=== PATIENT | male | born 1965 | race American Indian/Alaskan Native ===

== ENCOUNTER 2020-05-13 16:09 | Inpatient (IN) | payer OTHER ==
--- NOTE | 2020-05-13 17:00 | Event Note ---
ED Screening Note Date of service: 05/13/20 Time: 16:58 ED Screening Note: C/o intermittent abdominal pain x 4 months and right 3rd toe pain x 2 weeks toe is discolored and black appearing diagnosed with colon cancer 1 week ago denies melena/hematochezia This initial assessment/diagnostic orders/clinical plan/treatment(s) is/are subject to change based on patients health status, clinical progression and re- assessment by fellow clinical providers in the ED. Further treatment and workup at subsequent clinical providers discretion. Patient/guardian urged not to elope from the ED as their condition may be serious if not clinically assessed and managed. Initial orders include: labs xr
[2020-05-13 17:12] LABS: Basophils # (Auto) 0.1 K/mm3 (0.0-0.1); Basophils % (Auto) 0.5 % (0.0-1.8); Eosinophils # (Auto) 0.1 K/mm3 (0.0-0.4); Eosinophils % (Auto) 0.3 % (0.0-4.3); Lymphocytes # (Auto) 1.9 K/mm3 (1.2-5.4); Lymphocytes % (Auto) 12.4 % (13.4-35.0); Mean Corpuscular HGB Conc 29 % (32-34); Mean Corpuscular Volume 75 fl (84-94); Monocytes # (Auto) 1.3 K/mm3 (0.0-0.8); Monocytes % (Auto) 8.4 % (0.0-7.3); Platelet Count 540 K/mm3 (140-440); Red Blood Count 3.99 M/mm3 (3.65-5.03)
[2020-05-13 17:13] LABS: Hemoglobin 8.8 gm/dl (11.8-15.2); Red Cell Distribution Width 20.2 % (13.2-15.2)
[2020-05-13 17:35] LABS: Alanine Aminotransferase 11 units/L (7-56); Albumin 2.5 g/dL (3.9-5); BUN/Creatinine Ratio 20; Blood Urea Nitrogen 16 mg/dL (9-20); Calcium 8.2 mg/dL (8.4-10.2); Hemolysis Index 1
--- NOTE | 2020-05-13 17:40 | XRay Report ---
RIGHT FOOT 3 VIEW(S) INDICATION / CLINICAL INFORMATION: pain, black 3rd digit COMPARISON: None available. FINDINGS: BONES / JOINT(S): No acute fracture or subluxation. Mild degenerative arthrosis first MTP joint. Mode rate degenerative arthrosis fourth and fifth DIP joints. SOFT TISSUES: No significant abnormality. ADDITIONAL FINDINGS: No soft tissue ulcer or radiographic evidence for osteomyelitis Signer Name: Hardeep Ozuna MD Signed: 05/13/2020 5:36 PM Workstation Name: [id number]
[2020-05-13 18:01] LABS: Bacteria,Urine 1+ /HPF (Negative); Bilirubin,Urine NEG (Negative); Blood,Urine NEG (Negative); Color,Urine Yellow (Yellow); Mucus,Urine FEW /HPF; Protein,Urine <15 mg/dL mg/dL (Negative)
[2020-05-13] MEDS ORDERED: PIPERACIL/TAZOBACTA 4.5/NS 100 4.5 GM/100 ML VIAL IV ONE (20:48)
[2020-05-13] MEDS ORDERED: VANCOMYCIN 1,750 MG in SODIUM CHLORIDE 0.9% 500 ML 500 ML IV ONE (20:48)
[2020-05-13] MEDS ORDERED: VANCOMYCIN PHARMACY TO DOSE IV SCH ×2 (21:00→23:45)
[2020-05-13] MEDS ORDERED: VANCOMYCIN 1,750 MG in SODIUM CHLORIDE 0.9% 500 ML 500 ML IV SCH (21:00)
--- NOTE | 2020-05-13 22:02 | Emergency Department Report ---
ED General Adult HPI - General Chief complaint: Abdominal Pain Stated complaint: ABD PAIN/RT FOOT PAIN/ CANCER PATIENT Time Seen by Provider: 05/13/20 16:57 Source: patient Mode of arrival: Ambulatory Limitations: No Limitations - History of Present Illness Initial comments: Patient is a 55-year-old F [place] male who was recently diagnosed with colon cancer approximately a week ago as a facility in [facility] who is complaining of some chronic abdominal pain as well as some pain to his right foot. Patient states his abdominal pain has been chronic over the last 3 to 4 months. This prompted the ER at [facility] that he was passing through to do a CT which showed that he does have lesions consistent with colon cancer. Patient also has metastasis to his lungs. Patient has not seen anyone for the colon cancer locally as of yet. He denies any hematuria hematochezia nausea vomiting or diarrhea. Patient also is complaining of pain to his right foot specifically the right middle toe. He has swelling his pain is there is been worsening over the last 3 to 4 weeks. Patient states he is not a diabetic. 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 - Related Data Allergies Allergy/AdvReac Type Severity Reaction Status Date / Time ibuprofen Allergy Hives Verified 05/13/20 16:53 ED Review of Systems ROS: Stated complaint: ABD PAIN/RT FOOT PAIN/ CANCER PATIENT Other details as noted in HPI Comment: All other systems reviewed and negative ED Past Medical Hx - Past Medical History Hx of Cancer: Yes (COLON) ED Physical Exam - General Limitations: No Limitations General appearance: alert, in no apparent distress - Head Head exam: Present: atraumatic, normocephalic - Eye Eye exam: Present: normal appearance - ENT ENT exam: Present: mucous membranes moist - Neck Neck exam: Present: normal inspection - Respiratory Respiratory exam: Present: normal lung sounds bilaterally. Absent: respiratory distress, wheezes, rales, rhonchi - Cardiovascular Cardiovascular Exam: Present: regular rate, normal rhythm, normal heart sounds. Absent: systolic murmur, diastolic murmur, rubs, gallop - GI/Abdominal GI/Abdominal exam: Present: soft, normal bowel sounds. Absent: distended, tenderness, guarding - Rectal Rectal exam: Present: deferred - Extremities Exam Extremities exam: Present: normal inspection, other (Patient with some hyperpigmentation and swelling to the right middle toe. The hyperpigmentation is consistent with dry gangrene.) - Back Exam Back exam: Present: normal inspection - Neurological Exam Neurological exam: Present: alert, oriented X3 - Psychiatric Psychiatric exam: Present: normal affect, normal mood - Skin Skin exam: Present: warm, dry, intact, normal color. Absent: rash ED Course Vital Signs 05/13/20 16:58 Temperature 98.9 F Pulse Rate 80 Respiratory 20 Rate Blood Pressure 126/79 O2 Sat by Pulse 100 Oximetry ED Medical Decision Making - Lab Data Result diagrams: 05/13/20 17:02 05/13/20 17:02 Lab Results 05/13/20 05/13/20 05/13/20 Range/Units 17:02 17:02 21:01 WBC 15.7 H (4.5-11.0) K/mm3 RBC 3.99 (3.65-5.03) M/mm3 Hgb 8.8 L (11.8-15.2) gm/dl Hct 30.0 L (35.5-45.6) % MCV 75 L (84-94) fl MCH 22 L (28-32) pg MCHC 29 L (32-34) % RDW 20.2 H (13.2-15.2) % Plt Count 540 H (140-440) K/mm3 Lymph % (Auto) 12.4 L (13.4-35.0) % Mobile % (Auto) 8.4 H (0.0-7.3) % Eos % (Auto) 0.3 (0.0-4.3) % Baso % (Auto) 0.5 (0.0-1.8) % Lymph # (Auto) 1.9 (1.2-5.4) K/mm3 Mobile # (Auto) 1.3 H (0.0-0.8) K/mm3 Eos # (Auto) 0.1 (0.0-0.4) K/mm3 Baso # (Auto) 0.1 (0.0-0.1) K/mm3 Seg Neutrophils % 78.4 H (40.0-70.0) % Seg Neutrophils # 12.3 H (1.8-7.7) K/mm3 Sodium 135 L (137-145) mmol/L Potassium 3.7 (3.6-5.0) mmol/L Chloride 101.8 (98-107) mmol/L Carbon Dioxide 23 (22-30) mmol/L Anion Gap 14 mmol/L BUN 16 (9-20) mg/dL Creatinine 0.8 (0.8-1.3) mg/dL Estimated GFR > 60 ml/min BUN/Creatinine Ratio 20 % Glucose 90 (75-100) mg/dL Lactic Acid 1.30 (0.7-2.0) mmol/L Calcium 8.2 L (8.4-10.2) mg/dL Total Bilirubin 0.30 (0.1-1.2) mg/dL AST 15 (5-40) units/L ALT 11 (7-56) units/L Alkaline Phosphatase 247 H (35-129) units/L Total Protein 7.0 (6.3-8.2) g/dL Albumin 2.5 L (3.9-5) g/dL Albumin/Globulin Ratio 0.6 % Lipase 33 (13-60) units/L Urine Color (Yellow) Urine Turbidity (Clear) Urine pH (5.0-7.0) Ur Specific [place] (1.003-1.030) Urine Protein (Negative) mg/dL Urine Glucose (UA) (Negative) mg/dL Urine Ketones (Negative) mg/dL Urine Blood (Negative) Urine Nitrite (Negative) Urine Bilirubin (Negative) Urine Urobilinogen (<2.0) mg/dL Ur Leukocyte Esterase (Negative) Urine WBC (Auto) (0.0-6.0) /HPF Urine RBC (Auto) (0.0-6.0) /HPF U Epithel Cells (Auto) (0-13.0) /HPF Urine Bacteria (Auto) (Negative) /HPF Urine Mucus /HPF 05/13/20 Range/Units Unknown WBC (4.5-11.0) K/mm3 RBC (3.65-5.03) M/mm3 Hgb (11.8-15.2) gm/dl Hct (35.5-45.6) % MCV (84-94) fl MCH (28-32) pg MCHC (32-34) % RDW (13.2-15.2) % Plt Count (140-440) K/mm3 Lymph % (Auto) (13.4-35.0) % Mobile % (Auto) (0.0-7.3) % Eos % (Auto) (0.0-4.3) % Baso % (Auto) (0.0-1.8) % Lymph # (Auto) (1.2-5.4) K/mm3 Mobile # (Auto) (0.0-0.8) K/mm3 Eos # (Auto) (0.0-0.4) K/mm3 Baso # (Auto) (0.0-0.1) K/mm3 Seg Neutrophils % (40.0-70.0) % Seg Neutrophils # (1.8-7.7) K/mm3 Sodium (137-145) mmol/L Potassium (3.6-5.0) mmol/L Chloride (98-107) mmol/L Carbon Dioxide (22-30) mmol/L Anion Gap mmol/L BUN (9-20) mg/dL Creatinine (0.8-1.3) mg/dL Estimated GFR ml/min BUN/Creatinine Ratio % Glucose (75-100) mg/dL Lactic Acid (0.7-2.0) mmol/L Calcium (8.4-10.2) mg/dL Total Bilirubin (0.1-1.2) mg/dL AST (5-40) units/L ALT (7-56) units/L Alkaline Phosphatase (35-129) units/L Total Protein (6.3-8.2) g/dL Albumin (3.9-5) g/dL Albumin/Globulin Ratio % Lipase (13-60) units/L Urine Color Yellow (Yellow) Urine Turbidity Slightly-cloudy (Clear) Urine pH 5.0 (5.0-7.0) Ur Specific [place] 1.021 (1.003-1.030) Urine Protein <15 mg/dl (Negative) mg/dL Urine Glucose (UA) Neg (Negative) mg/dL Urine Ketones Neg (Negative) mg/dL Urine Blood Neg (Negative) Urine Nitrite Neg (Negative) Urine Bilirubin Neg (Negative) Urine Urobilinogen 2.0 (<2.0) mg/dL Ur Leukocyte Esterase Tr (Negative) Urine WBC (Auto) 5.0 (0.0-6.0) /HPF Urine RBC (Auto) 5.0 (0.0-6.0) /HPF U Epithel Cells (Auto) 3.0 (0-13.0) /HPF Urine Bacteria (Auto) 1+ (Negative) /HPF Urine Mucus Few /HPF - Radiology Data Right foot x-ray shows no soft tissue swelling or evidence of osteomyelitis - Medical Decision Making Patient is a 55-year-old gentleman who is presenting with swelling pain in his right middle toe consistent with a tracking gangrene. Patient will be started on IV antibiotics and be admitted to the hospitalist service for further management. Patient may need amputation of this toe in order to save his foot. Regard to patient's abdominal pain he does have a CT report from his previous visits at outside hospital. Pain is consistent with pain he has had chronically over the last several months and no additional advanced imaging is necessary at this time. Critical care attestation.: If time is entered above; I have spent that time in minutes in the direct care of this critically ill patient, excluding procedure time. ED Disposition Clinical Impression: Gangrene of toe of right foot, Colon cancer metastasized to lung Disposition: [id number] OP ADMIT IP TO THIS HOSP Is pt being admited?: Yes Does the pt Need Aspirin: No Condition: Stable
[2020-05-13] MEDS ORDERED: MORPHINE 2 MG/1 ML INJ IV ONE (22:55)
[2020-05-13] MEDS ORDERED: MAGNESIUM HYDROXIDE (MOM) ORAL LIQD UDC PO PRN (23:06)
--- NOTE | 2020-05-13 23:22 | History and Physical Report ---
History of Present Illness Date of examination: 05/13/20 Date of admission: 05/13/20 22:02 Chief complaint: Abdominal pain Right middle toe pain/wound History of present illness: 85-year-old -[place] male who was recently diagnosed with colon cancer in [facility] about a week ago presenting to the emergency room today complaining of chronic abdominal pain and right foot pain. Abdominal pain has been ongoing for the past 3 to 4 months. He was recently in [facility] where he was evaluated in the hospital and diagnosed with lesions consistent with colon cancer on a CT scan. Was also said to have had metastases to his lungs. He has not had any follow-up with any oncologist or multi media specialist because of insurance issues. Patient also indicates that his older brother of colon cancer few years ago. He has not had any colonoscopy in the past. 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 Patient has been having pain in his right foot over the past few weeks. He denies any trauma to the foot and no recent fall. He denies any numbness. Patient denies any fever or chills, no chest pain or shortness of breath, no nausea vomiting, no headache or dizziness. Work-up in the emergency room today reveals a leukocytosis of 15.7. X-ray of the right foot did not reveal any osteomyelitis. Patient is being admitted with gangrene of the right middle toe in addition to his recently diagnosed colon cancer. Past History Past Medical History: other (Colon Ca.- recently diagnosed.) Past Surgical History: No surgical history Social history: no significant social history Family history: cancer (Older brother of colon ca.) Medications and Allergies Allergies Allergy/AdvReac Type Severity Reaction Status Date / Time ibuprofen Allergy Hives Verified 05/13/20 16:53 Home Medications Medication Instructions Recorded Confirmed Last Taken Type No Known Home Medications [No 05/14/20 05/14/20 Unknown History Reported Home Medications] Active Meds: Active Medications Acetaminophen (Acetaminophen 325 Mg Tab) 650 mg PO Q4H PRN PRN Reason: Pain MILD(1-3)/Fever >100.5/DOMINIQUE Vancomycin HCl 1,750 mg/ (Sodium Chloride) 535 mls @ 267.5 mls/hr IV Q12H [facility]; Protocol Last Admin: 05/13/20 23:15 Dose: 267.5 mls/hr Documented by: Sodium Chloride (Nacl 0.9% 1000 Ml) 1,000 mls @ 125 mls/hr IV DIRECT ALISTAIR Piperacillin Sod/Tazobactam Sod (Zosyn/Ns 4.5gm/100ml) 4.5 gm in 100 mls @ 200 mls/hr IV Q8HR ALISTAIR; Protocol Magnesium Hydroxide (Magnesium Hydroxide (Mom) Oral Liqd Udc) 30 ml PO Q4H PRN PRN Reason: Constipation Morphine Sulfate (Morphine 2 Mg/1 Ml Inj) 2 mg IV Q4H PRN PRN Reason: Pain, Moderate (4-6) Ondansetron HCl (Ondansetron 4 Mg/2 Ml Inj) 4 mg IV Q8H PRN PRN Reason: Nausea And Vomiting Sodium Chloride (Sodium Chloride 0.9% 10 Ml Flush Syringe) 10 ml IV BID ALISTAIR Sodium Chloride (Sodium Chloride 0.9% 10 Ml Flush Syringe) 10 ml IV PRN PRN PRN Reason: LINE FLUSH Review of Systems Constitutional: no fever, no chills Ears, nose, mouth and throat: no nasal congestion, no sore throat Cardiovascular: no chest pain, no palpitations Respiratory: no cough, no shortness of breath Gastrointestinal: abdominal pain, no nausea, no vomiting, no diarrhea Genitourinary Male: no dysuria, no hematuria, no flank pain, no nocturia Musculoskeletal: no neck pain, no low back pain Integumentary: no rash, no pruritis Neurological: no headaches, no confusion Psychiatric: no anxiety, no depression Exam - Constitutional Vitals: Temp Pulse Resp BP Pulse Ox 98.9 F 80 20 126/79 100 05/13/20 16:58 05/13/20 16:58 05/13/20 16:58 05/13/20 16:58 05/13/20 16:58 General appearance: Present: no acute distress, well-nourished - EENT Eyes: Present: PERRL, EOM intact. Absent: scleral icterus ENT: hearing intact, clear oral mucosa, dentition normal - Neck Neck: Present: supple, normal ROM - Respiratory Respiratory effort: normal Respiratory: bilateral: CTA - Cardiovascular Rhythm: regular Heart Sounds: Present: S1 & S2. Absent: gallop, systolic murmur, diastolic murmur, rub, click - Extremities Extremities: pulses intact, pulses symmetrical, No edema, normal temperature, Full ROM Extremity abnormal: black (Right middle toe wound,gangrenous ,tender), tenderness (Right middle toe.) Peripheral Pulses: within normal limits - Abdominal General gastrointestinal: Present: soft, tender, non-distended, normal bowel sounds, hernia (Mildly tender ventral hernia.) - Integumentary Integumentary: Present: clear, warm, dry. Absent: rash - Musculoskeletal Musculoskeletal: strength equal bilaterally - Psychiatric Psychiatric: appropriate mood/affect, intact judgment & insight, memory intact, cooperative - Neurologic Neurologic: CNII-XII intact, no focal deficits, moves all extremities Results - Labs CBC & Chem 7: 05/13/20 17:02 05/13/20 17:02 Labs: Abnormal lab results 05/13/20 05/13/20 Range/Units 17:02 17:02 WBC 15.7 H (4.5-11.0) K/mm3 Hgb 8.8 L (11.8-15.2) gm/dl Hct 30.0 L (35.5-45.6) % MCV 75 L (84-94) fl MCH 22 L (28-32) pg MCHC 29 L (32-34) % RDW 20.2 H (13.2-15.2) % Plt Count 540 H (140-440) K/mm3 Lymph % (Auto) 12.4 L (13.4-35.0) % [place] % (Auto) 8.4 H (0.0-7.3) % [place] # (Auto) 1.3 H (0.0-0.8) K/mm3 Seg Neutrophils % 78.4 H (40.0-70.0) % Seg Neutrophils # 12.3 H (1.8-7.7) K/mm3 Sodium 135 L (137-145) mmol/L Calcium 8.2 L (8.4-10.2) mg/dL Alkaline Phosphatase 247 H (35-129) units/L Albumin 2.5 L (3.9-5) g/dL Assessment and Plan - Patient Problems (1) Gangrene of toe of right foot Current Visit: Yes Status: Acute Plan to address problem: Patient placed on empiric IV antibiotics. Consult placed to infectious disease and vascular surgery for evaluation. (2) Colon cancer metastasized to lung Current Visit: Yes Status: Acute Plan to address problem: Patient was just recently diagnosed with colon cancer in [facility]. He has not had any follow-up with any physician. We will place consult to gastroenterology for evaluation. (3) DVT prophylaxis Current Visit: Yes Status: Acute Plan to address problem: Patient placed on sequential compression device. (4) Full code status Current Visit: Yes Status: Acute Plan to address problem: Patient is full code.
[2020-05-14] MEDS: SODIUM CHLORIDE 0.9% 1000 ML 1,000 ML IV SCH ×2 (02:04→10:40)
[2020-05-14] MEDS: PIPERACIL/TAZOBACTA 4.5/NS 100 4.5 GM/100 ML VIAL IV SCH ×2 (05:23→13:01)
[2020-05-14 08:28] LABS: Basophils # (Auto) 0.1 K/mm3 (0.0-0.1); Basophils % (Auto) 0.6 % (0.0-1.8); Eosinophils # (Auto) 0.1 K/mm3 (0.0-0.4); Eosinophils % (Auto) 0.5 % (0.0-4.3); Hematocrit 27.1 % (35.5-45.6); Hemoglobin 8.1 gm/dl (11.8-15.2); Lymphocytes # (Auto) 1.8 K/mm3 (1.2-5.4); Lymphocytes % (Auto) 12.8 % (13.4-35.0); Mean Corpuscular HGB Conc 30 % (32-34); Mean Corpuscular Volume 74 fl (84-94); Monocytes # (Auto) 1.5 K/mm3 (0.0-0.8); Monocytes % (Auto) 10.9 % (0.0-7.3); Platelet Count 469 K/mm3 (140-440); Red Blood Count 3.69 M/mm3 (3.65-5.03); Red Cell Distribution Width 19.9 % (13.2-15.2)
[2020-05-14 08:37] LABS: INR 1.09 (0.87-1.13)
[2020-05-14 08:48] LABS: BUN/Creatinine Ratio 13; Blood Urea Nitrogen 10 mg/dL (9-20); Calcium 7.9 mg/dL (8.4-10.2); Hemolysis Index 14
--- NOTE | 2020-05-14 08:57 | Progress Note ---
Assessment and Plan Assessment and plan: (1) Gangrene of toe of right foot Current Visit: Yes Status: Acute Plan to address problem: Patient placed on empiric IV antibiotics. Consult placed to infectious disease and vascular surgery for evaluation. (2) Colon cancer metastasized to lung Current Visit: Yes Status: Acute Plan to address problem: Patient was just recently diagnosed with colon cancer in [facility]. He has not had any follow-up with any physician. We will place consult to gastroenterology for evaluation. (3) DVT prophylaxis Current Visit: Yes Status: Acute Plan to address problem: Patient placed on sequential compression device. (4) Full code status Current Visit: Yes Status: Acute Plan to address problem: Patient is full code. 05/14/2020 -Patient is diagnosed with stage IV colon cancer metastasized to the lung recently. Patient went to [place] and discharged him to have follow-up at [facility] and patient presented here. Patient has colon mass and was able to do advance to colonoscopy at [facility] (per GI), patient may need surgical intervention and I put a consult for general surgery. I have discussed with GI and GI said nothing to add on his current management. Patient need to have follow-up with oncologist as an outpatient. Patient has gangrene of the right third toes and I ordered arterial Doppler, vascular surgery consulted. She has also leukocytosis and is on IV Vanco and Zosyn. History Interval history: Patient was seen and evaluated this morning Patient is complaining severe pain in the right third toes Hospitalist Physical - Physical exam Narrative exam: Not in cardiopulmonary distress. The patient appeared well nourished and normally developed. Vital signs as documented. Head exam is unremarkable. No scleral icterus . Neck is without jugular venous distension, thyromegaly, or carotid bruits. Lungs are clear to auscultation. Cardiac exam reveals regular rate and Rhythm. Abdominal exam reveals normal bowel sounds, nontender, no organomegaly. Extremities dark discoloration of the right third toes. BIOPHARMACEUTICAL REP: Alert and oriented 3. No focal weakness. - Constitutional Vitals: Temp Pulse Resp BP Pulse Ox 98.2 F 58 L 20 133/80 100 05/14/20 04:26 05/14/20 04:26 05/14/20 04:26 05/14/20 04:26 05/14/20 04:26 General appearance: Present: no acute distress, well-nourished Results - Labs CBC & Chem 7: 05/14/20 08:02 05/14/20 08:02 Labs: Laboratory Last Values WBC 14.0 K/mm3 (4.5-11.0) H 05/14/20 08:02 RBC 3.69 M/mm3 (3.65-5.03) 05/14/20 08:02 Hgb 8.1 gm/dl (11.8-15.2) L 05/14/20 08:02 Hct 27.1 % (35.5-45.6) L 05/14/20 08:02 MCV 74 fl (84-94) L 05/14/20 08:02 MCH 22 pg (28-32) L 05/14/20 08:02 MCHC 30 % (32-34) L 05/14/20 08:02 RDW 19.9 % (13.2-15.2) H 05/14/20 08:02 Plt Count 469 K/mm3 (140-440) H 05/14/20 08:02 Lymph % (Auto) 12.8 % (13.4-35.0) L 05/14/20 08:02 [place] % (Auto) 10.9 % (0.0-7.3) H 05/14/20 08:02 Eos % (Auto) 0.5 % (0.0-4.3) 05/14/20 08:02 Baso % (Auto) 0.6 % (0.0-1.8) 05/14/20 08:02 Lymph # (Auto) 1.8 K/mm3 (1.2-5.4) 05/14/20 08:02 [place] # (Auto) 1.5 K/mm3 (0.0-0.8) H 05/14/20 08:02 Eos # (Auto) 0.1 K/mm3 (0.0-0.4) 05/14/20 08:02 Baso # (Auto) 0.1 K/mm3 (0.0-0.1) 05/14/20 08:02 Seg Neutrophils % 75.2 % (40.0-70.0) H 05/14/20 08:02 Seg Neutrophils # 10.5 K/mm3 (1.8-7.7) H 05/14/20 08:02 PT 13.9 Sec. (12.2-14.9) 05/14/20 08:02 INR 1.09 (0.87-1.13) 05/14/20 08:02 Sodium 135 mmol/L (137-145) L 05/14/20 08:02 Potassium 3.8 mmol/L (3.6-5.0) 05/14/20 08:02 Chloride 103.6 mmol/L (98-107) 05/14/20 08:02 Carbon Dioxide 23 mmol/L (22-30) 05/14/20 08:02 Anion Gap 12 mmol/L 05/14/20 08:02 BUN 10 mg/dL (9-20) 05/14/20 08:02 Creatinine 0.8 mg/dL (0.8-1.3) 05/14/20 08:02 Estimated GFR > 60 ml/min 05/14/20 08:02 BUN/Creatinine Ratio 13 % 05/14/20 08:02 Glucose 83 mg/dL (75-100) 05/14/20 08:02 Lactic Acid 0.90 mmol/L (0.7-2.0) 05/14/20 08:02 Calcium 7.9 mg/dL (8.4-10.2) L 05/14/20 08:02 Total Bilirubin 0.30 mg/dL (0.1-1.2) 05/13/20 17:02 AST 15 units/L (5-40) 05/13/20 17:02 ALT 11 units/L (7-56) 05/13/20 17:02 Alkaline Phosphatase 247 units/L (35-129) H 05/13/20 17:02 Total Protein 7.0 g/dL (6.3-8.2) 05/13/20 17:02 Albumin 2.5 g/dL (3.9-5) L 05/13/20 17:02 Albumin/Globulin Ratio 0.6 % 05/13/20 17:02 Lipase 33 units/L (13-60) 05/13/20 17:02 Urine Color Yellow (Yellow) 05/13/20 Unknown Urine Turbidity Slightly-cloudy (Clear) 05/13/20 Unknown Urine pH 5.0 (5.0-7.0) 05/13/20 Unknown Ur Specific [place] 1.021 (1.003-1.030) 05/13/20 Unknown Urine Protein <15 mg/dl mg/dL (Negative) 05/13/20 Unknown Urine Glucose (UA) Neg mg/dL (Negative) 05/13/20 Unknown Urine Ketones Neg mg/dL (Negative) 05/13/20 Unknown Urine Blood Neg (Negative) 05/13/20 Unknown Urine Nitrite Neg (Negative) 05/13/20 Unknown Urine Bilirubin Neg (Negative) 05/13/20 Unknown Urine Urobilinogen 2.0 mg/dL (<2.0) 05/13/20 Unknown Ur Leukocyte Esterase Tr (Negative) 05/13/20 Unknown Urine WBC (Auto) 5.0 /HPF (0.0-6.0) 05/13/20 Unknown Urine RBC (Auto) 5.0 /HPF (0.0-6.0) 05/13/20 Unknown U Epithel Cells (Auto) 3.0 /HPF (0-13.0) 05/13/20 Unknown Urine Bacteria (Auto) 1+ /HPF (Negative) 05/13/20 Unknown Urine Mucus Few /HPF 05/13/20 Unknown Microbiology: Microbiology 05/13/20 21:08 Peripheral/Venous Blood Culture - Preliminary Culture in Progress 05/13/20 21:01 Peripheral/Venous Blood Culture - Preliminary Culture in Progress Mcrae/IV: Voiding Method Urinal Active Medications - Current Medications Current Medications: Generic Name Dose Route Start Last Admin Trade Name Freq PRN Reason Stop Dose Admin Acetaminophen 650 mg 05/13/20 23:06 Acetaminophen 325 Mg Tab PO Q4H PRN Pain MILD(1-3)/Fever >100.5/DOMINIQUE Sodium Chloride 1,000 mls @ 125 mls/hr 05/13/20 23:15 05/14/20 02:04 Nacl 0.9% 1000 Ml IV 125 mls/hr DIRECT ALISTAIR Administration Piperacillin Sod/Tazobactam Sod 4.5 gm in 100 mls @ 200 mls/hr 05/14/20 06:00 05/14/20 05:23 Zosyn/Ns 4.5gm/100ml IV 200 mls/hr Q8HR ALISTAIR Administration Protocol Vancomycin HCl 1,500 mg/ 530 mls @ 333.333 mls/hr 05/14/20 10:00 Sodium Chloride IV Q12H ALISTAIR Magnesium Hydroxide 30 ml 05/13/20 23:06 Magnesium Hydroxide (Mom) Oral Liqd Udc PO Q4H PRN Constipation Morphine Sulfate 2 mg 05/13/20 23:06 Morphine 2 Mg/1 Ml Inj IV Q4H PRN Pain, Moderate (4-6) Ondansetron HCl 4 mg 05/13/20 23:06 Ondansetron 4 Mg/2 Ml Inj IV Q8H PRN Nausea And Vomiting Sodium Chloride 10 ml 05/14/20 10:00 Sodium Chloride 0.9% 10 Ml Flush Syringe IV BID ALISTAIR Sodium Chloride 10 ml 05/13/20 23:06 Sodium Chloride 0.9% 10 Ml Flush Syringe IV PRN PRN LINE FLUSH
[2020-05-14] MEDS ORDERED: VANCOMYCIN 1,500 MG in SODIUM CHLORIDE 0.9% 500 ML 500 ML IV SCH (10:00)
--- NOTE | 2020-05-14 10:06 | Consultation ---
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 Colonoscopy showed fungating circumferential mass in mid transverse colon, near obstructing, and precluding scope passage. Pt has several month hx of intermittent abd pain and progressive easy fatigability, and the pain became severe while he was driving, leading him to go to hospital via EMS. BMs used to be qd, but over last few months have occurred 2x/d, loose. He has been losing weight. No lindsay GI bleed. Pt went to [facility] on 05/10/20, but states that he was advised to seek care here as he is a [facility] resident. Meds reviewed. Past History Past Medical History: No medical history, other Past Surgical History: No surgical history Social history: no significant social history, smoking. denies: alcohol abuse Family history: cancer (Older brother of colon ca.) Medications and Allergies Allergies Allergy/AdvReac Type Severity Reaction Status Date / Time ibuprofen Allergy Hives Verified 05/13/20 16:53 Home Medications Medication Instructions Recorded Confirmed Last Taken Type No Known Home Medications [No 05/14/20 05/14/20 Unknown History Reported Home Medications] Active Meds: Active Medications Acetaminophen (Acetaminophen 325 Mg Tab) 650 mg PO Q4H PRN PRN Reason: Pain MILD(1-3)/Fever >100.5/DOMINIQUE Sodium Chloride (Nacl 0.9% 1000 Ml) 1,000 mls @ 125 mls/hr IV DIRECT ALISTAIR Last Admin: 05/14/20 02:04 Dose: 125 mls/hr Documented by: Piperacillin Sod/Tazobactam Sod (Zosyn/Ns 4.5gm/100ml) 4.5 gm in 100 mls @ 200 mls/hr IV Q8HR ALISTAIR; Protocol Last Admin: 05/14/20 05:23 Dose: 200 mls/hr Documented by: Vancomycin HCl 1,500 mg/ (Sodium Chloride) 530 mls @ 333.333 mls/hr IV Q12H ALISTAIR Magnesium Hydroxide (Magnesium Hydroxide (Mom) Oral Liqd Udc) 30 ml PO Q4H PRN PRN Reason: Constipation Morphine Sulfate (Morphine 2 Mg/1 Ml Inj) 2 mg IV Q4H PRN PRN Reason: Pain, Moderate (4-6) Ondansetron HCl (Ondansetron 4 Mg/2 Ml Inj) 4 mg IV Q8H PRN PRN Reason: Nausea And Vomiting Sodium Chloride (Sodium Chloride 0.9% 10 Ml Flush Syringe) 10 ml IV BID ALISTAIR Sodium Chloride (Sodium Chloride 0.9% 10 Ml Flush Syringe) 10 ml IV PRN PRN PRN Reason: LINE FLUSH Review of Systems All systems: negative (as noted in HPI) Exam - Constitutional Vitals: Temp Pulse Resp BP Pulse Ox 98.2 F 58 L 20 133/80 100 05/14/20 04:26 05/14/20 04:26 05/14/20 04:26 05/14/20 04:26 05/14/20 04:26 General appearance: Present: no acute distress - EENT Eyes: Present: PERRL, EOM intact ENT: hearing intact - Neck Neck: Present: supple - Respiratory Respiratory effort: normal Respiratory: bilateral: CTA - Cardiovascular Rhythm: regular Heart Sounds: Present: S1 & S2 - Extremities Extremities: No edema - Abdominal General gastrointestinal: Present: soft, non-tender, mass (Palpable in mid epigastrium, ~ 5 cm in size, mobile) Results - Labs CBC & Chem 7: 05/14/20 08:02 05/14/20 08:02 Labs: Abnormal lab results 05/13/20 05/13/20 05/14/20 Range/Units 17:02 17:02 08:02 WBC 15.7 H 14.0 H (4.5-11.0) K/mm3 Hgb 8.8 L 8.1 L (11.8-15.2) gm/dl Hct 30.0 L 27.1 L (35.5-45.6) % MCV 75 L 74 L (84-94) fl MCH 22 L 22 L (28-32) pg MCHC 29 L 30 L (32-34) % RDW 20.2 H 19.9 H (13.2-15.2) % Plt Count 540 H 469 H (140-440) K/mm3 Lymph % (Auto) 12.4 L 12.8 L (13.4-35.0) % [place] % (Auto) 8.4 H 10.9 H (0.0-7.3) % [place] # (Auto) 1.3 H 1.5 H (0.0-0.8) K/mm3 Seg Neutrophils % 78.4 H 75.2 H (40.0-70.0) % Seg Neutrophils # 12.3 H 10.5 H (1.8-7.7) K/mm3 Sodium 135 L (137-145) mmol/L Calcium 8.2 L (8.4-10.2) mg/dL Alkaline Phosphatase 247 H (35-129) units/L Albumin 2.5 L (3.9-5) g/dL 05/14/20 Range/Units 08:02 WBC (4.5-11.0) K/mm3 Hgb (11.8-15.2) gm/dl Hct (35.5-45.6) % MCV (84-94) fl MCH (28-32) pg MCHC (32-34) % RDW (13.2-15.2) % Plt Count (140-440) K/mm3 Lymph % (Auto) (13.4-35.0) % [place] % (Auto) (0.0-7.3) % [place] # (Auto) (0.0-0.8) K/mm3 Seg Neutrophils % (40.0-70.0) % Seg Neutrophils # (1.8-7.7) K/mm3 Sodium 135 L (137-145) mmol/L Calcium 7.9 L (8.4-10.2) mg/dL Alkaline Phosphatase (35-129) units/L Albumin (3.9-5) g/dL Assessment and Plan 1. Near obstructing colon cancer with likely lung metastases - completely evaluated from GI perspective with EGD/Colon, CT, and even lung biopsy. - would get final pathology from [place] - recommend Surgical and Oncology evaluation No role for further GI evaluation. Will sign off. Thanks.
[2020-05-14] MEDS: MORPHINE 2 MG/1 ML INJ IV PRN ×2 (10:34→22:50)
--- NOTE | 2020-05-14 13:26 | Consultation ---
History of Present Illness - Reason for Consult Consult date: 05/14/20 Right foot gangrene - History of Present Illness Patient with a history of colon cancer and a 2-month history of worsening discoloration to the toes on his right foot. Today, the patient has dusky discoloration to his entire right third toe and partially involving his fourth and fifth toes. Patient has nonpalpable pedal pulses on the right. Palpable pedal pulses on the left. Patient has never been evaluated by vascular before. Past History Past Medical History: No medical history, other Past Surgical History: No surgical history Social history: no significant social history, smoking. denies: alcohol abuse Family history: cancer (Older brother of colon ca.) Medications and Allergies Allergies Allergy/AdvReac Type Severity Reaction Status Date / Time ibuprofen Allergy Hives Verified 05/13/20 16:53 Home Medications Medication Instructions Recorded Confirmed Last Taken Type No Known Home Medications [No 05/14/20 05/14/20 Unknown History Reported Home Medications] Active Meds: Active Medications Acetaminophen (Acetaminophen 325 Mg Tab) 650 mg PO Q4H PRN PRN Reason: Pain MILD(1-3)/Fever >100.5/DOMINIQUE Sodium Chloride (Nacl 0.9% 1000 Ml) 1,000 mls @ 125 mls/hr IV DIRECT ALISTAIR Last Admin: 05/14/20 10:40 Dose: 125 mls/hr Documented by: Piperacillin Sod/Tazobactam Sod (Zosyn/Ns 4.5gm/100ml) 4.5 gm in 100 mls @ 200 mls/hr IV Q8HR ALISTAIR; Protocol Last Admin: 05/14/20 13:01 Dose: 200 mls/hr Documented by: Vancomycin HCl 1,500 mg/ (Sodium Chloride) 530 mls @ 333.333 mls/hr IV Q12H ALISTAIR Last Admin: 05/14/20 10:43 Dose: 333.333 mls/hr Documented by: Magnesium Hydroxide (Magnesium Hydroxide (Mom) Oral Liqd Udc) 30 ml PO Q4H PRN PRN Reason: Constipation Morphine Sulfate (Morphine 2 Mg/1 Ml Inj) 2 mg IV Q4H PRN PRN Reason: Pain, Moderate (4-6) Last Admin: 05/14/20 10:34 Dose: 2 mg Documented by: Ondansetron HCl (Ondansetron 4 Mg/2 Ml Inj) 4 mg IV Q8H PRN PRN Reason: Nausea And Vomiting Sodium Chloride (Sodium Chloride 0.9% 10 Ml Flush Syringe) 10 ml IV BID ALISTAIR Last Admin: 05/14/20 10:43 Dose: 10 ml Documented by: Sodium Chloride (Sodium Chloride 0.9% 10 Ml Flush Syringe) 10 ml IV PRN PRN PRN Reason: LINE FLUSH Review of Systems All systems: negative Exam - Constitutional Vitals: Temp Pulse Resp BP Pulse Ox 98.2 F 58 L 20 133/80 100 05/14/20 04:26 05/14/20 04:26 05/14/20 04:26 05/14/20 04:26 05/14/20 04:26 General appearance: Present: no acute distress - EENT Eyes: Present: PERRL ENT: hearing intact - Neck Neck: Present: supple, normal ROM - Respiratory Respiratory effort: normal - Extremities Extremities: abnormal - Abdominal General gastrointestinal: Present: deferred Male genitourinary: Present: deferred - Rectal Rectal Exam: deferred - Psychiatric Psychiatric: appropriate mood/affect, cooperative - Neurologic Neurologic: no focal deficits Results - Labs CBC & Chem 7: 05/14/20 08:02 05/14/20 08:02 Labs: Abnormal lab results 05/13/20 05/13/20 05/14/20 Range/Units 17:02 17:02 08:02 WBC 15.7 H 14.0 H (4.5-11.0) K/mm3 Hgb 8.8 L 8.1 L (11.8-15.2) gm/dl Hct 30.0 L 27.1 L (35.5-45.6) % MCV 75 L 74 L (84-94) fl MCH 22 L 22 L (28-32) pg MCHC 29 L 30 L (32-34) % RDW 20.2 H 19.9 H (13.2-15.2) % Plt Count 540 H 469 H (140-440) K/mm3 Lymph % (Auto) 12.4 L 12.8 L (13.4-35.0) % [place] % (Auto) 8.4 H 10.9 H (0.0-7.3) % [place] # (Auto) 1.3 H 1.5 H (0.0-0.8) K/mm3 Seg Neutrophils % 78.4 H 75.2 H (40.0-70.0) % Seg Neutrophils # 12.3 H 10.5 H (1.8-7.7) K/mm3 Sodium 135 L (137-145) mmol/L Calcium 8.2 L (8.4-10.2) mg/dL Alkaline Phosphatase 247 H (35-129) units/L Albumin 2.5 L (3.9-5) g/dL 05/14/20 Range/Units 08:02 WBC (4.5-11.0) K/mm3 Hgb (11.8-15.2) gm/dl Hct (35.5-45.6) % MCV (84-94) fl MCH (28-32) pg MCHC (32-34) % RDW (13.2-15.2) % Plt Count (140-440) K/mm3 Lymph % (Auto) (13.4-35.0) % [place] % (Auto) (0.0-7.3) % [place] # (Auto) (0.0-0.8) K/mm3 Seg Neutrophils % (40.0-70.0) % Seg Neutrophils # (1.8-7.7) K/mm3 Sodium 135 L (137-145) mmol/L Calcium 7.9 L (8.4-10.2) mg/dL Alkaline Phosphatase (35-129) units/L Albumin (3.9-5) g/dL Assessment and Plan Patient patient with a history of peripheral vascular disease with early gangrenous changes to the third fourth and fifth digits on his right foot. The patient will need to be evaluated with arterial duplex with ABIs and ultimately undergo revascularization of his right leg.
--- NOTE | 2020-05-14 14:51 | Consultation ---
History of Present Illness - Reason for Consult Consult date: 05/14/20 R foot gangrene Requesting physician: SAQIB SANCHEZ - History of Present Illness The patient is a 55-year-old male who was recently diagnosed with metastatic colon cancer came to the emergency room yesterday with complaints of abdominal pain and right foot pain with discoloration of his toes. He has otherwise been afebrile, evaluation so far included an x-ray of the foot which did not reveal any osseous abnormalities. He is an active smoker. ID was consulted due to gangrene of right foot. Review of Systems: General: no fevers,chills or rigors HEENT: no new visual disturbance Respiratory: No cough, sputum, hemoptysis or shortness of breath Cardiovascular: No chest pain, syncope Gastrointestinal: No nausea, vomiting or diarrhea Genitourinary: No dysuria or hematuria Musculoskeletal: No new or worsening neck pain or back pain Neurologic: No headaches, seizures Hematologic: No easy bruising or bleeding Endocrine: No night sweats or acute weight loss Skin: negative for rash, jaundice Psychiatric: No suicidal or homicidal ideation Past History Past Medical History: No medical history, other Past Surgical History: No surgical history Social history: no significant social history, smoking. denies: alcohol abuse Family history: cancer (Older brother of colon ca.) Medications and Allergies Allergies Allergy/AdvReac Type Severity Reaction Status Date / Time ibuprofen Allergy Hives Verified 05/13/20 16:53 Home Medications Medication Instructions Recorded Confirmed Last Taken Type No Known Home Medications [No 05/14/20 05/14/20 Unknown History Reported Home Medications] Active Meds: Active Medications Acetaminophen (Acetaminophen 325 Mg Tab) 650 mg PO Q4H PRN PRN Reason: Pain MILD(1-3)/Fever >100.5/DOMINIQUE Sodium Chloride (Nacl 0.9% 1000 Ml) 1,000 mls @ 125 mls/hr IV DIRECT ALISTAIR Last Admin: 05/14/20 10:40 Dose: 125 mls/hr Documented by: Piperacillin Sod/Tazobactam Sod (Zosyn/Ns 4.5gm/100ml) 4.5 gm in 100 mls @ 200 mls/hr IV Q8HR ALISTAIR; Protocol Last Admin: 05/14/20 13:01 Dose: 200 mls/hr Documented by: Vancomycin HCl 1,500 mg/ (Sodium Chloride) 530 mls @ 333.333 mls/hr IV Q12H [facility] Last Admin: 05/14/20 10:43 Dose: 333.333 mls/hr Documented by: Magnesium Hydroxide (Magnesium Hydroxide (Mom) Oral Liqd Udc) 30 ml PO Q4H PRN PRN Reason: Constipation Morphine Sulfate (Morphine 2 Mg/1 Ml Inj) 2 mg IV Q4H PRN PRN Reason: Pain, Moderate (4-6) Last Admin: 05/14/20 10:34 Dose: 2 mg Documented by: Ondansetron HCl (Ondansetron 4 Mg/2 Ml Inj) 4 mg IV Q8H PRN PRN Reason: Nausea And Vomiting Sodium Chloride (Sodium Chloride 0.9% 10 Ml Flush Syringe) 10 ml IV BID [facility] Last Admin: 05/14/20 10:43 Dose: 10 ml Documented by: Sodium Chloride (Sodium Chloride 0.9% 10 Ml Flush Syringe) 10 ml IV PRN PRN PRN Reason: LINE FLUSH Physical Examination - Physical Exam Narrative exam: Physical Exam: Constitutional: Alert, cooperative. No acute distress Head, Ears, Nose: Normocephalic, atraumatic. External ears, nose normal Eyes: Conjunctivae/corneas clear. No icterus. No ptosis. Neck: Supple, no meningeal signs Cardiovascular: S1, S2 normal. Respiratory: Good air entry, clear to auscultation bilaterally GI: Soft, non-tender; bowel sounds normal. No peritoneal signs Musculoskeletal: Right foot toes with slight darkening, no open wound, no areas of cellulitis or drainage Skin: No rash or abscess Hem/Lymphatic: No palpable cervical or supraclavicular nodes. No lymphangitis Psych: Mood ok. Affect normal Neurological: Awake, alert, oriented. No gross abnormality - Constitutional Vitals: Vital Signs Temp Pulse Resp BP Pulse Ox 99.0 F 56 L 20 120/70 100 05/14/20 12:54 05/14/20 12:54 05/14/20 12:54 05/14/20 12:54 05/14/20 12:54 Temperature -Last 24 Hours Temperature 99.0 F Temperature 98.2 F Temperature 98.7 F Temperature 98.9 F Results - Labs CBC & Chem 7: 05/14/20 08:02 05/14/20 08:02 Labs: Abnormal lab results 05/13/20 05/13/20 05/14/20 Range/Units 17:02 17:02 08:02 WBC 15.7 H 14.0 H (4.5-11.0) K/mm3 Hgb 8.8 L 8.1 L (11.8-15.2) gm/dl Hct 30.0 L 27.1 L (35.5-45.6) % MCV 75 L 74 L (84-94) fl MCH 22 L 22 L (28-32) pg MCHC 29 L 30 L (32-34) % RDW 20.2 H 19.9 H (13.2-15.2) % Plt Count 540 H 469 H (140-440) K/mm3 Lymph % (Auto) 12.4 L 12.8 L (13.4-35.0) % [place] % (Auto) 8.4 H 10.9 H (0.0-7.3) % [place] # (Auto) 1.3 H 1.5 H (0.0-0.8) K/mm3 Seg Neutrophils % 78.4 H 75.2 H (40.0-70.0) % Seg Neutrophils # 12.3 H 10.5 H (1.8-7.7) K/mm3 Sodium 135 L (137-145) mmol/L Calcium 8.2 L (8.4-10.2) mg/dL Alkaline Phosphatase 247 H (35-129) units/L Albumin 2.5 L (3.9-5) g/dL 05/14/20 Range/Units 08:02 WBC (4.5-11.0) K/mm3 Hgb (11.8-15.2) gm/dl Hct (35.5-45.6) % MCV (84-94) fl MCH (28-32) pg MCHC (32-34) % RDW (13.2-15.2) % Plt Count (140-440) K/mm3 Lymph % (Auto) (13.4-35.0) % [place] % (Auto) (0.0-7.3) % [place] # (Auto) (0.0-0.8) K/mm3 Seg Neutrophils % (40.0-70.0) % Seg Neutrophils # (1.8-7.7) K/mm3 Sodium 135 L (137-145) mmol/L Calcium 7.9 L (8.4-10.2) mg/dL Alkaline Phosphatase (35-129) units/L Albumin (3.9-5) g/dL Assessment and Plan Cultures: 05/13/2020 blood culture: In process A/P: 55-year-old male who was recently diagnosed with metastatic colon cancer came to the emergency room yesterday with complaints of abdominal pain and right foot pain: #Right foot gangrene: Due to vascular insufficiency. No evidence of cellulitis, no ulceration or drainage. X-ray without underlying osseous abnormalities. No role for antibiotics at this time. #Metastatic colon cancer #Leucocytosis and thrombocytosis: could be from tissue ischemia due to gangrene or metastatic colon cancer Recs: -Antibiotics discontinued -Leukocytosis could be from tissue ischemia due to gangrene or metastatic colon cancer -Re-vascularization per vascular team ID will sign off. Please call with questions. Raquel Jesus MD, FACP [facility] ([facility] O: [phone] F: [phone]
--- NOTE | 2020-05-14 16:20 | Consultation ---
History of Present Illness Consult date: 05/14/20 Reason for consult: abdominal pain - History of present illness History of present illness: 55 yo male with episodic abdominal pain and near obstructing adenoca of the mid- transverse colon. See Dr. Shetty's note for detail of eval thus far. Past History Past Medical History: No medical history Past Surgical History: No surgical history Social history: no significant social history, smoking. denies: alcohol abuse Family history: cancer (Older brother of colon ca.) Medications and Allergies Allergies Allergy/AdvReac Type Severity Reaction Status Date / Time ibuprofen Allergy Hives Verified 05/13/20 16:53 Home Medications Medication Instructions Recorded Confirmed Last Taken Type No Known Home Medications [No 05/14/20 05/14/20 Unknown History Reported Home Medications] Active Meds: Active Medications Acetaminophen (Acetaminophen 325 Mg Tab) 650 mg PO Q4H PRN PRN Reason: Pain MILD(1-3)/Fever >100.5/DOMINIQUE Sodium Chloride (Nacl 0.9% 1000 Ml) 1,000 mls @ 125 mls/hr IV DIRECT ALISTAIR Last Admin: 05/14/20 10:40 Dose: 125 mls/hr Documented by: Magnesium Hydroxide (Magnesium Hydroxide (Mom) Oral Liqd Udc) 30 ml PO Q4H PRN PRN Reason: Constipation Morphine Sulfate (Morphine 2 Mg/1 Ml Inj) 2 mg IV Q4H PRN PRN Reason: Pain, Moderate (4-6) Last Admin: 05/14/20 10:34 Dose: 2 mg Documented by: Ondansetron HCl (Ondansetron 4 Mg/2 Ml Inj) 4 mg IV Q8H PRN PRN Reason: Nausea And Vomiting Sodium Chloride (Sodium Chloride 0.9% 10 Ml Flush Syringe) 10 ml IV BID ALISTAIR Last Admin: 05/14/20 10:43 Dose: 10 ml Documented by: Sodium Chloride (Sodium Chloride 0.9% 10 Ml Flush Syringe) 10 ml IV PRN PRN PRN Reason: LINE FLUSH Review of Systems All systems: negative (none) Exam Vital Signs Temp Pulse Resp BP Pulse Ox 98.9 F 80 20 126/79 100 05/13/20 16:58 05/13/20 16:58 05/13/20 16:58 05/13/20 16:58 05/13/20 16:58 - General physical appearance Positive: well developed, well nourished, no distress - Eyes Positive: PERRL, normal occular movement - ENT Positive: normal pinna, normal nares, normal mucosa, no hearing loss, no congestion - Neck Positive: no masses, no bruits, trachea midline, no venous distension - Respiratory Positive: normal expansion, normal respiratory effort, clear to auscultation - Cardiovascular Rhythm: regular Heart Sounds: Present: S1 & S2. Absent: rub, click - Extremities Extremities: no ischemia, pulses symmetrical, No edema - Breasts Breasts: normal, no mass, no skin changes - Abdomen Abdomen: Present: soft, bowel sounds normal, other (3 cm incarcerated umbilical hernia). Absent: tender, distended Hernia: none - Genitourinary Male Genitourinary: normal Female Genitourinary: normal - Integumentary no rash, no growths, no abnormal pigmentation - Neurologic Neurologic: alert and oriented to time, place and person, motor strength and sensation are grossly intact - Musculoskeletal normal gait, normal posture - Psychiatric Psychiatric: appropriate mood/affect, intact judgment & insight Results - Labs 05/14/20 08:02 05/14/20 08:02 Abnormal lab results 05/13/20 05/13/20 05/14/20 Range/Units 17:02 17:02 08:02 WBC 15.7 H 14.0 H (4.5-11.0) K/mm3 Hgb 8.8 L 8.1 L (11.8-15.2) gm/dl Hct 30.0 L 27.1 L (35.5-45.6) % MCV 75 L 74 L (84-94) fl MCH 22 L 22 L (28-32) pg MCHC 29 L 30 L (32-34) % RDW 20.2 H 19.9 H (13.2-15.2) % Plt Count 540 H 469 H (140-440) K/mm3 Lymph % (Auto) 12.4 L 12.8 L (13.4-35.0) % [place] % (Auto) 8.4 H 10.9 H (0.0-7.3) % [place] # (Auto) 1.3 H 1.5 H (0.0-0.8) K/mm3 Seg Neutrophils % 78.4 H 75.2 H (40.0-70.0) % Seg Neutrophils # 12.3 H 10.5 H (1.8-7.7) K/mm3 Sodium 135 L (137-145) mmol/L Calcium 8.2 L (8.4-10.2) mg/dL Alkaline Phosphatase 247 H (35-129) units/L Albumin 2.5 L (3.9-5) g/dL 05/14/20 Range/Units 08:02 WBC (4.5-11.0) K/mm3 Hgb (11.8-15.2) gm/dl Hct (35.5-45.6) % MCV (84-94) fl MCH (28-32) pg MCHC (32-34) % RDW (13.2-15.2) % Plt Count (140-440) K/mm3 Lymph % (Auto) (13.4-35.0) % [place] % (Auto) (0.0-7.3) % [place] # (Auto) (0.0-0.8) K/mm3 Seg Neutrophils % (40.0-70.0) % Seg Neutrophils # (1.8-7.7) K/mm3 Sodium 135 L (137-145) mmol/L Calcium 7.9 L (8.4-10.2) mg/dL Alkaline Phosphatase (35-129) units/L Albumin (3.9-5) g/dL Diabetes panel 05/13/20 05/14/20 Range/Units 17:02 08:02 Sodium 135 L 135 L (137-145) mmol/L Potassium 3.7 3.8 (3.6-5.0) mmol/L Chloride 101.8 103.6 (98-107) mmol/L Carbon Dioxide 23 23 (22-30) mmol/L BUN 16 10 (9-20) mg/dL Creatinine 0.8 0.8 (0.8-1.3) mg/dL Glucose 90 83 (75-100) mg/dL Calcium 8.2 L 7.9 L (8.4-10.2) mg/dL AST 15 (5-40) units/L ALT 11 (7-56) units/L Alkaline Phosphatase 247 H (35-129) units/L Total Protein 7.0 (6.3-8.2) g/dL Albumin 2.5 L (3.9-5) g/dL Calcium panel 05/13/20 05/14/20 Range/Units 17:02 08:02 Calcium 8.2 L 7.9 L (8.4-10.2) mg/dL Albumin 2.5 L (3.9-5) g/dL Pituitary panel 05/13/20 05/14/20 Range/Units 17:02 08:02 Sodium 135 L 135 L (137-145) mmol/L Potassium 3.7 3.8 (3.6-5.0) mmol/L Chloride 101.8 103.6 (98-107) mmol/L Carbon Dioxide 23 23 (22-30) mmol/L BUN 16 10 (9-20) mg/dL Creatinine 0.8 0.8 (0.8-1.3) mg/dL Glucose 90 83 (75-100) mg/dL Calcium 8.2 L 7.9 L (8.4-10.2) mg/dL Adrenal panel 05/13/20 05/14/20 Range/Units 17:02 08:02 Sodium 135 L 135 L (137-145) mmol/L Potassium 3.7 3.8 (3.6-5.0) mmol/L Chloride 101.8 103.6 (98-107) mmol/L Carbon Dioxide 23 23 (22-30) mmol/L BUN 16 10 (9-20) mg/dL Creatinine 0.8 0.8 (0.8-1.3) mg/dL Glucose 90 83 (75-100) mg/dL Calcium 8.2 L 7.9 L (8.4-10.2) mg/dL Total Bilirubin 0.30 (0.1-1.2) mg/dL AST 15 (5-40) units/L ALT 11 (7-56) units/L Alkaline Phosphatase 247 H (35-129) units/L Total Protein 7.0 (6.3-8.2) g/dL Albumin 2.5 L (3.9-5) g/dL Assessment and Plan - Patient Problems (1) Colon cancer metastasized to lung Current Visit: Yes Status: Acute Plan to address problem: 1) CT of abdomen and pelvis with contrast 2) CEA 3) Clear liquid diet 4) Evaluation of RLE ischemia per vascular 5) Please obtain colonoscopy report and pathology reports (colon and lung) from [facility].
--- NOTE | 2020-05-14 16:26 | Vascular Lab Report ---
DUPLEX DOPPLER LOWER EXTREMITY ARTERIAL, BILATERAL INDICATION: Right lower extremity gangrene. TECHNIQUE: Arterial duplex examination of both lower extremities performed using B-mode, color flow and spectral Doppler assessment. FINDINGS: RIGHT: Common Femoral Artery: PSV 75 cm/sec. Biphasic waveform. Proximal SFA: PSV 78 cm/sec. Biphasic waveform. Mid SFA: PSV 53 cm/sec. Biphasic waveform. Distal SFA: PSV 28 cm/sec. Biphasic waveform. Popliteal artery: PSV 57 cm/sec. Biphasic waveform. Posterior tibial artery: PSV 23 cm/sec. Biphasic waveform. Dorsalis Pedis Artery: PSV 39 cm/sec. Biphasic waveform. LEFT: Common Femoral Artery: PSV 87 cm/sec. Biphasic waveform. Proximal SFA: PSV 99 cm/sec. Biphasic waveform. Mid SFA: PSV 140 cm/sec. Biphasic waveform. Distal SFA: PSV 128 cm/sec. Biphasic waveform. Popliteal artery: PSV 89 cm/sec. Biphasic waveform. Posterior tibial artery: PSV 34 cm/sec. Biphasic waveform. Dorsalis Pedis Artery: PSV 50 cm/sec. Biphasic waveform. Right DORA: 0.63. Left DORA: 1.22. IMPRESSION: 1. Decreased peak systolic velocity along the distal right SFA, concerning for a stenosis located ups tream along the SFA. 2. Right DORA of 0.63, indicating moderate PAD. 3. No sonographic evidence of hemodynamically significant peripheral artery disease along the left lo wer extremity. Ankle-Brachial Index (DORA): * Calcified arteries > 1.4 * Normal = 0.9-1.4 * Mild PAD = 0.7-0.89 * Moderate PAD = 0.51-0.69 * Severe PAD < 0.5 Doppler Waveform: * Triphasic is normal. * Biphasic is abnormal if clear transition from triphasic signal along vascular tree. * Monophasic is abnormal. Signer Name: Rigo Kumar MD Signed: 05/14/2020 4:22 PM Workstation Name: [employer]
[2020-05-15] MEDS: SODIUM CHLORIDE 0.9% 1000 ML 1,000 ML IV SCH (00:59)
[2020-05-15 06:08] LABS: Basophils # (Auto) 0.2 K/mm3 (0.0-0.1); Basophils % (Auto) 1.1 % (0.0-1.8); Eosinophils # (Auto) 0.1 K/mm3 (0.0-0.4); Eosinophils % (Auto) 0.6 % (0.0-4.3); Hematocrit 26.2 % (35.5-45.6); Hemoglobin 7.7 gm/dl (11.8-15.2); Lymphocytes # (Auto) 1.8 K/mm3 (1.2-5.4); Lymphocytes % (Auto) 12.4 % (13.4-35.0); Mean Corpuscular HGB Conc 29 % (32-34); Mean Corpuscular Volume 75 fl (84-94); Monocytes # (Auto) 1.5 K/mm3 (0.0-0.8); Platelet Count 466 K/mm3 (140-440); Red Blood Count 3.52 M/mm3 (3.65-5.03); Red Cell Distribution Width 19.9 % (13.2-15.2)
[2020-05-15 06:10] LABS: BUN/Creatinine Ratio 11; Blood Urea Nitrogen 9 mg/dL (9-20); Calcium 7.7 mg/dL (8.4-10.2); Hemolysis Index 1
--- NOTE | 2020-05-15 08:51 | Progress Note ---
Assessment and Plan Assessment and plan: (1) Gangrene of toe of right foot Current Visit: Yes Status: Acute Plan to address problem: Patient placed on empiric IV antibiotics. Consult placed to infectious disease and vascular surgery for evaluation. (2) Colon cancer metastasized to lung Current Visit: Yes Status: Acute Plan to address problem: Patient was just recently diagnosed with colon cancer in [facility]. He has not had any follow-up with any physician. We will place consult to gastroenterology for evaluation. (3) DVT prophylaxis Current Visit: Yes Status: Acute Plan to address problem: Patient placed on sequential compression device. (4) Full code status Current Visit: Yes Status: Acute Plan to address problem: Patient is full code. 05/14/2020 -Patient is diagnosed with stage IV colon cancer metastasized to the lung recently. Patient went to [facility] and discharged him to have follow-up at [facility] and patient presented here. Patient has colon mass and was able to do advance to colonoscopy at [facility] (per GI), patient may need surgical intervention and I put a consult for general surgery. I have discussed with GI and GI said nothing to add on his current management. Patient need to have follow-up with oncologist as an outpatient. Patient has gangrene of the right third toes and I ordered arterial Doppler, vascular surgery consulted. She has also leukocytosis and is on IV Vanco and Zosyn. 05/15/2020 -Patient was seen by general surgery and recommend CT abdomen and pelvis, will get records from [facility] colonoscopy and pathology reports. Discussed with the nurse to get records. Evaluated by ID and recommend no antibiotics at this time. Evaluated by GI and no further work-up needed from GI point of view. Patient was evaluated by scleral surgery and arterial Doppler was done and significant for moderate peripheral arterial disease in the right lower extremity and will do revascularization. History Interval history: Patient was seen and evaluated this morning Patient is complaining severe pain in the right third toes Hospitalist Physical - Physical exam Narrative exam: Not in cardiopulmonary distress. The patient appeared well nourished and normally developed. Vital signs as documented. Head exam is unremarkable. No scleral icterus . Neck is without jugular venous distension, thyromegaly, or carotid bruits. Lungs are clear to auscultation. Cardiac exam reveals regular rate and Rhythm. Abdominal exam reveals normal bowel sounds, nontender, no organomegaly. Extremities dark discoloration of the right third toes. 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 No focal weakness. - Constitutional Vitals: Temp Pulse Resp BP Pulse Ox 98.3 F 49 L 20 134/61 100 05/15/20 05:07 05/15/20 05:07 05/15/20 05:07 05/15/20 05:07 05/15/20 05:07 General appearance: Present: no acute distress Results - Labs CBC & Chem 7: 05/15/20 05:02 05/15/20 05:02 Labs: Laboratory Last Values WBC 14.7 K/mm3 (4.5-11.0) H 05/15/20 05:02 RBC 3.52 M/mm3 (3.65-5.03) L 05/15/20 05:02 Hgb 7.7 gm/dl (11.8-15.2) L 05/15/20 05:02 Hct 26.2 % (35.5-45.6) L 05/15/20 05:02 MCV 75 fl (84-94) L 05/15/20 05:02 MCH 22 pg (28-32) L 05/15/20 05:02 MCHC 29 % (32-34) L 05/15/20 05:02 RDW 19.9 % (13.2-15.2) H 05/15/20 05:02 Plt Count 466 K/mm3 (140-440) H 05/15/20 05:02 Lymph % (Auto) 12.4 % (13.4-35.0) L 05/15/20 05:02 [place] % (Auto) 10.0 % (0.0-7.3) H 05/15/20 05:02 Eos % (Auto) 0.6 % (0.0-4.3) 05/15/20 05:02 Baso % (Auto) 1.1 % (0.0-1.8) 05/15/20 05:02 Lymph # (Auto) 1.8 K/mm3 (1.2-5.4) 05/15/20 05:02 [place] # (Auto) 1.5 K/mm3 (0.0-0.8) H 05/15/20 05:02 Eos # (Auto) 0.1 K/mm3 (0.0-0.4) 05/15/20 05:02 Baso # (Auto) 0.2 K/mm3 (0.0-0.1) H 05/15/20 05:02 Seg Neutrophils % 75.9 % (40.0-70.0) H 05/15/20 05:02 Seg Neutrophils # 11.2 K/mm3 (1.8-7.7) H 05/15/20 05:02 PT 13.9 Sec. (12.2-14.9) 05/14/20 08:02 INR 1.09 (0.87-1.13) 05/14/20 08:02 Sodium 138 mmol/L (137-145) 05/15/20 05:02 Potassium 4.0 mmol/L (3.6-5.0) 05/15/20 05:02 Chloride 109.4 mmol/L (98-107) H 05/15/20 05:02 Carbon Dioxide 22 mmol/L (22-30) 05/15/20 05:02 Anion Gap 11 mmol/L 05/15/20 05:02 BUN 9 mg/dL (9-20) 05/15/20 05:02 Creatinine 0.8 mg/dL (0.8-1.3) 05/15/20 05:02 Estimated GFR > 60 ml/min 05/15/20 05:02 BUN/Creatinine Ratio 11 % 05/15/20 05:02 Glucose 77 mg/dL (75-100) 05/15/20 05:02 Lactic Acid 0.90 mmol/L (0.7-2.0) 05/14/20 08:02 Calcium 7.7 mg/dL (8.4-10.2) L 05/15/20 05:02 Total Bilirubin 0.30 mg/dL (0.1-1.2) 05/13/20 17:02 AST 15 units/L (5-40) 05/13/20 17:02 ALT 11 units/L (7-56) 05/13/20 17:02 Alkaline Phosphatase 247 units/L (35-129) H 05/13/20 17:02 Total Protein 7.0 g/dL (6.3-8.2) 05/13/20 17:02 Albumin 2.5 g/dL (3.9-5) L 05/13/20 17:02 Albumin/Globulin Ratio 0.6 % 05/13/20 17:02 Lipase 33 units/L (13-60) 05/13/20 17:02 Urine Color Yellow (Yellow) 05/13/20 Unknown Urine Turbidity Slightly-cloudy (Clear) 05/13/20 Unknown Urine pH 5.0 (5.0-7.0) 05/13/20 Unknown Ur Specific Max 1.021 (1.003-1.030) 05/13/20 Unknown Urine Protein <15 mg/dl mg/dL (Negative) 05/13/20 Unknown Urine Glucose (UA) Neg mg/dL (Negative) 05/13/20 Unknown Urine Ketones Neg mg/dL (Negative) 05/13/20 Unknown Urine Blood Neg (Negative) 05/13/20 Unknown Urine Nitrite Neg (Negative) 05/13/20 Unknown Urine Bilirubin Neg (Negative) 05/13/20 Unknown Urine Urobilinogen 2.0 mg/dL (<2.0) 05/13/20 Unknown Ur Leukocyte Esterase Tr (Negative) 05/13/20 Unknown Urine WBC (Auto) 5.0 /HPF (0.0-6.0) 05/13/20 Unknown Urine RBC (Auto) 5.0 /HPF (0.0-6.0) 05/13/20 Unknown U Epithel Cells (Auto) 3.0 /HPF (0-13.0) 05/13/20 Unknown Urine Bacteria (Auto) 1+ /HPF (Negative) 05/13/20 Unknown Urine Mucus Few /HPF 05/13/20 Unknown Microbiology: Microbiology 05/13/20 21:08 Peripheral/Venous Blood Culture - Preliminary NO GROWTH AFTER 24 HOURS 05/13/20 21:01 Peripheral/Venous Blood Culture - Preliminary NO GROWTH AFTER 24 HOURS Mcrae/IV: Voiding Method Toilet Active Medications - Current Medications Current Medications: Generic Name Dose Route Start Last Admin Trade Name Freq PRN Reason Stop Dose Admin Acetaminophen 650 mg 05/13/20 23:06 Acetaminophen 325 Mg Tab PO Q4H PRN Pain MILD(1-3)/Fever >100.5/DOMINIQUE Sodium Chloride 1,000 mls @ 125 mls/hr 05/13/20 23:15 05/15/20 00:59 Nacl 0.9% 1000 Ml IV 125 mls/hr DIRECT ALISTAIR Administration Magnesium Hydroxide 30 ml 05/13/20 23:06 Magnesium Hydroxide (Mom) Oral Liqd Udc PO Q4H PRN Constipation Morphine Sulfate 2 mg 05/13/20 23:06 05/14/20 22:50 Morphine 2 Mg/1 Ml Inj IV 2 mg Q4H PRN Administration Pain, Moderate (4-6) Ondansetron HCl 4 mg 05/13/20 23:06 Ondansetron 4 Mg/2 Ml Inj IV Q8H PRN Nausea And Vomiting Sodium Chloride 10 ml 05/14/20 10:00 05/14/20 22:46 Sodium Chloride 0.9% 10 Ml Flush Syringe IV 10 ml BID ALISTAIR Administration Sodium Chloride 10 ml 05/13/20 23:06 Sodium Chloride 0.9% 10 Ml Flush Syringe IV PRN PRN LINE FLUSH
[2020-05-15] MEDS ORDERED: HEPARIN/NS 5000 UNIT/500ML 1,000 ML IR ONE (13:33)
[2020-05-15] MEDS ORDERED: SODIUM CHLORIDE 0.9% 500 ML 500 ML IV SCH (14:00)
[2020-05-15] MEDS: fentaNYL 100 MCG/2 ML INJ ONE ×5 (14:02→15:36)
[2020-05-15] MEDS: MIDAZOLAM 2 MG/2 ML INJ ONE ×5 (14:03→15:36)
[2020-05-15] MEDS: LIDOCAINE (2%) 20 MG/1 ML VIAL 20 ML MDV INFILTRATI ONE ×2 (14:03→14:12)
[2020-05-15] MEDS: HEPARIN 10,000 UNITS/10 ML VIAL ONE ×3 (14:32→15:22)
--- NOTE | 2020-05-15 14:37 | Cat Scan Report ---
CT chest, abdomen, and pelvis with/without contrast INDICATION : MAIN. Colon cancer patient here for staging exam TECHNIQUE: 100 mL of intravenous contrast administered.. All CT scans at this location are performe d using CT dose reduction for ALARA by means of automated exposure control. COMPARISON: None FINDINGS: Chest: There are innumerable metastatic pulmonary nodules throughout the lungs, the largest of which measures 2.9 cm on image #46 of series #2 in the right lower lobe centrally in the region of the sup erior segment. No pleural effusion. There are shotty mediastinal lymph nodes but no pathologic adenop athy. Heart size is normal. There is a destructive rib lesion involving the left seventh rib anterior ly with soft tissue component measuring approximately 3.4 cm in thickness and roughly 8 cm in length as seen on image 85 of series 2. Abdomen/pelvis: There is metastatic disease in the liver with large confluent mass in the left lobe in total measuring at least 16 cm in size. The gallbladder, spleen, pancreas, pelvic kidneys, and proximal GI tract show no acute abnormality. M idline ventral hernia noted containing fat. Urinary bladder and prostate are normal. No pelvic free fluid. There is an irregular mass involving the ascending colon which is most likely the primary site. Regio nal adenopathy is worrisome for metastatic disease. No bowel obstruction identified although the upst ream small bowel is slightly distended. There is a small fat-containing left inguinal hernia. IMPRESSION: Metastatic colorectal carcinoma as outlined above with likely primary lung the ascending colon. Signer Name: Declan Stanton MD Signed: 05/15/2020 2:33 PM Workstation Name: [id number]
[2020-05-15] MEDS ORDERED: SODIUM CHLORIDE 0.9% 1000 ML 1,000 ML ONE (14:58)
[2020-05-15] MEDS ORDERED: NITROGLYCERIN DRIP 0 MG/0 ML BOTTLE ONE (15:00)
[2020-05-15] MEDS ORDERED: VERAPAMIL 5 MG/2 ML INJ ONE (15:00)
[2020-05-15] MEDS ORDERED: HEPARIN/NS 5000 UNIT/500ML 500 ML IR ONE (15:40)
[2020-05-15] MEDS ORDERED: NITROGLYCERIN SYRINGE 3 ML ONE (15:47)
[2020-05-15] MEDS ORDERED: MIDAZOLAM 2 MG/2 ML INJ ONE (16:13)
[2020-05-15] MEDS ORDERED: fentaNYL 100 MCG/2 ML INJ ONE (16:14)
[2020-05-15] MEDS ORDERED: CLOPIDOGREL 300 MG TAB ONE (16:34)
--- NOTE | 2020-05-15 16:57 | Operative Report ---
Operative Report Operative Report: Date of Procedure: 05/15/2020 Pre-operative Diagnosis: Peripheral Vascular Disease with Right Third Toe Ulcera tion Post-operative Diagnosis: Same Procedure(s): 1. Ultrasound-Guided Access Left Common Femoral Artery 2. Diagnostic Aortogram (No Previous Films for Comparison) 3. Diagnostic Right Lower Extremity Angiogram (No Previous Films for Comparison) 4. Percutaneous Mechanical Thrombectomy of Right SFA with Indigo Penumbra CAT 6 Aspiration Catheter 5. Percutaneous Mechanical Thrombectomy of Right Peroneal Artery Indigo Penumbra CAT 6 Aspiration Catheter 6. Atherectomy with Angioplasty of Right SFA and Popliteal Artery with a 2.4/3.4 Jetstream Atherectomy Catheter and 5.0 x 150 IN.PACT Drug-Coated Balloon in the Popliteal Artery and 6.0 x 150 IN.PACT Drug-Coated Balloons (x2) in the SFA 7. Atherectomy with Angioplasty of the Tibioperoneal Trunk and Peroneal Artery with a 2.4/3.4 Jetstream Atherectomy Catheter and a 4.0 x 150 IN.PACT Drug- Coated Balloon 8. Closure of Left Femoral Arteriotomy with Pro-[place] Closure Device 9. Radiologic Supervision with Interpretation 10. Monitored Moderate Sedation (Total Anesthesia Time: 144 Minutes) Surgeon: Gonsalo Manning M.D. Unit Trust Manager: Veronica Anesthesia: Local/Monitored Moderate Sedation Total Anesthesia Time: 144 Minutes EBL: Minimal Counts: Correct Complications: None Condition: Stable Specimen: None Indication: The patient is a 55-year-old male with a history of stage IV colon cancer who presented to the hospital with complaints of right leg pain and ulceration of his right third toe. The pain began approximately 4 to 6 weeks ago and progressively worsened. He then began noticing discoloration of his right third toe approximately 3 weeks ago. An arterial duplex of the right lower extremity revealed SFA and popliteal disease as well as likely tibial disease. He is in need of a diagnostic angiogram with possible intervention. He was given the risk, benefits, and alternative procedures and consented to the procedure. Angiographic Findings: The diagnostic aortogram revealed the aorta was patent without aneurysmal dilatation, thrombus formation, or flow-limiting stenosis. Bilateral common iliac arteries were patent without evidence of flow-limiting stenosis however the right common iliac artery appeared ectatic. The right lower extremity angiogram revealed the hypogastric artery and external iliac artery were patent without evidence of flow-limiting stenosis. The common femoral artery and profunda were patent without evidence of flow-limiting stenosis. The proximal SFA was patent without evidence of flow-limiting stenosis. There was what appeared to be thrombus in the mid SFA with near total occlusion of the artery. The distal SFA and popliteal artery has stenosis ranging from 30 to 50%. The anterior tibial artery was atretic at its origin and occluded throughout the remainder of the artery. The dorsalis pedis artery reconstituted through collaterals from the peroneal artery. The tibioperoneal trunk was patent with 30 to 40% stenosis. The peroneal artery was patent with 40 to 50% stenosis at its origin however the remainder of the artery was patent without significant stenosis and reconstituted the dorsalis pedis artery and medial plantar artery in the foot. The posterior tibial artery was atretic at its origin and occluded in the upper third of the artery without evidence of reconstitution. After intervention the SFA and popliteal artery were patent with less than 15% residual stenosis. There was no significant thrombus remaining. The tibioperoneal trunk and peroneal artery were patent with less than 10% residual stenosis and a small nonflow limiting dissection in the tibioperoneal trunk. Description of Procedure: The patient was brought to the Ethanol Operations Manager and laid in supine position. After timeout was performed his left groin was prepped and draped in normal sterile fashion. Ultrasound was used to identify the left common femoral artery and confirm patency. Once patency was confirmed the overlying skin and soft tissue was anesthetized with lidocaine. An 11 blade was used to make a small stab incision and then a curved hemostat was used with ultrasound guidance to bluntly dissect down to the anterior surface of the left common femoral artery. A 21- gauge micropuncture needle was used with ultrasound guidance to enter the left common femoral artery and a 0.018 micropuncture wire was advanced into the artery. The needle was removed and a micropuncture sheath was placed by Seldinger technique. The inner cannula and wire were removed and a 0.035 Bentson wire was advanced into the aorta. The micropuncture sheath was removed and a 5 [place] sheath was placed by Seldinger technique. An Omni Flush catheter was then advanced into the aorta and a diagnostic aortogram was performed with the previously described findings. The Bentson wire and Omni Flush catheter were then advanced up and over the bifurcation and a right lower extremity angiogram was performed the previously described findings. I advanced the Bentson wire through the area of thrombus and into the below-knee popliteal artery and then exchanged the 5 Emir[place] sheath for a 7 Emir[place] 65 cm destination sheath. At this point I systemically heparinized the patient with 5000 units of heparin IV and this was rebolused every 45 minutes with 1000 units of heparin until the completion of the case. I then used a Navicross catheter with a 0.018 V18 wire and was able to cannulate the anterior tibial artery. I advanced the catheter and wire into the distal anterior tibial artery however I was then noted to reenter into the dorsalis pedis artery. It became evident that the a rtery was occluded from chronic thrombus. The wire continue to into the peroneal artery so I made no attempts at recannulate in the artery. I then entered the posterior tibial artery and was not able to reenter in the medial plantar artery so I pulled the catheter back into the below-knee popliteal artery and placed a 6 mm spider wire in the artery to prevent distal emboli into the peroneal artery. I then used the gamigo CAT 6 Aspiration Catheter to perform percutaneous mechanical thrombectomy of the thrombus within the SFA. I performed an angiogram after performing a thrombectomy that demonstrated there was minimal residual thrombus within the SFA and a plaque in the SFA with approximately 60% stenosis. This also demonstrated that despite having the filter wire in place thrombus was in the below-knee popliteal artery as well as the peroneal artery. There was also likely some movement of the filter wire during the thrombectomy that may have caused the short dissection in the tibioperoneal trunk. I used a 6 [place] multipurpose catheter to recapture the filter and then advanced the V 18 wire with the Navicross catheter and was able to cannulate the peroneal artery. I then used the CAT 6 to perform percutaneous mechanical thrombectomy of the below-knee popliteal artery as well as the peroneal artery. After had aspirated the thrombus I injected nitroglycerin into the peroneal artery to break spasm. The result was minimal residual thrombus remaining. I readvanced the Navicross catheter into the peroneal artery and advanced a 0.014 Thruway Wire into the peroneal artery. I then performed atherectomy of the SFA and popliteal artery using a 2.4/3.4 Jetstream Atherectomy Catheter with both blades down and blades up followed by atherectomy of the tibioperoneal trunk and proximal third of the peroneal artery with blades down only. After performing the atherectomy I reinserted a 6 mm spider wire into the tibioperoneal trunk and performed angioplasty of the popliteal artery using a 5.0 x 150 IN.PACT Drug-Coated Balloon followed by angioplasty of the SFA with 6.0 x 150 IN.PACT Drug-Coated Balloons (x2). This resulted in less than 15% residual stenosis however there was a small amount of thrombus within the mid SFA. I used the multipurpose catheter to retrieve the filter wire and then reinserted the multipurpose catheter and was able to aspirate the thrombus from the mid SFA. I then advanced a iRatesson wire into the peroneal artery and performed angioplasty of the proximal peroneal artery as well as the tibial peroneal trunk using a 4.0 x 150 IN.PACT Drug-Coated Balloon with a result of less than 10% residual stenosis and a small nonflow limiting dissection in the tibioperoneal trunk. At this point I pulled the sheath back into the left exte rnal iliac artery and advanced the wire into the aorta. I then used a Pro-glide closure device to close the left femoral arteriotomy. A sterile dressing was then applied to the left groin and the patient was transported to his room in stable condition.
--- NOTE | 2020-05-15 18:56 | Progress Note ---
Assessment and Plan - Patient Problems (1) Colon cancer metastasized to lung Current Visit: Yes Status: Acute Plan to address problem: 1) Oncology consult. 2) Continue CLD 3) Get path reports from [facility]. Subjective Date of service: 05/15/20 Patient Reports: Positive: no new complaints, flatus, bowel movement Objective Vital Signs - 12hr 05/15/20 11:47 Temperature 99.0 F Pulse Rate 58 L Respiratory 22 Rate Blood Pressure 138/82 O2 Sat by Pulse 100 Oximetry - Abdomen PM_46_EXABD1 4, PM_46_EXABD1 6, PM_46_EXABD1 8 Hernia: none - Labs 05/15/20 05:02 05/15/20 05:02 Diabetes panel 05/15/20 Range/Units 05:02 Sodium 138 (137-145) mmol/L Potassium 4.0 (3.6-5.0) mmol/L Chloride 109.4 H (98-107) mmol/L Carbon Dioxide 22 (22-30) mmol/L BUN 9 (9-20) mg/dL Creatinine 0.8 (0.8-1.3) mg/dL Glucose 77 (75-100) mg/dL Calcium 7.7 L (8.4-10.2) mg/dL Calcium panel 05/15/20 Range/Units 05:02 Calcium 7.7 L (8.4-10.2) mg/dL Pituitary panel 05/15/20 Range/Units 05:02 Sodium 138 (137-145) mmol/L Potassium 4.0 (3.6-5.0) mmol/L Chloride 109.4 H (98-107) mmol/L Carbon Dioxide 22 (22-30) mmol/L BUN 9 (9-20) mg/dL Creatinine 0.8 (0.8-1.3) mg/dL Glucose 77 (75-100) mg/dL Calcium 7.7 L (8.4-10.2) mg/dL Adrenal panel 05/15/20 Range/Units 05:02 Sodium 138 (137-145) mmol/L Potassium 4.0 (3.6-5.0) mmol/L Chloride 109.4 H (98-107) mmol/L Carbon Dioxide 22 (22-30) mmol/L BUN 9 (9-20) mg/dL Creatinine 0.8 (0.8-1.3) mg/dL Glucose 77 (75-100) mg/dL Calcium 7.7 L (8.4-10.2) mg/dL - Imaging CT scan - abdomen: report reviewed CT scan - chest: report reviewed CT scan - pelvis: report reviewed (Pt's records from [facility] also reviewed. CEA was 50. Colonoscopy and lung bx reports read.)
[2020-05-15] MEDS: ACETAMINOPHEN 325 MG TAB PO PRN (19:53)
[2020-05-15] MEDS ORDERED: HEPARIN 10,000 UNITS/10 ML VIAL IV PRN (20:56)
[2020-05-15] MEDS ORDERED: HEPARIN 10,000 UNITS/10 ML VIAL IV ONE (20:56)
[2020-05-15 21:15] LABS: Hematocrit 22.4 % (35.5-45.6); Hemoglobin 6.8 gm/dl (11.8-15.2)
[2020-05-15 21:26] LABS: INR 1.17 (0.87-1.13)
[2020-05-15] MEDS: MORPHINE 2 MG/1 ML INJ IV PRN (22:26)
[2020-05-16] MEDS: HEPARIN/ 0.45% NACL DRIP 25,000 UNIT/500 ML BAG IV SCH ×2 (00:04→16:39)
[2020-05-16] MEDS: MORPHINE 2 MG/1 ML INJ IV PRN ×2 (02:43→12:31)
[2020-05-16] MEDS: SODIUM CHLORIDE 0.9% 1000 ML 1,000 ML IV SCH (02:43)
[2020-05-16 06:23] LABS: Blood Urea Nitrogen 7 mg/dL (9-20); Calcium 7.6 mg/dL (8.4-10.2); Hemolysis Index 1
[2020-05-16 06:27] LABS: BUN/Creatinine Ratio 10
[2020-05-16] MEDS ORDERED: SODIUM CHLORIDE 0.9% 500 ML 500 ML IV ONE (08:06)
--- NOTE | 2020-05-16 08:11 | Progress Note ---
Assessment and Plan Assessment and plan: (1) Gangrene of toe of right foot Current Visit: Yes Status: Acute Plan to address problem: Patient placed on empiric IV antibiotics. Consult placed to infectious disease and vascular surgery for evaluation. (2) Colon cancer metastasized to lung Current Visit: Yes Status: Acute Plan to address problem: Patient was just recently diagnosed with colon cancer in [facility]. He has not had any follow-up with any physician. We will place consult to gastroenterology for evaluation. (3) DVT prophylaxis Current Visit: Yes Status: Acute Plan to address problem: Patient placed on sequential compression device. (4) Full code status Current Visit: Yes Status: Acute Plan to address problem: Patient is full code. 05/14/2020 -Patient is diagnosed with stage IV colon cancer metastasized to the lung recently. Patient went to [place] and discharged him to have follow-up at [facility] and patient presented here. Patient has colon mass and was able to do advance to colonoscopy at [place] (per GI), patient may need surgical intervention and I put a consult for general surgery. I have discussed with GI and GI said nothing to add on his current management. Patient need to have follow-up with oncologist as an outpatient. Patient has gangrene of the right third toes and I ordered arterial Doppler, vascular surgery consulted. She has also leukocytosis and is on IV Vanco and Zosyn. 05/15/2020 -Patient was seen by general surgery and recommend CT abdomen and pelvis, will get records from [facility] colonoscopy and pathology reports. Discussed with the nurse to get records. Evaluated by ID and recommend no antibiotics at this time. Evaluated by GI and no further work-up needed from GI point of view. Patient was evaluated by scleral surgery and arterial Doppler was done and significant for moderate peripheral arterial disease in the right lower extremity and will do revascularization. 05/16/2020 -CT chest abdomen and pelvis was done and significant for colorectal cancer, and lung cancer. We will get records from [facility]. Was evaluated by vascular and did a revascularization yesterday. Was evaluated by general surgery. Hemoglobin yesterday was 6.8. We will transfuse him a unit of blood and monitor posttransfusion hemoglobin/hematocrit. Will monitor and transfuse as needed. Will do anemia work-up. I put a consult per oncology recommendations. History Interval history: Patient was seen and evaluated this morning Chest pain is getting better Hospitalist Physical - Physical exam Narrative exam: Not in cardiopulmonary distress. The patient appeared well nourished and normally developed. Vital signs as documented. Head exam is unremarkable. No scleral icterus . Neck is without jugular venous distension, thyromegaly, or carotid bruits. Lungs are clear to auscultation. Cardiac exam reveals regular rate and Rhythm. Abdominal exam reveals normal bowel sounds, nontender, no organomegaly. Extremities dark discoloration of the right third toes. [place]: Alert and oriented 3. No focal weakness. - Constitutional Vitals: Temp Pulse Resp BP Pulse Ox 98.8 F 56 L 18 135/70 100 05/16/20 04:41 05/16/20 04:41 05/16/20 04:41 05/16/20 04:41 05/16/20 04:41 General appearance: Present: no acute distress Results - Labs CBC & Chem 7: 05/16/20 08:23 05/16/20 05:46 Labs: Laboratory Last Values WBC 14.7 K/mm3 (4.5-11.0) H 05/15/20 05:02 RBC 3.52 M/mm3 (3.65-5.03) L 05/15/20 05:02 Hgb 6.8 gm/dl (11.8-15.2) L 05/15/20 21:05 Hct 22.4 % (35.5-45.6) L 05/15/20 21:05 MCV 75 fl (84-94) L 05/15/20 05:02 MCH 22 pg (28-32) L 05/15/20 05:02 MCHC 29 % (32-34) L 05/15/20 05:02 RDW 19.9 % (13.2-15.2) H 05/15/20 05:02 Plt Count 387 K/mm3 (140-440) 05/15/20 21:05 Lymph % (Auto) 12.4 % (13.4-35.0) L 05/15/20 05:02 [place] % (Auto) 10.0 % (0.0-7.3) H 05/15/20 05:02 Eos % (Auto) 0.6 % (0.0-4.3) 05/15/20 05:02 Baso % (Auto) 1.1 % (0.0-1.8) 05/15/20 05:02 Lymph # (Auto) 1.8 K/mm3 (1.2-5.4) 05/15/20 05:02 [place] # (Auto) 1.5 K/mm3 (0.0-0.8) H 05/15/20 05:02 Eos # (Auto) 0.1 K/mm3 (0.0-0.4) 05/15/20 05:02 Baso # (Auto) 0.2 K/mm3 (0.0-0.1) H 05/15/20 05:02 Seg Neutrophils % 75.9 % (40.0-70.0) H 05/15/20 05:02 Seg Neutrophils # 11.2 K/mm3 (1.8-7.7) H 05/15/20 05:02 PT 14.9 Sec. (12.2-14.9) 05/15/20 21:05 INR 1.17 (0.87-1.13) H 05/15/20 21:05 APTT 37.0 Sec. (24.2-36.6) H 05/15/20 21:05 Heparin Anti-Xa Level 0.18 U.I./ml (0.3-0.7) L 05/16/20 05:46 Sodium 135 mmol/L (137-145) L 05/16/20 05:46 Potassium 3.7 mmol/L (3.6-5.0) 05/16/20 05:46 Chloride 106.8 mmol/L (98-107) 05/16/20 05:46 Carbon Dioxide 21 mmol/L (22-30) L 05/16/20 05:46 Anion Gap 11 mmol/L 05/16/20 05:46 BUN 7 mg/dL (9-20) L 05/16/20 05:46 Creatinine 0.7 mg/dL (0.8-1.3) L 05/16/20 05:46 Estimated GFR > 60 ml/min 05/16/20 05:46 BUN/Creatinine Ratio 10 % 05/16/20 05:46 Glucose 82 mg/dL (75-100) 05/16/20 05:46 Lactic Acid 0.90 mmol/L (0.7-2.0) 05/14/20 08:02 Calcium 7.6 mg/dL (8.4-10.2) L 05/16/20 05:46 Total Bilirubin 0.30 mg/dL (0.1-1.2) 05/13/20 17:02 AST 15 units/L (5-40) 05/13/20 17:02 ALT 11 units/L (7-56) 05/13/20 17:02 Alkaline Phosphatase 247 units/L (35-129) H 05/13/20 17:02 Total Protein 7.0 g/dL (6.3-8.2) 05/13/20 17:02 Albumin 2.5 g/dL (3.9-5) L 05/13/20 17:02 Albumin/Globulin Ratio 0.6 % 05/13/20 17:02 Lipase 33 units/L (13-60) 05/13/20 17:02 Urine Color Yellow (Yellow) 05/13/20 Unknown Urine Turbidity Slightly-cloudy (Clear) 05/13/20 Unknown Urine pH 5.0 (5.0-7.0) 05/13/20 Unknown Ur Specific [place] 1.021 (1.003-1.030) 05/13/20 Unknown Urine Protein <15 mg/dl mg/dL (Negative) 05/13/20 Unknown Urine Glucose (UA) Neg mg/dL (Negative) 05/13/20 Unknown Urine Ketones Neg mg/dL (Negative) 05/13/20 Unknown Urine Blood Neg (Negative) 05/13/20 Unknown Urine Nitrite Neg (Negative) 05/13/20 Unknown Urine Bilirubin Neg (Negative) 05/13/20 Unknown Urine Urobilinogen 2.0 mg/dL (<2.0) 05/13/20 Unknown Ur Leukocyte Esterase Tr (Negative) 05/13/20 Unknown Urine WBC (Auto) 5.0 /HPF (0.0-6.0) 05/13/20 Unknown Urine RBC (Auto) 5.0 /HPF (0.0-6.0) 05/13/20 Unknown U Epithel Cells (Auto) 3.0 /HPF (0-13.0) 05/13/20 Unknown Urine Bacteria (Auto) 1+ /HPF (Negative) 05/13/20 Unknown Urine Mucus Few /HPF 05/13/20 Unknown Microbiology: Microbiology 05/13/20 21:08 Peripheral/Venous Blood Culture - Preliminary NO GROWTH AFTER 48 HOURS 05/13/20 21:01 Peripheral/Venous Blood Culture - Preliminary NO GROWTH AFTER 48 HOURS 05/14/20 05:22 Nares - Left MRSA Culture - Preliminary Mcrae/IV: Voiding Method Urinal Active Medications - Current Medications Current Medications: Generic Name Dose Route Start Last Admin Trade Name Freq PRN Reason Stop Dose Admin Acetaminophen 650 mg 05/13/20 23:06 05/15/20 19:53 Acetaminophen 325 Mg Tab PO 650 mg Q4H PRN Administration Pain MILD(1-3)/Fever >100.5/DOMINIQUE Heparin Sodium (Porcine) 3,700 unit 05/15/20 20:56 Heparin 10,000 Units/10 Ml Vial 40 unit/kg (3700 unit) IV Q6H PRN Anti-Xa Assay < 0.1 units/ml Sodium Chloride 1,000 mls @ 125 mls/hr 05/13/20 23:15 05/16/20 02:43 Nacl 0.9% 1000 Ml IV 125 mls/hr DIRECT ALISTAIR Administration Sodium Chloride 500 mls @ 50 mls/hr 05/15/20 14:00 Nacl 0.9% 500 Ml IV DIRECT ALISTAIR Heparin Sodium/Sodium Chloride 25,000 unit in 500 mls @ 27 mls/hr 05/15/20 21:00 05/16/20 06:44 Heparin/ 0.45% Nacl-25,000 Unit/500 Ml IV 1,450 units/hr TITR ALISTAIR 29 mls/hr Titration Protocol 1,350 UNITS/HR Sodium Chloride 500 mls @ 0 mls/hr 05/16/20 08:06 Nacl 0.9% 500 Ml IV 05/16/20 08:07 ONCE ONE As Directed Magnesium Hydroxide 30 ml 05/13/20 23:06 Magnesium Hydroxide (Mom) Oral Liqd Udc PO Q4H PRN Constipation Morphine Sulfate 2 mg 05/13/20 23:06 05/16/20 02:43 Morphine 2 Mg/1 Ml Inj IV 2 mg Q4H PRN Administration Pain, Moderate (4-6) Ondansetron HCl 4 mg 05/13/20 23:06 Ondansetron 4 Mg/2 Ml Inj IV Q8H PRN Nausea And Vomiting Sodium Chloride 10 ml 05/14/20 10:00 05/15/20 22:27 Sodium Chloride 0.9% 10 Ml Flush Syringe IV 10 ml BID ALISTAIR Administration Sodium Chloride 10 ml 05/13/20 23:06 Sodium Chloride 0.9% 10 Ml Flush Syringe IV PRN PRN LINE FLUSH
[2020-05-16 09:09] LABS: Hemoglobin 7.8 gm/dl (11.8-15.2)
[2020-05-16 09:12] LABS: Iron 15 ug/dL (49-181); Total Iron Binding Capacity 177 mcg/dL (250-450)
[2020-05-16 09:53] LABS: Hematocrit 26.4 % (35.5-45.6)
--- NOTE | 2020-05-16 11:36 | Progress Note ---
Assessment and Plan - Patient Problems (1) Colon cancer metastasized to lung Current Visit: Yes Status: Acute Plan to address problem: 1) I discussed with the pt his poor prognosis and probable need for a palliative colonic resection to prevent obstruction. He will consider this. 2) Pt needs an oncology consultation. 3) Clear liquids only in preparation for possible colectomy. 4) Will need pre-op transfusion of PRBC. 5) I still need pt's colon and lung bx pathology reports. I related this to Dr. Novoa. Subjective Date of service: 05/16/20 Patient Reports: Positive: no new complaints Objective Vital Signs - 12hr 05/16/20 05/16/20 04:41 10:41 Temperature 98.8 F 99.0 F Pulse Rate 56 L 75 Respiratory 18 20 Rate Blood Pressure 135/70 157/94 O2 Sat by Pulse 100 100 Oximetry - Abdomen PM_46_[id number] 4, PM_46_EXABD1 6, PM_46_EXABD1 8 Hernia: none - Labs 05/16/20 08:23 05/16/20 05:46 Diabetes panel 05/16/20 Range/Units 05:46 Sodium 135 L (137-145) mmol/L Potassium 3.7 (3.6-5.0) mmol/L Chloride 106.8 (98-107) mmol/L Carbon Dioxide 21 L (22-30) mmol/L BUN 7 L (9-20) mg/dL Creatinine 0.7 L (0.8-1.3) mg/dL Glucose 82 (75-100) mg/dL Calcium 7.6 L (8.4-10.2) mg/dL Calcium panel 05/16/20 Range/Units 05:46 Calcium 7.6 L (8.4-10.2) mg/dL Pituitary panel 05/16/20 Range/Units 05:46 Sodium 135 L (137-145) mmol/L Potassium 3.7 (3.6-5.0) mmol/L Chloride 106.8 (98-107) mmol/L Carbon Dioxide 21 L (22-30) mmol/L BUN 7 L (9-20) mg/dL Creatinine 0.7 L (0.8-1.3) mg/dL Glucose 82 (75-100) mg/dL Calcium 7.6 L (8.4-10.2) mg/dL Adrenal panel 05/16/20 Range/Units 05:46 Sodium 135 L (137-145) mmol/L Potassium 3.7 (3.6-5.0) mmol/L Chloride 106.8 (98-107) mmol/L Carbon Dioxide 21 L (22-30) mmol/L BUN 7 L (9-20) mg/dL Creatinine 0.7 L (0.8-1.3) mg/dL Glucose 82 (75-100) mg/dL Calcium 7.6 L (8.4-10.2) mg/dL
[2020-05-16] MEDS: ASPIRIN EC 81 MG TAB PO SCH (12:31)
--- NOTE | 2020-05-16 14:14 | Progress Note ---
Assessment and Plan 55-year-old male with advanced stage IV colorectal cancer and right lower extremity acute limb ischemia due to thrombotic right SFA occlusion. Status post thrombectomy, angioplasty, and revascularization of the right lower extremity, postop day 1. Patient doing well with palpable pulse. Foot is well- perfused. Start on aspirin daily (81 mg). On heparin drip due to hypercoagulable state from advanced adenocarcinoma. Will need to be on anticoagulation for life. Recommend heparin drip until surgery. Can be held for surgery. aft Once surgery complete, can resume heparin drip afterwards, and when the risk of bleeding has decreased, can then transition to Eliquis. Subjective Date of service: 05/16/20 Principal diagnosis: Right foot ischemia Interval history: Palpable right dorsalis pedis pulse through collaterals. Right third digit has small plantar ulceration which appears to be now well perfused. Has some pain at the area of ulceration. Rest of the foot feels better. Left groin site clean, dry, and intact. Weakly palpable left dorsalis pedis pulse. Objective - Constitutional Vitals: Vital Signs - 12hr 05/16/20 05/16/20 04:41 10:41 Temperature 98.8 F 99.0 F Pulse Rate 56 L 75 Respiratory 18 20 Rate Blood Pressure 135/70 157/94 O2 Sat by Pulse 100 100 Oximetry General appearance: Present: no acute distress - EENT Eyes: EOM intact ENT: hearing intact - Respiratory Respiratory effort: normal Extremities: abnormal (see S) - Psychiatric Psychiatric: appropriate mood/affect, cooperative - Labs CBC & Chem 7: 05/16/20 08:23 05/16/20 05:46 Labs: Abnormal lab results 05/15/20 05/15/20 05/15/20 Range/Units 21:05 21:05 23:26 Hgb 6.8 L (11.8-15.2) gm/dl Hct 22.4 L (35.5-45.6) % INR 1.17 H (0.87-1.13) APTT 37.0 H (24.2-36.6) Sec. Heparin Anti-Xa Level < 0.10 L (0.3-0.7) U.I./ml Sodium (137-145) mmol/L Carbon Dioxide (22-30) mmol/L BUN (9-20) mg/dL Creatinine (0.8-1.3) mg/dL Calcium (8.4-10.2) mg/dL Iron (49-181) ug/dL TIBC (250-450) mcg/dL Vitamin B12 (211-911) pg/mL Folate (7.3-26.0) ng/mL Crossmatch 05/16/20 05/16/20 05/16/20 Range/Units 05:46 05:46 08:23 Hgb 7.8 L (11.8-15.2) gm/dl Hct 26.4 L (35.5-45.6) % INR (0.87-1.13) APTT (24.2-36.6) Sec. Heparin Anti-Xa Level 0.18 L (0.3-0.7) U.I./ml Sodium 135 L (137-145) mmol/L Carbon Dioxide 21 L (22-30) mmol/L BUN 7 L (9-20) mg/dL Creatinine 0.7 L (0.8-1.3) mg/dL Calcium 7.6 L (8.4-10.2) mg/dL Iron (49-181) ug/dL TIBC (250-450) mcg/dL Vitamin B12 (211-911) pg/mL Folate (7.3-26.0) ng/mL Crossmatch 05/16/20 05/16/20 05/16/20 Range/Units 08:23 08:23 08:23 Hgb (11.8-15.2) gm/dl Hct (35.5-45.6) % INR (0.87-1.13) APTT (24.2-36.6) Sec. Heparin Anti-Xa Level (0.3-0.7) U.I./ml Sodium (137-145) mmol/L Carbon Dioxide (22-30) mmol/L BUN (9-20) mg/dL Creatinine (0.8-1.3) mg/dL Calcium (8.4-10.2) mg/dL Iron 15 L (49-181) ug/dL TIBC 177 L (250-450) mcg/dL Vitamin B12 1476 H (211-911) pg/mL Folate 5.13 L (7.3-26.0) ng/mL Crossmatch 05/16/20 05/16/20 Range/Units 08:25 12:17 Hgb (11.8-15.2) gm/dl Hct (35.5-45.6) % INR (0.87-1.13) APTT (24.2-36.6) Sec. Heparin Anti-Xa Level < 0.10 L (0.3-0.7) U.I./ml Sodium (137-145) mmol/L Carbon Dioxide (22-30) mmol/L BUN (9-20) mg/dL Creatinine (0.8-1.3) mg/dL Calcium (8.4-10.2) mg/dL Iron (49-181) ug/dL TIBC (250-450) mcg/dL Vitamin B12 (211-911) pg/mL Folate (7.3-26.0) ng/mL Crossmatch See Detail Medications & Allergies - Medications Allergies/Adverse Reactions: Allergies ibuprofen Allergy (Verified 05/13/20 16:53) Hives Home Medications: Home Medications Medication Instructions Recorded Confirmed Last Taken Type No Known Home Medications [No 05/14/20 05/14/20 Unknown History Reported Home Medications] Active Medications: Generic Name Dose Route Start Last Admin Trade Name Freq PRN Reason Stop Dose Admin Acetaminophen 650 mg 05/13/20 23:06 05/15/20 19:53 Acetaminophen 325 Mg Tab PO 650 mg Q4H PRN Administration Pain MILD(1-3)/Fever >100.5/DOMINIQUE Aspirin 81 mg 05/16/20 12:00 05/16/20 12:31 Aspirin Ec 81 Mg Tab PO 81 mg QDAY ALITSAIR Administration Heparin Sodium (Porcine) 3,700 unit 05/15/20 20:56 Heparin 10,000 Units/10 Ml Vial 40 unit/kg (3700 unit) IV Q6H PRN Anti-Xa Assay < 0.1 units/ml Sodium Chloride 1,000 mls @ 125 mls/hr 05/13/20 23:15 05/16/20 02:43 Nacl 0.9% 1000 Ml IV 125 mls/hr DIRECT ALISTAIR Administration Sodium Chloride 500 mls @ 50 mls/hr 05/15/20 14:00 Nacl 0.9% 500 Ml IV DIRECT ALISTAIR Heparin Sodium/Sodium Chloride 25,000 unit in 500 mls @ 27 mls/hr 05/15/20 21:00 05/16/20 06:44 Heparin/ 0.45% Nacl-25,000 Unit/500 Ml IV 1,450 units/hr TITR ALISTAIR 29 mls/hr Titration Protocol 1,350 UNITS/HR Magnesium Hydroxide 30 ml 05/13/20 23:06 Magnesium Hydroxide (Mom) Oral Liqd Udc PO Q4H PRN Constipation Morphine Sulfate 2 mg 05/13/20 23:06 05/16/20 12:31 Morphine 2 Mg/1 Ml Inj IV 2 mg Q4H PRN Administration Pain, Moderate (4-6) Ondansetron HCl 4 mg 05/13/20 23:06 Ondansetron 4 Mg/2 Ml Inj IV Q8H PRN Nausea And Vomiting Sodium Chloride 10 ml 05/14/20 10:00 05/16/20 13:01 Sodium Chloride 0.9% 10 Ml Flush Syringe IV 10 ml BID ALISTAIR Administration Sodium Chloride 10 ml 05/13/20 23:06 Sodium Chloride 0.9% 10 Ml Flush Syringe IV PRN PRN LINE FLUSH
[2020-05-16] MEDS: ACETAMINOPHEN 325 MG TAB PO PRN (17:18)
--- NOTE | 2020-05-16 19:00 | Hem/Onc Consultation ---
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 [facility] with this diagnosis per notes he has had abd pain for several months receiving IV heparin and aspirin 81 FHx: per notes brother colon ca data reviewed below scan interpretations and images reviewed IMP: metastatic colon cancer affecting lung and liver (large tumor) good functional status, good candidate for antitumor therapy per surgeon, colon tumor resection may be urgent (is he impending obstruction?) recent arterial thrombosis- clotting tendency partly due to cancer severe iron deficiency likely due to chronic bleeding REC: if possible, consider letting him cool off from foot ischemia before doing urgent colectomy if not possible to wait, then OK for surgery-->hold IV heparin and resume after surgery brain CT stagfing labs to include repeat CEA, Hgb electrophoresis IV iron infusions anticipate leaving with eliquis 5mg po bid "long-term" and aspirin 81mg daily will need to figure out where he will receive chemotherapy after discharge Active Medications Acetaminophen (Acetaminophen 325 Mg Tab) 650 mg PO Q4H PRN PRN Reason: Pain MILD(1-3)/Fever >100.5/DOMINIQUE Last Admin: 05/16/20 17:18 Dose: 650 mg Documented by: Aspirin (Aspirin Ec 81 Mg Tab) 81 mg PO QDAY ALISTAIR Last Admin: 05/16/20 12:31 Dose: 81 mg Documented by: Heparin Sodium (Porcine) (Heparin 10,000 Units/10 Ml Vial) 3,700 unit 40 unit/kg (3700 unit) IV Q6H PRN PRN Reason: Anti-Xa Assay < 0.1 units/ml Magnesium Hydroxide (Magnesium Hydroxide (Mom) Oral Liqd Udc) 30 ml PO Q4H PRN PRN Reason: Constipation Last Admin: 05/16/20 17:53 Dose: 30 ml Documented by: Morphine Sulfate (Morphine 2 Mg/1 Ml Inj) 2 mg IV Q4H PRN PRN Reason: Pain, Moderate (4-6) Last Admin: 05/16/20 12:31 Dose: 2 mg Documented by: Ondansetron HCl (Ondansetron 4 Mg/2 Ml Inj) 4 mg IV Q8H PRN PRN Reason: Nausea And Vomiting Laboratory Last Values WBC 14.7 K/mm3 (4.5-11.0) H 05/15/20 05:02 Hgb 7.8 gm/dl (11.8-15.2) L 05/16/20 08:23 Hct 26.4 % (35.5-45.6) L 05/16/20 08:23 MCV 75 fl (84-94) L 05/15/20 05:02 Plt Count 387 K/mm3 (140-440) 05/15/20 21:05 PT 14.9 Sec. (12.2-14.9) 05/15/20 21:05 INR 1.17 (0.87-1.13) H 05/15/20 21:05 APTT 37.0 Sec. (24.2-36.6) H 05/15/20 21:05 Creatinine 0.7 mg/dL (0.8-1.3) L 05/16/20 05:46 Iron 15 ug/dL (49-181) L 05/16/20 08:23 TIBC 177 mcg/dL (250-450) L 05/16/20 08:23 Ferritin 148.4 ng/mL (30.0-300.0) 05/16/20 08:23 Total Bilirubin 0.30 mg/dL (0.1-1.2) 05/13/20 17:02 AST 15 units/L (5-40) 05/13/20 17:02 ALT 11 units/L (7-56) 05/13/20 17:02 Alkaline Phosphatase 247 units/L (35-129) H 05/13/20 17:02 Crossmatch See Detail 05/16/20 08:25 Vital Signs Temp Pulse Resp BP Pulse Ox 99.9 F H 74 18 133/57 100 05/16/20 17:04 05/16/20 17:04 05/16/20 17:04 05/16/20 17:04 05/16/20 17:04 Temperature -Last 24 Hours Temperature 99.9 F Temperature 99.7 F Temperature 99.7 F Temperature 99.0 F Temperature 98.8 F Temperature 99.0 F Past History Past Medical History: No medical history Past Surgical History: No surgical history Social history: no significant social history, smoking. denies: alcohol abuse Family history: cancer (Older brother of colon ca.) Medications and Allergies Allergies Allergy/AdvReac Type Severity Reaction Status Date / Time ibuprofen Allergy Hives Verified 05/13/20 16:53 Home Medications Medication Instructions Recorded Confirmed Last Taken Type No Known Home Medications [No 05/14/20 05/14/20 Unknown History Reported Home Medications] Active Meds: Active Medications Acetaminophen (Acetaminophen 325 Mg Tab) 650 mg PO Q4H PRN PRN Reason: Pain MILD(1-3)/Fever >100.5/DOMINIQUE Last Admin: 05/16/20 17:18 Dose: 650 mg Documented by: Aspirin (Aspirin Ec 81 Mg Tab) 81 mg PO QDAY ALISTAIR Last Admin: 05/16/20 12:31 Dose: 81 mg Documented by: Heparin Sodium (Porcine) (Heparin 10,000 Units/10 Ml Vial) 3,700 unit 40 unit/kg (3700 unit) IV Q6H PRN PRN Reason: Anti-Xa Assay < 0.1 units/ml Sodium Chloride (Nacl 0.9% 1000 Ml) 1,000 mls @ 125 mls/hr IV DIRECT ALISTAIR Last Admin: 05/16/20 02:43 Dose: 125 mls/hr Documented by: Sodium Chloride (Nacl 0.9% 500 Ml) 500 mls @ 50 mls/hr IV DIRECT ALISTAIR Heparin Sodium/Sodium Chloride (Heparin/ 0.45% Nacl-25,000 Unit/500 Ml) 25,000 unit in 500 mls @ 27 mls/hr IV TITR ALISTAIR; Protocol Last Admin: 05/16/20 16:39 Dose: 1,650 units/hr, 33 mls/hr Documented by: Magnesium Hydroxide (Magnesium Hydroxide (Mom) Oral Liqd Udc) 30 ml PO Q4H PRN PRN Reason: Constipation Last Admin: 05/16/20 17:53 Dose: 30 ml Documented by: Morphine Sulfate (Morphine 2 Mg/1 Ml Inj) 2 mg IV Q4H PRN PRN Reason: Pain, Moderate (4-6) Last Admin: 05/16/20 12:31 Dose: 2 mg Documented by: Ondansetron HCl (Ondansetron 4 Mg/2 Ml Inj) 4 mg IV Q8H PRN PRN Reason: Nausea And Vomiting Sodium Chloride (Sodium Chloride 0.9% 10 Ml Flush Syringe) 10 ml IV BID ALISTAIR Last Admin: 05/16/20 13:01 Dose: 10 ml Documented by: Sodium Chloride (Sodium Chloride 0.9% 10 Ml Flush Syringe) 10 ml IV PRN PRN PRN Reason: LINE FLUSH Exam - Constitutional Vitals: Last Vital Signs Temp 99.9 F H 05/16/20 17:04 Pulse 74 05/16/20 17:04 Resp 18 05/16/20 17:04 BP 133/57 05/16/20 17:04 Pulse Ox 100 05/16/20 17:04 Results - Labs lab Results: Laboratory Results - last 24 hr 05/15/20 05/15/20 05/15/20 21:05 21:05 23:26 Hgb 6.8 L Hct 22.4 L Plt Count 387 PT 14.9 INR 1.17 H APTT 37.0 H Heparin Anti-Xa Level < 0.10 L Sodium Potassium Chloride Carbon Dioxide Anion Gap BUN Creatinine Estimated GFR BUN/Creatinine Ratio Glucose Calcium Iron TIBC Ferritin Vitamin B12 Folate Blood Type Antibody Screen Crossmatch 05/16/20 05/16/20 05/16/20 05:46 05:46 08:23 Hgb 7.8 L Hct 26.4 L Plt Count PT INR APTT Heparin Anti-Xa Level 0.18 L Sodium 135 L Potassium 3.7 Chloride 106.8 Carbon Dioxide 21 L Anion Gap 11 BUN 7 L Creatinine 0.7 L Estimated GFR > 60 BUN/Creatinine Ratio 10 Glucose 82 Calcium 7.6 L Iron TIBC Ferritin Vitamin B12 Folate Blood Type Antibody Screen Crossmatch 05/16/20 05/16/20 05/16/20 08:23 08:23 08:23 Hgb Hct Plt Count PT INR APTT Heparin Anti-Xa Level Sodium Potassium Chloride Carbon Dioxide Anion Gap BUN Creatinine Estimated GFR BUN/Creatinine Ratio Glucose Calcium Iron TIBC Ferritin 148.4 Vitamin B12 1476 H Folate 5.13 L Blood Type Antibody Screen Crossmatch 05/16/20 05/16/20 05/16/20 08:23 08:25 12:17 Hgb Hct Plt Count PT INR APTT Heparin Anti-Xa Level < 0.10 L Sodium Potassium Chloride Carbon Dioxide Anion Gap BUN Creatinine Estimated GFR BUN/Creatinine Ratio Glucose Calcium Iron 15 L TIBC 177 L Ferritin Vitamin B12 Folate Blood Type O POSITIVE Antibody Screen Negative Crossmatch See Detail
[2020-05-16 19:27] LABS: Hematocrit 23.2 % (35.5-45.6); Hemoglobin 7.2 gm/dl (11.8-15.2)
[2020-05-16] MEDS ORDERED: SODIUM FERRIC GLUCON/SUCRO 125 MG in SODIUM CHLORIDE 0.9% 100 ML IV SCH (20:00)
[2020-05-17] MEDS: HEPARIN/ 0.45% NACL DRIP 25,000 UNIT/500 ML BAG IV SCH (00:08)
[2020-05-17 05:54] LABS: Basophils # (Auto) 0.1 K/mm3 (0.0-0.1); Basophils % (Auto) 0.4 % (0.0-1.8); Eosinophils % (Auto) 0.2 % (0.0-4.3); Hematocrit 22.9 % (35.5-45.6); Lymphocytes # (Auto) 1.9 K/mm3 (1.2-5.4); Lymphocytes % (Auto) 11.6 % (13.4-35.0); Mean Corpuscular HGB Conc 31 % (32-34); Mean Corpuscular Volume 74 fl (84-94); Monocytes # (Auto) 1.5 K/mm3 (0.0-0.8); Monocytes % (Auto) 9.5 % (0.0-7.3); Platelet Count 341 K/mm3 (140-440); Red Blood Count 3.09 M/mm3 (3.65-5.03); Red Cell Distribution Width 19.8 % (13.2-15.2)
[2020-05-17 06:11] LABS: Blood Urea Nitrogen 6 mg/dL (9-20); Calcium 7.8 mg/dL (8.4-10.2); Hemolysis Index 1
[2020-05-17 06:14] LABS: BUN/Creatinine Ratio 9
--- NOTE | 2020-05-17 08:43 | Progress Note ---
Assessment and Plan Assessment and plan: (1) Gangrene of toe of right foot Current Visit: Yes Status: Acute Plan to address problem: Patient placed on empiric IV antibiotics. Consult placed to infectious disease and vascular surgery for evaluation. (2) Colon cancer metastasized to lung Current Visit: Yes Status: Acute Plan to address problem: Patient was just recently diagnosed with colon cancer in [facility]. He has not had any follow-up with any physician. We will place consult to gastroenterology for evaluation. (3) DVT prophylaxis Current Visit: Yes Status: Acute Plan to address problem: Patient placed on sequential compression device. (4) Full code status Current Visit: Yes Status: Acute Plan to address problem: Patient is full code. 05/14/2020 -Patient is diagnosed with stage IV colon cancer metastasized to the lung recently. Patient went to [place] and discharged him to have follow-up at [facility] and patient presented here. Patient has colon mass and was able to do advance to colonoscopy at [place] (per GI), patient may need surgical intervention and I put a consult for general surgery. I have discussed with GI and GI said nothing to add on his current management. Patient need to have follow-up with oncologist as an outpatient. Patient has gangrene of the right third toes and I ordered arterial Doppler, vascular surgery consulted. She has also leukocytosis and is on IV Vanco and Zosyn. 05/15/2020 -Patient was seen by general surgery and recommend CT abdomen and pelvis, will get records from [facility] colonoscopy and pathology reports. Discussed with the nurse to get records. Evaluated by ID and recommend no antibiotics at this time. Evaluated by GI and no further work-up needed from GI point of view. Patient was evaluated by scleral surgery and arterial Doppler was done and significant for moderate peripheral arterial disease in the right lower extremity and will do revascularization. 05/16/2020 -CT chest abdomen and pelvis was done and significant for colorectal cancer, and lung cancer. We will get records from [facility]. Was evaluated by vascular and did a revascularization yesterday. Was evaluated by general surgery. Hemoglobin yesterday was 6.8. We will transfuse him a unit of blood and monitor posttransfusion hemoglobin/hematocrit. Will monitor and transfuse as needed. Will do anemia work-up. I put a consult per oncology recommendations. 05/17/2020 -CT chest abdomen and pelvis was done and significant for colorectal cancer, and lung cancer. We will get records from original hospital discussed with patient's nurse. Was evaluated by vascular and did a revascularization was done and now the discoloration is resolving, patient has palpable pulse, no pain. Patient is currently on heparin drip and can be continued until surgery and will be transitioned to Eliquis after that. Was evaluated by general surgery and is considering to do palliative colectomy. Hemoglobin yesterday was 6.8 and transfused a unit of blood and posttransfusion hemoglobin this morning was 7, patient is currently on iron infusion, will monitor H&H and transfuse as needed. Leukocytosis could be due to the cancer, no fever or other signs of infection. Path result was obtained from [facility] in [place] and showed adenocarcinoma, primary is from the colorectal carcinoma. History Interval history: Patient was seen and evaluated this morning Right foot pain is getting better Hospitalist Physical - Physical exam Narrative exam: Not in cardiopulmonary distress. The patient appeared well nourished and normally developed. Vital signs as documented. Head exam is unremarkable. No scleral icterus . Neck is without jugular venous distension, thyromegaly, or carotid bruits. Lungs are clear to auscultation. Cardiac exam reveals regular rate and Rhythm. Abdominal exam reveals normal bowel sounds, nontender, no organomegaly. Extremities dark discoloration of the right third toes, improving LEVELMAN: Alert and oriented 3. No focal weakness. - Constitutional Vitals: Temp Pulse Resp BP Pulse Ox 99.2 F 50 L 20 135/63 99 05/17/20 06:03 05/17/20 06:03 05/17/20 06:03 05/17/20 06:03 05/17/20 06:03 General appearance: Present: no acute distress Results - Labs CBC & Chem 7: 05/17/20 05:02 05/17/20 05:02 Labs: Laboratory Last Values WBC 16.1 K/mm3 (4.5-11.0) H 05/17/20 05:02 RBC 3.09 M/mm3 (3.65-5.03) L 05/17/20 05:02 Hgb 7.0 gm/dl (11.8-15.2) L 05/17/20 05:02 Hct 22.9 % (35.5-45.6) L 05/17/20 05:02 MCV 74 fl (84-94) L 05/17/20 05:02 MCH 23 pg (28-32) L 05/17/20 05:02 MCHC 31 % (32-34) L 05/17/20 05:02 RDW 19.8 % (13.2-15.2) H 05/17/20 05:02 Plt Count 341 K/mm3 (140-440) 05/17/20 05:02 Lymph % (Auto) 11.6 % (13.4-35.0) L 05/17/20 05:02 [place] % (Auto) 9.5 % (0.0-7.3) H 05/17/20 05:02 Eos % (Auto) 0.2 % (0.0-4.3) 05/17/20 05:02 Baso % (Auto) 0.4 % (0.0-1.8) 05/17/20 05:02 Lymph # (Auto) 1.9 K/mm3 (1.2-5.4) 05/17/20 05:02 [place] # (Auto) 1.5 K/mm3 (0.0-0.8) H 05/17/20 05:02 Eos # (Auto) 0.0 K/mm3 (0.0-0.4) 05/17/20 05:02 Baso # (Auto) 0.1 K/mm3 (0.0-0.1) 05/17/20 05:02 Seg Neutrophils % 78.3 % (40.0-70.0) H 05/17/20 05:02 Seg Neutrophils # 12.6 K/mm3 (1.8-7.7) H 05/17/20 05:02 PT 14.9 Sec. (12.2-14.9) 05/15/20 21:05 INR 1.17 (0.87-1.13) H 05/15/20 21:05 APTT 37.0 Sec. (24.2-36.6) H 05/15/20 21:05 Heparin Anti-Xa Level 0.67 U.I./ml (0.3-0.7) 05/17/20 07:34 Sodium 138 mmol/L (137-145) 05/17/20 05:02 Potassium 3.5 mmol/L (3.6-5.0) L 05/17/20 05:02 Chloride 106.7 mmol/L (98-107) 05/17/20 05:02 Carbon Dioxide 25 mmol/L (22-30) 05/17/20 05:02 Anion Gap 10 mmol/L 05/17/20 05:02 BUN 6 mg/dL (9-20) L 05/17/20 05:02 Creatinine 0.7 mg/dL (0.8-1.3) L 05/17/20 05:02 Estimated GFR > 60 ml/min 05/17/20 05:02 BUN/Creatinine Ratio 9 % 05/17/20 05:02 Glucose 85 mg/dL (75-100) 05/17/20 05:02 Lactic Acid 0.90 mmol/L (0.7-2.0) 05/14/20 08:02 Calcium 7.8 mg/dL (8.4-10.2) L 05/17/20 05:02 Iron 15 ug/dL (49-181) L 05/16/20 08:23 TIBC 177 mcg/dL (250-450) L 05/16/20 08:23 Ferritin 148.4 ng/mL (30.0-300.0) 05/16/20 08:23 Total Bilirubin 0.30 mg/dL (0.1-1.2) 05/13/20 17:02 AST 15 units/L (5-40) 05/13/20 17:02 ALT 11 units/L (7-56) 05/13/20 17:02 Alkaline Phosphatase 247 units/L (35-129) H 05/13/20 17:02 Total Protein 7.0 g/dL (6.3-8.2) 05/13/20 17:02 Albumin 2.5 g/dL (3.9-5) L 05/13/20 17:02 Albumin/Globulin Ratio 0.6 % 05/13/20 17:02 Lipase 33 units/L (13-60) 05/13/20 17:02 Vitamin B12 1476 pg/mL (211-911) H 05/16/20 08:23 Folate 5.13 ng/mL (7.3-26.0) L 05/16/20 08:23 Urine Color Yellow (Yellow) 05/13/20 Unknown Urine Turbidity Slightly-cloudy (Clear) 05/13/20 Unknown Urine pH 5.0 (5.0-7.0) 05/13/20 Unknown Ur Specific [place] 1.021 (1.003-1.030) 05/13/20 Unknown Urine Protein <15 mg/dl mg/dL (Negative) 05/13/20 Unknown Urine Glucose (UA) Neg mg/dL (Negative) 05/13/20 Unknown Urine Ketones Neg mg/dL (Negative) 05/13/20 Unknown Urine Blood Neg (Negative) 05/13/20 Unknown Urine Nitrite Neg (Negative) 05/13/20 Unknown Urine Bilirubin Neg (Negative) 05/13/20 Unknown Urine Urobilinogen 2.0 mg/dL (<2.0) 05/13/20 Unknown Ur Leukocyte Esterase Tr (Negative) 05/13/20 Unknown Urine WBC (Auto) 5.0 /HPF (0.0-6.0) 05/13/20 Unknown Urine RBC (Auto) 5.0 /HPF (0.0-6.0) 05/13/20 Unknown U Epithel Cells (Auto) 3.0 /HPF (0-13.0) 05/13/20 Unknown Urine Bacteria (Auto) 1+ /HPF (Negative) 05/13/20 Unknown Urine Mucus Few /HPF 05/13/20 Unknown Blood Type O POSITIVE 05/16/20 08:25 Antibody Screen Negative 05/16/20 08:25 Crossmatch See Detail 05/16/20 08:25 Microbiology: Microbiology 05/13/20 21:08 Peripheral/Venous Blood Culture - Preliminary NO GROWTH AFTER 72 HOURS 05/13/20 21:01 Peripheral/Venous Blood Culture - Preliminary NO GROWTH AFTER 72 HOURS 05/14/20 05:22 Nares - Left MRSA Culture - Final Mcrae/IV: Voiding Method Toilet Active Medications - Current Medications Current Medications: Generic Name Dose Route Start Last Admin Trade Name Freq PRN Reason Stop Dose Admin Acetaminophen 650 mg 05/13/20 23:06 05/16/20 17:18 Acetaminophen 325 Mg Tab PO 650 mg Q4H PRN Administration Pain MILD(1-3)/Fever >100.5/DOMINIQUE Aspirin 81 mg 05/16/20 12:00 05/16/20 12:31 Aspirin Ec 81 Mg Tab PO 81 mg QDAY ALISTAIR Administration Folic Acid 1 mg 05/17/20 10:00 Folic Acid 1 Mg Tab PO QDAY ALISTAIR Heparin Sodium (Porcine) 3,700 unit 05/15/20 20:56 Heparin 10,000 Units/10 Ml Vial 40 unit/kg (3700 unit) IV Q6H PRN Anti-Xa Assay < 0.1 units/ml Sodium Chloride 1,000 mls @ 125 mls/hr 05/13/20 23:15 05/16/20 02:43 Nacl 0.9% 1000 Ml IV 125 mls/hr DIRECT ALISTAIR Administration Sodium Chloride 500 mls @ 50 mls/hr 05/15/20 14:00 Nacl 0.9% 500 Ml IV DIRECT ALISTAIR Heparin Sodium/Sodium Chloride 25,000 unit in 500 mls @ 27 mls/hr 05/15/20 21:00 05/17/20 00:08 Heparin/ 0.45% Nacl-25,000 Unit/500 Ml IV 1,750 units/hr TITR ALISTAIR 35 mls/hr Administration Protocol 1,350 UNITS/HR Ferric Sodium Gluconate 110 mls @ 100 mls/hr 05/16/20 20:00 05/16/20 22:43 Complex 125 mg/ Sodium IV 05/19/20 19:59 100 mls/hr Chloride ONCE ALISTAIR Administration Magnesium Hydroxide 30 ml 05/13/20 23:06 05/16/20 17:53 Magnesium Hydroxide (Mom) Oral Liqd Udc PO 30 ml Q4H PRN Administration Constipation Morphine Sulfate 2 mg 05/13/20 23:06 05/16/20 12:31 Morphine 2 Mg/1 Ml Inj IV 2 mg Q4H PRN Administration Pain, Moderate (4-6) Ondansetron HCl 4 mg 05/13/20 23:06 Ondansetron 4 Mg/2 Ml Inj IV Q8H PRN Nausea And Vomiting Sodium Chloride 10 ml 05/14/20 10:00 05/16/20 22:43 Sodium Chloride 0.9% 10 Ml Flush Syringe IV 10 ml BID ALISTAIR Administration Sodium Chloride 10 ml 05/13/20 23:06 Sodium Chloride 0.9% 10 Ml Flush Syringe IV PRN PRN LINE FLUSH
[2020-05-17] MEDS: ASPIRIN EC 81 MG TAB PO SCH (09:40)
[2020-05-17] MEDS: FOLIC ACID 1 MG TAB PO SCH (09:40)
[2020-05-17] MEDS: MORPHINE 2 MG/1 ML INJ IV PRN (13:09)
[2020-05-17] MEDS ORDERED: SODIUM CHLORIDE 0.9% 500 ML 500 ML IV NR (13:53)
[2020-05-17] MEDS ORDERED: POLYETHYLENE GLYCOL/ELECT SOLN 4000 ML PO ONE ×2 (17:00→18:00)
--- NOTE | 2020-05-17 17:53 | Progress Note ---
Assessment and Plan - Patient Problems (1) Colon cancer metastasized to lung Current Visit: Yes Status: Acute Plan to address problem: 1) Open right/transverse colectomy tomorrow. 2) Hold Heparin 4 hrs pre-op 3) Levaquin/Flagyl pre-op 4) Pt is aware that this is a palliative procedure. 5) Awaiting Oncology consultation. Subjective Date of service: 05/17/20 Patient Reports: Positive: no new complaints Objective Vital Signs - 12hr 05/17/20 05/17/20 05/17/20 06:03 11:23 16:25 Temperature 99.2 F 99.0 F Pulse Rate 50 L 60 56 L Respiratory 20 20 20 Rate Blood Pressure 135/63 137/56 140/77 O2 Sat by Pulse 99 100 100 Oximetry - Abdomen PM_46_EXABD1 4, PM_46_EXABD1 6, PM_46_EXABD1 8 Hernia: none - Labs 05/17/20 05:02 05/17/20 05:02 Diabetes panel 05/17/20 Range/Units 05:02 Sodium 138 (137-145) mmol/L Potassium 3.5 L (3.6-5.0) mmol/L Chloride 106.7 (98-107) mmol/L Carbon Dioxide 25 (22-30) mmol/L BUN 6 L (9-20) mg/dL Creatinine 0.7 L (0.8-1.3) mg/dL Glucose 85 (75-100) mg/dL Calcium 7.8 L (8.4-10.2) mg/dL Calcium panel 05/17/20 Range/Units 05:02 Calcium 7.8 L (8.4-10.2) mg/dL Pituitary panel 05/17/20 Range/Units 05:02 Sodium 138 (137-145) mmol/L Potassium 3.5 L (3.6-5.0) mmol/L Chloride 106.7 (98-107) mmol/L Carbon Dioxide 25 (22-30) mmol/L BUN 6 L (9-20) mg/dL Creatinine 0.7 L (0.8-1.3) mg/dL Glucose 85 (75-100) mg/dL Calcium 7.8 L (8.4-10.2) mg/dL Adrenal panel 05/17/20 Range/Units 05:02 Sodium 138 (137-145) mmol/L Potassium 3.5 L (3.6-5.0) mmol/L Chloride 106.7 (98-107) mmol/L Carbon Dioxide 25 (22-30) mmol/L BUN 6 L (9-20) mg/dL Creatinine 0.7 L (0.8-1.3) mg/dL Glucose 85 (75-100) mg/dL Calcium 7.8 L (8.4-10.2) mg/dL - Imaging Additional Studies: Path reports from [place], [place] reviewed.
[2020-05-18] MEDS: ACETAMINOPHEN 325 MG TAB PO PRN (01:06)
[2020-05-18] MEDS: HEPARIN/ 0.45% NACL DRIP 25,000 UNIT/500 ML BAG IV SCH (06:29)
[2020-05-18 07:32] LABS: Basophils # (Auto) 0.1 K/mm3 (0.0-0.1); Basophils % (Auto) 0.4 % (0.0-1.8); Eosinophils % (Auto) 0.2 % (0.0-4.3); Hemoglobin 8.3 gm/dl (11.8-15.2); Lymphocytes # (Auto) 2.5 K/mm3 (1.2-5.4); Lymphocytes % (Auto) 12.4 % (13.4-35.0); Mean Corpuscular HGB Conc 31 % (32-34); Mean Corpuscular Volume 75 fl (84-94); Monocytes # (Auto) 1.9 K/mm3 (0.0-0.8); Monocytes % (Auto) 9.5 % (0.0-7.3); Platelet Count 357 K/mm3 (140-440); Red Blood Count 3.59 M/mm3 (3.65-5.03)
[2020-05-18 07:33] LABS: Red Cell Distribution Width 20.1 % (13.2-15.2)
[2020-05-18 07:50] LABS: Blood Urea Nitrogen 5 mg/dL (9-20); Calcium 8.1 mg/dL (8.4-10.2); Hemolysis Index 14
[2020-05-18 08:17] LABS: BUN/Creatinine Ratio 7
[2020-05-18] MEDS: ASPIRIN EC 81 MG TAB PO SCH (09:10)
[2020-05-18] MEDS: FOLIC ACID 1 MG TAB PO SCH (09:10)
--- NOTE | 2020-05-18 14:12 | Progress Note ---
Assessment and Plan Assessment and plan: 55-year-old -[place] male who was recently diagnosed with colon cancer in [facility] about a week ago presenting to the emergency room today complaining of chronic abdominal pain and right foot pain. Abdominal pain has been ongoing for the past 3 to 4 months. He was recently in [facility] where he was evaluated in the hospital and diagnosed with lesions consistent with colon cancer on a CT scan. Was also said to have had metastases to his lungs. He has not had any follow-up with any oncologist or freight agent because of insurance issues. Patient also indicates that his older brother of colon cancer few years ago. He has not had any colonoscopy in the past. 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 Patient has been having pain in his right foot over the past few weeks. He denies any trauma to the foot and no recent fall. He denies any numbness. Patient denies any fever or chills, no chest pain or shortness of breath, no nausea vomiting, no headache or dizziness. Work-up in the emergency room today reveals a leukocytosis of 15.7. X-ray of the right foot did not reveal any osteomyelitis. Patient is being admitted with gangrene of the right middle toe in addition to his recently diagnosed colon cancer. 05/14/2020 -Patient is diagnosed with stage IV colon cancer metastasized to the lung recently. Patient went to [place] and discharged him to have follow-up at [facility] and patient presented here. Patient has colon mass and was able to do advance to colonoscopy at [place] (per GI), patient may need surgical intervention and I put a consult for general surgery. I have discussed with GI and GI said nothing to add on his current management. Patient need to have follow-up with oncologist as an outpatient. Patient has gangrene of the right third toes and I ordered arterial Doppler, vascular surgery consulted. She has also leukocytosis and is on IV Vanco and Zosyn. 05/15/2020 -Patient was seen by general surgery and recommend CT abdomen and pelvis, will get records from [facility] colonoscopy and pathology reports. Discussed with the nurse to get records. Evaluated by ID and recommend no antibiotics at this time. Evaluated by GI and no further work-up needed from GI point of view. Patient was evaluated by scleral surgery and arterial Doppler was done and significant for moderate peripheral arterial disease in the right lower extremity and will do revascularization. 05/16/2020 -CT chest abdomen and pelvis was done and significant for colorectal cancer, and lung cancer. We will get records from original hospital. Was evaluated by makayla bynum and did a revascularization yesterday. Was evaluated by general surgery. Hemoglobin yesterday was 6.8. We will transfuse him a unit of blood and monitor posttransfusion hemoglobin/hematocrit. Will monitor and transfuse as needed. Will do anemia work-up. I put a consult per oncology recommendations. 05/17/2020 -CT chest abdomen and pelvis was done and significant for colorectal cancer, and lung cancer. We will get records from original hospital discussed with patient's nurse. Was evaluated by vascular and did a revascularization was done and now the discoloration is resolving, patient has palpable pulse, no pain. Patient is currently on heparin drip and can be continued until surgery and will be transitioned to Eliquis after that. Was evaluated by general surgery and is considering to do palliative colectomy. Hemoglobin yesterday was 6.8 and transfused a unit of blood and posttransfusion hemoglobin this morning was 7, patient is currently on iron infusion, will monitor H&H and transfuse as needed. Leukocytosis could be due to the cancer, no fever or other signs of infection. Path result was obtained from [facility] in [place] and showed adenocarcinoma, primary is from the colorectal carcinoma. 05/18: Patient clinically stable, awaiting surgical input or the planned Open right/transverse colectomy,, Hematology is stating to await for a cool off time before resection but if cannot wait then proceed with the surgery, Patient will need elquis 5mg PO BID skilled nursing and aspirin 81 mg daily. (1) Gangrene of toe of right foot Current Visit: Yes Status: Acute Plan to address problem: Patient placed on empiric IV antibiotics. Consult placed to infectious disease and vascular surgery for evaluation. (2) Colon cancer metastasized to lung Current Visit: Yes Status: Acute Plan to address problem: Patient was just recently diagnosed with colon cancer in [facility]. He has not had any follow-up with any physician. We will place consult to gastroenterology for evaluation. 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 (6) Full code status Current Visit: Yes Status: Acute Plan to address problem: Patient is full code. History Interval history: Patient seen and examined, no new complaints. Hospitalist Physical - Physical exam Narrative exam: VITAL SIGNS: Reviewed. GENERAL: The patient appears normally developed, Vital signs as documented. HEAD: No signs of head trauma. EYES: Pupils are equal. Extraocular motions intact. EARS: Hearing grossly intact. MOUTH: Oropharynx is normal. NECK: No adenopathy, no JVD. CHEST: Chest with clear breath sounds bilaterally. No wheezes, rales, or rhonchi. CARDIAC: Regular rate and rhythm. S1 and S2, without murmurs, gallops, or rubs. VASCULAR: No Edema. Peripheral pulses normal and equal in all extremities. ABDOMEN: Soft, non tender and non distended. No rebound or guarding, and no masses palpated. Bowel Sounds normal. MUSCULOSKELETAL: Good range of motion of all major joints. Extremities without clubbing, cyanosis or edema. NEUROLOGIC EXAM: Alert and oriented x 3 No focal sensory or strength deficits. Speech normal. Follows commands. PSYCHIATRIC: Mood normal. SKIN: detail exam as documented in skin assessment - Constitutional Vitals: Temp Pulse Resp BP Pulse Ox 98.3 F 43 L 18 141/64 99 05/18/20 10:58 05/18/20 10:58 05/18/20 10:58 05/18/20 10:58 05/18/20 10:58 General appearance: Present: no acute distress Results - Labs CBC & Chem 7: 05/18/20 07:19 05/18/20 07:19 Labs: Laboratory Last Values WBC 19.7 K/mm3 (4.5-11.0) H 05/18/20 07:19 RBC 3.59 M/mm3 (3.65-5.03) L 05/18/20 07:19 Hgb 8.3 gm/dl (11.8-15.2) L 05/18/20 07:19 Hct 27.0 % (35.5-45.6) L 05/18/20 07:19 MCV 75 fl (84-94) L 05/18/20 07:19 MCH 23 pg (28-32) L 05/18/20 07:19 MCHC 31 % (32-34) L 05/18/20 07:19 RDW 20.1 % (13.2-15.2) H 05/18/20 07:19 Plt Count 357 K/mm3 (140-440) 05/18/20 07:19 Lymph % (Auto) 12.4 % (13.4-35.0) L 05/18/20 07:19 [place] % (Auto) 9.5 % (0.0-7.3) H 05/18/20 07:19 Eos % (Auto) 0.2 % (0.0-4.3) 05/18/20 07:19 Baso % (Auto) 0.4 % (0.0-1.8) 05/18/20 07:19 Lymph # (Auto) 2.5 K/mm3 (1.2-5.4) 05/18/20 07:19 [place] # (Auto) 1.9 K/mm3 (0.0-0.8) H 05/18/20 07:19 Eos # (Auto) 0.0 K/mm3 (0.0-0.4) 05/18/20 07:19 Baso # (Auto) 0.1 K/mm3 (0.0-0.1) 05/18/20 07:19 Seg Neutrophils % 77.5 % (40.0-70.0) H 05/18/20 07:19 Seg Neutrophils # 15.3 K/mm3 (1.8-7.7) H 05/18/20 07:19 PT 14.9 Sec. (12.2-14.9) 05/15/20 21:05 INR 1.17 (0.87-1.13) H 05/15/20 21:05 APTT 37.0 Sec. (24.2-36.6) H 05/15/20 21:05 Heparin Anti-Xa Level 0.68 U.I./ml (0.3-0.7) 05/18/20 07:19 Sodium 138 mmol/L (137-145) 05/18/20 07:19 Potassium 4.2 mmol/L (3.6-5.0) 05/18/20 07:19 Chloride 106.0 mmol/L (98-107) 05/18/20 07:19 Carbon Dioxide 28 mmol/L (22-30) 05/18/20 07:19 Anion Gap 8 mmol/L 05/18/20 07:19 BUN 5 mg/dL (9-20) L 05/18/20 07:19 Creatinine 0.7 mg/dL (0.8-1.3) L 05/18/20 07:19 Estimated GFR > 60 ml/min 05/18/20 07:19 BUN/Creatinine Ratio 7 % 05/18/20 07:19 Glucose 93 mg/dL (75-100) 05/18/20 07:19 Lactic Acid 0.90 mmol/L (0.7-2.0) 05/14/20 08:02 Calcium 8.1 mg/dL (8.4-10.2) L 05/18/20 07:19 Iron 15 ug/dL (49-181) L 05/16/20 08:23 TIBC 177 mcg/dL (250-450) L 05/16/20 08:23 Ferritin 148.4 ng/mL (30.0-300.0) 05/16/20 08:23 Total Bilirubin 0.30 mg/dL (0.1-1.2) 05/13/20 17:02 AST 15 units/L (5-40) 05/13/20 17:02 ALT 11 units/L (7-56) 05/13/20 17:02 Alkaline Phosphatase 247 units/L (35-129) H 05/13/20 17:02 Total Protein 7.0 g/dL (6.3-8.2) 05/13/20 17:02 Albumin 2.5 g/dL (3.9-5) L 05/13/20 17:02 Albumin/Globulin Ratio 0.6 % 05/13/20 17:02 Lipase 33 units/L (13-60) 05/13/20 17:02 Carcinoembryonic Ag 47.8 ng/mL (0.0-2.4) H 05/14/20 19:22 Vitamin B12 1476 pg/mL (211-911) H 05/16/20 08:23 Folate 5.13 ng/mL (7.3-26.0) L 05/16/20 08:23 Urine Color Yellow (Yellow) 05/13/20 Unknown Urine Turbidity Slightly-cloudy (Clear) 05/13/20 Unknown Urine pH 5.0 (5.0-7.0) 05/13/20 Unknown Ur Specific [place] 1.021 (1.003-1.030) 05/13/20 Unknown Urine Protein <15 mg/dl mg/dL (Negative) 05/13/20 Unknown Urine Glucose (UA) Neg mg/dL (Negative) 05/13/20 Unknown Urine Ketones Neg mg/dL (Negative) 05/13/20 Unknown Urine Blood Neg (Negative) 05/13/20 Unknown Urine Nitrite Neg (Negative) 05/13/20 Unknown Urine Bilirubin Neg (Negative) 05/13/20 Unknown Urine Urobilinogen 2.0 mg/dL (<2.0) 05/13/20 Unknown Ur Leukocyte Esterase Tr (Negative) 05/13/20 Unknown Urine WBC (Auto) 5.0 /HPF (0.0-6.0) 05/13/20 Unknown Urine RBC (Auto) 5.0 /HPF (0.0-6.0) 05/13/20 Unknown U Epithel Cells (Auto) 3.0 /HPF (0-13.0) 05/13/20 Unknown Urine Bacteria (Auto) 1+ /HPF (Negative) 05/13/20 Unknown Urine Mucus Few /HPF 05/13/20 Unknown Blood Type O POSITIVE 05/16/20 08:25 Antibody Screen Negative 05/16/20 08:25 Crossmatch See Detail 05/16/20 08:25 Microbiology: Microbiology 05/13/20 21:08 Peripheral/Venous Blood Culture - Preliminary NO GROWTH AFTER 4 DAYS 05/13/20 21:01 Peripheral/Venous Blood Culture - Preliminary NO GROWTH AFTER 4 DAYS Mcrae/IV: Voiding Method Toilet Active Medications - Current Medications Current Medications: Generic Name Dose Route Start Last Admin Trade Name Freq PRN Reason Stop Dose Admin Acetaminophen 650 mg 05/13/20 23:06 05/18/20 01:06 Acetaminophen 325 Mg Tab PO 650 mg Q4H PRN Administration Pain MILD(1-3)/Fever >100.5/DOMINIQUE Aspirin 81 mg 05/16/20 12:00 05/18/20 09:10 Aspirin Ec 81 Mg Tab PO Not Given QDAY [facility] Folic Acid 1 mg 05/17/20 10:00 05/18/20 09:10 Folic Acid 1 Mg Tab PO Not Given QDAY [facility] Heparin Sodium (Porcine) 3,700 unit 05/15/20 20:56 Heparin 10,000 Units/10 Ml Vial 40 unit/kg (3700 unit) IV Q6H PRN Anti-Xa Assay < 0.1 units/ml Sodium Chloride 1,000 mls @ 125 mls/hr 05/13/20 23:15 05/16/20 02:43 Nacl 0.9% 1000 Ml IV 125 mls/hr DIRECT ALISTAIR Administration Sodium Chloride 500 mls @ 50 mls/hr 05/15/20 14:00 Nacl 0.9% 500 Ml IV DIRECT ALISTAIR Heparin Sodium/Sodium Chloride 25,000 unit in 500 mls @ 27 mls/hr 05/15/20 21:00 05/18/20 07:51 Heparin/ 0.45% Nacl-25,000 Unit/500 Ml IV 1,750 units/hr TITR ALISTAIR 35 mls/hr Titration Protocol 1,350 UNITS/HR Ferric Sodium Gluconate 110 mls @ 100 mls/hr 05/16/20 20:00 05/16/20 22:43 Complex 125 mg/ Sodium IV 05/19/20 19:59 100 mls/hr Chloride ONCE ALISTAIR Administration Magnesium Hydroxide 30 ml 05/13/20 23:06 05/16/20 17:53 Magnesium Hydroxide (Mom) Oral Liqd Udc PO 30 ml Q4H PRN Administration Constipation Morphine Sulfate 2 mg 05/13/20 23:06 05/17/20 13:09 Morphine 2 Mg/1 Ml Inj IV 2 mg Q4H PRN Administration Pain, Moderate (4-6) Ondansetron HCl 4 mg 05/13/20 23:06 Ondansetron 4 Mg/2 Ml Inj IV Q8H PRN Nausea And Vomiting Sodium Chloride 10 ml 05/14/20 10:00 05/18/20 09:10 Sodium Chloride 0.9% 10 Ml Flush Syringe IV Not Given BID ALISTAIR Sodium Chloride 10 ml 05/13/20 23:06 Sodium Chloride 0.9% 10 Ml Flush Syringe IV PRN PRN LINE FLUSH
[2020-05-18] MEDS ORDERED: metroNIDAZOLE/NS 1000 MG-200ML 1,000 MG in EMPTY BAG 0 ML IV SCH (16:54)
[2020-05-18] MEDS ORDERED: SODIUM CHLORIDE 0.9% 500 ML 500 ML IV NR (17:02)
[2020-05-18] MEDS ORDERED: ROCURONIUM 50 MG/5 ML INJ IV ONE ×2 (17:24→19:52)
[2020-05-18] MEDS ORDERED: MIDAZOLAM 2 MG/2 ML INJ ONE (17:24)
[2020-05-18] MEDS ORDERED: LIDOCAINE MPF (2%) 20 MG/1 ML VIAL 5 ML ONE (17:24)
[2020-05-18] MEDS ORDERED: fentaNYL 100 MCG/2 ML INJ ONE ×2 (17:24→18:44)
[2020-05-18] MEDS ORDERED: propofoL 200 MG/20 ML VIAL IV ONE (17:25)
--- NOTE | 2020-05-18 17:32 | Anesthesia Consultation ---
<BASIL POWER - Last Filed: 05/18/20 17:32> Anesthesia Consult and Med Hx - Airway Anesthetic Teeth Evaluation: Good ROM Head & Neck: Adequate Mental/Hyoid Distance: Adequate Mallampati Class: Class II Intubation Access Assessment: Good - Pulmonary Exam CTA: Yes - Cardiac Exam Cardiac Exam: RRR - Pre-Operative Health Status ASA Pre-Surgery Classification: ASA3 Proposed Anesthetic Plan: General - Other Systems Hx Cancer: Yes (colon cancer) <MAYRA DELGADO - Last Filed: 05/18/20 17:37> Anesthesia Consult and Med Hx - Pre-Operative Health Status ASA Pre-Surgery Classification: ASA3 Proposed Anesthetic Plan: General - Pulmonary Hx Respiratory Symptoms: No - Cardiovascular System Hx Hypertension: No Hx Peripheral Vascular Disease: Yes - Central Nervous System CVA: No - Endocrine Hx Renal Disease: No Hx Liver Disease: No (metastatic disease, normal function) Hx Insulin Dependent Diabetes: No Hx Non-Insulin Dependent Diabetes: No - Hematic Hx Anemia: Yes - Other Systems Hx Cancer: Yes - Additional Comments Anesthesia Medical History Comments: pRBCs ordered on standby
--- NOTE | 2020-05-18 17:33 | Anesthesia Day of Surgery ---
Anesthesia Day of Surgery - Day of Surgery Patient Examined: Yes Patient H&P Reviewed: Yes Patient is NPO: Yes
[2020-05-18] MEDS ORDERED: ONDANSETRON 4 MG/2 ML INJ IV PRN (17:37)
[2020-05-18] MEDS ORDERED: HYDROmorphone 1 MG/1 ML INJ IV PRN (17:37)
[2020-05-18] MEDS ORDERED: LACTATED RINGERS 1,000 ML ONE ×3 (17:59→21:48)
[2020-05-18] MEDS ORDERED: ONDANSETRON 4 MG/2 ML INJ ONE (18:10)
[2020-05-18] MEDS ORDERED: KETOROLAC 30 MG/1 ML INJ ONE (18:10)
[2020-05-18] MEDS ORDERED: SODIUM CHLORIDE 0.9% IRR 1,500 ML BOTTLE IR ONE ×2 (18:32)
[2020-05-18] MEDS ORDERED: WATER FOR IRRIG STERILE 1,500 ML BOTTLE IR ONE (20:40)
[2020-05-18] MEDS ORDERED: NEOSTIGMINE 10MG/10 ML INJ MDV ONE (21:17)
[2020-05-18] MEDS ORDERED: GLYCOPYRROLATE 0.4 MG/2 ML INJ ONE (21:17)
--- NOTE | 2020-05-18 21:32 | Procedure Note ---
Date of procedure: 05/18/20 Pre-op diagnosis: 1)Stage 4 adenoca, right hepatic flexure 2)Incarc ventral & Umbil hernias Post-op diagnosis: same Procedure: 1) Right colectomy 2) Open repair of incarcerated ventral hernia 3) Open repair of incarcerated umbilical hernia Description of procedure: Pt was placed supine on the OR table. General anesthesia was administered. The OR nurse attempted to put in an indwelling lopez catheter but this was aborted secondary to the catheter not advancing easily. Abdomen was prepped and draped. Peritoneal cavity was entered via a long, midline incision from the mid-hypogastrium to the upper epigastrium. The omentum incarcerated within the umbilical and epigastric hernias was reduced back into the peritoneal cavity. Jamel retractor was inserted. The huge liver metastasis was obvious. The colon tumor was located at the hepatic flex ure and was densely adherent to the overlying liver. Distal ileum was transected with a KIMBERLY stapler and the mid-transverse colon transected with a 2nd KIMBERLY stapler. The lateral attachments of the right colon were incised and the right colon reflected medially. Omentum was dissected off of the proximal transverse colon. As I approached the hepatic flexure and attempted to reflect the flexure medially, it became apparent that there was normal dissection planes in this area as the tumor was invading the liver superiorly and was very close to being attached to the gallbladder as well. With careful blunt dissection, I was able to free the hepatic flexure from the gallbladder. I then took down the right colonic and proximal transverse vasculature with a Ligasure instrument. This was performed very close to the colon since the operation was for palliative measures only. As I was trying to further free up the hepatic flexure from the liver, the colon tore with spillage of a moderate amount of liquid fecal contents. I then decided to open the lumen of the colon and leave the colonic wall growing into the liver in situ. No intact, circumferential colon was left in situ so as not to leave a closed loop. The area of Camargo's pouch and the subhepatic area were irrigated with warm sterile water. The areas of dissection were then packed with dry laps to assist with hemostasis. A side to side ileo-transverse colon anastomosis was then created with a KIMBERLY stapler. The residual enterotomy was closed with a TA stapler. The colon distal to the anastomosis was pinched digitally and ileal contents forced through the anastomosis to make sure there were no anastomotic leaks. No anastomotic leaks were present. The adjacent mesocolic defect was closed with a running suture of 3-0 silk. The umbilical and epigastric fascial defects and hernia sacs were excised with the Bovie and the midline fascia carefully identified in preparation for wound closure. The RUQ packings were removed and hemostasis was found to be adequate. Sponge and instrument counts were performed and were correct. Midline fascia was approximated with a running, looped 0-PDS. The two midline hernias were repaired during this closure. Subcutaneous tissue was irrigated with warm sterile water. The SQ wound was packed open with a dilute Betadine moistened Kerlix roll followed by dry 4 X 4's, ABD's and Medipore tape. Pt tolerated the procedure well. Pt was extubated in the OR and was taken to PACU in stable condition. Anesthesia: GETA Surgeon: YESICA ADEN Estimated blood loss: other (400 ml) Pathology: list (1) Right colon 2) proximal transverse colon) Specimen disposition: to lab Condition: stable Disposition: PACU
--- NOTE | 2020-05-18 21:54 | Post Anesthesia Evaluation ---
- Post Anesthesia Evaluation Patient Participated: Yes Airway Patent: Yes Stable Respiratory Function: Yes Nausea/Vomiting: No Temp > 96.8F: Yes Pain Manageable: Yes Adequeate Hydration: Yes Anesthesia Complications: No Block Receding Appropriately: Not Applicable Patient on Ventilator: No
[2020-05-19] MEDS ORDERED: diphenhydrAMINE 50 MG/ML VIAL IV ONE (00:37)
[2020-05-19] MEDS: metroNIDAZOLE/NS 500 MG/100 ML 500 MG/100 ML BAG IV SCH ×3 (00:58→20:15)
[2020-05-19 01:05] LABS: Hematocrit 30.6 % (35.5-45.6); Hemoglobin 9.5 gm/dl (11.8-15.2)
[2020-05-19] MEDS: MORPHINE 4 MG/1 ML INJ IV PRN ×2 (04:45→21:19)
[2020-05-19 07:48] LABS: Hematocrit 29.7 % (35.5-45.6); Hemoglobin 9.3 gm/dl (11.8-15.2); Mean Corpuscular HGB Conc 31 % (32-34); Mean Corpuscular Volume 78 fl (84-94); Platelet Count 340 K/mm3 (140-440); Red Blood Count 3.82 M/mm3 (3.65-5.03); Red Cell Distribution Width 19.2 % (13.2-15.2)
[2020-05-19 08:33] LABS: BUN/Creatinine Ratio 9; Blood Urea Nitrogen 8 mg/dL (9-20); Calcium 8.1 mg/dL (8.4-10.2); Hemolysis Index 7
--- NOTE | 2020-05-19 09:48 | Hem/Onc Progress Note ---
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 (big liver tumor), CEA 48 s/p eval for R foot digital ischemia,toe infarct--> s/p thrombectomy 05/15/20 now eval for tumor resection fro ascending colon per notes he has had abd pain for several months has been receiving IV heparin and aspirin 81 s/p RBC transfusion yesterday planning bowel resection today 05/18/20 c/o mild R foot pain, better than last few days DATA REVIEWED BELOW IMP: metastatic colon cancer affecting lung and liver (large tumor) good functional status, good candidate for antitumor therapy recent arterial thrombosis- clotting tendency partly due to cancer recent severe iron deficiency likely due to chronic bleeding REC: brain CT staging when possible await Hgb electrophoresis IV iron infusions anticipate leaving with eliquis 5mg po bid "long-term" and aspirin 81mg daily will need to figure out where he will receive chemotherapy after discharge Active Medications Heparin Sodium (Porcine) (Heparin 10,000 Units/10 Ml Vial) 3,700 unit 40 unit/kg (3700 unit) IV Q6H PRN PRN Reason: Anti-Xa Assay < 0.1 units/ml Sodium Chloride (Nacl 0.9% 1000 Ml) 1,000 mls @ 125 mls/hr IV DIRECT ALISTAIR Last Admin: 05/16/20 02:43 Dose: 125 mls/hr Documented by: Sodium Chloride (Nacl 0.9% 500 Ml) 500 mls @ 50 mls/hr IV DIRECT ALISTAIR Stop: 05/19/20 13:59 Heparin Sodium/Sodium Chloride (Heparin/ 0.45% Nacl-25,000 Unit/500 Ml) 25,000 unit in 500 mls @ 27 mls/hr IV TITR ALISTAIR; Protocol Last Titration: 05/18/20 07:51 Dose: 1,750 units/hr, 35 mls/hr Documented by: Ferric Sodium Gluconate Complex 125 mg/ Sodium Chloride 110 mls @ 100 mls/hr IV ONCE ALISTAIR Stop: 05/19/20 19:59 Last Admin: 05/16/20 22:43 Dose: 100 mls/hr Documented by: Levofloxacin/Dextrose (Levaquin 750mg/150ml) 750 mg in 150 mls @ 100 mls/hr IV Q24HR ALISTAIR; Protocol Last Admin: 05/19/20 09:20 Dose: 100 mls/hr Documented by: Metronidazole (Flagyl 500 Mg/100 Ml) 500 mg in 100 mls @ 100 mls/hr IV Q8H ALISTAIR; Protocol Last Admin: 05/19/20 09:18 Dose: 100 mls/hr Documented by: Laboratory Last Values WBC 29.0 K/mm3 (4.5-11.0) H 05/19/20 07:06 Hgb 9.3 gm/dl (11.8-15.2) L 05/19/20 07:06 Hct 29.7 % (35.5-45.6) L 05/19/20 07:06 MCV 78 fl (84-94) L 05/19/20 07:06 Plt Count 340 K/mm3 (140-440) 05/19/20 07:06 PT 14.9 Sec. (12.2-14.9) 05/15/20 21:05 INR 1.17 (0.87-1.13) H 05/15/20 21:05 APTT 37.0 Sec. (24.2-36.6) H 05/15/20 21:05 Iron 15 ug/dL (49-181) L 05/16/20 08:23 TIBC 177 mcg/dL (250-450) L 05/16/20 08:23 Ferritin 148.4 ng/mL (30.0-300.0) 05/16/20 08:23 Alkaline Phosphatase 247 units/L (35-129) H 05/13/20 17:02 Carcinoembryonic Ag 47.8 ng/mL (0.0-2.4) H 05/14/20 19:22 Antibody Screen Negative 05/16/20 08:25 Crossmatch See Detail 05/16/20 08:25 Objective - Constitutional Vitals: Last Vital Signs Temp 98.3 F 05/19/20 05:53 Pulse 90 05/19/20 05:53 Resp 20 05/19/20 05:53 BP 96/41 05/19/20 05:53 Pulse Ox 98 05/19/20 05:53 - Labs Lab Results: Laboratory Results - last 24 hr 05/16/20 05/19/20 05/19/20 08:25 00:29 07:06 WBC 29.0 H RBC 3.82 Hgb 9.5 L 9.3 L Hct 30.6 L 29.7 L MCV 78 L MCH 24 L MCHC 31 L RDW 19.2 H Plt Count 340 Seg Neutrophils % 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 [employer] Heparin Anti-Xa Level Sodium Potassium Chloride Carbon Dioxide Anion Gap BUN Creatinine Estimated GFR BUN/Creatinine Ratio Glucose Calcium Blood Type O POSITIVE Antibody Screen Negative Crossmatch See Detail 05/19/20 05/19/20 07:06 08:06 WBC RBC Hgb Hct MCV MCH MCHC RDW Plt Count Seg Neutrophils % Heparin Anti-Xa Level < 0.10 L Sodium 136 L Potassium 4.4 Chloride 102.3 Carbon Dioxide 22 Anion Gap 16 BUN 8 L Creatinine 0.9 Estimated GFR > 60 BUN/Creatinine Ratio 9 Glucose 123 H Calcium 8.1 L Blood Type Antibody Screen Crossmatch Medications & Allergies - Medications Allergies/Adverse Reactions: Allergies ibuprofen Allergy (Verified 05/13/20 16:53) Hives Home Medications: Home Medications Medication Instructions Recorded Confirmed Last Taken Type No Known Home Medications [No 05/14/20 05/14/20 Unknown History Reported Home Medications] Active Medications: Generic Name Dose Route Start Last Admin Trade Name Freq PRN Reason Stop Dose Admin Acetaminophen 650 mg 05/13/20 23:06 05/18/20 01:06 Acetaminophen 325 Mg Tab PO 650 mg Q4H PRN Administration Pain MILD(1-3)/Fever >100.5/DOMINIQUE Aspirin 81 mg 05/16/20 12:00 05/18/20 09:10 Aspirin Ec 81 Mg Tab [facility] Folic Acid 1 mg 05/17/20 10:00 05/18/20 09:10 Folic Acid 1 Mg Tab PO Not [facility] Heparin Sodium (Porcine) 3,700 unit 05/15/20 20:56 Heparin 10,000 Units/10 Ml Vial 40 unit/kg (3700 unit) IV Q6H PRN Anti-Xa Assay < 0.1 units/ml Sodium Chloride 1,000 mls @ 125 mls/hr 05/13/20 23:15 05/16/20 02:43 Nacl 0.9% 1000 Ml IV 125 mls/hr DIRECT ALISTAIR Administration Sodium Chloride 500 mls @ 50 mls/hr 05/15/20 14:00 Nacl 0.9% 500 Ml IV 05/19/20 13:59 DIRECT ALISTAIR Heparin Sodium/Sodium Chloride 25,000 unit in 500 mls @ 27 mls/hr 05/15/20 21:00 05/18/20 07:51 Heparin/ 0.45% Nacl-25,000 Unit/500 Ml IV 1,750 units/hr TITR ALISTAIR 35 mls/hr Titration Protocol 1,350 UNITS/HR Ferric Sodium Gluconate 110 mls @ 100 mls/hr 05/16/20 20:00 05/16/20 22:43 Complex 125 mg/ Sodium IV 05/19/20 19:59 100 mls/hr Chloride ONCE ALISTAIR Administration Levofloxacin/Dextrose 750 mg in 150 mls @ 100 mls/hr 05/19/20 10:00 05/19/20 09:20 Levaquin 750mg/150ml IV 100 mls/hr Q24HR ALISTAIR Administration Protocol Metronidazole 500 mg in 100 mls @ 100 mls/hr 05/19/20 01:00 05/19/20 09:18 Flagyl 500 Mg/100 Ml IV 100 mls/hr Q8H ALISTAIR Administration Protocol Magnesium Hydroxide 30 ml 05/13/20 23:06 05/16/20 17:53 Magnesium Hydroxide (Mom) Oral Liqd Udc PO 30 ml Q4H PRN Administration Constipation Morphine Sulfate 4 mg 05/18/20 21:36 05/19/20 04:45 Morphine 4 Mg/1 Ml Inj IV 4 mg Q3H PRN Administration Pain , Severe (7-10) Ondansetron HCl 4 mg 05/13/20 23:06 Ondansetron 4 Mg/2 Ml Inj IV Q8H PRN Nausea And Vomiting Sodium Chloride 10 ml 05/14/20 10:00 05/18/20 23:06 Sodium Chloride 0.9% 10 Ml Flush Syringe IV 10 ml BID ALISTAIR Administration Sodium Chloride 10 ml 05/13/20 23:06 Sodium Chloride 0.9% 10 Ml Flush Syringe IV PRN PRN LINE FLUSH
[2020-05-19 10:03] LABS: Total Cells Counted 100
[2020-05-19 10:04] LABS: Anisocytosis 1+; Giant Platelets Rare; Hypochromasia 1+; Large Platelets Rare; Platelet Estimate Consistent w Auto
--- NOTE | 2020-05-19 11:22 | Progress Note ---
Assessment and Plan - Patient Problems (1) Colon cancer metastasized to lung Current Visit: Yes Status: Acute Plan to address problem: 1) Ambulate in halls qid 2) CBC and BMP in the am Subjective Date of service: 05/19/20 Patient Reports: Positive: no new complaints, no flatus, no bowel movement Objective Vital Signs - 12hr 05/19/20 05:53 Temperature 98.3 F Pulse Rate 90 Respiratory 20 Rate Blood Pressure 96/41 O2 Sat by Pulse 98 Oximetry - Abdomen soft, bowel sounds hypoactive - Labs 05/19/20 07:06 05/19/20 07:06 Diabetes panel 05/19/20 Range/Units 07:06 Sodium 136 L (137-145) mmol/L Potassium 4.4 (3.6-5.0) mmol/L Chloride 102.3 (98-107) mmol/L Carbon Dioxide 22 (22-30) mmol/L BUN 8 L (9-20) mg/dL Creatinine 0.9 (0.8-1.3) mg/dL Glucose 123 H (75-100) mg/dL Calcium 8.1 L (8.4-10.2) mg/dL Calcium panel 05/19/20 Range/Units 07:06 Calcium 8.1 L (8.4-10.2) mg/dL Pituitary panel 05/19/20 Range/Units 07:06 Sodium 136 L (137-145) mmol/L Potassium 4.4 (3.6-5.0) mmol/L Chloride 102.3 (98-107) mmol/L Carbon Dioxide 22 (22-30) mmol/L BUN 8 L (9-20) mg/dL Creatinine 0.9 (0.8-1.3) mg/dL Glucose 123 H (75-100) mg/dL Calcium 8.1 L (8.4-10.2) mg/dL Adrenal panel 05/19/20 Range/Units 07:06 Sodium 136 L (137-145) mmol/L Potassium 4.4 (3.6-5.0) mmol/L Chloride 102.3 (98-107) mmol/L Carbon Dioxide 22 (22-30) mmol/L BUN 8 L (9-20) mg/dL Creatinine 0.9 (0.8-1.3) mg/dL Glucose 123 H (75-100) mg/dL Calcium 8.1 L (8.4-10.2) mg/dL
--- NOTE | 2020-05-19 12:32 | Progress Note ---
Assessment and Plan Assessment and plan: 55-year-old -[place] male who was recently diagnosed with colon cancer in [facility] about a week ago presenting to the emergency room today complaining of chronic abdominal pain and right foot pain. Abdominal pain has been ongoing for the past 3 to 4 months. He was recently in [facility] where he was evaluated in the hospital and diagnosed with lesions consistent with colon cancer on a CT scan. Was also said to have had metastases to his lungs. He has not had any follow-up with any oncologist or skate maker because of insurance issues. Patient also indicates that his older brother of colon cancer few years ago. He has not had any colonoscopy in the past. 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 Patient has been having pain in his right foot over the past few weeks. He denies any trauma to the foot and no recent fall. He denies any numbness. Patient denies any fever or chills, no chest pain or shortness of breath, no nausea vomiting, no headache or dizziness. Work-up in the emergency room today reveals a leukocytosis of 15.7. X-ray of the right foot did not reveal any osteomyelitis. Patient is being admitted with gangrene of the right middle toe in addition to his recently diagnosed colon cancer. 05/14/2020 -Patient is diagnosed with stage IV colon cancer metastasized to the lung recently. Patient went to [place] and discharged him to have follow-up at [facility] and patient presented here. Patient has colon mass and was able to do advance to colonoscopy at [place] (per GI), patient may need surgical intervention and I put a consult for general surgery. I have discussed with GI and GI said nothing to add on his current management. Patient need to have follow-up with oncologist as an outpatient. Patient has gangrene of the right third toes and I ordered arterial Doppler, vascular surgery consulted. She has also leukocytosis and is on IV Vanco and Zosyn. 05/15/2020 -Patient was seen by general surgery and recommend CT abdomen and pelvis, will get records from [facility] colonoscopy and pathology reports. Discussed with the nurse to get records. Evaluated by ID and recommend no antibiotics at this time. Evaluated by GI and no further work-up needed from GI point of view. Patient was evaluated by scleral surgery and arterial Doppler was done and significant for moderate peripheral arterial disease in the right lower extremity and will do revascularization. 05/16/2020 -CT chest abdomen and pelvis was done and significant for colorectal cancer, and lung cancer. We will get records from original hospital. Was evaluated by makayla bynum and did a revascularization yesterday. Was evaluated by general surgery. Hemoglobin yesterday was 6.8. We will transfuse him a unit of blood and monitor posttransfusion hemoglobin/hematocrit. Will monitor and transfuse as needed. Will do anemia work-up. I put a consult per oncology recommendations. 05/17/2020 -CT chest abdomen and pelvis was done and significant for colorectal cancer, and lung cancer. We will get records from original hospital discussed with patient's nurse. Was evaluated by vascular and did a revascularization was done and now the discoloration is resolving, patient has palpable pulse, no pain. Patient is currently on heparin drip and can be continued until surgery and will be transitioned to Eliquis after that. Was evaluated by general surgery and is considering to do palliative colectomy. Hemoglobin yesterday was 6.8 and transfused a unit of blood and posttransfusion hemoglobin this morning was 7, patient is currently on iron infusion, will monitor H&H and transfuse as needed. Leukocytosis could be due to the cancer, no fever or other signs of infection. Path result was obtained from [facility] in [place] and showed adenocarcinoma, primary is from the colorectal carcinoma. 05/18: Patient clinically stable, awaiting surgical input or the planned Open right/transverse colectomy,, Hematology is stating to await for a cool off time before resection but if cannot wait then proceed with the surgery, Patient will need elquis 5mg PO BID longterm and aspirin 81 mg daily. 05/19: Patient is status post 1) Right colectomy 2) Open repair of incarcerated ventral hernia 3) Open repair of incarcerated umbilical hernia postop day 1 for 1)Stage 4 adenoca, right hepatic flexure 2)Incarc ventral & Umbil hernias Continues to do well. Continues to require NG to intermittent suction. We will continue to follow. Of discussed with case management as patient will likely need palliative care on discharge, monitor leukocytosis, mild elevated noted (1) Gangrene of toe of right foot Current Visit: Yes Status: Acute Plan to address problem: Patient placed on empiric IV antibiotics. Consult placed to infectious disease and vascular surgery for evaluation. (2) Colon cancer metastasized to lung Current Visit: Yes Status: Acute Plan to address problem: Patient was just recently diagnosed with colon cancer in [facility]. He has not had any follow-up with any physician. We will place consult to gastroenterology for evaluation. (3) Leukocytosis/SIRS without organ dysfunction. 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 (6) Full code status Current Visit: Yes Status: Acute Plan to address problem: Patient is full code. History Interval history: Patient seen and examined, no new complaints. States that he feels thirsty otherwise. Hospitalist Physical - Physical exam Narrative exam: VITAL SIGNS: Reviewed. GENERAL: The patient appears normally developed, NG tube to suction vital signs as documented. HEAD: No signs of head trauma. EYES: Pupils are equal. Extraocular motions intact. EARS: Hearing grossly intact. MOUTH: Oropharynx is normal. NECK: No adenopathy, no JVD. CHEST: Chest with clear breath sounds bilaterally. No wheezes, rales, or rhonchi. CARDIAC: Regular rate and rhythm. S1 and S2, without murmurs, gallops, or rubs. VASCULAR: No Edema. Peripheral pulses normal and equal in all extremities. ABDOMEN: Soft, tender at site of surgery. DRESSING IN PLACE. MUSCULOSKELETAL: Good range of motion of all major joints. Extremities without clubbing, cyanosis or edema. NEUROLOGIC EXAM: Alert and oriented x 3 No focal sensory or strength deficits. Speech normal. Follows commands. PSYCHIATRIC: Mood normal. SKIN: detail exam as documented in skin assessment - Constitutional Vitals: Temp Pulse Resp BP Pulse Ox 98.3 F 90 20 96/41 98 05/19/20 05:53 05/19/20 05:53 05/19/20 05:53 05/19/20 05:53 05/19/20 05:53 General appearance: Present: no acute distress Results - Labs CBC & Chem 7: 05/19/20 07:06 05/19/20 07:06 Labs: Laboratory Last Values WBC 29.0 K/mm3 (4.5-11.0) H 05/19/20 07:06 RBC 3.82 M/mm3 (3.65-5.03) 05/19/20 07:06 Hgb 9.3 gm/dl (11.8-15.2) L 05/19/20 07:06 Hct 29.7 % (35.5-45.6) L 05/19/20 07:06 MCV 78 fl (84-94) L 05/19/20 07:06 MCH 24 pg (28-32) L 05/19/20 07:06 MCHC 31 % (32-34) L 05/19/20 07:06 RDW 19.2 % (13.2-15.2) H 05/19/20 07:06 Plt Count 340 K/mm3 (140-440) 05/19/20 07:06 Lymph % (Auto) 12.4 % (13.4-35.0) L 05/18/20 07:19 [place] % (Auto) 9.5 % (0.0-7.3) H 05/18/20 07:19 Eos % (Auto) 0.2 % (0.0-4.3) 05/18/20 07:19 Baso % (Auto) 0.4 % (0.0-1.8) 05/18/20 07:19 Lymph # (Auto) 2.5 K/mm3 (1.2-5.4) 05/18/20 07:19 [place] # (Auto) 1.9 K/mm3 (0.0-0.8) H 05/18/20 07:19 Eos # (Auto) 0.0 K/mm3 (0.0-0.4) 05/18/20 07:19 Baso # (Auto) 0.1 K/mm3 (0.0-0.1) 05/18/20 07:19 Add Manual Diff Complete 05/19/20 07:06 Total Counted 100 05/19/20 07:06 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[employer] 05/19/20 07:06 Seg Neuts % (Manual) 94.0 % (40.0-70.0) H 05/19/20 07:06 Lymphocytes % (Manual) 2.0 % (13.4-35.0) L 05/19/20 07:06 Monocytes % (Manual) 4.0 % (0.0-7.3) 05/19/20 07:06 Nucleated RBC % Not Reportable 05/19/20 07:06 Seg Neutrophils # 15.3 K/mm3 (1.8-7.7) H 05/18/20 07:19 Seg Neutrophils # Man 27.3 K/mm3 (1.8-7.7) H 05/19/20 07:06 Band Neutrophils # 0.0 K/mm3 05/19/20 07:06 Lymphocytes # (Manual) 0.6 K/mm3 (1.2-5.4) L 05/19/20 07:06 Abs React Lymphs (Man) 0.0 K/mm3 05/19/20 07:06 Monocytes # (Manual) 1.2 K/mm3 (0.0-0.8) H 05/19/20 07:06 Eosinophils # (Manual) 0.0 K/mm3 (0.0-0.4) 05/19/20 07:06 Basophils # (Manual) 0.0 K/mm3 (0.0-0.1) 05/19/20 07:06 Metamyelocytes # 0.0 K/mm3 05/19/20 07:06 Myelocytes # 0.0 K/mm3 05/19/20 07:06 Promyelocytes # 0.0 K/mm3 05/19/20 07:06 Blast Cells # 0.0 K/mm3 05/19/20 07:06 WBC Morphology Not Reportable 05/19/20 07:06 Hypersegmented Neuts Not Reportable 05/19/20 07:06 Hyposegmented Neuts Not Reportable 05/19/20 07:06 Hypogranular Neuts Not Reportable 05/19/20 07:06 Smudge Cells Not Reportable 05/19/20 07:06 Toxic Granulation Not Reportable 05/19/20 07:06 Toxic Vacuolation Not Reportable 05/19/20 07:06 Dohle Bodies Not Reportable 05/19/20 07:06 Pelger-Huet Anomaly Not Reportable 05/19/20 07:06 Rosaline Rods Not Reportable 05/19/20 07:06 Platelet Estimate Consistent w auto 05/19/20 07:06 Clumped Platelets Not Reportable 05/19/20 07:06 Plt Clumps, EDTA Not Reportable 05/19/20 07:06 Large Platelets Rare 05/19/20 07:06 Giant Platelets Rare 05/19/20 07:06 Platelet Satelliting Not Reportable 05/19/20 07:06 Plt Morphology Comment Not Reportable 05/19/20 07:06 RBC Morphology Not Reportable 05/19/20 07:06 Dimorphic RBCs Not Reportable 05/19/20 07:06 Polychromasia Not Reportable 05/19/20 07:06 Hypochromasia 1+ 05/19/20 07:06 Poikilocytosis Not Reportable 05/19/20 07:06 Anisocytosis 1+ 05/19/20 07:06 Microcytosis Not Reportable 05/19/20 07:06 Macrocytosis Not Reportable 05/19/20 07:06 Spherocytes Not Reportable 05/19/20 07:06 Pappenheimer Bodies Not Reportable 05/19/20 07:06 Sickle Cells Not Reportable 05/19/20 07:06 Target Cells Not Reportable 05/19/20 07:06 Tear Drop Cells Not Reportable 05/19/20 07:06 Ovalocytes Not Reportable 05/19/20 07:06 Helmet Cells Not Reportable 05/19/20 07:06 Gonsales-Beardsley Bodies Not Reportable 05/19/20 07:06 Maria Stein Rings Not Reportable 05/19/20 07:06 Velia Cells Not Reportable 05/19/20 07:06 Bite Cells Not Reportable 05/19/20 07:06 Crenated Cell Not Reportable 05/19/20 07:06 Elliptocytes Not Reportable 05/19/20 07:06 Acanthocytes (Spur) Not Reportable 05/19/20 07:06 Rouleaux Not Reportable 05/19/20 07:06 Hemoglobin C Crystals Not Reportable 05/19/20 07:06 Schistocytes Not Reportable 05/19/20 07:06 Malaria parasites Not Reportable 05/19/20 07:06 Jerod Bodies Not Reportable 05/19/20 07:06 Hem Pathologist Commnt No 05/19/20 07:06 PT 14.9 Sec. (12.2-14.9) 05/15/20 21:05 INR 1.17 (0.87-1.13) H 05/15/20 21:05 APTT 37.0 Sec. (24.2-36.6) H 05/15/20 21:05 Heparin Anti-Xa Level < 0.10 U.I./ml (0.3-0.7) L 05/19/20 08:06 Sodium 136 mmol/L (137-145) L 05/19/20 07:06 Potassium 4.4 mmol/L (3.6-5.0) 05/19/20 07:06 Chloride 102.3 mmol/L (98-107) 05/19/20 07:06 Carbon Dioxide 22 mmol/L (22-30) 05/19/20 07:06 Anion Gap 16 mmol/L 05/19/20 07:06 BUN 8 mg/dL (9-20) L 05/19/20 07:06 Creatinine 0.9 mg/dL (0.8-1.3) 05/19/20 07:06 Estimated GFR > 60 ml/min 05/19/20 07:06 BUN/Creatinine Ratio 9 % 05/19/20 07:06 Glucose 123 mg/dL (75-100) H 05/19/20 07:06 Lactic Acid 0.90 mmol/L (0.7-2.0) 05/14/20 08:02 Calcium 8.1 mg/dL (8.4-10.2) L 05/19/20 07:06 Iron 15 ug/dL (49-181) L 05/16/20 08:23 TIBC 177 mcg/dL (250-450) L 05/16/20 08:23 Ferritin 148.4 ng/mL (30.0-300.0) 05/16/20 08:23 Total Bilirubin 0.30 mg/dL (0.1-1.2) 05/13/20 17:02 AST 15 units/L (5-40) 05/13/20 17:02 ALT 11 units/L (7-56) 05/13/20 17:02 Alkaline Phosphatase 247 units/L (35-129) H 05/13/20 17:02 Total Protein 7.0 g/dL (6.3-8.2) 05/13/20 17:02 Albumin 2.5 g/dL (3.9-5) L 05/13/20 17:02 Albumin/Globulin Ratio 0.6 % 05/13/20 17:02 Lipase 33 units/L (13-60) 05/13/20 17:02 Carcinoembryonic Ag 47.8 ng/mL (0.0-2.4) H 05/14/20 19:22 Vitamin B12 1476 pg/mL (211-911) H 05/16/20 08:23 Folate 5.13 ng/mL (7.3-26.0) L 05/16/20 08:23 Urine Color Yellow (Yellow) 05/13/20 Unknown Urine Turbidity Slightly-cloudy (Clear) 05/13/20 Unknown Urine pH 5.0 (5.0-7.0) 05/13/20 Unknown Ur Specific [place] 1.021 (1.003-1.030) 05/13/20 Unknown Urine Protein <15 mg/dl mg/dL (Negative) 05/13/20 Unknown Urine Glucose (UA) Neg mg/dL (Negative) 05/13/20 Unknown Urine Ketones Neg mg/dL (Negative) 05/13/20 Unknown Urine Blood Neg (Negative) 05/13/20 Unknown Urine Nitrite Neg (Negative) 05/13/20 Unknown Urine Bilirubin Neg (Negative) 05/13/20 Unknown Urine Urobilinogen 2.0 mg/dL (<2.0) 05/13/20 Unknown Ur Leukocyte Esterase Tr (Negative) 05/13/20 Unknown Urine WBC (Auto) 5.0 /HPF (0.0-6.0) 05/13/20 Unknown Urine RBC (Auto) 5.0 /HPF (0.0-6.0) 05/13/20 Unknown U Epithel Cells (Auto) 3.0 /HPF (0-13.0) 05/13/20 Unknown Urine Bacteria (Auto) 1+ /HPF (Negative) 05/13/20 Unknown Urine Mucus Few /HPF 05/13/20 Unknown Blood Type O POSITIVE 05/16/20 08:25 Antibody Screen Negative 05/16/20 08:25 Crossmatch See Detail 05/16/20 08:25 Microbiology: Microbiology 05/13/20 21:08 Peripheral/Venous Blood Culture - Final NO GROWTH AFTER 5 DAYS 05/13/20 21:01 Peripheral/Venous Blood Culture - Final NO GROWTH AFTER 5 DAYS Mcrae/IV: Voiding Method Urinal Active Medications - Current Medications Current Medications: Generic Name Dose Route Start Last Admin Trade Name Freq PRN Reason Stop Dose Admin Acetaminophen 650 mg 05/13/20 23:06 05/18/20 01:06 Acetaminophen 325 Mg Tab PO 650 mg Q4H PRN Administration Pain MILD(1-3)/Fever >100.5/DOMINIQUE Aspirin 81 mg 05/16/20 12:00 05/18/20 09:10 Aspirin Ec 81 Mg Tab PO Not Given QDAY ALISTAIR Folic Acid 1 mg 05/17/20 10:00 05/18/20 09:10 Folic Acid 1 Mg Tab PO Not Given QDAY ALISTAIR Heparin Sodium (Porcine) 3,700 unit 05/15/20 20:56 Heparin 10,000 Units/10 Ml Vial 40 unit/kg (3700 unit) IV Q6H PRN Anti-Xa Assay < 0.1 units/ml Sodium Chloride 1,000 mls @ 125 mls/hr 05/13/20 23:15 05/16/20 02:43 Nacl 0.9% 1000 Ml IV 125 mls/hr DIRECT ALISTAIR Administration Sodium Chloride 500 mls @ 50 mls/hr 05/15/20 14:00 Nacl 0.9% 500 Ml IV 05/19/20 13:59 DIRECT ALISTAIR Heparin Sodium/Sodium Chloride 25,000 unit in 500 mls @ 27 mls/hr 05/15/20 21:00 05/18/20 07:51 Heparin/ 0.45% Nacl-25,000 Unit/500 Ml IV 1,750 units/hr TITR ALISTAIR 35 mls/hr Titration Protocol 1,350 UNITS/HR Ferric Sodium Gluconate 110 mls @ 100 mls/hr 05/16/20 20:00 05/16/20 22:43 Complex 125 mg/ Sodium IV 05/19/20 19:59 100 mls/hr Chloride ONCE ALISTAIR Administration Levofloxacin/Dextrose 750 mg in 150 mls @ 100 mls/hr 05/19/20 10:00 05/19/20 09:20 Levaquin 750mg/150ml IV 100 mls/hr Q24HR ALISTAIR Administration Protocol Metronidazole 500 mg in 100 mls @ 100 mls/hr 05/19/20 01:00 05/19/20 09:18 Flagyl 500 Mg/100 Ml IV 100 mls/hr Q8H ALISTAIR Administration Protocol Magnesium Hydroxide 30 ml 05/13/20 23:06 05/16/20 17:53 Magnesium Hydroxide (Mom) Oral Liqd Udc PO 30 ml Q4H PRN Administration Constipation Morphine Sulfate 4 mg 05/18/20 21:36 05/19/20 04:45 Morphine 4 Mg/1 Ml Inj IV 4 mg Q3H PRN Administration Pain , Severe (7-10) Ondansetron HCl 4 mg 05/13/20 23:06 Ondansetron 4 Mg/2 Ml Inj IV Q8H PRN Nausea And Vomiting Sodium Chloride 10 ml 05/14/20 10:00 05/18/20 23:06 Sodium Chloride 0.9% 10 Ml Flush Syringe IV 10 ml BID ALISTAIR Administration Sodium Chloride 10 ml 05/13/20 23:06 Sodium Chloride 0.9% 10 Ml Flush Syringe IV PRN PRN LINE FLUSH
--- NOTE | 2020-05-19 15:11 | Post Anesthesia Evaluation ---
- Post Anesthesia Evaluation Patient Participated: Yes Airway Patent: Yes Stable Respiratory Function: Yes Nausea/Vomiting: No Pain Manageable: Yes Adequeate Hydration: Yes Anesthesia Complications: No Block Receding Appropriately: Not Applicable Patient on Ventilator: No Other Comments: pt a+o x3. Denies pain. resting comfortable in bed.
[2020-05-19] MEDS: FOLIC ACID 1 MG TAB PO SCH (20:13)
[2020-05-19] MEDS: ASPIRIN EC 81 MG TAB PO SCH (20:13)
[2020-05-20] MEDS: metroNIDAZOLE/NS 500 MG/100 ML 500 MG/100 ML BAG IV SCH ×3 (02:19→17:48)
[2020-05-20] MEDS: MORPHINE 4 MG/1 ML INJ IV PRN ×4 (02:28→23:52)
[2020-05-20] MEDS ORDERED: diphenhydrAMINE 50 MG/ML VIAL IV ONE (02:30)
[2020-05-20 04:16] LABS: Cardiolipin Ab IgA <11 APL (<=11); Cardiolipin Ab IgG <14 GPL (<=14); Cardiolipin Ab IgM <12 MPL (<=12)
[2020-05-20 08:05] LABS: Hematocrit 25.5 % (35.5-45.6); Hemoglobin 7.9 gm/dl (11.8-15.2); Mean Corpuscular HGB Conc 31 % (32-34); Mean Corpuscular Volume 78 fl (84-94); Platelet Count 360 K/mm3 (140-440); Red Blood Count 3.26 M/mm3 (3.65-5.03)
[2020-05-20 08:20] LABS: BUN/Creatinine Ratio 11; Blood Urea Nitrogen 11 mg/dL (9-20); Calcium 8.5 mg/dL (8.4-10.2); Hemolysis Index 0
--- NOTE | 2020-05-20 09:45 | Progress Note ---
Assessment and Plan - Patient Problems (1) Colon cancer metastasized to lung Current Visit: Yes Status: Acute Plan to address problem: 1) DC NG 2) Sips of clears 3) Ambulate 4) CBC and BMP in the am Subjective Date of service: 05/20/20 Patient Reports: Positive: no new complaints, feels better, pain is less, voiding w/o difficulty, no flatus, no bowel movement (Ambulating in the halls.) Objective Vital Signs - 12hr 05/20/20 05/20/20 00:17 05:16 Temperature 97.9 F 98.0 F Pulse Rate 84 81 Respiratory 16 18 Rate Blood Pressure 109/58 131/81 O2 Sat by Pulse 99 96 Oximetry - Abdomen PM_46_EXABD1 4, PM_46_EXABD1 6, PM_46_EXABD1 8 Hernia: none - Labs 05/20/20 07:20 05/20/20 07:20 Diabetes panel 05/20/20 Range/Units 07:20 Sodium 138 (137-145) mmol/L Potassium 3.9 (3.6-5.0) mmol/L Chloride 103.2 (98-107) mmol/L Carbon Dioxide 26 (22-30) mmol/L BUN 11 (9-20) mg/dL Creatinine 1.0 (0.8-1.3) mg/dL Glucose 93 (75-100) mg/dL Calcium 8.5 (8.4-10.2) mg/dL Calcium panel 05/20/20 Range/Units 07:20 Calcium 8.5 (8.4-10.2) mg/dL Pituitary panel 05/20/20 Range/Units 07:20 Sodium 138 (137-145) mmol/L Potassium 3.9 (3.6-5.0) mmol/L Chloride 103.2 (98-107) mmol/L Carbon Dioxide 26 (22-30) mmol/L BUN 11 (9-20) mg/dL Creatinine 1.0 (0.8-1.3) mg/dL Glucose 93 (75-100) mg/dL Calcium 8.5 (8.4-10.2) mg/dL Adrenal panel 05/20/20 Range/Units 07:20 Sodium 138 (137-145) mmol/L Potassium 3.9 (3.6-5.0) mmol/L Chloride 103.2 (98-107) mmol/L Carbon Dioxide 26 (22-30) mmol/L BUN 11 (9-20) mg/dL Creatinine 1.0 (0.8-1.3) mg/dL Glucose 93 (75-100) mg/dL Calcium 8.5 (8.4-10.2) mg/dL
[2020-05-20] MEDS: ASPIRIN EC 81 MG TAB PO SCH (09:54)
[2020-05-20] MEDS: FOLIC ACID 1 MG TAB PO SCH (09:54)
--- NOTE | 2020-05-20 10:07 | Progress Note ---
Assessment and Plan Assessment and plan: 55-year-old -Japanese male who was recently diagnosed with colon cancer in [facility] about a week ago presenting to the emergency room today complaining of chronic abdominal pain and right foot pain. Abdominal pain has been ongoing for the past 3 to 4 months. He was recently in [facility] where he was evaluated in the hospital and diagnosed with lesions consistent with colon cancer on a CT scan. Was also said to have had metastases to his lungs. He has not had any follow-up with any oncologist or non destructive testing inspector because of insurance issues. Patient also indicates that his older brother of colon cancer few years ago. He has not had any colonoscopy in the past. 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 Patient has been having pain in his right foot over the past few weeks. He denies any trauma to the foot and no recent fall. He denies any numbness. Patient denies any fever or chills, no chest pain or shortness of breath, no nausea vomiting, no headache or dizziness. Work-up in the emergency room today reveals a leukocytosis of 15.7. X-ray of the right foot did not reveal any osteomyelitis. Patient is being admitted with gangrene of the right middle toe in addition to his recently diagnosed colon cancer. 05/14/2020 -Patient is diagnosed with stage IV colon cancer metastasized to the lung recently. Patient went to [place] and discharged him to have follow-up at [facility] and patient presented here. Patient has colon mass and was able to do advance to colonoscopy at [facility] (per GI), patient may need surgical intervention and I put a consult for general surgery. I have discussed with GI and GI said nothing to add on his current management. Patient need to have follow-up with oncologist as an outpatient. Patient has gangrene of the right third toes and I ordered arterial Doppler, vascular surgery consulted. She has also leukocytosis and is on IV Vanco and Zosyn. 05/15/2020 -Patient was seen by general surgery and recommend CT abdomen and pelvis, will get records from [facility] colonoscopy and pathology reports. Discussed with the nurse to get records. Evaluated by ID and recommend no antibiotics at this time. Evaluated by GI and no further work-up needed from GI point of view. Patient was evaluated by scleral surgery and arterial Doppler was done and significant for moderate peripheral arterial disease in the right lower extremity and will do revascularization. 05/16/2020 -CT chest abdomen and pelvis was done and significant for colorectal cancer, and lung cancer. We will get records from original hospital. Was evaluated by makayla bynum and did a revascularization yesterday. Was evaluated by general surgery. Hemoglobin yesterday was 6.8. We will transfuse him a unit of blood and monitor posttransfusion hemoglobin/hematocrit. Will monitor and transfuse as needed. Will do anemia work-up. I put a consult per oncology recommendations. 05/17/2020 -CT chest abdomen and pelvis was done and significant for colorectal cancer, and lung cancer. We will get records from original hospital discussed with patient's nurse. Was evaluated by vascular and did a revascularization was done and now the discoloration is resolving, patient has palpable pulse, no pain. Patient is currently on heparin drip and can be continued until surgery and will be transitioned to Eliquis after that. Was evaluated by general surgery and is considering to do palliative colectomy. Hemoglobin yesterday was 6.8 and transfused a unit of blood and posttransfusion hemoglobin this morning was 7, patient is currently on iron infusion, will monitor H&H and transfuse as needed. Leukocytosis could be due to the cancer, no fever or other signs of infection. Path result was obtained from [facility] in [place] and showed adenocarcinoma, primary is from the colorectal carcinoma. 05/18: Patient clinically stable, awaiting surgical input or the planned Open right/transverse colectomy,, Hematology is stating to await for a cool off time before resection but if cannot wait then proceed with the surgery, Patient will need elquis 5mg PO BID group home and aspirin 81 mg daily. 05/19: Patient is status post 1) Right colectomy 2) Open repair of incarcerated ventral hernia 3) Open repair of incarcerated umbilical hernia postop day 1 for 1)Stage 4 adenoca, right hepatic flexure 2)Incarc ventral & Umbil hernias Continues to do well. Continues to require NG to intermittent suction. We will continue to follow. Of discussed with case management as patient will likely need palliative care on discharge, monitor leukocytosis, mild elevated noted 05/20: Extensive discussion with the patient about palliative care on discharge he verbalized understanding Case management to arrange. Surgical input noted NG tube has been discontinued patient be started on sips of clear fluids. Is voiding without difficulty and had one episode of flatus but no bowel movement yet. Bowel sounds are still very hypoactive. We will continue to monitor (1) Gangrene of toe of right foot Current Visit: Yes Status: Acute Plan to address problem: Patient placed on empiric IV antibiotics. Consult placed to infectious disease and vascular surgery for evaluation. (2) Colon cancer metastasized to lung Current Visit: Yes Status: Acute Plan to address problem: Patient was just recently diagnosed with colon cancer in [facility]. He has not had any follow-up with any physician. We will place consult to gastroenterology for evaluation. (3) Leukocytosis/SIRS without organ dysfunction. No sepsis (4) tower observer iron deficiency Anemia (5) Arterial Thrombosis (6) DVT prophylaxis Current Visit: Yes Status: Acute Plan to address problem: Patient placed on sequential compression device. (6) Full code status Current Visit: Yes Status: Acute Plan to address problem: Patient is full code. History Interval history: Patient seen and examined, no new complaints. Ambulating the hallway reports flatus Hospitalist Physical - Physical exam Narrative exam: VITAL SIGNS: Reviewed. GENERAL: The patient appears normally developed, vital signs as documented. HEAD: No signs of head trauma. EYES: Pupils are equal. Extraocular motions intact. EARS: Hearing grossly intact. MOUTH: Oropharynx is normal. NECK: No adenopathy, no JVD. CHEST: Chest with clear breath sounds bilaterally. No wheezes, rales, or rho nchi. CARDIAC: Regular rate and rhythm. S1 and S2, without murmurs, gallops, or rubs. VASCULAR: No Edema. Peripheral pulses normal and equal in all extremities. ABDOMEN: Soft, tender at site of surgery. DRESSING IN PLACE. Wound VAC in place. Hypoactive bowel sounds MUSCULOSKELETAL: Good range of motion of all major joints. Extremities without clubbing, cyanosis or edema. NEUROLOGIC EXAM: Alert and oriented x 3 No focal sensory or strength deficits. Speech normal. Follows commands. PSYCHIATRIC: Mood normal. SKIN: detail exam as documented in skin assessment - Constitutional Vitals: Temp Pulse Resp BP Pulse Ox 98.0 F 81 18 131/81 96 05/20/20 05:16 05/20/20 05:16 05/20/20 05:16 05/20/20 05:16 05/20/20 05:16 General appearance: Present: no acute distress Results - Labs CBC & Chem 7: 05/20/20 07:20 05/20/20 07:20 Labs: Laboratory Last Values WBC 23.0 K/mm3 (4.5-11.0) H 05/20/20 07:20 RBC 3.26 M/mm3 (3.65-5.03) L 05/20/20 07:20 Hgb 7.9 gm/dl (11.8-15.2) L 05/20/20 07:20 Hct 25.5 % (35.5-45.6) L 05/20/20 07:20 MCV 78 fl (84-94) L 05/20/20 07:20 MCH 24 pg (28-32) L 05/20/20 07:20 MCHC 31 % (32-34) L 05/20/20 07:20 RDW 20.0 % (13.2-15.2) H 05/20/20 07:20 Plt Count 360 K/mm3 (140-440) 05/20/20 07:20 Lymph % (Auto) 12.4 % (13.4-35.0) L 05/18/20 07:19 [place] % (Auto) 9.5 % (0.0-7.3) H 05/18/20 07:19 Eos % (Auto) 0.2 % (0.0-4.3) 05/18/20 07:19 Baso % (Auto) 0.4 % (0.0-1.8) 05/18/20 07:19 Lymph # (Auto) 2.5 K/mm3 (1.2-5.4) 05/18/20 07:19 [place] # (Auto) 1.9 K/mm3 (0.0-0.8) H 05/18/20 07:19 Eos # (Auto) 0.0 K/mm3 (0.0-0.4) 05/18/20 07:19 Baso # (Auto) 0.1 K/mm3 (0.0-0.1) 05/18/20 07:19 Add Manual Diff Complete 05/19/20 07:06 Total Counted 100 05/19/20 07:06 Seg Neutrophils % Content Development Specialist 05/19/20 07:06 Seg Neuts % (Manual) 94.0 % (40.0-70.0) H 05/19/20 07:06 Lymphocytes % (Manual) 2.0 % (13.4-35.0) L 05/19/20 07:06 Monocytes % (Manual) 4.0 % (0.0-7.3) 05/19/20 07:06 Nucleated RBC % Not Reportable 05/19/20 07:06 Seg Neutrophils # 15.3 K/mm3 (1.8-7.7) H 05/18/20 07:19 Seg Neutrophils # Man 27.3 K/mm3 (1.8-7.7) H 05/19/20 07:06 Band Neutrophils # 0.0 K/mm3 05/19/20 07:06 Lymphocytes # (Manual) 0.6 K/mm3 (1.2-5.4) L 05/19/20 07:06 Abs React Lymphs (Man) 0.0 K/mm3 05/19/20 07:06 Monocytes # (Manual) 1.2 K/mm3 (0.0-0.8) H 05/19/20 07:06 Eosinophils # (Manual) 0.0 K/mm3 (0.0-0.4) 05/19/20 07:06 Basophils # (Manual) 0.0 K/mm3 (0.0-0.1) 05/19/20 07:06 Metamyelocytes # 0.0 K/mm3 05/19/20 07:06 Myelocytes # 0.0 K/mm3 05/19/20 07:06 Promyelocytes # 0.0 K/mm3 05/19/20 07:06 Blast Cells # 0.0 K/mm3 05/19/20 07:06 WBC Morphology Not Reportable 05/19/20 07:06 Hypersegmented Neuts Not Reportable 05/19/20 07:06 Hyposegmented Neuts Not Reportable 05/19/20 07:06 Hypogranular Neuts Not Reportable 05/19/20 07:06 Smudge Cells Not Reportable 05/19/20 07:06 Toxic Granulation Not Reportable 05/19/20 07:06 Toxic Vacuolation Not Reportable 05/19/20 07:06 Dohle Bodies Not Reportable 05/19/20 07:06 Pelger-Huet Anomaly Not Reportable 05/19/20 07:06 Rosaline Rods Not Reportable 05/19/20 07:06 Platelet Estimate Consistent w auto 05/19/20 07:06 Clumped Platelets Not Reportable 05/19/20 07:06 Plt Clumps, EDTA Not Reportable 05/19/20 07:06 Large Platelets Rare 05/19/20 07:06 Giant Platelets Rare 05/19/20 07:06 Platelet Satelliting Not Reportable 05/19/20 07:06 Plt Morphology Comment Not Reportable 05/19/20 07:06 RBC Morphology Not Reportable 05/19/20 07:06 Dimorphic RBCs Not Reportable 05/19/20 07:06 Polychromasia Not Reportable 05/19/20 07:06 Hypochromasia 1+ 05/19/20 07:06 Poikilocytosis Not Reportable 05/19/20 07:06 Anisocytosis 1+ 05/19/20 07:06 Microcytosis Not Reportable 05/19/20 07:06 Macrocytosis Not Reportable 05/19/20 07:06 Spherocytes Not Reportable 05/19/20 07:06 Pappenheimer Bodies Not Reportable 05/19/20 07:06 Sickle Cells Not Reportable 05/19/20 07:06 Target Cells Not Reportable 05/19/20 07:06 Tear Drop Cells Not Reportable 05/19/20 07:06 Ovalocytes Not Reportable 05/19/20 07:06 Helmet Cells Not Reportable 05/19/20 07:06 [place] Bodies Not Reportable 05/19/20 07:06 [place] Rings Not Reportable 05/19/20 07:06 [place] Cells Not Reportable 05/19/20 07:06 Bite Cells Not Reportable 05/19/20 07:06 Crenated Cell Not Reportable 05/19/20 07:06 Elliptocytes Not Reportable 05/19/20 07:06 Acanthocytes (Spur) Not Reportable 05/19/20 07:06 Rouleaux Not Reportable 05/19/20 07:06 Hemoglobin C Crystals Not Reportable 05/19/20 07:06 Schistocytes Not Reportable 05/19/20 07:06 Malaria parasites Not Reportable 05/19/20 07:06 Jerod Bodies Not Reportable 05/19/20 07:06 Hem Pathologist Commnt No 05/19/20 07:06 PT 14.9 Sec. (12.2-14.9) 05/15/20 21:05 INR 1.17 (0.87-1.13) H 05/15/20 21:05 APTT 37.0 Sec. (24.2-36.6) H 05/15/20 21:05 Heparin Anti-Xa Level < 0.10 U.I./ml (0.3-0.7) L 05/19/20 08:06 Sodium 138 mmol/L (137-145) 05/20/20 07:20 Potassium 3.9 mmol/L (3.6-5.0) 05/20/20 07:20 Chloride 103.2 mmol/L (98-107) 05/20/20 07:20 Carbon Dioxide 26 mmol/L (22-30) 05/20/20 07:20 Anion Gap 13 mmol/L 05/20/20 07:20 BUN 11 mg/dL (9-20) 05/20/20 07:20 Creatinine 1.0 mg/dL (0.8-1.3) 05/20/20 07:20 Estimated GFR > 60 ml/min 05/20/20 07:20 BUN/Creatinine Ratio 11 % 05/20/20 07:20 Glucose 93 mg/dL (75-100) 05/20/20 07:20 Lactic Acid 0.90 mmol/L (0.7-2.0) 05/14/20 08:02 Calcium 8.5 mg/dL (8.4-10.2) 05/20/20 07:20 Iron 15 ug/dL (49-181) L 05/16/20 08:23 TIBC 177 mcg/dL (250-450) L 05/16/20 08:23 Ferritin 148.4 ng/mL (30.0-300.0) 05/16/20 08:23 Total Bilirubin 0.30 mg/dL (0.1-1.2) 05/13/20 17:02 AST 15 units/L (5-40) 05/13/20 17:02 ALT 11 units/L (7-56) 05/13/20 17:02 Alkaline Phosphatase 247 units/L (35-129) H 05/13/20 17:02 Total Protein 7.0 g/dL (6.3-8.2) 05/13/20 17:02 Albumin 2.5 g/dL (3.9-5) L 05/13/20 17:02 Albumin/Globulin Ratio 0.6 % 05/13/20 17:02 Lipase 33 units/L (13-60) 05/13/20 17:02 Carcinoembryonic Ag 47.8 ng/mL (0.0-2.4) H 05/14/20 19:22 Vitamin B12 1476 pg/mL (211-911) H 05/16/20 08:23 Folate 5.13 ng/mL (7.3-26.0) L 05/16/20 08:23 Urine Color Yellow (Yellow) 05/13/20 Unknown Urine Turbidity Slightly-cloudy (Clear) 05/13/20 Unknown Urine pH 5.0 (5.0-7.0) 05/13/20 Unknown Ur Specific [place] 1.021 (1.003-1.030) 05/13/20 Unknown Urine Protein <15 mg/dl mg/dL (Negative) 05/13/20 Unknown Urine Glucose (UA) Neg mg/dL (Negative) 05/13/20 Unknown Urine Ketones Neg mg/dL (Negative) 05/13/20 Unknown Urine Blood Neg (Negative) 05/13/20 Unknown Urine Nitrite Neg (Negative) 05/13/20 Unknown Urine Bilirubin Neg (Negative) 05/13/20 Unknown Urine Urobilinogen 2.0 mg/dL (<2.0) 05/13/20 Unknown Ur Leukocyte Esterase Tr (Negative) 05/13/20 Unknown Urine WBC (Auto) 5.0 /HPF (0.0-6.0) 05/13/20 Unknown Urine RBC (Auto) 5.0 /HPF (0.0-6.0) 05/13/20 Unknown U Epithel Cells (Auto) 3.0 /HPF (0-13.0) 05/13/20 Unknown Urine Bacteria (Auto) 1+ /HPF (Negative) 05/13/20 Unknown Urine Mucus Few /HPF 05/13/20 Unknown Cardiolipid IgG Ab <14 GPL (<=14) 05/17/20 05:02 Cardiolipid IgA Ab <11 APL (<=11) 05/17/20 05:02 Cardiolipid IgM Ab <12 MPL (<=12) 05/17/20 05:02 Blood Type O POSITIVE 05/16/20 08:25 Antibody Screen Negative 05/16/20 08:25 Crossmatch See Detail 05/16/20 08:25 Mcrae/IV: Voiding Method Urinal Active Medications - Current Medications Current Medications: Generic Name Dose Route Start Last Admin Trade Name Freq PRN Reason Stop Dose Admin Acetaminophen 650 mg 05/13/20 23:06 05/18/20 01:06 Acetaminophen 325 Mg Tab PO 650 mg Q4H PRN Administration Pain MILD(1-3)/Fever >100.5/DOMINIQUE Aspirin 81 mg 05/16/20 12:00 05/20/20 09:54 Aspirin Ec 81 Mg Tab PO 81 mg QDAY ALISTAIR Administration Folic Acid 1 mg 05/17/20 10:00 05/20/20 09:54 Folic Acid 1 Mg Tab PO 1 mg QDAY ALISTAIR Administration Heparin Sodium (Porcine) 3,700 unit 05/15/20 20:56 Heparin 10,000 Units/10 Ml Vial 40 unit/kg (3700 unit) IV Q6H PRN Anti-Xa Assay < 0.1 units/ml Sodium Chloride 1,000 mls @ 125 mls/hr 05/13/20 23:15 05/16/20 02:43 Nacl 0.9% 1000 Ml IV 125 mls/hr DIRECT ALISTAIR Administration Heparin Sodium/Sodium Chloride 25,000 unit in 500 mls @ 27 mls/hr 05/15/20 2 1:00 05/18/20 07:51 Heparin/ 0.45% Nacl-25,000 Unit/500 Ml IV 1,750 units/hr TITR ALISTAIR 35 mls/hr Titration Protocol 1,350 UNITS/HR Levofloxacin/Dextrose 750 mg in 150 mls @ 100 mls/hr 05/19/20 10:00 05/20/20 09:55 Levaquin 750mg/150ml IV 100 mls/hr Q24HR ALISTAIR Administration Protocol Metronidazole 500 mg in 100 mls @ 100 mls/hr 05/19/20 01:00 05/20/20 09:55 Flagyl 500 Mg/100 Ml IV 100 mls/hr Q8H ALISTAIR Administration Protocol Magnesium Hydroxide 30 ml 05/13/20 23:06 05/16/20 17:53 Magnesium Hydroxide (Mom) Oral Liqd Udc PO 30 ml Q4H PRN Administration Constipation Morphine Sulfate 4 mg 05/18/20 21:36 05/20/20 02:28 Morphine 4 Mg/1 Ml Inj IV 4 mg Q3H PRN Administration Pain , Severe (7-10) Ondansetron HCl 4 mg 05/13/20 23:06 Ondansetron 4 Mg/2 Ml Inj IV Q8H PRN Nausea And Vomiting Sodium Chloride 10 ml 05/14/20 10:00 05/20/20 09:55 Sodium Chloride 0.9% 10 Ml Flush Syringe IV 10 ml BID ALISTAIR Administration Sodium Chloride 10 ml 05/13/20 23:06 Sodium Chloride 0.9% 10 Ml Flush Syringe IV PRN PRN LINE FLUSH
[2020-05-20 12:28] LABS: Total Cells Counted 100
[2020-05-20 12:29] LABS: Hypochromasia 1+
[2020-05-20 12:32] LABS: Platelet Estimate Consistent w Auto; Schistocytes Rare
--- NOTE | 2020-05-20 14:47 | Progress Note ---
Assessment and Plan Patient is status post right hemicolectomy and repair of ventral hernia. He will need aspirin and anticoagulation for life. Should be restarted with aspirin and a heparin drip once it is okay from a general surgery standpoint. The heparin drip should be converted to Eliquis 5 mg p.o. twice daily once he is taking adequate oral intake. Subjective Date of service: 05/20/20 Principal diagnosis: Right foot ischemia Interval history: Patient denies any pain to right foot. States it feels much better than prior to having revascularization of his right lower extremity. Objective - Constitutional Vitals: Vital Signs - 12hr 05/20/20 05:16 Temperature 98.0 F Pulse Rate 81 Respiratory 18 Rate Blood Pressure 131/81 O2 Sat by Pulse 96 Oximetry General appearance: Present: no acute distress Extremities: normal temperature (Right foot is warm with less than 2 seconds of capillary refill) - Labs CBC & Chem 7: 05/20/20 07:20 05/20/20 07:20 Labs: Abnormal lab results 05/16/20 05/20/20 Range/Units 08:25 07:20 WBC 23.0 H (4.5-11.0) K/mm3 RBC 3.26 L (3.65-5.03) M/mm3 Hgb 7.9 L (11.8-15.2) gm/dl Hct 25.5 L (35.5-45.6) % MCV 78 L (84-94) fl MCH 24 L (28-32) pg MCHC 31 L (32-34) % RDW 20.0 H (13.2-15.2) % Lymphocytes % (Manual) 4.0 L (13.4-35.0) % Seg Neutrophils # Man 22.1 H (1.8-7.7) K/mm3 Lymphocytes # (Manual) 0.9 L (1.2-5.4) K/mm3 Crossmatch See Detail Medications & Allergies - Medications Allergies/Adverse Reactions: Allergies ibuprofen Allergy (Verified 05/13/20 16:53) Hives Home Medications: Home Medications Medication Instructions Recorded Confirmed Last Taken Type No Known Home Medications [No 05/14/20 05/14/20 Unknown History Reported Home Medications] Active Medications: Generic Name Dose Route Start Last Admin Trade Name Freq PRN Reason Stop Dose Admin Acetaminophen 650 mg 05/13/20 23:06 05/18/20 01:06 Acetaminophen 325 Mg Tab PO 650 mg Q4H PRN Administration Pain MILD(1-3)/Fever >100.5/DOMINIQUE Aspirin 81 mg 05/16/20 12:00 05/20/20 09:54 Aspirin Ec 81 Mg Tab PO 81 mg QDAY ALISTAIR Administration Folic Acid 1 mg 05/17/20 10:00 05/20/20 09:54 Folic Acid 1 Mg Tab PO 1 mg QDAY ALISTAIR Administration Heparin Sodium (Porcine) 3,700 unit 05/15/20 20:56 Heparin 10,000 Units/10 Ml Vial 40 unit/kg (3700 unit) IV Q6H PRN Anti-Xa Assay < 0.1 units/ml Sodium Chloride 1,000 mls @ 125 mls/hr 05/13/20 23:15 05/16/20 02:43 Nacl 0.9% 1000 Ml IV 125 mls/hr DIRECT ALISTAIR Administration Heparin Sodium/Sodium Chloride 25,000 unit in 500 mls @ 27 mls/hr 05/15/20 21:00 05/18/20 07:51 Heparin/ 0.45% Nacl-25,000 Unit/500 Ml IV 1,750 units/hr TITR ALISTAIR 35 mls/hr Titration Protocol 1,350 UNITS/HR Levofloxacin/Dextrose 750 mg in 150 mls @ 100 mls/hr 05/19/20 10:00 05/20/20 09:55 Levaquin 750mg/150ml IV 100 mls/hr Q24HR ALISTAIR Administration Protocol Metronidazole 500 mg in 100 mls @ 100 mls/hr 05/19/20 01:00 05/20/20 09:55 Flagyl 500 Mg/100 Ml IV 100 mls/hr Q8H ALISTAIR Administration Protocol Magnesium Hydroxide 30 ml 05/13/20 23:06 05/16/20 17:53 Magnesium Hydroxide (Mom) Oral Liqd Udc PO 30 ml Q4H PRN Administration Constipation Morphine Sulfate 4 mg 05/18/20 21:36 05/20/20 14:00 Morphine 4 Mg/1 Ml Inj IV 4 mg Q3H PRN Administration Pain , Severe (7-10) Ondansetron HCl 4 mg 05/13/20 23:06 Ondansetron 4 Mg/2 Ml Inj IV Q8H PRN Nausea And Vomiting Sodium Chloride 10 ml 05/14/20 10:00 05/20/20 09:55 Sodium Chloride 0.9% 10 Ml Flush Syringe IV 10 ml BID ALISTAIR Administration Sodium Chloride 10 ml 05/13/20 23:06 Sodium Chloride 0.9% 10 Ml Flush Syringe IV PRN PRN LINE FLUSH
[2020-05-21] MEDS: metroNIDAZOLE/NS 500 MG/100 ML 500 MG/100 ML BAG IV SCH ×3 (01:36→19:05)
[2020-05-21 06:15] LABS: Hematocrit 24.1 % (35.5-45.6); Hemoglobin 7.7 gm/dl (11.8-15.2); Mean Corpuscular HGB Conc 32 % (32-34); Mean Corpuscular Volume 79 fl (84-94); Platelet Count 358 K/mm3 (140-440); Red Blood Count 3.05 M/mm3 (3.65-5.03)
[2020-05-21 06:16] LABS: Red Cell Distribution Width 20.9 % (13.2-15.2)
[2020-05-21 06:28] LABS: BUN/Creatinine Ratio 11; Blood Urea Nitrogen 10 mg/dL (9-20); Hemolysis Index 2
[2020-05-21 07:55] LABS: Total Cells Counted 100
[2020-05-21 07:57] LABS: Anisocytosis 1+; Hypochromasia 1+
[2020-05-21 07:58] LABS: Schistocytes Rare
[2020-05-21 07:59] LABS: Platelet Estimate Consistent w Auto
[2020-05-21] MEDS: ASPIRIN EC 81 MG TAB PO SCH (09:36)
[2020-05-21] MEDS: FOLIC ACID 1 MG TAB PO SCH (09:37)
--- NOTE | 2020-05-21 11:44 | Progress Note ---
Assessment and Plan Assessment and plan: 55-year-old -[place] male who was recently diagnosed with colon cancer in [facility] about a week ago presenting to the emergency room today complaining of chronic abdominal pain and right foot pain. Abdominal pain has been ongoing for the past 3 to 4 months. He was recently in [facility] where he was evaluated in the hospital and diagnosed with lesions consistent with colon cancer on a CT scan. Was also said to have had metastases to his lungs. He has not had any follow-up with any oncologist or stogie packer because of insurance issues. Patient also indicates that his older brother of colon cancer few years ago. He has not had any colonoscopy in the past. 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 Patient has been having pain in his right foot over the past few weeks. He denies any trauma to the foot and no recent fall. He denies any numbness. Patient denies any fever or chills, no chest pain or shortness of breath, no nausea vomiting, no headache or dizziness. Work-up in the emergency room today reveals a leukocytosis of 15.7. X-ray of the right foot did not reveal any osteomyelitis. Patient is being admitted with gangrene of the right middle toe in addition to his recently diagnosed colon cancer. 05/14/2020 -Patient is diagnosed with stage IV colon cancer metastasized to the lung recently. Patient went to [place] and discharged him to have follow-up at [facility] and patient presented here. Patient has colon mass and was able to do advance to colonoscopy at [place] (per GI), patient may need surgical intervention and I put a consult for general surgery. I have discussed with GI and GI said nothing to add on his current management. Patient need to have follow-up with oncologist as an outpatient. Patient has gangrene of the right third toes and I ordered arterial Doppler, vascular surgery consulted. She has also leukocytosis and is on IV Vanco and Zosyn. 05/15/2020 -Patient was seen by general surgery and recommend CT abdomen and pelvis, will get records from [facility] colonoscopy and pathology reports. Discussed with the nurse to get records. Evaluated by ID and recommend no antibiotics at this time. Evaluated by GI and no further work-up needed from GI point of view. Patient was evaluated by scleral surgery and arterial Doppler was done and significant for moderate peripheral arterial disease in the right lower extremity and will do revascularization. 05/16/2020 -CT chest abdomen and pelvis was done and significant for colorectal cancer, and lung cancer. We will get records from original hospital. Was evaluated by makayla bynum and did a revascularization yesterday. Was evaluated by general surgery. Hemoglobin yesterday was 6.8. We will transfuse him a unit of blood and monitor posttransfusion hemoglobin/hematocrit. Will monitor and transfuse as needed. Will do anemia work-up. I put a consult per oncology recommendations. 05/17/2020 -CT chest abdomen and pelvis was done and significant for colorectal cancer, and lung cancer. We will get records from original hospital discussed with patient's nurse. Was evaluated by vascular and did a revascularization was done and now the discoloration is resolving, patient has palpable pulse, no pain. Patient is currently on heparin drip and can be continued until surgery and will be transitioned to Eliquis after that. Was evaluated by general surgery and is considering to do palliative colectomy. Hemoglobin yesterday was 6.8 and transfused a unit of blood and posttransfusion hemoglobin this morning was 7, patient is currently on iron infusion, will monitor H&H and transfuse as needed. Leukocytosis could be due to the cancer, no fever or other signs of infection. Path result was obtained from [facility] in [place] and showed adenocarcinoma, primary is from the colorectal carcinoma. 05/18: Patient clinically stable, awaiting surgical input or the planned Open right/transverse colectomy,, Hematology is stating to await for a cool off time before resection but if cannot wait then proceed with the surgery, Patient will need elquis 5mg PO BID custodial and aspirin 81 mg daily. 05/19: Patient is status post 1) Right colectomy 2) Open repair of incarcerated ventral hernia 3) Open repair of incarcerated umbilical hernia postop day 1 for 1)Stage 4 adenoca, right hepatic flexure 2)Incarc ventral & Umbil hernias Continues to do well. Continues to require NG to intermittent suction. We will continue to follow. Of discussed with case management as patient will likely need palliative care on discharge, monitor leukocytosis, mild elevated noted 05/20: Extensive discussion with the patient about palliative care on discharge he verbalized understanding Case management to arrange. Surgical input noted NG tube has been discontinued patient be started on sips of clear fluids. Is voiding without difficulty and had one episode of flatus but no bowel movement yet. Bowel sounds are still very hypoactive. We will continue to monitor 05/21: Tolerating sips of water still awaiting clearance from surgery to be able to eat. Still no flatus yet according to the patient. White count still fluctuating up to 26,000 today. No fever. Could be reactive. Vascular input is noted patient will need aspirin and anticoagulation Eliquis long-term. (1) Gangrene of toe of right foot Current Visit: Yes Status: Acute Plan to address problem: Patient placed on empiric IV antibiotics. Consult placed to infectious disease and vascular surgery for evaluation. (2) Colon cancer metastasized to lung Current Visit: Yes Status: Acute Plan to address problem: Patient was just recently diagnosed with colon cancer in [facility]. He has not had any follow-up with any physician. We will place consult to gastroenterology for evaluation. (3) Leukocytosis/SIRS without organ dysfunction. 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 (6) Full code status Current Visit: Yes Status: Acute Plan to address problem: Patient is full code. History Interval history: Patient seen and examined, no new complaints. Feels sensation that he may have flatus or bowel movement but not yet. Hospitalist Physical - Physical exam Narrative exam: VITAL SIGNS: Reviewed. GENERAL: The patient appears normally developed, vital signs as documented. HEAD: No signs of head trauma. EYES: Pupils are equal. Extraocular motions intact. EARS: Hearing grossly intact. MOUTH: Oropharynx is normal. NECK: No adenopathy, no JVD. CHEST: Chest with clear breath sounds bilaterally. No wheezes, rales, or rhonchi. CARDIAC: Regular rate and rhythm. S1 and S2, without murmurs, gallops, or rubs. VASCULAR: No Edema. Peripheral pulses normal and equal in all extremities. ABDOMEN: Soft, tender at site of surgery. DRESSING IN PLACE. Wound VAC in armando ce. Hypoactive bowel sounds MUSCULOSKELETAL: Good range of motion of all major joints. Extremities without clubbing, cyanosis or edema. NEUROLOGIC EXAM: Alert and oriented x 3 No focal sensory or strength deficits. Speech normal. Follows commands. PSYCHIATRIC: Mood normal. SKIN: detail exam as documented in skin assessment - Constitutional Vitals: Temp Pulse Resp BP Pulse Ox 98.4 F 80 20 127/78 94 05/21/20 06:03 05/21/20 06:01 05/21/20 06:03 05/21/20 06:03 05/21/20 06:03 General appearance: Present: no acute distress Results - Labs CBC & Chem 7: 05/21/20 05:12 05/21/20 05:12 Labs: Laboratory Last Values WBC 26.1 K/mm3 (4.5-11.0) H 05/21/20 05:12 RBC 3.05 M/mm3 (3.65-5.03) L 05/21/20 05:12 Hgb 7.7 gm/dl (11.8-15.2) L 05/21/20 05:12 Hct 24.1 % (35.5-45.6) L 05/21/20 05:12 MCV 79 fl (84-94) L 05/21/20 05:12 MCH 25 pg (28-32) L 05/21/20 05:12 MCHC 32 % (32-34) 05/21/20 05:12 RDW 20.9 % (13.2-15.2) H 05/21/20 05:12 Plt Count 358 K/mm3 (140-440) 05/21/20 05:12 Lymph % (Auto) 12.4 % (13.4-35.0) L 05/18/20 07:19 Spink % (Auto) 9.5 % (0.0-7.3) H 05/18/20 07:19 Eos % (Auto) 0.2 % (0.0-4.3) 05/18/20 07:19 Baso % (Auto) 0.4 % (0.0-1.8) 05/18/20 07:19 Lymph # (Auto) 2.5 K/mm3 (1.2-5.4) 05/18/20 07:19 Spink # (Auto) 1.9 K/mm3 (0.0-0.8) H 05/18/20 07:19 Eos # (Auto) 0.0 K/mm3 (0.0-0.4) 05/18/20 07:19 Baso # (Auto) 0.1 K/mm3 (0.0-0.1) 05/18/20 07:19 Add Manual Diff Complete 05/21/20 05:12 Total Counted 100 05/21/20 05:12 Seg Neutrophils % Hub Cutter Apprentice 05/19/20 07:06 Seg Neuts % (Manual) 93.0 % (40.0-70.0) H 05/21/20 05:12 Lymphocytes % (Manual) 4.0 % (13.4-35.0) L 05/21/20 05:12 Monocytes % (Manual) 3.0 % (0.0-7.3) 05/21/20 05:12 Nucleated RBC % Not Reportable 05/21/20 05:12 Seg Neutrophils # 15.3 K/mm3 (1.8-7.7) H 05/18/20 07:19 Seg Neutrophils # Man 24.3 K/mm3 (1.8-7.7) H 05/21/20 05:12 Band Neutrophils # 0.0 K/mm3 05/21/20 05:12 Lymphocytes # (Manual) 1.0 K/mm3 (1.2-5.4) L 05/21/20 05:12 Abs React Lymphs (Man) 0.0 K/mm3 05/21/20 05:12 Monocytes # (Manual) 0.8 K/mm3 (0.0-0.8) 05/21/20 05:12 Eosinophils # (Manual) 0.0 K/mm3 (0.0-0.4) 05/21/20 05:12 Basophils # (Manual) 0.0 K/mm3 (0.0-0.1) 05/21/20 05:12 Metamyelocytes # 0.0 K/mm3 05/21/20 05:12 Myelocytes # 0.0 K/mm3 05/21/20 05:12 Promyelocytes # 0.0 K/mm3 05/21/20 05:12 Blast Cells # 0.0 K/mm3 05/21/20 05:12 WBC Morphology Not Reportable 05/21/20 05:12 Hypersegmented Neuts Not Reportable 05/21/20 05:12 Hyposegmented Neuts Not Reportable 05/21/20 05:12 Hypogranular Neuts Not Reportable 05/21/20 05:12 Smudge Cells Not Reportable 05/21/20 05:12 Toxic Granulation Not Reportable 05/21/20 05:12 Toxic Vacuolation Not Reportable 05/21/20 05:12 Dohle Bodies Not Reportable 05/21/20 05:12 Pelger-Huet Anomaly Not Reportable 05/21/20 05:12 Rosaline Rods Not Reportable 05/21/20 05:12 Platelet Estimate Consistent w auto 05/21/20 05:12 Clumped Platelets Not Reportable 05/21/20 05:12 Plt Clumps, EDTA Not Reportable 05/21/20 05:12 Large Platelets Not Reportable 05/21/20 05:12 Giant Platelets Not Reportable 05/21/20 05:12 Platelet Satelliting Not Reportable 05/21/20 05:12 Plt Morphology Comment Not Reportable 05/21/20 05:12 RBC Morphology Not Reportable 05/21/20 05:12 Dimorphic RBCs Not Reportable 05/21/20 05:12 Polychromasia Not Reportable 05/21/20 05:12 Hypochromasia 1+ 05/21/20 05:12 Poikilocytosis Not Reportable 05/21/20 05:12 Anisocytosis 1+ 05/21/20 05:12 Microcytosis Not Reportable 05/21/20 05:12 Macrocytosis Not Reportable 05/21/20 05:12 Spherocytes Not Reportable 05/21/20 05:12 Pappenheimer Bodies Not Reportable 05/21/20 05:12 Sickle Cells Not Reportable 05/21/20 05:12 Target Cells Not Reportable 05/21/20 05:12 Tear Drop Cells Not Reportable 05/21/20 05:12 Ovalocytes Not Reportable 05/21/20 05:12 Helmet Cells Not Reportable 05/21/20 05:12 [place] Bodies Not Reportable 05/21/20 05:12 [place] Rings Not Reportable 05/21/20 05:12 Velia Cells Not Reportable 05/21/20 05:12 Bite Cells Not Reportable 05/21/20 05:12 Crenated Cell Not Reportable 05/21/20 05:12 Elliptocytes Rare 05/21/20 05:12 Acanthocytes (Spur) Not Reportable 05/21/20 05:12 Rouleaux Not Reportable 05/21/20 05:12 Hemoglobin C Crystals Not Reportable 05/21/20 05:12 Schistocytes Rare 05/21/20 05:12 Malaria parasites Not Reportable 05/21/20 05:12 Jerod Bodies Not Reportable 05/21/20 05:12 Hem Pathologist Commnt No 05/21/20 05:12 PT 14.9 Sec. (12.2-14.9) 05/15/20 21:05 INR 1.17 (0.87-1.13) H 05/15/20 21:05 APTT 37.0 Sec. (24.2-36.6) H 05/15/20 21:05 Heparin Anti-Xa Level < 0.10 U.I./ml (0.3-0.7) L 05/19/20 08:06 Sodium 137 mmol/L (137-145) 05/21/20 05:12 Potassium 3.6 mmol/L (3.6-5.0) 05/21/20 05:12 Chloride 102.3 mmol/L (98-107) 05/21/20 05:12 Carbon Dioxide 25 mmol/L (22-30) 05/21/20 05:12 Anion Gap 13 mmol/L 05/21/20 05:12 BUN 10 mg/dL (9-20) 05/21/20 05:12 Creatinine 0.9 mg/dL (0.8-1.3) 05/21/20 05:12 Estimated GFR > 60 ml/min 05/21/20 05:12 BUN/Creatinine Ratio 11 % 05/21/20 05:12 Glucose 84 mg/dL (75-100) 05/21/20 05:12 Lactic Acid 0.90 mmol/L (0.7-2.0) 05/14/20 08:02 Calcium 8.0 mg/dL (8.4-10.2) L 05/21/20 05:12 Iron 15 ug/dL (49-181) L 05/16/20 08:23 TIBC 177 mcg/dL (250-450) L 05/16/20 08:23 Ferritin 148.4 ng/mL (30.0-300.0) 05/16/20 08:23 Total Bilirubin 0.30 mg/dL (0.1-1.2) 05/13/20 17:02 AST 15 units/L (5-40) 05/13/20 17:02 ALT 11 units/L (7-56) 05/13/20 17:02 Alkaline Phosphatase 247 units/L (35-129) H 05/13/20 17:02 Total Protein 7.0 g/dL (6.3-8.2) 05/13/20 17:02 Albumin 2.5 g/dL (3.9-5) L 05/13/20 17:02 Albumin/Globulin Ratio 0.6 % 05/13/20 17:02 Lipase 33 units/L (13-60) 05/13/20 17:02 Carcinoembryonic Ag 47.8 ng/mL (0.0-2.4) H 05/14/20 19:22 Vitamin B12 1476 pg/mL (211-911) H 05/16/20 08:23 Folate 5.13 ng/mL (7.3-26.0) L 05/16/20 08:23 Urine Color Yellow (Yellow) 05/13/20 Unknown Urine Turbidity Slightly-cloudy (Clear) 05/13/20 Unknown Urine pH 5.0 (5.0-7.0) 05/13/20 Unknown Ur Specific [place] 1.021 (1.003-1.030) 05/13/20 Unknown Urine Protein <15 mg/dl mg/dL (Negative) 05/13/20 Unknown Urine Glucose (UA) Neg mg/dL (Negative) 05/13/20 Unknown Urine Ketones Neg mg/dL (Negative) 05/13/20 Unknown Urine Blood Neg (Negative) 05/13/20 Unknown Urine Nitrite Neg (Negative) 05/13/20 Unknown Urine Bilirubin Neg (Negative) 05/13/20 Unknown Urine Urobilinogen 2.0 mg/dL (<2.0) 05/13/20 Unknown Ur Leukocyte Esterase Tr (Negative) 05/13/20 Unknown Urine WBC (Auto) 5.0 /HPF (0.0-6.0) 05/13/20 Unknown Urine RBC (Auto) 5.0 /HPF (0.0-6.0) 05/13/20 Unknown U Epithel Cells (Auto) 3.0 /HPF (0-13.0) 05/13/20 Unknown Urine Bacteria (Auto) 1+ /HPF (Negative) 05/13/20 Unknown Urine Mucus Few /HPF 05/13/20 Unknown Cardiolipid IgG Ab <14 GPL (<=14) 05/17/20 05:02 Cardiolipid IgA Ab <11 APL (<=11) 05/17/20 05:02 Cardiolipid IgM Ab <12 MPL (<=12) 05/17/20 05:02 Blood Type O POSITIVE 05/16/20 08:25 Antibody Screen Negative 05/16/20 08:25 Crossmatch See Detail 05/16/20 08:25 Mcrae/IV: Voiding Method Urinal Active Medications - Current Medications Current Medications: Generic Name Dose Route Start Last Admin Trade Name Freq PRN Reason Stop Dose Admin Acetaminophen 650 mg 05/13/20 23:06 05/18/20 01:06 Acetaminophen 325 Mg Tab PO 650 mg Q4H PRN Administration Pain MILD(1-3)/Fever >100.5/DOMINIQUE Aspirin 81 mg 05/16/20 12:00 05/21/20 09:36 Aspirin Ec 81 Mg Tab PO 81 mg QDAY ALISTAIR Administration Folic Acid 1 mg 05/17/20 10:00 05/21/20 09:37 Folic Acid 1 Mg Tab PO 1 mg QDAY ALISTAIR Administration Heparin Sodium (Porcine) 3,700 unit 05/15/20 20:56 Heparin 10,000 Units/10 Ml Vial 40 unit/kg (3700 unit) IV Q6H PRN Anti-Xa Assay < 0.1 units/ml Sodium Chloride 1,000 mls @ 125 mls/hr 05/13/20 23:15 05/16/20 02:43 Nacl 0.9% 1000 Ml IV 125 mls/hr DIRECT ALISTAIR Administration Heparin Sodium/Sodium Chloride 25,000 unit in 500 mls @ 27 mls/hr 05/15/20 21:00 05/18/20 07:51 Heparin/ 0.45% Nacl-25,000 Unit/500 Ml IV 1,750 units/hr TITR ALISTAIR 35 mls/hr Titration Protocol 1,350 UNITS/HR Levofloxacin/Dextrose 750 mg in 150 mls @ 100 mls/hr 05/19/20 10:00 05/21/20 09:35 Levaquin 750mg/150ml IV 100 mls/hr Q24HR ALISTAIR Administration Protocol Metronidazole 500 mg in 100 mls @ 100 mls/hr 05/19/20 01:00 05/21/20 09:35 Flagyl 500 Mg/100 Ml IV 100 mls/hr Q8H ALISTAIR Administration Protocol Magnesium Hydroxide 30 ml 05/13/20 23:06 05/16/20 17:53 Magnesium Hydroxide (Mom) Oral Liqd Udc PO 30 ml Q4H PRN Administration Constipation Morphine Sulfate 4 mg 05/18/20 21:36 05/20/20 23:52 Morphine 4 Mg/1 Ml Inj IV 4 mg Q3H PRN Administration Pain , Severe (7-10) Ondansetron HCl 4 mg 05/13/20 23:06 Ondansetron 4 Mg/2 Ml Inj IV Q8H PRN Nausea And Vomiting Sodium Chloride 10 ml 05/14/20 10:00 05/21/20 09:37 Sodium Chloride 0.9% 10 Ml Flush Syringe IV 10 ml BID ALISTAIR Administration Sodium Chloride 10 ml 05/13/20 23:06 Sodium Chloride 0.9% 10 Ml Flush Syringe IV PRN PRN LINE FLUSH
[2020-05-21] MEDS: MORPHINE 4 MG/1 ML INJ IV PRN ×3 (12:58→21:58)
[2020-05-21] MEDS: ONDANSETRON 4 MG/2 ML INJ IV PRN (14:00)
--- NOTE | 2020-05-21 14:19 | Progress Note ---
Assessment and Plan - Patient Problems (1) Colon cancer metastasized to lung Current Visit: Yes Status: Acute Plan to address problem: 1) Clear liquid diet 2) Ambulate in halls 3) CBC and BMP in the am 4) Okay to begin anticoagulation from my perspective. Subjective Date of service: 05/21/20 Patient Reports: Positive: no new complaints, tolerating liquids well Objective Vital Signs - 12hr 05/21/20 05/21/20 05/21/20 06:01 06:02 06:03 Temperature 98.4 F Pulse Rate 80 77 Respiratory 20 Rate Blood Pressure Blood Pressure 127/78 [Left] O2 Sat by Pulse 94 95 94 Oximetry 05/21/20 11:21 Temperature 98.2 F Pulse Rate Respiratory 18 Rate Blood Pressure 165/86 Blood Pressure [Left] O2 Sat by Pulse Oximetry - Abdomen soft, bowel sounds hypoactive - Labs 05/21/20 05:12 05/21/20 05:12 Diabetes panel 05/21/20 Range/Units 05:12 Sodium 137 (137-145) mmol/L Potassium 3.6 (3.6-5.0) mmol/L Chloride 102.3 (98-107) mmol/L Carbon Dioxide 25 (22-30) mmol/L BUN 10 (9-20) mg/dL Creatinine 0.9 (0.8-1.3) mg/dL Glucose 84 (75-100) mg/dL Calcium 8.0 L (8.4-10.2) mg/dL Calcium panel 05/21/20 Range/Units 05:12 Calcium 8.0 L (8.4-10.2) mg/dL Pituitary panel 05/21/20 Range/Units 05:12 Sodium 137 (137-145) mmol/L Potassium 3.6 (3.6-5.0) mmol/L Chloride 102.3 (98-107) mmol/L Carbon Dioxide 25 (22-30) mmol/L BUN 10 (9-20) mg/dL Creatinine 0.9 (0.8-1.3) mg/dL Glucose 84 (75-100) mg/dL Calcium 8.0 L (8.4-10.2) mg/dL Adrenal panel 05/21/20 Range/Units 05:12 Sodium 137 (137-145) mmol/L Potassium 3.6 (3.6-5.0) mmol/L Chloride 102.3 (98-107) mmol/L Carbon Dioxide 25 (22-30) mmol/L BUN 10 (9-20) mg/dL Creatinine 0.9 (0.8-1.3) mg/dL Glucose 84 (75-100) mg/dL Calcium 8.0 L (8.4-10.2) mg/dL
[2020-05-21] MEDS: METOCLOPRAMIDE 10 MG/2 ML INJ IV PRN (14:55)
[2020-05-22] MEDS: metroNIDAZOLE/NS 500 MG/100 ML 500 MG/100 ML BAG IV SCH ×3 (00:49→18:03)
[2020-05-22] MEDS: MORPHINE 4 MG/1 ML INJ IV PRN ×3 (02:18→18:03)
[2020-05-22 05:57] LABS: Hemoglobin 7.5 gm/dl (11.8-15.2); Mean Corpuscular HGB Conc 33 % (32-34); Mean Corpuscular Volume 79 fl (84-94); Platelet Count 367 K/mm3 (140-440); Red Blood Count 2.92 M/mm3 (3.65-5.03)
[2020-05-22 06:02] LABS: Lymphocytes % (Auto) 7.7 % (13.4-35.0); Red Cell Distribution Width 20.8 % (13.2-15.2)
[2020-05-22 06:03] LABS: Basophils % (Auto) 0.1 % (0.0-1.8); Eosinophils # (Auto) 0.1 K/mm3 (0.0-0.4); Eosinophils % (Auto) 0.3 % (0.0-4.3); Lymphocytes # (Auto) 1.6 K/mm3 (1.2-5.4); Monocytes # (Auto) 2.1 K/mm3 (0.0-0.8); Monocytes % (Auto) 10.1 % (0.0-7.3)
[2020-05-22 06:16] LABS: BUN/Creatinine Ratio 13; Blood Urea Nitrogen 10 mg/dL (9-20); Calcium 7.8 mg/dL (8.4-10.2); Hemolysis Index 0
[2020-05-22] MEDS ORDERED: HEPARIN 10,000 UNITS/10 ML VIAL IV PRN (08:25)
[2020-05-22] MEDS ORDERED: HEPARIN 10,000 UNITS/10 ML VIAL IV NR (08:25)
[2020-05-22 09:33] LABS: Hematocrit 24.7 % (35.5-45.6); Hemoglobin 7.9 gm/dl (11.8-15.2)
[2020-05-22 09:59] LABS: INR 1.14 (0.87-1.13)
[2020-05-22 10:00] LABS: Partial Thromboplastin Time 37.6 Sec. (24.2-36.6)
[2020-05-22] MEDS: FOLIC ACID 1 MG TAB PO SCH (10:32)
[2020-05-22] MEDS: ASPIRIN EC 81 MG TAB PO SCH (10:32)
[2020-05-22] MEDS: HEPARIN/ 0.45% NACL DRIP 25,000 UNIT/500 ML BAG IV SCH (12:55)
--- NOTE | 2020-05-22 14:21 | Progress Note ---
Assessment and Plan Assessment and plan: 55-year-old -Greek male who was recently diagnosed with colon cancer in [facility] about a week ago presenting to the emergency room today complaining of chronic abdominal pain and right foot pain. Abdominal pain has been ongoing for the past 3 to 4 months. He was recently in [facility] where he was evaluated in the hospital and diagnosed with lesions consistent with colon cancer on a CT scan. Was also said to have had metastases to his lungs. He has not had any follow-up with any oncologist or hand hardener because of insurance issues. Patient also indicates that his older brother of colon cancer few years ago. He has not had any colonoscopy in the past. 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 Patient has been having pain in his right foot over the past few weeks. He denies any trauma to the foot and no recent fall. He denies any numbness. Patient denies any fever or chills, no chest pain or shortness of breath, no nausea vomiting, no headache or dizziness. Work-up in the emergency room today reveals a leukocytosis of 15.7. X-ray of the right foot did not reveal any osteomyelitis. Patient is being admitted with gangrene of the right middle toe in addition to his recently diagnosed colon cancer. 05/14/2020 -Patient is diagnosed with stage IV colon cancer metastasized to the lung recently. Patient went to [place] and discharged him to have follow-up at [facility] and patient presented here. Patient has colon mass and was able to do advance to colonoscopy at [place] (per GI), patient may need surgical intervention and I put a consult for general surgery. I have discussed with GI and GI said nothing to add on his current management. Patient need to have follow-up with oncologist as an outpatient. Patient has gangrene of the right third toes and I ordered arterial Doppler, vascular surgery consulted. She has also leukocytosis and is on IV Vanco and Zosyn. 05/15/2020 -Patient was seen by general surgery and recommend CT abdomen and pelvis, will get records from [facility] colonoscopy and pathology reports. Discussed with the nurse to get records. Evaluated by ID and recommend no antibiotics at this time. Evaluated by GI and no further work-up needed from GI point of view. Patient was evaluated by scleral surgery and arterial Doppler was done and significant for moderate peripheral arterial disease in the right lower extremity and will do revascularization. 05/16/2020 -CT chest abdomen and pelvis was done and significant for colorectal cancer, and lung cancer. We will get records from original hospital. Was evaluated by makayla bynum and did a revascularization yesterday. Was evaluated by general surgery. Hemoglobin yesterday was 6.8. We will transfuse him a unit of blood and monitor posttransfusion hemoglobin/hematocrit. Will monitor and transfuse as needed. Will do anemia work-up. I put a consult per oncology recommendations. 05/17/2020 -CT chest abdomen and pelvis was done and significant for colorectal cancer, and lung cancer. We will get records from original hospital discussed with patient's nurse. Was evaluated by vascular and did a revascularization was done and now the discoloration is resolving, patient has palpable pulse, no pain. Patient is currently on heparin drip and can be continued until surgery and will be transitioned to Eliquis after that. Was evaluated by general surgery and is considering to do palliative colectomy. Hemoglobin yesterday was 6.8 and transfused a unit of blood and posttransfusion hemoglobin this morning was 7, patient is currently on iron infusion, will monitor H&H and transfuse as needed. Leukocytosis could be due to the cancer, no fever or other signs of infection. Path result was obtained from [facility] in [place] and showed adenocarcinoma, primary is from the colorectal carcinoma. 05/18: Patient clinically stable, awaiting surgical input or the planned Open right/transverse colectomy,, Hematology is stating to await for a cool off time before resection but if cannot wait then proceed with the surgery, Patient will need elquis 5mg PO BID halfway and aspirin 81 mg daily. 05/19: Patient is status post 1) Right colectomy 2) Open repair of incarcerated ventral hernia 3) Open repair of incarcerated umbilical hernia postop day 1 for 1)Stage 4 adenoca, right hepatic flexure 2)Incarc ventral & Umbil hernias Continues to do well. Continues to require NG to intermittent suction. We will continue to follow. Of discussed with case management as patient will likely need palliative care on discharge, monitor leukocytosis, mild elevated noted 05/20: Extensive discussion with the patient about palliative care on discharge he verbalized understanding Case management to arrange. Surgical input noted NG tube has been discontinued patient be started on sips of clear fluids. Is voiding without difficulty and had one episode of flatus but no bowel movement yet. Bowel sounds are still very hypoactive. We will continue to monitor 05/21: Tolerating sips of water still awaiting clearance from surgery to be able to eat. Still no flatus yet according to the patient. White count still fluctuating up to 26,000 today. No fever. Could be reactive. Vascular input is noted patient will need aspirin and anticoagulation Eliquis long-term. 05/22: Patient reports bowel movement today. Reports ambulating in the hallway. Still on clear liquid diet started today. Await further surgical recommendation for discharge plan. CM working on Wound Vac, AND HOME HEALTH/Palliative care. (1) Gangrene of toe of right foot Current Visit: Yes Status: Acute Plan to address problem: Patient placed on empiric IV antibiotics. Consult placed to infectious disease and vascular surgery for evaluation. (2) Colon cancer metastasized to lung Current Visit: Yes Status: Acute Plan to address problem: Patient was just recently diagnosed with colon cancer in [facility]. He has not had any follow-up with any physician. We will place consult to gastroenterology for evaluation. (3) Leukocytosis/SIRS without organ dysfunction. 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 (8) Full code status Current Visit: Yes Status: Acute Plan to address problem: Patient is full code. History Interval history: Patient seen and examined, no new complaints. Reports bowel movement today. Hospitalist Physical - Physical exam Narrative exam: VITAL SIGNS: Reviewed. GENERAL: The patient appears normally developed, vital signs as documented. HEAD: No signs of head trauma. EYES: Pupils are equal. Extraocular motions intact. EARS: Hearing grossly intact. MOUTH: Oropharynx is normal. NECK: No adenopathy, no JVD. CHEST: Chest with clear breath sounds bilaterally. No wheezes, rales, or rhonchi. CARDIAC: Regular rate and rhythm. S1 and S2, without murmurs, gallops, or rubs. VASCULAR: No Edema. Peripheral pulses normal and equal in all extremities. ABDOMEN: Soft, tender at site of surgery. DRESSING IN PLACE. Wound VAC in place. Hypoactive bowel sounds MUSCULOSKELETAL: Good range of motion of all major joints. Extremities without clubbing, cyanosis or edema. NEUROLOGIC EXAM: Alert and oriented x 3 No focal sensory or strength deficits. Speech normal. Follows commands. PSYCHIATRIC: Mood normal. SKIN: detail exam as documented in skin assessment - Constitutional Vitals: Temp Pulse Resp BP Pulse Ox 98.0 F 71 16 121/71 94 05/22/20 04:28 05/22/20 04:28 05/22/20 04:28 05/22/20 04:28 05/22/20 04:28 General appearance: Present: no acute distress Results - Labs CBC & Chem 7: 05/22/20 08:40 05/22/20 05:38 Labs: Laboratory Last Values WBC 20.5 K/mm3 (4.5-11.0) H 05/22/20 05:38 RBC 2.92 M/mm3 (3.65-5.03) L 05/22/20 05:38 Hgb 7.9 gm/dl (11.8-15.2) L 05/22/20 08:40 Hct 24.7 % (35.5-45.6) L 05/22/20 08:40 MCV 79 fl (84-94) L 05/22/20 05:38 MCH 26 pg (28-32) L 05/22/20 05:38 MCHC 33 % (32-34) 05/22/20 05:38 RDW 20.8 % (13.2-15.2) H 05/22/20 05:38 Plt Count 411 K/mm3 (140-440) 05/22/20 08:40 Lymph % (Auto) 7.7 % (13.4-35.0) L 05/22/20 05:38 Amite % (Auto) 10.1 % (0.0-7.3) H 05/22/20 05:38 Eos % (Auto) 0.3 % (0.0-4.3) 05/22/20 05:38 Baso % (Auto) 0.1 % (0.0-1.8) 05/22/20 05:38 Lymph # (Auto) 1.6 K/mm3 (1.2-5.4) 05/22/20 05:38 [place] # (Auto) 2.1 K/mm3 (0.0-0.8) H 05/22/20 05:38 Eos # (Auto) 0.1 K/mm3 (0.0-0.4) 05/22/20 05:38 Baso # (Auto) 0.0 K/mm3 (0.0-0.1) 05/22/20 05:38 Add Manual Diff Complete 05/21/20 05:12 Total Counted 100 05/21/20 05:12 Seg Neutrophils % 81.8 % (40.0-70.0) H 05/22/20 05:38 Seg Neuts % (Manual) 93.0 % (40.0-70.0) H 05/21/20 05:12 Lymphocytes % (Manual) 4.0 % (13.4-35.0) L 05/21/20 05:12 Monocytes % (Manual) 3.0 % (0.0-7.3) 05/21/20 05:12 Nucleated RBC % Not Reportable 05/21/20 05:12 Seg Neutrophils # 16.8 K/mm3 (1.8-7.7) H 05/22/20 05:38 Seg Neutrophils # Man 24.3 K/mm3 (1.8-7.7) H 05/21/20 05:12 Band Neutrophils # 0.0 K/mm3 05/21/20 05:12 Lymphocytes # (Manual) 1.0 K/mm3 (1.2-5.4) L 05/21/20 05:12 Abs React Lymphs (Man) 0.0 K/mm3 05/21/20 05:12 Monocytes # (Manual) 0.8 K/mm3 (0.0-0.8) 05/21/20 05:12 Eosinophils # (Manual) 0.0 K/mm3 (0.0-0.4) 05/21/20 05:12 Basophils # (Manual) 0.0 K/mm3 (0.0-0.1) 05/21/20 05:12 Metamyelocytes # 0.0 K/mm3 05/21/20 05:12 Myelocytes # 0.0 K/mm3 05/21/20 05:12 Promyelocytes # 0.0 K/mm3 05/21/20 05:12 Blast Cells # 0.0 K/mm3 05/21/20 05:12 WBC Morphology Not Reportable 05/21/20 05:12 Hypersegmented Neuts Not Reportable 05/21/20 05:12 Hyposegmented Neuts Not Reportable 05/21/20 05:12 Hypogranular Neuts Not Reportable 05/21/20 05:12 Smudge Cells Not Reportable 05/21/20 05:12 Toxic Granulation Not Reportable 05/21/20 05:12 Toxic Vacuolation Not Reportable 05/21/20 05:12 Dohle Bodies Not Reportable 05/21/20 05:12 Pelger-Huet Anomaly Not Reportable 05/21/20 05:12 Rosaline Rods Not Reportable 05/21/20 05:12 Platelet Estimate Consistent w auto 05/21/20 05:12 Clumped Platelets Not Reportable 05/21/20 05:12 Plt Clumps, EDTA Not Reportable 05/21/20 05:12 Large Platelets Not Reportable 05/21/20 05:12 Giant Platelets Not Reportable 05/21/20 05:12 Platelet Satelliting Not Reportable 05/21/20 05:12 Plt Morphology Comment Not Reportable 05/21/20 05:12 RBC Morphology Not Reportable 05/21/20 05:12 Dimorphic RBCs Not Reportable 05/21/20 05:12 Polychromasia Not Reportable 05/21/20 05:12 Hypochromasia 1+ 05/21/20 05:12 Poikilocytosis Not Reportable 05/21/20 05:12 Anisocytosis 1+ 05/21/20 05:12 Microcytosis Not Reportable 05/21/20 05:12 Macrocytosis Not Reportable 05/21/20 05:12 Spherocytes Not Reportable 05/21/20 05:12 Pappenheimer Bodies Not Reportable 05/21/20 05:12 Sickle Cells Not Reportable 05/21/20 05:12 Target Cells Not Reportable 05/21/20 05:12 Tear Drop Cells Not Reportable 05/21/20 05:12 Ovalocytes Not Reportable 05/21/20 05:12 Helmet Cells Not Reportable 05/21/20 05:12 [place] Bodies Not Reportable 05/21/20 05:12 [place] Rings Not Reportable 05/21/20 05:12 Velia Cells Not Reportable 05/21/20 05:12 Bite Cells Not Reportable 05/21/20 05:12 Crenated Cell Not Reportable 05/21/20 05:12 Elliptocytes Rare 05/21/20 05:12 Acanthocytes (Spur) Not Reportable 05/21/20 05:12 Rouleaux Not Reportable 05/21/20 05:12 Hemoglobin C Crystals Not Reportable 05/21/20 05:12 Schistocytes Rare 05/21/20 05:12 Malaria parasites Not Reportable 05/21/20 05:12 Jerod Bodies Not Reportable 05/21/20 05:12 Hem Pathologist Commnt No 05/21/20 05:12 PT 14.4 Sec. (12.2-14.9) 05/22/20 08:40 INR 1.14 (0.87-1.13) H 05/22/20 08:40 APTT 37.6 Sec. (24.2-36.6) H 05/22/20 08:40 Heparin Anti-Xa Level < 0.10 U.I./ml (0.3-0.7) L 05/19/20 08:06 Sodium 132 mmol/L (137-145) L 05/22/20 05:38 Potassium 3.6 mmol/L (3.6-5.0) 05/22/20 05:38 Chloride 98.3 mmol/L (98-107) 05/22/20 05:38 Carbon Dioxide 27 mmol/L (22-30) 05/22/20 05:38 Anion Gap 10 mmol/L 05/22/20 05:38 BUN 10 mg/dL (9-20) 05/22/20 05:38 Creatinine 0.8 mg/dL (0.8-1.3) 05/22/20 05:38 Estimated GFR > 60 ml/min 05/22/20 05:38 BUN/Creatinine Ratio 13 % 05/22/20 05:38 Glucose 101 mg/dL (75-100) H 05/22/20 05:38 Lactic Acid 0.90 mmol/L (0.7-2.0) 05/14/20 08:02 Calcium 7.8 mg/dL (8.4-10.2) L 05/22/20 05:38 Iron 15 ug/dL (49-181) L 05/16/20 08:23 TIBC 177 mcg/dL (250-450) L 05/16/20 08:23 Ferritin 148.4 ng/mL (30.0-300.0) 05/16/20 08:23 Total Bilirubin 0.30 mg/dL (0.1-1.2) 05/13/20 17:02 AST 15 units/L (5-40) 05/13/20 17:02 ALT 11 units/L (7-56) 05/13/20 17:02 Alkaline Phosphatase 247 units/L (35-129) H 05/13/20 17:02 Total Protein 7.0 g/dL (6.3-8.2) 05/13/20 17:02 Albumin 2.5 g/dL (3.9-5) L 05/13/20 17:02 Albumin/Globulin Ratio 0.6 % 05/13/20 17:02 Lipase 33 units/L (13-60) 05/13/20 17:02 Carcinoembryonic Ag 47.8 ng/mL (0.0-2.4) H 05/14/20 19:22 Vitamin B12 1476 pg/mL (211-911) H 05/16/20 08:23 Folate 5.13 ng/mL (7.3-26.0) L 05/16/20 08:23 Urine Color Yellow (Yellow) 05/13/20 Unknown Urine Turbidity Slightly-cloudy (Clear) 05/13/20 Unknown Urine pH 5.0 (5.0-7.0) 05/13/20 Unknown Ur Specific [place] 1.021 (1.003-1.030) 05/13/20 Unknown Urine Protein <15 mg/dl mg/dL (Negative) 05/13/20 Unknown Urine Glucose (UA) Neg mg/dL (Negative) 05/13/20 Unknown Urine Ketones Neg mg/dL (Negative) 05/13/20 Unknown Urine Blood Neg (Negative) 05/13/20 Unknown Urine Nitrite Neg (Negative) 05/13/20 Unknown Urine Bilirubin Neg (Negative) 05/13/20 Unknown Urine Urobilinogen 2.0 mg/dL (<2.0) 05/13/20 Unknown Ur Leukocyte Esterase Tr (Negative) 05/13/20 Unknown Urine WBC (Auto) 5.0 /HPF (0.0-6.0) 05/13/20 Unknown Urine RBC (Auto) 5.0 /HPF (0.0-6.0) 05/13/20 Unknown U Epithel Cells (Auto) 3.0 /HPF (0-13.0) 05/13/20 Unknown Urine Bacteria (Auto) 1+ /HPF (Negative) 05/13/20 Unknown Urine Mucus Few /HPF 05/13/20 Unknown Cardiolipid IgG Ab <14 GPL (<=14) 05/17/20 05:02 Cardiolipid IgA Ab <11 APL (<=11) 05/17/20 05:02 Cardiolipid IgM Ab <12 MPL (<=12) 05/17/20 05:02 Blood Type O POSITIVE 05/16/20 08:25 Antibody Screen Negative 05/16/20 08:25 Crossmatch See Detail 05/16/20 08:25 Mcrae/IV: Voiding Method Urinal Active Medications - Current Medications Current Medications: Generic Name Dose Route Start Last Admin Trade Name Freq PRN Reason Stop Dose Admin Acetaminophen 650 mg 05/13/20 23:06 05/18/20 01:06 Acetaminophen 325 Mg Tab PO 650 mg Q4H PRN Administration Pain MILD(1-3)/Fever >100.5/DOMINIQUE Aspirin 81 mg 05/16/20 12:00 05/22/20 10:32 Aspirin Ec 81 Mg Tab PO 81 mg QDAY ALISTAIR Administration Folic Acid 1 mg 05/17/20 10:00 05/22/20 10:32 Folic Acid 1 Mg Tab PO 1 mg QDAY ALISTAIR Administration Heparin Sodium (Porcine) 4,100 unit 05/22/20 08:25 Heparin 10,000 Units/10 Ml Vial 40 unit/kg (4100 unit) IV Q6H PRN Anti-Xa Assay < 0.1 units/ml Sodium Chloride 1,000 mls @ 125 mls/hr 05/13/20 23:15 05/16/20 02:43 Nacl 0.9% 1000 Ml IV 125 mls/hr DIRECT ALISTAIR Administration Levofloxacin/Dextrose 750 mg in 150 mls @ 100 mls/hr 05/19/20 10:00 05/22/20 10:32 Levaquin 750mg/150ml IV 100 mls/hr Q24HR ALISTAIR Administration Protocol Metronidazole 500 mg in 100 mls @ 100 mls/hr 05/19/20 01:00 05/22/20 10:32 Flagyl 500 Mg/100 Ml IV 100 mls/hr Q8H ALISTAIR Administration Protocol Heparin Sodium/Sodium Chloride 25,000 unit in 500 mls @ 30 mls/hr 05/22/20 09:00 05/22/20 12:55 Heparin/ 0.45% Nacl-25,000 Unit/500 Ml IV 1,500 units/hr TITR ALISTAIR 30 mls/hr Administration Protocol 1,500 UNITS/HR Magnesium Hydroxide 30 ml 05/13/20 23:06 05/16/20 17:53 Magnesium Hydroxide (Mom) Oral Liqd Udc PO 30 ml Q4H PRN Administration Constipation Metoclopramide HCl 10 mg 05/21/20 14:23 05/21/20 14:55 Metoclopramide 10 Mg/2 Ml Inj IV 10 mg Q6H PRN Administration Nausea And Vomiting Morphine Sulfate 4 mg 05/18/20 21:36 05/22/20 10:47 Morphine 4 Mg/1 Ml Inj IV 4 mg Q3H PRN Administration Pain , Severe (7-10) Ondansetron HCl 4 mg 05/13/20 23:06 05/21/20 14:00 Ondansetron 4 Mg/2 Ml Inj IV 4 mg Q8H PRN Administration Nausea And Vomiting Sodium Chloride 10 ml 05/14/20 10:00 05/22/20 10:33 Sodium Chloride 0.9% 10 Ml Flush Syringe IV 10 ml BID ALISTAIR Administration Sodium Chloride 10 ml 05/13/20 23:06 Sodium Chloride 0.9% 10 Ml Flush Syringe IV PRN PRN LINE FLUSH Nutrition/Malnutrition Assess - Dietary Evaluation Nutrition/Malnutrition Findings: Nutrition Notes Start: 05/21/20 12:06 Freq: Status: Active Protocol: Document 05/21/20 12:06 AB (Rec: 05/21/20 12:17 AB [id number]) Co-Sign 05/21/20 12:06 MK Nutrition Notes Need for Assessment generated from: LOS Initial or Follow up Assessment Other Pertinent Diagnosis gangrene, colon cancer; metastasized to lung & liver Current Diet NPO Labs/Tests Ca 8.0 Pertinent Medications Folvite Levaquin at 100 ml/hr Eliquis Height 5 ft 11 in Weight 97.2 kg Usual Body Weight 113.6 kg [place] Body Weight (kg) 78.18 BMI 29.9 Intake Prior to Admission Fair Weight change and time frame 42 lb wt loss in 3 months (16% wt change) Weight Status Overweight Subjective/Other Information Screen for LOS. 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 Pt reports eating last on Monday evening (05/16) and would like to eat YISEL. Pt would like to try ONS when diet is advanced. 05/18 pt had colectomy, exploratory labroscopy, and repairs of ventral & umblicial hernias. MD was bedside and stated that he would call surgeon to advanced diet. Percent of energy/protein needs met: 0%/0% Burn Absent Trauma Absent GI Symptoms None Food Allergy No Skin Integrity/Comment surgical wound on midline Current % PO Negligible Minimum of two criteria Yes Energy Intake (severe) < or equal to 50% Estimated Energy Requirement > or equal to 5 days Interpretation of Weight Loss (severe) >7.5% in 3 months Body Fat Depletion Moderate depletion (severe) Muscle Mass Moderate Depletion (severe) #2 Nutrition Diagnosis Increased nutrient needs ( specify in comment below) Comments: protein Etiology wound healing As Evidenced by Signs and Symptoms surgical incision to midline #1 Nutrition Diagnosis Malnutrition Etiology colon cancer that metastasized to lung & liver; colectomy, exploratory lap, and hernia repairs As Evidenced by Signs and Symptoms <50% of EER in 5 days, >7.5% wt loss in 3 months, muscle depletion, and body fat depletion Is patient on ventilator? No Is Patient Ambulatory and/or Out of Bed No REE-([facility]-confined to bed) 8143.067 Calculation Used for Recommendations [facility] Additional Notes Protein needs: 132-176 g (1.5- 2 g/kg AdjBW: 88kg) Fluid needs: 1 ml/kcal or per MD Nutrition Intervention Change Diet Order: Diet advancement when medically feasible Add Supplement/Snack (indicate name/kcal when diet advanced: /protein ) Ensure Enlive TID Provides kCal: 1,050 Provides Protein (gm) 60 Goal #1 Diet advancement Anticipated Discharge Needs: Regular diet Follow-Up By: 05/25/20 Additional Comments F/U for intakes and ONS tolerance
--- NOTE | 2020-05-22 22:06 | Progress Note ---
Assessment and Plan - Patient Problems (1) Colon cancer metastasized to lung Current Visit: Yes Status: Acute Plan to address problem: 1) Full liquid diet 2) Percocet 10 3) CBC in the am 4) Possible discharge soon Subjective Date of service: 05/22/20 Patient Reports: Positive: no new complaints, feels better, tolerating liquids well, flatus, bowel movement, afebrile Objective Vital Signs - 12hr 05/22/20 12:56 Pulse Rate 60 Blood Pressure 113/69 O2 Sat by Pulse 97 Oximetry - Abdomen PM_[id number] 4, PM_46_EXABD1 6, PM_46_EXABD1 8 Hernia: none - Labs 05/22/20 08:40 05/22/20 05:38 Diabetes panel 05/22/20 Range/Units 05:38 Sodium 132 L (137-145) mmol/L Potassium 3.6 (3.6-5.0) mmol/L Chloride 98.3 (98-107) mmol/L Carbon Dioxide 27 (22-30) mmol/L BUN 10 (9-20) mg/dL Creatinine 0.8 (0.8-1.3) mg/dL Glucose 101 H (75-100) mg/dL Calcium 7.8 L (8.4-10.2) mg/dL Calcium panel 05/22/20 Range/Units 05:38 Calcium 7.8 L (8.4-10.2) mg/dL Pituitary panel 05/22/20 Range/Units 05:38 Sodium 132 L (137-145) mmol/L Potassium 3.6 (3.6-5.0) mmol/L Chloride 98.3 (98-107) mmol/L Carbon Dioxide 27 (22-30) mmol/L BUN 10 (9-20) mg/dL Creatinine 0.8 (0.8-1.3) mg/dL Glucose 101 H (75-100) mg/dL Calcium 7.8 L (8.4-10.2) mg/dL Adrenal panel 05/22/20 Range/Units 05:38 Sodium 132 L (137-145) mmol/L Potassium 3.6 (3.6-5.0) mmol/L Chloride 98.3 (98-107) mmol/L Carbon Dioxide 27 (22-30) mmol/L BUN 10 (9-20) mg/dL Creatinine 0.8 (0.8-1.3) mg/dL Glucose 101 H (75-100) mg/dL Calcium 7.8 L (8.4-10.2) mg/dL
[2020-05-22] MEDS: oxyCODONE 5 MG TAB PO PRN (22:55)
[2020-05-23] MEDS: metroNIDAZOLE/NS 500 MG/100 ML 500 MG/100 ML BAG IV SCH ×3 (01:40→18:00)
[2020-05-23 02:14] LABS: Hematocrit 23.7 % (35.5-45.6); Hemoglobin 7.5 gm/dl (11.8-15.2); Mean Corpuscular HGB Conc 32 % (32-34); Mean Corpuscular Volume 78 fl (84-94); Platelet Count 400 K/mm3 (140-440); Red Blood Count 3.02 M/mm3 (3.65-5.03)
[2020-05-23 02:18] LABS: Red Cell Distribution Width 20.1 % (13.2-15.2)
[2020-05-23 02:33] LABS: Blood Urea Nitrogen 6 mg/dL (9-20); Calcium 7.4 mg/dL (8.4-10.2); Hemolysis Index 0
[2020-05-23 02:34] LABS: BUN/Creatinine Ratio 10
[2020-05-23 05:50] LABS: Hematocrit 25.2 % (35.5-45.6); Mean Corpuscular HGB Conc 32 % (32-34); Mean Corpuscular Volume 77 fl (84-94); Platelet Count 437 K/mm3 (140-440); Red Blood Count 3.26 M/mm3 (3.65-5.03)
[2020-05-23 05:51] LABS: Red Cell Distribution Width 20.3 % (13.2-15.2)
[2020-05-23 06:48] LABS: Band Neutrophils # (Manual) 0.2 K/mm3; Total Cells Counted 100
[2020-05-23 06:49] LABS: Anisocytosis 1+; Giant Platelets Rare; Hypochromasia 1+; Platelet Estimate Consistent w Auto
[2020-05-23] MEDS: HEPARIN/ 0.45% NACL DRIP 25,000 UNIT/500 ML BAG IV SCH (06:56)
[2020-05-23] MEDS: oxyCODONE 5 MG TAB PO PRN ×2 (08:39→19:51)
[2020-05-23] MEDS: ASPIRIN EC 81 MG TAB PO SCH ×2 (08:40→12:18)
[2020-05-23] MEDS: FOLIC ACID 1 MG TAB PO SCH ×2 (08:40→12:18)
--- NOTE | 2020-05-23 09:10 | XRay Report ---
ABDOMEN 1 VIEW(S) INDICATION: nausea COMPARISON: None available. FINDINGS: Bowel gas pattern: Minimally dilated loops of small bowel present. Gastric distention is present Free air: None. Calcified gallstones: None seen. Calcified urinary tract calculi: None seen. Additional Findings: None. Skeletal structures: No acute abnormality. IMPRESSION: 1. Gastric distention Signer Name: Grayson Wade MD Signed: 05/23/2020 9:06 AM Workstation Name: [id number]
[2020-05-23] MEDS: SIMETHICONE 80 MG CHEW TAB PO PRN ×2 (09:41→18:23)
[2020-05-23] MEDS ORDERED: SODIUM CHLORIDE 0.9% IRR 500 ML BOTTLE IR PRN (11:53)
--- NOTE | 2020-05-23 14:28 | Progress Note ---
Assessment and Plan Assessment and plan: 55-year-old -Lao male who was recently diagnosed with colon cancer in [facility] about a week ago presenting to the emergency room today complaining of chronic abdominal pain and right foot pain. Abdominal pain has been ongoing for the past 3 to 4 months. He was recently in [facility] where he was evaluated in the hospital and diagnosed with lesions consistent with colon cancer on a CT scan. Was also said to have had metastases to his lungs. 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 Patient also indicates that his older brother of colon cancer few years ago. He has not had any colonoscopy in the past. 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 Patient has been having pain in his right foot over the past few weeks. He denies any trauma to the foot and no recent fall. He denies any numbness. Patient denies any fever or chills, no chest pain or shortness of breath, no nausea vomiting, no headache or dizziness. Work-up in the emergency room today reveals a leukocytosis of 15.7. X-ray of the right foot did not reveal any osteomyelitis. Patient is being admitted with gangrene of the right middle toe in addition to his recently diagnosed colon cancer. 05/14/2020 -Patient is diagnosed with stage IV colon cancer metastasized to the lung recently. Patient went to [facility] and discharged him to have follow-up at [facility] and patient presented here. Patient has colon mass and was able to do advance to colonoscopy at [facility] (per GI), patient may need surgical intervention and I put a consult for general surgery. I have discussed with GI and GI said nothing to add on his current management. Patient need to have follow-up with oncologist as an outpatient. Patient has gangrene of the right third toes and I ordered arterial Doppler, vascular surgery consulted. She has also leukocytosis and is on IV Vanco and Zosyn. 05/15/2020 -Patient was seen by general surgery and recommend CT abdomen and pelvis, will get records from [facility] colonoscopy and pathology reports. Discussed with the nurse to get records. Evaluated by ID and recommend no antibiotics at this time. Evaluated by GI and no further work-up needed from GI point of view. Patient was evaluated by scleral surgery and arterial Doppler was done and significant for moderate peripheral arterial disease in the right lower extremity and will do revascularization. 05/16/2020 -CT chest abdomen and pelvis was done and significant for colorectal cancer, and lung cancer. We will get records from original hospital. Was evaluated by makayla bynum and did a revascularization yesterday. Was evaluated by general surgery. Hemoglobin yesterday was 6.8. We will transfuse him a unit of blood and monitor posttransfusion hemoglobin/hematocrit. Will monitor and transfuse as needed. Will do anemia work-up. I put a consult per oncology recommendations. 05/17/2020 -CT chest abdomen and pelvis was done and significant for colorectal cancer, and lung cancer. We will get records from original hospital discussed with patient's nurse. Was evaluated by vascular and did a revascularization was done and now the discoloration is resolving, patient has palpable pulse, no pain. Patient is currently on heparin drip and can be continued until surgery and will be transitioned to Eliquis after that. Was evaluated by general surgery and is considering to do palliative colectomy. Hemoglobin yesterday was 6.8 and transfused a unit of blood and posttransfusion hemoglobin this morning was 7, patient is currently on iron infusion, will monitor H&H and transfuse as needed. Leukocytosis could be due to the cancer, no fever or other signs of infection. Path result was obtained from [facility] in [place] and showed adenocarcinoma, primary is from the colorectal carcinoma. 05/18: Patient clinically stable, awaiting surgical input or the planned Open right/transverse colectomy,, Hematology is stating to await for a cool off time before resection but if cannot wait then proceed with the surgery, Patient will need elquis 5mg PO BID [facility] and aspirin 81 mg daily. 05/19: Patient is status post 1) Right colectomy 2) Open repair of incarcerated ventral hernia 3) Open repair of incarcerated umbilical hernia postop day 1 for 1)Stage 4 adenoca, right hepatic flexure 2)Incarc ventral & Umbil hernias Continues to do well. Continues to require NG to intermittent suction. We will continue to follow. Of discussed with case management as patient will likely need palliative care on discharge, monitor leukocytosis, mild elevated noted 05/20: Extensive discussion with the patient about palliative care on discharge he verbalized understanding Case management to arrange. Surgical input noted NG tube has been discontinued patient be started on sips of clear fluids. Is voiding without difficulty and had one episode of flatus but no bowel movement yet. Bowel sounds are still very hypoactive. We will continue to monitor 05/21: Tolerating sips of water still awaiting clearance from surgery to be able to eat. Still no flatus yet according to the patient. White count still fluctuating up to 26,000 today. No fever. Could be reactive. Vascular input is noted patient will need aspirin and anticoagulation Eliquis long-term. 05/22: Patient reports bowel movement today. Reports ambulating in the hallway. Still on clear liquid diet started today. Await further surgical recommendation for discharge plan. CM working on Wound Vac, AND HOME HEALTH/Palliative care. 05/23: Patient seen and examined doing well no new complaints. Wound VAC to be removed today. Adjusting pain medication. Leukocytosis still elevated. Awaiting clearance for discharge from surgery. Will like to see WBC trending downwards. I discussed with the patient although palliative care is put in place for the patient follow-up with oncologist referral has also been placed. (1) Gangrene of toe of right foot Current Visit: Yes Status: Acute Plan to address problem: Patient placed on empiric IV antibiotics. Consult placed to infectious disease and vascular surgery for evaluation. (2) Colon cancer metastasized to lung Current Visit: Yes Status: Acute Plan to address problem: Patient was just recently diagnosed with colon cancer in [facility]. He has not had any follow-up with any physician. We will place consult to gastroenterology for evaluation. (3) Leukocytosis/SIRS without organ dysfunction. No sepsis (4) hot mill observer iron deficiency Anemia (5) Arterial Thrombosis (6) Hyponatremia (7) DVT prophylaxis Current Visit: Yes Status: Acute Plan to address problem: Patient placed on sequential compression device. (8) Full code status Current Visit: Yes Status: Acute Plan to address problem: Patient is full code. History Interval history: Patient seen and examined, no new complaints. Hospitalist Physical - Physical exam Narrative exam: VITAL SIGNS: Reviewed. GENERAL: The patient appears normally developed, vital signs as documented. HEAD: No signs of head trauma. EYES: Pupils are equal. Extraocular motions intact. EARS: Hearing grossly intact. MOUTH: Oropharynx is normal. NECK: No adenopathy, no JVD. CHEST: Chest with clear breath sounds bilaterally. No wheezes, rales, or rhonchi. CARDIAC: Regular rate and rhythm. S1 and S2, without murmurs, gallops, or rubs. VASCULAR: No Edema. Peripheral pulses normal and equal in all extremities. ABDOMEN: Soft, tender at site of surgery. DRESSING IN PLACE. Hypoactive bowel sounds MUSCULOSKELETAL: Good range of motion of all major joints. Extremities without clubbing, cyanosis or edema. NEUROLOGIC EXAM: Alert and oriented x 3 No focal sensory or strength deficits. Speech normal. Follows commands. PSYCHIATRIC: Mood normal. SKIN: detail exam as documented in skin assessment - Constitutional Vitals: Temp Pulse Resp BP Pulse Ox 98.6 F 78 19 119/63 96 05/23/20 12:32 05/23/20 12:32 05/23/20 12:32 05/23/20 12:32 05/23/20 12:32 General appearance: Present: no acute distress Results - Labs CBC & Chem 7: 05/23/20 05:26 05/23/20 02:03 Labs: Laboratory Last Values WBC 22.1 K/mm3 (4.5-11.0) H 05/23/20 05:26 RBC 3.26 M/mm3 (3.65-5.03) L 05/23/20 05:26 Hgb 8.0 gm/dl (11.8-15.2) L 05/23/20 05:26 Hct 25.2 % (35.5-45.6) L 05/23/20 05:26 MCV 77 fl (84-94) L 05/23/20 05:26 MCH 24 pg (28-32) L 05/23/20 05:26 MCHC 32 % (32-34) 05/23/20 05:26 RDW 20.3 % (13.2-15.2) H 05/23/20 05:26 Plt Count 437 K/mm3 (140-440) 05/23/20 05:26 Lymph % (Auto) 7.7 % (13.4-35.0) L 05/22/20 05:38 [place] % (Auto) 10.1 % (0.0-7.3) H 05/22/20 05:38 Eos % (Auto) 0.3 % (0.0-4.3) 05/22/20 05:38 Baso % (Auto) 0.1 % (0.0-1.8) 05/22/20 05:38 Lymph # (Auto) 1.6 K/mm3 (1.2-5.4) 05/22/20 05:38 [place] # (Auto) 2.1 K/mm3 (0.0-0.8) H 05/22/20 05:38 Eos # (Auto) 0.1 K/mm3 (0.0-0.4) 05/22/20 05:38 Baso # (Auto) 0.0 K/mm3 (0.0-0.1) 05/22/20 05:38 Add Manual Diff Complete 05/23/20 05:26 Total Counted 100 05/23/20 05:26 Seg Neutrophils % 81.8 % (40.0-70.0) H 05/22/20 05:38 Seg Neuts % (Manual) 91.0 % (40.0-70.0) H 05/23/20 05:26 Band Neutrophils % 1.0 % 05/23/20 05:26 Lymphocytes % (Manual) 2.0 % (13.4-35.0) L 05/23/20 05:26 Monocytes % (Manual) 5.0 % (0.0-7.3) 05/23/20 05:26 Metamyelocytes % 1.0 % 05/23/20 05:26 Nucleated RBC % Not Reportable 05/23/20 05:26 Seg Neutrophils # 16.8 K/mm3 (1.8-7.7) H 05/22/20 05:38 Seg Neutrophils # Man 20.1 K/mm3 (1.8-7.7) H 05/23/20 05:26 Band Neutrophils # 0.2 K/mm3 05/23/20 05:26 Lymphocytes # (Manual) 0.4 K/mm3 (1.2-5.4) L 05/23/20 05:26 Abs React Lymphs (Man) 0.0 K/mm3 05/23/20 05:26 Monocytes # (Manual) 1.1 K/mm3 (0.0-0.8) H 05/23/20 05:26 Eosinophils # (Manual) 0.0 K/mm3 (0.0-0.4) 05/23/20 05:26 Basophils # (Manual) 0.0 K/mm3 (0.0-0.1) 05/23/20 05:26 Metamyelocytes # 0.2 K/mm3 05/23/20 05:26 Myelocytes # 0.0 K/mm3 05/23/20 05:26 Promyelocytes # 0.0 K/mm3 05/23/20 05:26 Blast Cells # 0.0 K/mm3 05/23/20 05:26 WBC Morphology Not Reportable 05/23/20 05:26 Hypersegmented Neuts Not Reportable 05/23/20 05:26 Hyposegmented Neuts Not Reportable 05/23/20 05:26 Hypogranular Neuts Not Reportable 05/23/20 05:26 Smudge Cells Not Reportable 05/23/20 05:26 Toxic Granulation Not Reportable 05/23/20 05:26 Toxic Vacuolation Not Reportable 05/23/20 05:26 Dohle Bodies Not Reportable 05/23/20 05:26 Pelger-Huet Anomaly Not Reportable 05/23/20 05:26 Rosaline Rods Not Reportable 05/23/20 05:26 Platelet Estimate Consistent w auto 05/23/20 05:26 Clumped Platelets Not Reportable 05/23/20 05:26 Plt Clumps, EDTA Not Reportable 05/23/20 05:26 Large Platelets Not Reportable 05/23/20 05:26 Giant Platelets Rare 05/23/20 05:26 Platelet Satelliting Not Reportable 05/23/20 05:26 Plt Morphology Comment Not Reportable 05/23/20 05:26 RBC Morphology Not Reportable 05/23/20 05:26 Dimorphic RBCs Not Reportable 05/23/20 05:26 Polychromasia Rare 05/23/20 05:26 Hypochromasia 1+ 05/23/20 05:26 Poikilocytosis Not Reportable 05/23/20 05:26 Anisocytosis 1+ 05/23/20 05:26 Microcytosis Not Reportable 05/23/20 05:26 Macrocytosis Not Reportable 05/23/20 05:26 Spherocytes Not Reportable 05/23/20 05:26 Pappenheimer Bodies Not Reportable 05/23/20 05:26 Sickle Cells Not Reportable 05/23/20 05:26 Target Cells Not Reportable 05/23/20 05:26 Tear Drop Cells Not Reportable 05/23/20 05:26 Ovalocytes Not Reportable 05/23/20 05:26 Helmet Cells Not Reportable 05/23/20 05:26 Gonsales-Bucyrus Bodies Not Reportable 05/23/20 05:26 [place] Rings Not Reportable 05/23/20 05:26 Velia Cells Not Reportable 05/23/20 05:26 Bite Cells Not Reportable 05/23/20 05:26 Crenated Cell Not Reportable 05/23/20 05:26 Elliptocytes Not Reportable 05/23/20 05:26 Acanthocytes (Spur) Not Reportable 05/23/20 05:26 Rouleaux Not Reportable 05/23/20 05:26 Hemoglobin C Crystals Not Reportable 05/23/20 05:26 Schistocytes Not Reportable 05/23/20 05:26 Malaria parasites Not Reportable 05/23/20 05:26 Jerod Bodies Not Reportable 05/23/20 05:26 Hem Pathologist Commnt No 05/23/20 05:26 PT 14.4 Sec. (12.2-14.9) 05/22/20 08:40 INR 1.14 (0.87-1.13) H 05/22/20 08:40 APTT 37.6 Sec. (24.2-36.6) H 05/22/20 08:40 Heparin Anti-Xa Level 0.50 U.I./ml (0.3-0.7) 05/23/20 09:00 Sodium 131 mmol/L (137-145) L 05/23/20 02:03 Potassium 3.7 mmol/L (3.6-5.0) 05/23/20 02:03 Chloride 98.3 mmol/L (98-107) 05/23/20 02:03 Carbon Dioxide 25 mmol/L (22-30) 05/23/20 02:03 Anion Gap 11 mmol/L 05/23/20 02:03 BUN 6 mg/dL (9-20) L 05/23/20 02:03 Creatinine 0.6 mg/dL (0.8-1.3) L 05/23/20 02:03 Estimated GFR > 60 ml/min 05/23/20 02:03 BUN/Creatinine Ratio 10 % 05/23/20 02:03 Glucose 90 mg/dL (75-100) 05/23/20 02:03 Lactic Acid 0.90 mmol/L (0.7-2.0) 05/14/20 08:02 Calcium 7.4 mg/dL (8.4-10.2) L 05/23/20 02:03 Iron 15 ug/dL (49-181) L 05/16/20 08:23 TIBC 177 mcg/dL (250-450) L 05/16/20 08:23 Ferritin 148.4 ng/mL (30.0-300.0) 05/16/20 08:23 Total Bilirubin 0.30 mg/dL (0.1-1.2) 05/13/20 17:02 AST 15 units/L (5-40) 05/13/20 17:02 ALT 11 units/L (7-56) 05/13/20 17:02 Alkaline Phosphatase 247 units/L (35-129) H 05/13/20 17:02 Total Protein 7.0 g/dL (6.3-8.2) 05/13/20 17:02 Albumin 2.5 g/dL (3.9-5) L 05/13/20 17:02 Albumin/Globulin Ratio 0.6 % 05/13/20 17:02 Lipase 33 units/L (13-60) 05/13/20 17:02 Carcinoembryonic Ag 47.8 ng/mL (0.0-2.4) H 05/14/20 19:22 Vitamin B12 1476 pg/mL (211-911) H 05/16/20 08:23 Folate 5.13 ng/mL (7.3-26.0) L 05/16/20 08:23 Urine Color Yellow (Yellow) 05/13/20 Unknown Urine Turbidity Slightly-cloudy (Clear) 05/13/20 Unknown Urine pH 5.0 (5.0-7.0) 05/13/20 Unknown Ur Specific [place] 1.021 (1.003-1.030) 05/13/20 Unknown Urine Protein <15 mg/dl mg/dL (Negative) 05/13/20 Unknown Urine Glucose (UA) Neg mg/dL (Negative) 05/13/20 Unknown Urine Ketones Neg mg/dL (Negative) 05/13/20 Unknown Urine Blood Neg (Negative) 05/13/20 Unknown Urine Nitrite Neg (Negative) 05/13/20 Unknown Urine Bilirubin Neg (Negative) 05/13/20 Unknown Urine Urobilinogen 2.0 mg/dL (<2.0) 05/13/20 Unknown Ur Leukocyte Esterase Tr (Negative) 05/13/20 Unknown Urine WBC (Auto) 5.0 /HPF (0.0-6.0) 05/13/20 Unknown Urine RBC (Auto) 5.0 /HPF (0.0-6.0) 05/13/20 Unknown U Epithel Cells (Auto) 3.0 /HPF (0-13.0) 05/13/20 Unknown Urine Bacteria (Auto) 1+ /HPF (Negative) 05/13/20 Unknown Urine Mucus Few /HPF 05/13/20 Unknown Cardiolipid IgG Ab <14 GPL (<=14) 05/17/20 05:02 Cardiolipid IgA Ab <11 APL (<=11) 05/17/20 05:02 Cardiolipid IgM Ab <12 MPL (<=12) 05/17/20 05:02 Blood Type O POSITIVE 05/16/20 08:25 Antibody Screen Negative 05/16/20 08:25 Crossmatch See Detail 05/16/20 08:25 Mcrae/IV: Voiding Method Urinal Active Medications - Current Medications Current Medications: Generic Name Dose Route Start Last Admin Trade Name Freq PRN Reason Stop Dose Admin Acetaminophen 650 mg 05/13/20 23:06 05/18/20 01:06 Acetaminophen 325 Mg Tab PO 650 mg Q4H PRN Administration Pain MILD(1-3)/Fever >100.5/DOMINIQUE Apixaban 5 mg 05/23/20 15:00 Apixaban 5 Mg Tab PO Q12HR [facility] Protocol Aspirin 81 mg 05/16/20 12:00 05/23/20 12:18 Aspirin Ec 81 Mg Tab PO Not Given QDAY ALISTAIR Folic Acid 1 mg 05/17/20 10:00 05/23/20 12:18 Folic Acid 1 Mg Tab PO Not Given QDAY ALISTAIR Sodium Chloride 1,000 mls @ 125 mls/hr 05/13/20 23:15 05/16/20 02:43 Nacl 0.9% 1000 Ml IV 125 mls/hr DIRECT ALISTAIR Administration Levofloxacin/Dextrose 750 mg in 150 mls @ 100 mls/hr 05/19/20 10:00 05/23/20 10:00 Levaquin 750mg/150ml IV Not Given Q24HR [facility] Protocol Metronidazole 500 mg in 100 mls @ 100 mls/hr 05/19/20 01:00 05/23/20 09:00 Flagyl 500 Mg/100 Ml IV 100 mls/hr Q8H ALISTAIR Administration Protocol Magnesium Hydroxide 30 ml 05/13/20 23:06 05/16/20 17:53 Magnesium Hydroxide (Mom) Oral Liqd Udc PO 30 ml Q4H PRN Administration Constipation Metoclopramide HCl 10 mg 05/21/20 14:23 05/21/20 14:55 Metoclopramide 10 Mg/2 Ml Inj IV 10 mg Q6H PRN Administration Nausea And Vomiting Morphine Sulfate 4 mg 05/18/20 21:36 05/22/20 18:03 Morphine 4 Mg/1 Ml Inj IV 4 mg Q3H PRN Administration Pain , Severe (7-10) Ondansetron HCl 4 mg 05/13/20 23:06 05/21/20 14:00 Ondansetron 4 Mg/2 Ml Inj IV 4 mg Q8H PRN Administration Nausea And Vomiting Oxycodone HCl 10 mg 05/22/20 22:01 05/23/20 08:39 Oxycodone 5 Mg Tab PO 10 mg Q4H PRN Administration Pain, Moderate (4-6) Simethicone 80 mg 05/23/20 09:37 05/23/20 09:41 Simethicone 80 Mg Chew Tab PO 80 mg Q6H PRN Administration Gas pain Sodium Chloride 10 ml 05/14/20 10:00 05/23/20 12:20 Sodium Chloride 0.9% 10 Ml Flush Syringe IV 10 ml BID ALISTAIR Administration Sodium Chloride 10 ml 05/13/20 23:06 Sodium Chloride 0.9% 10 Ml Flush Syringe IV PRN PRN LINE FLUSH Sodium Chloride 500 ml 05/23/20 11:53 Sodium Chloride 0.9% Irr 500 Ml Bottle IR DIRECT PRN Wound Care Nutrition/Malnutrition Assess - Dietary Evaluation Nutrition/Malnutrition Findings: Nutrition Notes Start: 05/21/20 12:06 Freq: Status: Active Protocol: Document 05/21/20 12:06 AB (Rec: 05/21/20 12:17 AB [id number]) Co-Sign 05/21/20 12:06 MK Nutrition Notes Need for Assessment generated from: LOS Initial or Follow up Assessment Other Pertinent Diagnosis gangrene, colon cancer; metastasized to lung & liver Current Diet NPO Labs/Tests Ca 8.0 Pertinent Medications Folvite Levaquin at 100 ml/hr Eliquis Height 5 ft 11 in Weight 97.2 kg Usual Body Weight 113.6 kg [place] Body Weight (kg) 78.18 BMI 29.9 Intake Prior to Admission Fair Weight change and time frame 42 lb wt loss in 3 months (16% wt change) Weight Status Overweight Subjective/Other Information Screen for LOS. 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 Pt reports eating last on Monday evening (05/16) and would like to eat YISEL. Pt would like to try ONS when diet is advanced. 05/18 pt had colectomy, exploratory labroscopy, and repairs of ventral & umblicial hernias. MD was bedside and stated that he would call surgeon to advanced diet. Percent of energy/protein needs met: 0%/0% Burn Absent Trauma Absent GI Symptoms None Food Allergy No Skin Integrity/Comment surgical wound on midline Current % PO Negligible Minimum of two criteria Yes Energy Intake (severe) < or equal to 50% Estimated Energy Requirement > or equal to 5 days Interpretation of Weight Loss (severe) >7.5% in 3 months Body Fat Depletion Moderate depletion (severe) Muscle Mass Moderate Depletion (severe) #2 Nutrition Diagnosis Increased nutrient needs ( specify in comment below) Comments: protein Etiology wound healing As Evidenced by Signs and Symptoms surgical incision to midline #1 Nutrition Diagnosis Malnutrition Etiology colon cancer that metastasized to lung & liver; colectomy, exploratory lap, and hernia repairs As Evidenced by Signs and Symptoms <50% of EER in 5 days, >7.5% wt loss in 3 months, muscle depletion, and body fat depletion Is patient on ventilator? No Is Patient Ambulatory and/or Out of Bed No REE-([facility]-confined to bed) [phone] Calculation Used for Recommendations [facility] Additional Notes Protein needs: 132-176 g (1.5- 2 g/kg AdjBW: 88kg) Fluid needs: 1 ml/kcal or per MD Nutrition Intervention Change Diet Order: Diet advancement when medically feasible Add Supplement/Snack (indicate name/kcal when diet advanced: /protein ) Ensure Enlive TID Provides kCal: 1,050 Provides Protein (gm) 60 Goal #1 Diet advancement Anticipated Discharge Needs: Regular diet Follow-Up By: 05/25/20 Additional Comments F/U for intakes and ONS tolerance
[2020-05-23] MEDS: APIXABAN 5 MG TAB PO SCH ×2 (16:06→21:46)
[2020-05-24] MEDS: metroNIDAZOLE/NS 500 MG/100 ML 500 MG/100 ML BAG IV SCH ×3 (00:10→16:28)
[2020-05-24 07:32] LABS: Hematocrit 26.7 % (35.5-45.6); Hemoglobin 8.4 gm/dl (11.8-15.2); Mean Corpuscular HGB Conc 32 % (32-34); Mean Corpuscular Volume 77 fl (84-94); Platelet Count 506 K/mm3 (140-440); Red Blood Count 3.46 M/mm3 (3.65-5.03)
[2020-05-24 07:33] LABS: Red Cell Distribution Width 21.4 % (13.2-15.2)
[2020-05-24 07:48] LABS: Blood Urea Nitrogen 5 mg/dL (9-20); Hemolysis Index 18
[2020-05-24 07:56] LABS: BUN/Creatinine Ratio 7
[2020-05-24] MEDS: METOCLOPRAMIDE 10 MG/2 ML INJ IV PRN (09:00)
[2020-05-24] MEDS: FOLIC ACID 1 MG TAB PO SCH (09:43)
[2020-05-24] MEDS: ASPIRIN EC 81 MG TAB PO SCH (09:43)
[2020-05-24] MEDS: APIXABAN 5 MG TAB PO SCH ×2 (09:43→21:18)
[2020-05-24] MEDS: oxyCODONE 5 MG TAB PO PRN ×2 (10:05→22:08)
--- NOTE | 2020-05-24 11:17 | Progress Note ---
Assessment and Plan Assessment and plan: 55-year-old -Ivorian male who was recently diagnosed with colon cancer in [facility] about a week ago presenting to the emergency room today complaining of chronic abdominal pain and right foot pain. Abdominal pain has been ongoing for the past 3 to 4 months. He was recently in [facility] where he was evaluated in the hospital and diagnosed with lesions consistent with colon cancer on a CT scan. Was also said to have had metastases to his lungs. He has not had any follow-up with any oncologist or extended day teacher because of insurance issues. Patient also indicates that his older brother of colon cancer few years ago. He has not had any colonoscopy in the past. 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 Patient has been having pain in his right foot over the past few weeks. He denies any trauma to the foot and no recent fall. He denies any numbness. Patient denies any fever or chills, no chest pain or shortness of breath, no nausea vomiting, no headache or dizziness. Work-up in the emergency room today reveals a leukocytosis of 15.7. X-ray of the right foot did not reveal any osteomyelitis. Patient is being admitted with gangrene of the right middle toe in addition to his recently diagnosed colon cancer. 05/14/2020 -Patient is diagnosed with stage IV colon cancer metastasized to the lung recently. Patient went to [place] and discharged him to have follow-up at [facility] and patient presented here. Patient has colon mass and was able to do advance to colonoscopy at [place] (per GI), patient may need surgical intervention and I put a consult for general surgery. I have discussed with GI and GI said nothing to add on his current management. Patient need to have follow-up with oncologist as an outpatient. Patient has gangrene of the right third toes and I ordered arterial Doppler, vascular surgery consulted. She has also leukocytosis and is on IV Vanco and Zosyn. 05/15/2020 -Patient was seen by general surgery and recommend CT abdomen and pelvis, will get records from [facility] colonoscopy and pathology reports. Discussed with the nurse to get records. Evaluated by ID and recommend no antibiotics at this time. Evaluated by GI and no further work-up needed from GI point of view. Patient was evaluated by scleral surgery and arterial Doppler was done and significant for moderate peripheral arterial disease in the right lower extremity and will do revascularization. 05/16/2020 -CT chest abdomen and pelvis was done and significant for colorectal cancer, and lung cancer. We will get records from original hospital. Was evaluated by makayla bynum and did a revascularization yesterday. Was evaluated by general surgery. Hemoglobin yesterday was 6.8. We will transfuse him a unit of blood and monitor posttransfusion hemoglobin/hematocrit. Will monitor and transfuse as needed. Will do anemia work-up. I put a consult per oncology recommendations. 05/17/2020 -CT chest abdomen and pelvis was done and significant for colorectal cancer, and lung cancer. We will get records from original hospital discussed with patient's nurse. Was evaluated by vascular and did a revascularization was done and now the discoloration is resolving, patient has palpable pulse, no pain. Patient is currently on heparin drip and can be continued until surgery and will be transitioned to Eliquis after that. Was evaluated by general surgery and is considering to do palliative colectomy. Hemoglobin yesterday was 6.8 and transfused a unit of blood and posttransfusion hemoglobin this morning was 7, patient is currently on iron infusion, will monitor H&H and transfuse as needed. Leukocytosis could be due to the cancer, no fever or other signs of infection. Path result was obtained from [facility] in [place] and showed adenocarcinoma, primary is from the colorectal carcinoma. 05/18: Patient clinically stable, awaiting surgical input or the planned Open right/transverse colectomy,, Hematology is stating to await for a cool off time before resection but if cannot wait then proceed with the surgery, Patient will need elquis 5mg PO BID snf and aspirin 81 mg daily. 05/19: Patient is status post 1) Right colectomy 2) Open repair of incarcerated ventral hernia 3) Open repair of incarcerated umbilical hernia postop day 1 for 1)Stage 4 adenoca, right hepatic flexure 2)Incarc ventral & Umbil hernias Continues to do well. Continues to require NG to intermittent suction. We will continue to follow. Of discussed with case management as patient will likely need palliative care on discharge, monitor leukocytosis, mild elevated noted 05/20: Extensive discussion with the patient about palliative care on discharge he verbalized understanding Case management to arrange. Surgical input noted NG tube has been discontinued patient be started on sips of clear fluids. Is voiding without difficulty and had one episode of flatus but no bowel movement yet. Bowel sounds are still very hypoactive. We will continue to monitor 05/21: Tolerating sips of water still awaiting clearance from surgery to be able to eat. Still no flatus yet according to the patient. White count still fluctuating up to 26,000 today. No fever. Could be reactive. Vascular input is noted patient will need aspirin and anticoagulation Eliquis long-term. 05/22: Patient reports bowel movement today. Reports ambulating in the hallway. Still on clear liquid diet started today. Await further surgical recommendation for discharge plan. CM working on Wound Vac, AND HOME HEALTH/Palliative care. 05/23: Patient seen and examined doing well no new complaints. Wound VAC to be removed today. Adjusting pain medication. Leukocytosis still elevated. Awaiting clearance for discharge from surgery. Will like to see WBC trending downwards. I discussed with the patient although palliative care is put in place for the patient follow-up with oncologist referral has also been placed. 05/24: Continue supportive care, WBC continues to worsen. Evaluated the foot do not think that there is a source of infection again no fever. Considering normal bowel movement and flatus and hypoactive bowel sounds we will check a lactic acid level. We will also await surgical reevaluation. (1) Gangrene of toe of right foot Current Visit: Yes Status: Acute Plan to address problem: Patient placed on empiric IV antibiotics. Consult placed to infectious disease and vascular surgery for evaluation. (2) Colon cancer metastasized to lung Current Visit: Yes Status: Acute Plan to address problem: Patient was just recently diagnosed with colon cancer in [facility]. He has not had any follow-up with any physician. We will place consult to gastroenterology for evaluation. (3) Leukocytosis/SIRS without organ dysfunction. No sepsis (4) hot mill observer iron deficiency Anemia (5) Arterial Thrombosis (6) Hyponatremia (7) DVT prophylaxis Current Visit: Yes Status: Acute Plan to address problem: Patient placed on sequential compression device. (8) Full code status Current Visit: Yes Status: Acute Plan to address problem: Patient is full code. History Interval history: Patient seen and examined, no new complaints. states no new BM since the first ONE. Hospitalist Physical - Physical exam Narrative exam: VITAL SIGNS: Reviewed. GENERAL: The patient appears normally developed, vital signs as documented. HEAD: No signs of head trauma. EYES: Pupils are equal. Extraocular motions intact. EARS: Hearing grossly intact. MOUTH: Oropharynx is normal. NECK: No adenopathy, no JVD. CHEST: Chest with clear breath sounds bilaterally. No wheezes, rales, or rhonchi. CARDIAC: Regular rate and rhythm. S1 and S2, without murmurs, gallops, or rubs. VASCULAR: No Edema. Peripheral pulses normal and equal in all extremities. ABDOMEN: Soft, tender at site of surgery. DRESSING IN PLACE. Hypoactive bowel sounds MUSCULOSKELETAL: Good range of motion of all major joints. Extremities without clubbing, cyanosis or edema. NEUROLOGIC EXAM: Alert and oriented x 3 No focal sensory or strength deficits. Speech normal. Follows commands. PSYCHIATRIC: Mood normal. SKIN: detail exam as documented in skin assessment - Constitutional Vitals: Temp Pulse Resp BP Pulse Ox 98.4 F 88 16 124/85 97 05/24/20 00:13 05/24/20 00:13 05/24/20 00:13 05/24/20 00:13 05/24/20 00:13 General appearance: Present: no acute distress Results - Labs CBC & Chem 7: 05/24/20 07:11 05/24/20 07:11 Labs: Laboratory Last Values WBC 29.7 K/mm3 (4.5-11.0) H 05/24/20 07:11 RBC 3.46 M/mm3 (3.65-5.03) L 05/24/20 07:11 Hgb 8.4 gm/dl (11.8-15.2) L 05/24/20 07:11 Hct 26.7 % (35.5-45.6) L 05/24/20 07:11 MCV 77 fl (84-94) L 05/24/20 07:11 MCH 24 pg (28-32) L 05/24/20 07:11 MCHC 32 % (32-34) 05/24/20 07:11 RDW 21.4 % (13.2-15.2) H 05/24/20 07:11 Plt Count 506 K/mm3 (140-440) H 05/24/20 07:11 Lymph % (Auto) 7.7 % (13.4-35.0) L 05/22/20 05:38 [place] % (Auto) 10.1 % (0.0-7.3) H 05/22/20 05:38 Eos % (Auto) 0.3 % (0.0-4.3) 05/22/20 05:38 Baso % (Auto) 0.1 % (0.0-1.8) 05/22/20 05:38 Lymph # (Auto) 1.6 K/mm3 (1.2-5.4) 05/22/20 05:38 [place] # (Auto) 2.1 K/mm3 (0.0-0.8) H 05/22/20 05:38 Eos # (Auto) 0.1 K/mm3 (0.0-0.4) 05/22/20 05:38 Baso # (Auto) 0.0 K/mm3 (0.0-0.1) 05/22/20 05:38 Add Manual Diff Complete 05/23/20 05:26 Total Counted 100 05/23/20 05:26 Seg Neutrophils % 81.8 % (40.0-70.0) H 05/22/20 05:38 Seg Neuts % (Manual) 91.0 % (40.0-70.0) H 05/23/20 05:26 Band Neutrophils % 1.0 % 05/23/20 05:26 Lymphocytes % (Manual) 2.0 % (13.4-35.0) L 05/23/20 05:26 Monocytes % (Manual) 5.0 % (0.0-7.3) 05/23/20 05:26 Metamyelocytes % 1.0 % 05/23/20 05:26 Nucleated RBC % Not Reportable 05/23/20 05:26 Seg Neutrophils # 16.8 K/mm3 (1.8-7.7) H 05/22/20 05:38 Seg Neutrophils # Man 20.1 K/mm3 (1.8-7.7) H 05/23/20 05:26 Band Neutrophils # 0.2 K/mm3 05/23/20 05:26 Lymphocytes # (Manual) 0.4 K/mm3 (1.2-5.4) L 05/23/20 05:26 Abs React Lymphs (Man) 0.0 K/mm3 05/23/20 05:26 Monocytes # (Manual) 1.1 K/mm3 (0.0-0.8) H 05/23/20 05:26 Eosinophils # (Manual) 0.0 K/mm3 (0.0-0.4) 05/23/20 05:26 Basophils # (Manual) 0.0 K/mm3 (0.0-0.1) 05/23/20 05:26 Metamyelocytes # 0.2 K/mm3 05/23/20 05:26 Myelocytes # 0.0 K/mm3 05/23/20 05:26 Promyelocytes # 0.0 K/mm3 05/23/20 05:26 Blast Cells # 0.0 K/mm3 05/23/20 05:26 WBC Morphology Not Reportable 05/23/20 05:26 Hypersegmented Neuts Not Reportable 05/23/20 05:26 Hyposegmented Neuts Not Reportable 05/23/20 05:26 Hypogranular Neuts Not Reportable 05/23/20 05:26 Smudge Cells Not Reportable 05/23/20 05:26 Toxic Granulation Not Reportable 05/23/20 05:26 Toxic Vacuolation Not Reportable 05/23/20 05:26 Dohle Bodies Not Reportable 05/23/20 05:26 Pelger-Huet Anomaly Not Reportable 05/23/20 05:26 Rosaline Rods Not Reportable 05/23/20 05:26 Platelet Estimate Consistent w auto 05/23/20 05:26 Clumped Platelets Not Reportable 05/23/20 05:26 Plt Clumps, EDTA Not Reportable 05/23/20 05:26 Large Platelets Not Reportable 05/23/20 05:26 Giant Platelets Rare 05/23/20 05:26 Platelet Satelliting Not Reportable 05/23/20 05:26 Plt Morphology Comment Not Reportable 05/23/20 05:26 RBC Morphology Not Reportable 05/23/20 05:26 Dimorphic RBCs Not Reportable 05/23/20 05:26 Polychromasia Rare 05/23/20 05:26 Hypochromasia 1+ 05/23/20 05:26 Poikilocytosis Not Reportable 05/23/20 05:26 Anisocytosis 1+ 05/23/20 05:26 Microcytosis Not Reportable 05/23/20 05:26 Macrocytosis Not Reportable 05/23/20 05:26 Spherocytes Not Reportable 05/23/20 05:26 Pappenheimer Bodies Not Reportable 05/23/20 05:26 Sickle Cells Not Reportable 05/23/20 05:26 Target Cells Not Reportable 05/23/20 05:26 Tear Drop Cells Not Reportable 05/23/20 05:26 Ovalocytes Not Reportable 05/23/20 05:26 Helmet Cells Not Reportable 05/23/20 05:26 Gonsales-[place] Bodies Not Reportable 05/23/20 05:26 [place] Rings Not Reportable 05/23/20 05:26 [place] Cells Not Reportable 05/23/20 05:26 Bite Cells Not Reportable 05/23/20 05:26 Crenated Cell Not Reportable 05/23/20 05:26 Elliptocytes Not Reportable 05/23/20 05:26 Acanthocytes (Spur) Not Reportable 05/23/20 05:26 Rouleaux Not Reportable 05/23/20 05:26 Hemoglobin C Crystals Not Reportable 05/23/20 05:26 Schistocytes Not Reportable 05/23/20 05:26 Malaria parasites Not Reportable 05/23/20 05:26 Jerod Bodies Not Reportable 05/23/20 05:26 Hem Pathologist Commnt No 05/23/20 05:26 PT 14.4 Sec. (12.2-14.9) 05/22/20 08:40 INR 1.14 (0.87-1.13) H 05/22/20 08:40 APTT 37.6 Sec. (24.2-36.6) H 05/22/20 08:40 Heparin Anti-Xa Level 0.50 U.I./ml (0.3-0.7) 05/23/20 09:00 Sodium 132 mmol/L (137-145) L 05/24/20 07:11 Potassium 4.3 mmol/L (3.6-5.0) 05/24/20 07:11 Chloride 96.4 mmol/L (98-107) L 05/24/20 07:11 Carbon Dioxide 25 mmol/L (22-30) 05/24/20 07:11 Anion Gap 15 mmol/L 05/24/20 07:11 BUN 5 mg/dL (9-20) L 05/24/20 07:11 Creatinine 0.7 mg/dL (0.8-1.3) L 05/24/20 07:11 Estimated GFR > 60 ml/min 05/24/20 07:11 BUN/Creatinine Ratio 7 % 05/24/20 07:11 Glucose 102 mg/dL (75-100) H 05/24/20 07:11 Lactic Acid 0.90 mmol/L (0.7-2.0) 05/14/20 08:02 Calcium 8.0 mg/dL (8.4-10.2) L 05/24/20 07:11 Iron 15 ug/dL (49-181) L 05/16/20 08:23 TIBC 177 mcg/dL (250-450) L 05/16/20 08:23 Ferritin 148.4 ng/mL (30.0-300.0) 05/16/20 08:23 Total Bilirubin 0.30 mg/dL (0.1-1.2) 05/13/20 17:02 AST 15 units/L (5-40) 05/13/20 17:02 ALT 11 units/L (7-56) 05/13/20 17:02 Alkaline Phosphatase 247 units/L (35-129) H 05/13/20 17:02 Total Protein 7.0 g/dL (6.3-8.2) 05/13/20 17:02 Albumin 2.5 g/dL (3.9-5) L 05/13/20 17:02 Albumin/Globulin Ratio 0.6 % 05/13/20 17:02 Lipase 33 units/L (13-60) 05/13/20 17:02 Carcinoembryonic Ag 47.8 ng/mL (0.0-2.4) H 05/14/20 19:22 Vitamin B12 1476 pg/mL (211-911) H 05/16/20 08:23 Folate 5.13 ng/mL (7.3-26.0) L 05/16/20 08:23 Urine Color Yellow (Yellow) 05/13/20 Unknown Urine Turbidity Slightly-cloudy (Clear) 05/13/20 Unknown Urine pH 5.0 (5.0-7.0) 05/13/20 Unknown Ur Specific [place] 1.021 (1.003-1.030) 05/13/20 Unknown Urine Protein <15 mg/dl mg/dL (Negative) 05/13/20 Unknown Urine Glucose (UA) Neg mg/dL (Negative) 05/13/20 Unknown Urine Ketones Neg mg/dL (Negative) 05/13/20 Unknown Urine Blood Neg (Negative) 05/13/20 Unknown Urine Nitrite Neg (Negative) 05/13/20 Unknown Urine Bilirubin Neg (Negative) 05/13/20 Unknown Urine Urobilinogen 2.0 mg/dL (<2.0) 05/13/20 Unknown Ur Leukocyte Esterase Tr (Negative) 05/13/20 Unknown Urine WBC (Auto) 5.0 /HPF (0.0-6.0) 05/13/20 Unknown Urine RBC (Auto) 5.0 /HPF (0.0-6.0) 05/13/20 Unknown U Epithel Cells (Auto) 3.0 /HPF (0-13.0) 05/13/20 Unknown Urine Bacteria (Auto) 1+ /HPF (Negative) 05/13/20 Unknown Urine Mucus Few /HPF 05/13/20 Unknown Cardiolipid IgG Ab <14 GPL (<=14) 05/17/20 05:02 Cardiolipid IgA Ab <11 APL (<=11) 05/17/20 05:02 Cardiolipid IgM Ab <12 MPL (<=12) 05/17/20 05:02 Blood Type O POSITIVE 05/16/20 08:25 Antibody Screen Negative 05/16/20 08:25 Crossmatch See Detail 05/16/20 08:25 Mcrae/IV: Voiding Method Urinal Active Medications - Current Medications Current Medications: Generic Name Dose Route Start Last Admin Trade Name Freq PRN Reason Stop Dose Admin Acetaminophen 650 mg 05/13/20 23:06 05/18/20 01:06 Acetaminophen 325 Mg Tab PO 650 mg Q4H PRN Administration Pain MILD(1-3)/Fever >100.5/DOMINIQUE Apixaban 5 mg 05/23/20 15:00 05/24/20 09:43 Apixaban 5 Mg Tab PO 5 mg Q12HR ALISTAIR Administration Protocol Aspirin 81 mg 05/16/20 12:00 05/24/20 09:43 Aspirin Ec 81 Mg Tab PO 81 mg QDAY ALISTAIR Administration Folic Acid 1 mg 05/17/20 10:00 05/24/20 09:43 Folic Acid 1 Mg Tab PO 1 mg QDAY ALISTAIR Administration Sodium Chloride 1,000 mls @ 125 mls/hr 05/13/20 23:15 05/16/20 02:43 Nacl 0.9% 1000 Ml IV 125 mls/hr DIRECT ALISTAIR Administration Levofloxacin/Dextrose 750 mg in 150 mls @ 100 mls/hr 05/19/20 10:00 05/24/20 08:59 Levaquin 750mg/150ml IV 100 mls/hr Q24HR ALISTAIR Administration Protocol Metronidazole 500 mg in 100 mls @ 100 mls/hr 05/19/20 01:00 05/24/20 08:59 Flagyl 500 Mg/100 Ml IV 100 mls/hr Q8H ALISTAIR Administration Protocol Magnesium Hydroxide 30 ml 05/13/20 23:06 05/16/20 17:53 Magnesium Hydroxide (Mom) Oral Liqd Udc PO 30 ml Q4H PRN Administration Constipation Metoclopramide HCl 10 mg 05/21/20 14:23 05/24/20 09:00 Metoclopramide 10 Mg/2 Ml Inj IV 10 mg Q6H PRN Administration Nausea And Vomiting Morphine Sulfate 4 mg 05/18/20 21:36 05/22/20 18:03 Morphine 4 Mg/1 Ml Inj IV 4 mg Q3H PRN Administration Pain , Severe (7-10) Ondansetron HCl 4 mg 05/13/20 23:06 05/21/20 14:00 Ondansetron 4 Mg/2 Ml Inj IV 4 mg Q8H PRN Administration Nausea And Vomiting Oxycodone HCl 10 mg 05/22/20 22:01 05/23/20 19:51 Oxycodone 5 Mg Tab PO 10 mg Q4H PRN Administration Pain, Moderate (4-6) Simethicone 80 mg 05/23/20 09:37 05/23/20 18:23 Simethicone 80 Mg Chew Tab PO 80 mg Q6H PRN Administration Gas pain Sodium Chloride 10 ml 05/14/20 10:00 05/23/20 21:46 Sodium Chloride 0.9% 10 Ml Flush Syringe IV 10 ml BID ALISTAIR Administration Sodium Chloride 10 ml 05/13/20 23:06 Sodium Chloride 0.9% 10 Ml Flush Syringe IV PRN PRN LINE FLUSH Sodium Chloride 500 ml 05/23/20 11:53 Sodium Chloride 0.9% Irr 500 Ml Bottle IR DIRECT PRN Wound Care Nutrition/Malnutrition Assess - Dietary Evaluation Nutrition/Malnutrition Findings: Nutrition Notes Start: 05/21/20 12:06 Freq: Status: Active Protocol: Document 05/21/20 12:06 AB (Rec: 05/21/20 12:17 AB [id number]) Co-Sign 05/21/20 12:06 MK Nutrition Notes Need for Assessment generated from: LOS Initial or Follow up Assessment Other Pertinent Diagnosis gangrene, colon cancer; metastasized to lung & liver Current Diet NPO Labs/Tests Ca 8.0 Pertinent Medications Folvite Levaquin at 100 ml/hr Eliquis Height 5 ft 11 in Weight 97.2 kg Usual Body Weight 113.6 kg [place] Body Weight (kg) 78.18 BMI 29.9 Intake Prior to Admission Fair Weight change and time frame 42 lb wt loss in 3 months (16% wt change) Weight Status Overweight Subjective/Other Information Screen for LOS. Pt reports having a lower appetite than usual [employer]. 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 Pt reports eating last on Monday evening (05/16) and would like to eat YISEL. Pt would like to try ONS when diet is advanced. 05/18 pt had colectomy, exploratory labroscopy, and repairs of ventral & umblicial hernias. MD was bedside and stated that he would call surgeon to advanced diet. Percent of energy/protein needs met: 0%/0% Burn Absent Trauma Absent GI Symptoms None Food Allergy No Skin Integrity/Comment surgical wound on midline Current % PO Negligible Minimum of two criteria Yes Energy Intake (severe) < or equal to 50% Estimated Energy Requirement > or equal to 5 days Interpretation of Weight Loss (severe) >7.5% in 3 months Body Fat Depletion Moderate depletion (severe) Muscle Mass Moderate Depletion (severe) #2 Nutrition Diagnosis Increased nutrient needs ( specify in comment below) Comments: protein Etiology wound healing As Evidenced by Signs and Symptoms surgical incision to midline #1 Nutrition Diagnosis Malnutrition Etiology colon cancer that metastasized to lung & liver; colectomy, exploratory lap, and hernia repairs As Evidenced by Signs and Symptoms <50% of EER in 5 days, >7.5% wt loss in 3 months, muscle depletion, and body fat depletion Is patient on ventilator? No Is Patient Ambulatory and/or Out of Bed No [facility]EE[facility]) 4169.060 Calculation Used for Recommendations [facility] Additional Notes Protein needs: 132-176 g (1.5- 2 g/kg AdjBW: 88kg) Fluid needs: 1 ml/kcal or per MD Nutrition Intervention Change Diet Order: Diet advancement when medically feasible Add Supplement/Snack (indicate name/kcal when diet advanced: /protein ) Ensure Enlive TID Provides kCal: 1,050 Provides Protein (gm) 60 Goal #1 Diet advancement Anticipated Discharge Needs: Regular diet Follow-Up By: 05/25/20 Additional Comments F/U for intakes and ONS tolerance
--- NOTE | 2020-05-24 13:33 | Progress Note ---
Assessment and Plan The patient is doing well from a vascular surgery standpoint. He can be discharged whenever he is stable from a general surgery and medical standpoint. He should remain on Eliquis 5 mg p.o. twice daily and aspirin 81 mg p.o. daily for life. He should follow-up in our office in 2 weeks after discharge. Subjective Date of service: 05/24/20 Principal diagnosis: Right foot ischemia Interval history: The patient denies having any pain in his right foot. He has no complaints pertaining to his foot at this time. Objective - Constitutional General appearance: Present: no acute distress Extremities: pulses intact (Palpable right dorsalis pedis pulse) Extremity abnormal: black (Right third toe with ischemic changes however unch anged from initial presentation) - Labs CBC & Chem 7: 05/24/20 07:11 05/24/20 07:11 Labs: Abnormal lab results 05/24/20 05/24/20 Range/Units 07:11 07:11 WBC 29.7 H (4.5-11.0) K/mm3 RBC 3.46 L (3.65-5.03) M/mm3 Hgb 8.4 L (11.8-15.2) gm/dl Hct 26.7 L (35.5-45.6) % MCV 77 L (84-94) fl MCH 24 L (28-32) pg RDW 21.4 H (13.2-15.2) % Plt Count 506 H (140-440) K/mm3 Sodium 132 L (137-145) mmol/L Chloride 96.4 L (98-107) mmol/L BUN 5 L (9-20) mg/dL Creatinine 0.7 L (0.8-1.3) mg/dL Glucose 102 H (75-100) mg/dL Calcium 8.0 L (8.4-10.2) mg/dL Medications & Allergies - Medications Allergies/Adverse Reactions: Allergies ibuprofen Allergy (Verified 05/13/20 16:53) Hives Home Medications: Home Medications Medication Instructions Recorded Confirmed Last Taken Type Apixaban [Eliquis] 5 mg PO BID #60 tablet 05/23/20 Unknown Rx Aspirin EC [Halfprin EC] 81 mg PO QDAY #30 tablet 05/23/20 Unknown Rx Apixaban [Eliquis] 5 mg PO Q12HR #60 tablet 05/24/20 Unknown Rx Aspirin EC [Halfprin EC] 81 mg PO QDAY #90 tablet. 05/24/20 Unknown Rx Active Medications: Generic Name Dose Route Start Last Admin Trade Name Freq PRN Reason Stop Dose Admin Acetaminophen 650 mg 05/13/20 23:06 05/18/20 01:06 Acetaminophen 325 Mg Tab PO 650 mg Q4H PRN Administration Pain MILD(1-3)/Fever >100.5/DOMINIQUE Apixaban 5 mg 05/23/20 15:00 05/24/20 09:43 Apixaban 5 Mg Tab PO 5 mg Q12HR ALISTAIR Administration Protocol Aspirin 81 mg 05/16/20 12:00 05/24/20 09:43 Aspirin Ec 81 Mg Tab PO 81 mg QDAY ALISTAIR Administration Folic Acid 1 mg 05/17/20 10:00 05/24/20 09:43 Folic Acid 1 Mg Tab PO 1 mg QDAY ALISTAIR Administration Sodium Chloride 1,000 mls @ 125 mls/hr 05/13/20 23:15 05/16/20 02:43 Nacl 0.9% 1000 Ml IV 125 mls/hr DIRECT ALISTAIR Administration Levofloxacin/Dextrose 750 mg in 150 mls @ 100 mls/hr 05/19/20 10:00 05/24/20 08:59 Levaquin 750mg/150ml IV 100 mls/hr Q24HR ALISTAIR Administration Protocol Metronidazole 500 mg in 100 mls @ 100 mls/hr 05/19/20 01:00 05/24/20 08:59 Flagyl 500 Mg/100 Ml IV 100 mls/hr Q8H ALISTAIR Administration Protocol Magnesium Hydroxide 30 ml 05/13/20 23:06 05/16/20 17:53 Magnesium Hydroxide (Mom) Oral Liqd Udc PO 30 ml Q4H PRN Administration Constipation Metoclopramide HCl 10 mg 05/21/20 14:23 05/24/20 09:00 Metoclopramide 10 Mg/2 Ml Inj IV 10 mg Q6H PRN Administration Nausea And Vomiting Morphine Sulfate 4 mg 05/18/20 21:36 05/22/20 18:03 Morphine 4 Mg/1 Ml Inj IV 4 mg Q3H PRN Administration Pain , Severe (7-10) Ondansetron HCl 4 mg 05/13/20 23:06 05/21/20 14:00 Ondansetron 4 Mg/2 Ml Inj IV 4 mg Q8H PRN Administration Nausea And Vomiting Oxycodone HCl 10 mg 05/22/20 22:01 05/23/20 19:51 Oxycodone 5 Mg Tab PO 10 mg Q4H PRN Administration Pain, Moderate (4-6) Simethicone 80 mg 05/23/20 09:37 05/23/20 18:23 Simethicone 80 Mg Chew Tab PO 80 mg Q6H PRN Administration Gas pain Sodium Chloride 10 ml 05/14/20 10:00 05/24/20 11:51 Sodium Chloride 0.9% 10 Ml Flush Syringe IV 10 ml BID ALISTAIR Administration Sodium Chloride 10 ml 05/13/20 23:06 Sodium Chloride 0.9% 10 Ml Flush Syringe IV PRN PRN LINE FLUSH Sodium Chloride 500 ml 05/23/20 11:53 Sodium Chloride 0.9% Irr 500 Ml Bottle IR DIRECT PRN Wound Care
--- NOTE | 2020-05-24 15:39 | Progress Note ---
Assessment and Plan - Patient Problems (1) Colon cancer metastasized to lung Current Visit: Yes Status: Acute Plan to address problem: 1) Clinically doing very well but will check CT abdomen and pelvis with contrast to r/o intra-abdominal abscess in light of increasing leukocytosis 2) Can be discharged if CT is negative. 3) Pt to do daily wet to dry dressing changes to his abdominal wound. 4) Percocet 10/325, 1 po q6-8 hrs prn pain, #40 5) Cipro 500 mg po bid X 7 more days 6) Flagyl 500 mg po tid X 7 more days 7) Activity - no lifting or straining 8) F/u in my office this May Subjective Date of service: 05/24/20 Patient Reports: Positive: no new complaints, feels better, pain is less, tolerating liquids well, bowel movement, afebrile, other (Pt can do his dressing changes. Good pain control with Percocet. ) Objective Vital Signs - 12hr 05/24/20 05/24/20 06:01 13:02 Temperature 98.2 F 98.9 F Pulse Rate 71 Respiratory 18 20 Rate Blood Pressure 137/91 135/84 O2 Sat by Pulse 99 Oximetry - Abdomen soft, bowel sounds hypoactive (Non-distended, essentially NT) - Labs 05/24/20 07:11 05/24/20 07:11 Diabetes panel 05/24/20 Range/Units 07:11 Sodium 132 L (137-145) mmol/L Potassium 4.3 (3.6-5.0) mmol/L Chloride 96.4 L (98-107) mmol/L Carbon Dioxide 25 (22-30) mmol/L BUN 5 L (9-20) mg/dL Creatinine 0.7 L (0.8-1.3) mg/dL Glucose 102 H (75-100) mg/dL Calcium 8.0 L (8.4-10.2) mg/dL Calcium panel 05/24/20 Range/Units 07:11 Calcium 8.0 L (8.4-10.2) mg/dL Pituitary panel 05/24/20 Range/Units 07:11 Sodium 132 L (137-145) mmol/L Potassium 4.3 (3.6-5.0) mmol/L Chloride 96.4 L (98-107) mmol/L Carbon Dioxide 25 (22-30) mmol/L BUN 5 L (9-20) mg/dL Creatinine 0.7 L (0.8-1.3) mg/dL Glucose 102 H (75-100) mg/dL Calcium 8.0 L (8.4-10.2) mg/dL Adrenal panel 05/24/20 Range/Units 07:11 Sodium 132 L (137-145) mmol/L Potassium 4.3 (3.6-5.0) mmol/L Chloride 96.4 L (98-107) mmol/L Carbon Dioxide 25 (22-30) mmol/L BUN 5 L (9-20) mg/dL Creatinine 0.7 L (0.8-1.3) mg/dL Glucose 102 H (75-100) mg/dL Calcium 8.0 L (8.4-10.2) mg/dL
--- NOTE | 2020-05-24 17:29 | Cat Scan Report ---
CT ABDOMEN AND PELVIS WITH CONTRAST INDICATION / CLINICAL INFORMATION: MAIN. TECHNIQUE: Axial CT images were obtained through the abdomen and pelvis after 100 cc Omnipaque 300 milligrams pe rcent IV contrast. All CT scans at this location are performed using CT dose reduction for ALARA by means of automated exposure control. COMPARISON: CT of the chest abdomen pelvis dated 05/15/2020 FINDINGS: LOWER CHEST: Multiple pulmonary nodules again identified lower lung zones LIVER: Large hepatic mass involving the left lobe measuring approximately 17 cm in width as well as s everal lesions within the right lobe GALLBLADDER: Not identified BILE DUCTS: No significant abnormality. PANCREAS: No significant abnormality. SPLEEN: No significant abnormality. ADRENALS: No significant abnormality. RIGHT KIDNEY and URETER: No significant abnormality. LEFT KIDNEY and URETER: No significant abnormality. STOMACH and SMALL BOWEL: Multiple loops of dilated small bowel with air-fluid levels present COLON: No significant abnormality. APPENDIX: No significant abnormality. PERITONEUM: Pneumoperitoneum from recent surgery. Moderate free fluid is present dependent portion of pelvis and right paracolic gutter LYMPH NODES: No significant adenopathy. AORTA and ARTERIES: No significant abnormality. IVC and VEINS: No significant abnormality. URINARY BLADDER: No significant abnormality. REPRODUCTIVE ORGANS: No significant abnormality. ADDITIONAL FINDINGS: None. SKELETAL SYSTEM: No significant abnormality. IMPRESSION: 1. Interval development of free fluid in the abdomen and right paracolic gutter 2. Abnormal appearance of the small bowel worrisome for small bowel obstruction 3. Evidence of recent colectomy 4. Extensive hepatic metastasis 5. Pulmonary nodules consistent with metastatic disease Signer Name: Grayson Wade MD Signed: 05/24/2020 5:24 PM Workstation Name: [id number]
[2020-05-25] MEDS: metroNIDAZOLE/NS 500 MG/100 ML 500 MG/100 ML BAG IV SCH ×3 (00:22→18:00)
[2020-05-25 09:10] LABS: Blood Urea Nitrogen 5 mg/dL (9-20); Calcium 8.2 mg/dL (8.4-10.2); Hemolysis Index 0
[2020-05-25 09:11] LABS: Hematocrit 26.3 % (35.5-45.6); Hemoglobin 8.4 gm/dl (11.8-15.2); Mean Corpuscular HGB Conc 32 % (32-34); Mean Corpuscular Volume 77 fl (84-94); Platelet Count 527 K/mm3 (140-440)
[2020-05-25 09:12] LABS: BUN/Creatinine Ratio 7
[2020-05-25 09:29] LABS: Red Cell Distribution Width 20.5 % (13.2-15.2)
[2020-05-25] MEDS: ASPIRIN EC 81 MG TAB PO SCH (09:36)
[2020-05-25] MEDS: APIXABAN 5 MG TAB PO SCH ×2 (09:36→21:45)
[2020-05-25] MEDS: FOLIC ACID 1 MG TAB PO SCH (09:37)
[2020-05-25] MEDS: oxyCODONE 5 MG TAB PO PRN (09:50)
--- NOTE | 2020-05-25 10:09 | Progress Note ---
Assessment and Plan Assessment and plan: 55-year-old -[place] male who was recently diagnosed with colon cancer in [facility] about a week ago presenting to the emergency room today complaining of chronic abdominal pain and right foot pain. Abdominal pain has been ongoing for the past 3 to 4 months. He was recently in [facility] where he was evaluated in the hospital and diagnosed with lesions consistent with colon cancer on a CT scan. Was also said to have had metastases to his lungs. He has not had any follow-up with any oncologist or telephone clerk telegraph office because of insurance issues. Patient also indicates that his older brother of colon cancer few years ago. He has not had any colonoscopy in the past. 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 Patient has been having pain in his right foot over the past few weeks. He denies any trauma to the foot and no recent fall. He denies any numbness. Patient denies any fever or chills, no chest pain or shortness of breath, no nausea vomiting, no headache or dizziness. Work-up in the emergency room today reveals a leukocytosis of 15.7. X-ray of the right foot did not reveal any osteomyelitis. Patient is being admitted with gangrene of the right middle toe in addition to his recently diagnosed colon cancer. 05/14/2020 -Patient is diagnosed with stage IV colon cancer metastasized to the lung recently. Patient went to [place] and discharged him to have follow-up at [facility] and patient presented here. Patient has colon mass and was able to do advance to colonoscopy at [place] (per GI), patient may need surgical intervention and I put a consult for general surgery. I have discussed with GI and GI said nothing to add on his current management. Patient need to have follow-up with oncologist as an outpatient. Patient has gangrene of the right third toes and I ordered arterial Doppler, vascular surgery consulted. She has also leukocytosis and is on IV Vanco and Zosyn. 05/15/2020 -Patient was seen by general surgery and recommend CT abdomen and pelvis, will get records from [facility] colonoscopy and pathology reports. Discussed with the nurse to get records. Evaluated by ID and recommend no antibiotics at this time. Evaluated by GI and no further work-up needed from GI point of view. Patient was evaluated by scleral surgery and arterial Doppler was done and significant for moderate peripheral arterial disease in the right lower extremity and will do revascularization. 05/16/2020 -CT chest abdomen and pelvis was done and significant for colorectal cancer, and lung cancer. We will get records from original hospital. Was evaluated by makayla bynum and did a revascularization yesterday. Was evaluated by general surgery. Hemoglobin yesterday was 6.8. We will transfuse him a unit of blood and monitor posttransfusion hemoglobin/hematocrit. Will monitor and transfuse as needed. Will do anemia work-up. I put a consult per oncology recommendations. 05/17/2020 -CT chest abdomen and pelvis was done and significant for colorectal cancer, and lung cancer. We will get records from original hospital discussed with patient's nurse. Was evaluated by vascular and did a revascularization was done and now the discoloration is resolving, patient has palpable pulse, no pain. Patient is currently on heparin drip and can be continued until surgery and will be transitioned to Eliquis after that. Was evaluated by general surgery and is considering to do palliative colectomy. Hemoglobin yesterday was 6.8 and transfused a unit of blood and posttransfusion hemoglobin this morning was 7, patient is currently on iron infusion, will monitor H&H and transfuse as needed. Leukocytosis could be due to the cancer, no fever or other signs of infection. Path result was obtained from [facility] in [place] and showed adenocarcinoma, primary is from the colorectal carcinoma. 05/18: Patient clinically stable, awaiting surgical input or the planned Open right/transverse colectomy,, Hematology is stating to await for a cool off time before resection but if cannot wait then proceed with the surgery, Patient will need elquis 5mg PO BID assisted and aspirin 81 mg daily. 05/19: Patient is status post 1) Right colectomy 2) Open repair of incarcerated ventral hernia 3) Open repair of incarcerated umbilical hernia postop day 1 for 1)Stage 4 adenoca, right hepatic flexure 2)Incarc ventral & Umbil hernias Continues to do well. Continues to require NG to intermittent suction. We will continue to follow. Of discussed with case management as patient will likely need palliative care on discharge, monitor leukocytosis, mild elevated noted 05/20: Extensive discussion with the patient about palliative care on discharge he verbalized understanding Case management to arrange. Surgical input noted NG tube has been discontinued patient be started on sips of clear fluids. Is voiding without difficulty and had one episode of flatus but no bowel movement yet. Bowel sounds are still very hypoactive. We will continue to monitor 05/21: Tolerating sips of water still awaiting clearance from surgery to be able to eat. Still no flatus yet according to the patient. White count still fluctuating up to 26,000 today. No fever. Could be reactive. Vascular input is noted patient will need aspirin and anticoagulation Eliquis long-term. 05/22: Patient reports bowel movement today. Reports ambulating in the hallway. Still on clear liquid diet started today. Await further surgical recommendation for discharge plan. CM working on Wound Vac, AND HOME HEALTH/Palliative care. 05/23: Patient seen and examined doing well no new complaints. Wound VAC to be removed today. Adjusting pain medication. Leukocytosis still elevated. Awaiting clearance for discharge from surgery. Will like to see WBC trending downwards. I discussed with the patient although palliative care is put in place for the patient follow-up with oncologist referral has also been placed. 05/24: Continue supportive care, WBC continues to worsen. Evaluated the foot do not think that there is a source of infection again no fever. Considering normal bowel movement and flatus and hypoactive bowel sounds we will check a lactic acid level. We will also await surgical reevaluation. 05/25: CT abdomen and pelvis reviewed impression as noted below IMPRESSION: 1. Interval development of free fluid in the abdomen and right paracolic gutter 2. Abnormal appearance of the small bowel worrisome for small bowel obstruction 3. Evidence of recent colectomy 4. Extensive hepatic metastasis 5. Pulmonary nodules consistent with metastatic disease Surgery has ordered a small bowel follow-through. Patient reports flatus. WBC is beginning to trend down probably has peaked. No fever to indicate any infectious process ongoing. Continue to monitor anticipate discharge in 24 to 48 hours if no further recommendation from surgery. Vascular input noted patient to be on Eliquis 5 mg twice daily and aspirin 81 mg daily for life. Follow-up with vascular outpatient in 2 weeks. (1) Gangrene of toe of right foot (2) Colon cancer metastasized to lung (3) colonic obstruction secondary to mass with incarcerated ventral and umbilical hernias status post right colectomy and repair of incarcerated ventral hernia and umbilical hernia.. (4) Leukocytosis/SIRS without organ dysfunction. 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 (9) Full code status Current Visit: Yes Status: Acute Plan to address problem: Patient is full code. History Interval history: Patient seen and examined, no new complaints. Remains in good spirits. Reports flatus but no bowel movement since the 1 of 3 days ago. He denies any worsening abdominal pain. No fever Hospitalist Physical - Physical exam Narrative exam: VITAL SIGNS: Reviewed. GENERAL: The patient appears normally developed, vital signs as documented. HEAD: No signs of head trauma. EYES: Pupils are equal. Extraocular motions intact. EARS: Hearing grossly intact. MOUTH: Oropharynx is normal. NECK: No adenopathy, no JVD. CHEST: Chest with clear breath sounds bilaterally. No wheezes, rales, or rhonchi. CARDIAC: Regular rate and rhythm. S1 and S2, without murmurs, gallops, or rubs. VASCULAR: No Edema. Peripheral pulses normal and equal in all extremities. ABDOMEN: Soft, tender at site of surgery. DRESSING IN PLACE. Hypoactive bowel sounds MUSCULOSKELETAL: Good range of motion of all major joints. Extremities without clubbing, cyanosis or edema. NEUROLOGIC EXAM: Alert and oriented x 3 No focal sensory or strength deficits. Speech normal. Follows commands. PSYCHIATRIC: Mood normal. SKIN: detail exam as documented in skin assessment - Constitutional Vitals: Temp Pulse Resp BP Pulse Ox 98.6 F 71 20 130/83 98 05/25/20 06:45 05/25/20 06:45 05/25/20 06:45 05/25/20 06:45 05/25/20 06:45 General appearance: Present: no acute distress Results - Labs CBC & Chem 7: 05/25/20 07:58 05/25/20 07:58 Labs: Laboratory Last Values WBC 23.6 K/mm3 (4.5-11.0) H 05/25/20 07:58 RBC 3.40 M/mm3 (3.65-5.03) L 05/25/20 07:58 Hgb 8.4 gm/dl (11.8-15.2) L 05/25/20 07:58 Hct 26.3 % (35.5-45.6) L 05/25/20 07:58 MCV 77 fl (84-94) L 05/25/20 07:58 MCH 25 pg (28-32) L 05/25/20 07:58 MCHC 32 % (32-34) 05/25/20 07:58 RDW 20.5 % (13.2-15.2) H 05/25/20 07:58 Plt Count 527 K/mm3 (140-440) H 05/25/20 07:58 Lymph % (Auto) Director Internal Control 05/25/20 07:58 [place] % (Auto) Director Internal Control 05/25/20 07:58 Eos % (Auto) Director Internal Control 05/25/20 07:58 Baso % (Auto) Director Internal Control 05/25/20 07:58 Lymph # (Auto) Director Internal Control 05/25/20 07:58 [place] # (Auto) Director Internal Control 05/25/20 07:58 Eos # (Auto) Director Internal Control 05/25/20 07:58 Baso # (Auto) Director Internal Control 05/25/20 07:58 Add Manual Diff Complete 05/23/20 05:26 Total Counted 100 05/23/20 05:26 Seg Neutrophils % Director Internal Control 05/25/20 07:58 Seg Neuts % (Manual) 91.0 % (40.0-70.0) H 05/23/20 05:26 Band Neutrophils % 1.0 % 05/23/20 05:26 Lymphocytes % (Manual) 2.0 % (13.4-35.0) L 05/23/20 05:26 Monocytes % (Manual) 5.0 % (0.0-7.3) 05/23/20 05:26 Metamyelocytes % 1.0 % 05/23/20 05:26 Nucleated RBC % Not Reportable 05/23/20 05:26 Seg Neutrophils # Director Internal Control 05/25/20 07:58 Seg Neutrophils # Man 20.1 K/mm3 (1.8-7.7) H 05/23/20 05:26 Band Neutrophils # 0.2 K/mm3 05/23/20 05:26 Lymphocytes # (Manual) 0.4 K/mm3 (1.2-5.4) L 05/23/20 05:26 Abs React Lymphs (Man) 0.0 K/mm3 05/23/20 05:26 Monocytes # (Manual) 1.1 K/mm3 (0.0-0.8) H 05/23/20 05:26 Eosinophils # (Manual) 0.0 K/mm3 (0.0-0.4) 05/23/20 05:26 Basophils # (Manual) 0.0 K/mm3 (0.0-0.1) 05/23/20 05:26 Metamyelocytes # 0.2 K/mm3 05/23/20 05:26 Myelocytes # 0.0 K/mm3 05/23/20 05:26 Promyelocytes # 0.0 K/mm3 05/23/20 05:26 Blast Cells # 0.0 K/mm3 05/23/20 05:26 WBC Morphology Not Reportable 05/23/20 05:26 Hypersegmented Neuts Not Reportable 05/23/20 05:26 Hyposegmented Neuts Not Reportable 05/23/20 05:26 Hypogranular Neuts Not Reportable 05/23/20 05:26 Smudge Cells Not Reportable 05/23/20 05:26 Toxic Granulation Not Reportable 05/23/20 05:26 Toxic Vacuolation Not Reportable 05/23/20 05:26 Dohle Bodies Not Reportable 05/23/20 05:26 Pelger-Huet Anomaly Not Reportable 05/23/20 05:26 Rosaline Rods Not Reportable 05/23/20 05:26 Platelet Estimate Consistent w auto 05/23/20 05:26 Clumped Platelets Not Reportable 05/23/20 05:26 Plt Clumps, EDTA Not Reportable 05/23/20 05:26 Large Platelets Not Reportable 05/23/20 05:26 Giant Platelets Rare 05/23/20 05:26 Platelet Satelliting Not Reportable 05/23/20 05:26 Plt Morphology Comment Not Reportable 05/23/20 05:26 RBC Morphology Not Reportable 05/23/20 05:26 Dimorphic RBCs Not Reportable 05/23/20 05:26 Polychromasia Rare 05/23/20 05:26 Hypochromasia 1+ 05/23/20 05:26 Poikilocytosis Not Reportable 05/23/20 05:26 Anisocytosis 1+ 05/23/20 05:26 Microcytosis Not Reportable 05/23/20 05:26 Macrocytosis Not Reportable 05/23/20 05:26 Spherocytes Not Reportable 05/23/20 05:26 Pappenheimer Bodies Not Reportable 05/23/20 05:26 Sickle Cells Not Reportable 05/23/20 05:26 Target Cells Not Reportable 05/23/20 05:26 Tear Drop Cells Not Reportable 05/23/20 05:26 Ovalocytes Not Reportable 05/23/20 05:26 Helmet Cells Not Reportable 05/23/20 05:26 Gonsales-O'Brien Bodies Not Reportable 05/23/20 05:26 [place] Rings Not Reportable 05/23/20 05:26 Velia Cells Not Reportable 05/23/20 05:26 Bite Cells Not Reportable 05/23/20 05:26 Crenated Cell Not Reportable 05/23/20 05:26 Elliptocytes Not Reportable 05/23/20 05:26 Acanthocytes (Spur) Not Reportable 05/23/20 05:26 Rouleaux Not Reportable 05/23/20 05:26 Hemoglobin C Crystals Not Reportable 05/23/20 05:26 Schistocytes Not Reportable 05/23/20 05:26 Malaria parasites Not Reportable 05/23/20 05:26 Jerod Bodies Not Reportable 05/23/20 05:26 Hem Pathologist Commnt No 05/23/20 05:26 PT 14.4 Sec. (12.2-14.9) 05/22/20 08:40 INR 1.14 (0.87-1.13) H 05/22/20 08:40 APTT 37.6 Sec. (24.2-36.6) H 05/22/20 08:40 Heparin Anti-Xa Level 0.50 U.I./ml (0.3-0.7) 05/23/20 09:00 Sodium 128 mmol/L (137-145) L 05/25/20 07:58 Potassium 3.9 mmol/L (3.6-5.0) 05/25/20 07:58 Chloride 93.1 mmol/L (98-107) L 05/25/20 07:58 Carbon Dioxide 26 mmol/L (22-30) 05/25/20 07:58 Anion Gap 13 mmol/L 05/25/20 07:58 BUN 5 mg/dL (9-20) L 05/25/20 07:58 Creatinine 0.7 mg/dL (0.8-1.3) L 05/25/20 07:58 Estimated GFR > 60 ml/min 05/25/20 07:58 BUN/Creatinine Ratio 7 % 05/25/20 07:58 Glucose 94 mg/dL (75-100) 05/25/20 07:58 Lactic Acid 1.20 mmol/L (0.7-2.0) 05/24/20 14:25 Calcium 8.2 mg/dL (8.4-10.2) L 05/25/20 07:58 Iron 15 ug/dL (49-181) L 05/16/20 08:23 TIBC 177 mcg/dL (250-450) L 05/16/20 08:23 Ferritin 148.4 ng/mL (30.0-300.0) 05/16/20 08:23 Total Bilirubin 0.30 mg/dL (0.1-1.2) 05/13/20 17:02 AST 15 units/L (5-40) 05/13/20 17:02 ALT 11 units/L (7-56) 05/13/20 17:02 Alkaline Phosphatase 247 units/L (35-129) H 05/13/20 17:02 Total Protein 7.0 g/dL (6.3-8.2) 05/13/20 17:02 Albumin 2.5 g/dL (3.9-5) L 05/13/20 17:02 Albumin/Globulin Ratio 0.6 % 05/13/20 17:02 Lipase 33 units/L (13-60) 05/13/20 17:02 Carcinoembryonic Ag 47.8 ng/mL (0.0-2.4) H 05/14/20 19:22 Vitamin B12 1476 pg/mL (211-911) H 05/16/20 08:23 Folate 5.13 ng/mL (7.3-26.0) L 05/16/20 08:23 Urine Color Yellow (Yellow) 05/13/20 Unknown Urine Turbidity Slightly-cloudy (Clear) 05/13/20 Unknown Urine pH 5.0 (5.0-7.0) 05/13/20 Unknown Ur Specific [place] 1.021 (1.003-1.030) 05/13/20 Unknown Urine Protein <15 mg/dl mg/dL (Negative) 05/13/20 Unknown Urine Glucose (UA) Neg mg/dL (Negative) 05/13/20 Unknown Urine Ketones Neg mg/dL (Negative) 05/13/20 Unknown Urine Blood Neg (Negative) 05/13/20 Unknown Urine Nitrite Neg (Negative) 05/13/20 Unknown Urine Bilirubin Neg (Negative) 05/13/20 Unknown Urine Urobilinogen 2.0 mg/dL (<2.0) 05/13/20 Unknown Ur Leukocyte Esterase Tr (Negative) 05/13/20 Unknown Urine WBC (Auto) 5.0 /HPF (0.0-6.0) 05/13/20 Unknown Urine RBC (Auto) 5.0 /HPF (0.0-6.0) 05/13/20 Unknown U Epithel Cells (Auto) 3.0 /HPF (0-13.0) 05/13/20 Unknown Urine Bacteria (Auto) 1+ /HPF (Negative) 05/13/20 Unknown Urine Mucus Few /HPF 05/13/20 Unknown Cardiolipid IgG Ab <14 GPL (<=14) 05/17/20 05:02 Cardiolipid IgA Ab <11 APL (<=11) 05/17/20 05:02 Cardiolipid IgM Ab <12 MPL (<=12) 05/17/20 05:02 Blood Type O POSITIVE 05/16/20 08:25 Antibody Screen Negative 05/16/20 08:25 Crossmatch See Detail 05/16/20 08:25 Mcrae/IV: Voiding Method Urinal Active Medications - Current Medications Current Medications: Generic Name Dose Route Start Last Admin Trade Name Freq PRN Reason Stop Dose Admin Acetaminophen 650 mg 05/13/20 23:06 05/18/20 01:06 Acetaminophen 325 Mg Tab PO 650 mg Q4H PRN Administration Pain MILD(1-3)/Fever >100.5/DOMINIQUE Apixaban 5 mg 05/23/20 15:00 05/25/20 09:36 Apixaban 5 Mg Tab PO 5 mg Q12HR ALISTAIR Administration Protocol Aspirin 81 mg 05/16/20 12:00 05/25/20 09:36 Aspirin Ec 81 Mg Tab PO 81 mg QDAY ALISTAIR Administration Folic Acid 1 mg 05/17/20 10:00 05/25/20 09:37 Folic Acid 1 Mg Tab PO 1 mg QDAY ALISTAIR Administration Sodium Chloride 1,000 mls @ 125 mls/hr 05/13/20 23:15 05/16/20 02:43 Nacl 0.9% 1000 Ml IV 125 mls/hr DIRECT ALISTAIR Administration Levofloxacin/Dextrose 750 mg in 150 mls @ 100 mls/hr 05/19/20 10:00 05/24/20 08:59 Levaquin 750mg/150ml IV 05/31/20 11:29 100 mls/hr Q24HR ALISTAIR Administration Protocol Metronidazole 500 mg in 100 mls @ 100 mls/hr 05/19/20 01:00 05/25/20 09:36 Flagyl 500 Mg/100 Ml IV 05/31/20 17:59 100 mls/hr Q8H ALISTAIR Administration Protocol Magnesium Hydroxide 30 ml 05/13/20 23:06 05/16/20 17:53 Magnesium Hydroxide (Mom) Oral Liqd Udc PO 30 ml Q4H PRN Administration Constipation Metoclopramide HCl 10 mg 05/21/20 14:23 05/24/20 09:00 Metoclopramide 10 Mg/2 Ml Inj IV 10 mg Q6H PRN Administration Nausea And Vomiting Morphine Sulfate 4 mg 05/18/20 21:36 05/22/20 18:03 Morphine 4 Mg/1 Ml Inj IV 4 mg Q3H PRN Administration Pain , Severe (7-10) Ondansetron HCl 4 mg 05/13/20 23:06 05/21/20 14:00 Ondansetron 4 Mg/2 Ml Inj IV 4 mg Q8H PRN Administration Nausea And Vomiting Oxycodone HCl 10 mg 05/22/20 22:01 05/25/20 09:50 Oxycodone 5 Mg Tab PO 10 mg Q4H PRN Administration Pain, Moderate (4-6) Simethicone 80 mg 05/23/20 09:37 05/23/20 18:23 Simethicone 80 Mg Chew Tab PO 80 mg Q6H PRN Administration Gas pain Sodium Chloride 10 ml 05/14/20 10:00 05/25/20 09:37 Sodium Chloride 0.9% 10 Ml Flush Syringe IV 10 ml BID ALISTAIR Administration Sodium Chloride 10 ml 05/13/20 23:06 Sodium Chloride 0.9% 10 Ml Flush Syringe IV PRN PRN LINE FLUSH Sodium Chloride 500 ml 05/23/20 11:53 Sodium Chloride 0.9% Irr 500 Ml Bottle IR DIRECT PRN Wound Care Nutrition/Malnutrition Assess - Dietary Evaluation Nutrition/Malnutrition Findings: Nutrition Notes Start: 05/21/20 12:06 Freq: Status: Active Protocol: Document 05/21/20 12:06 AB (Rec: 05/21/20 12:17 AB [id number]) Co-Sign 05/21/20 12:06 MK Nutrition Notes Need for Assessment generated from: LOS Initial or Follow up Assessment Other Pertinent Diagnosis gangrene, colon cancer; metastasized to lung & liver Current Diet NPO Labs/Tests Ca 8.0 Pertinent Medications Folvite Levaquin at 100 ml/hr Eliquis Height 5 ft 11 in Weight 97.2 kg Usual Body Weight 113.6 kg Joiner Body Weight (kg) 78.18 BMI 29.9 Intake Prior to Admission Fair Weight change and time frame 42 lb wt loss in 3 months (16% wt change) Weight Status Overweight Subjective/Other Information Screen for LOS. 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 Pt reports eating last on Monday evening (05/16) and would like to eat YISEL. Pt would like to try ONS when diet is advanced. 05/18 pt had colectomy, exploratory labroscopy, and repairs of ventral & umblicial hernias. MD was bedside and stated that he would call surgeon to advanced diet. Percent of energy/protein needs met: 0%/0% Burn Absent Trauma Absent GI Symptoms None Food Allergy No Skin Integrity/Comment surgical wound on midline Current % PO Negligible Minimum of two criteria Yes Energy Intake (severe) < or equal to 50% Estimated Energy Requirement > or equal to 5 days Interpretation of Weight Loss (severe) >7.5% in 3 months Body Fat Depletion Moderate depletion (severe) Muscle Mass Moderate Depletion (severe) #2 Nutrition Diagnosis Increased nutrient needs ( specify in comment below) Comments: protein Etiology wound healing As Evidenced by Signs and Symptoms surgical incision to midline #1 Nutrition Diagnosis Malnutrition Etiology colon cancer that metastasized to lung & liver; colectomy, exploratory lap, and hernia repairs As Evidenced by Signs and Symptoms <50% of EER in 5 days, >7.5% wt loss in 3 months, muscle depletion, and body fat depletion Is patient on ventilator? No Is Patient Ambulatory and/or Out of Bed No REE-([place]-confined to bed) 8869.060 Calculation Used for Recommendations [facility] Additional Notes Protein needs: 132-176 g (1.5- 2 g/kg AdjBW: 88kg) Fluid needs: 1 ml/kcal or per MD Nutrition Intervention Change Diet Order: Diet advancement when medically feasible Add Supplement/Snack (indicate name/kcal when diet advanced: /protein ) Ensure Enlive TID Provides kCal: 1,050 Provides Protein (gm) 60 Goal #1 Diet advancement Anticipated Discharge Needs: Regular diet Follow-Up By: 05/25/20 Additional Comments F/U for intakes and ONS tolerance
--- NOTE | 2020-05-25 10:19 | Progress Note ---
Assessment and Plan (1) Colon cancer metastasized to lung Current Visit: Yes Status: Acute Plan to address problem: s/p open right hemicolectomy with 1' anastamosis, POD 7 CT A/P - free fluid in right paracolic gutter, small pneumoperitoneum - likely post op. No abscess. Distended stomach and small bowel. Pt stable. Passing flatus. Afebrile. Post surgical changes on Ct A/P 05/24/20 and possible ileus. WBC trending down. Plan: 1. stop FLD. start CLD 2. IVF 3. empiric abx 4. prn PO pain control 5. eliquis per vascular/heme-onc 6. 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 If SBFT is unremarkable, will tentatively plan for dc tomorrow. Pt has appointment to follow up with Dr. Joyner on 05/28 I am covering for Dr. Joyner and discussed the above plan with him. Thank you, please call with questions. Subjective Date of service: 05/25/20 Narrative: Pt seen and examined. No acute complaints. Tolerating full liquids. No f/c. Passing flatus. No BM for few days. No n/v. States he had some nausea the day before yesterday which resolved. Abdominal discomfort is minimal and well controlled. States mild dysuria after surgery. WBC elevated yesterday and Ct obtained to r/o abscess. Objective Vital Signs - 12hr 05/24/20 05/25/20 22:45 06:45 Temperature 98.5 F 98.6 F Pulse Rate 76 71 Respiratory 18 20 Rate Blood Pressure 138/79 130/83 O2 Sat by Pulse 96 98 Oximetry - General physical appearance Narrative Exam: Gen: AAOx3. NAD CV: S1, S2+ Resp: even and unlabored Abd: soft, mildly distended, NT. Midline wound clean, dry with saline packing in place. Dressing c/d/i Ext: no c/c/e - Labs 05/25/20 07:58 05/25/20 07:58 Diabetes panel 05/25/20 Range/Units 07:58 Sodium 128 L (137-145) mmol/L Potassium 3.9 (3.6-5.0) mmol/L Chloride 93.1 L (98-107) mmol/L Carbon Dioxide 26 (22-30) mmol/L BUN 5 L (9-20) mg/dL Creatinine 0.7 L (0.8-1.3) mg/dL Glucose 94 (75-100) mg/dL Calcium 8.2 L (8.4-10.2) mg/dL Calcium panel 05/25/20 Range/Units 07:58 Calcium 8.2 L (8.4-10.2) mg/dL Pituitary panel 05/25/20 Range/Units 07:58 Sodium 128 L (137-145) mmol/L Potassium 3.9 (3.6-5.0) mmol/L Chloride 93.1 L (98-107) mmol/L Carbon Dioxide 26 (22-30) mmol/L BUN 5 L (9-20) mg/dL Creatinine 0.7 L (0.8-1.3) mg/dL Glucose 94 (75-100) mg/dL Calcium 8.2 L (8.4-10.2) mg/dL Adrenal panel 05/25/20 Range/Units 07:58 Sodium 128 L (137-145) mmol/L Potassium 3.9 (3.6-5.0) mmol/L Chloride 93.1 L (98-107) mmol/L Carbon Dioxide 26 (22-30) mmol/L BUN 5 L (9-20) mg/dL Creatinine 0.7 L (0.8-1.3) mg/dL Glucose 94 (75-100) mg/dL Calcium 8.2 L (8.4-10.2) mg/dL
[2020-05-25 17:21] LABS: Anisocytosis 1+; Total Cells Counted 100
[2020-05-25 17:22] LABS: Hypochromasia Rare
[2020-05-25] MEDS: ONDANSETRON 4 MG/2 ML INJ IV PRN (17:59)
[2020-05-26] MEDS: metroNIDAZOLE/NS 500 MG/100 ML 500 MG/100 ML BAG IV SCH ×3 (01:47→17:26)
[2020-05-26 06:02] LABS: Hematocrit 25.5 % (35.5-45.6); Mean Corpuscular HGB Conc 32 % (32-34); Mean Corpuscular Volume 78 fl (84-94); Platelet Count 558 K/mm3 (140-440); Red Blood Count 3.26 M/mm3 (3.65-5.03)
[2020-05-26 06:06] LABS: Red Cell Distribution Width 20.6 % (13.2-15.2)
[2020-05-26 06:27] LABS: Blood Urea Nitrogen 6 mg/dL (9-20); Hemolysis Index 0
[2020-05-26 06:28] LABS: BUN/Creatinine Ratio 9
[2020-05-26] MEDS: oxyCODONE 5 MG TAB PO PRN ×3 (10:37→22:08)
[2020-05-26] MEDS: FOLIC ACID 1 MG TAB PO SCH (10:39)
[2020-05-26] MEDS: ASPIRIN EC 81 MG TAB PO SCH (10:39)
[2020-05-26] MEDS: APIXABAN 5 MG TAB PO SCH ×2 (10:39→22:08)
--- NOTE | 2020-05-26 11:00 | Progress Note ---
Assessment and Plan Assessment and plan: (1) Gangrene of toe of right foot (2) Colon cancer metastasized to lung (3) colonic obstruction secondary to mass with incarcerated ventral and umbilical hernias status post right colectomy and repair of incarcerated ventral hernia and umbilical hernia.. (4) Leukocytosis/SIRS without organ dysfunction. No sepsis (5) gravity meter observer iron deficiency Anemia (6) Arterial Thrombosis (7) Hyponatremia (8) DVT prophylaxis Current Visit: Yes Status: Acute Plan to address problem: Patient placed on sequential compression device. (9) Full code status Current Visit: Yes Status: Acute Plan to address problem: Patient is full code. History Interval history: 55-year-old -Thai male who was recently diagnosed with colon cancer in [facility] about a week ago presenting to the emergency room today complaining of chronic abdominal pain and right foot pain. Abdominal pain has been ongoing for the past 3 to 4 months. He was recently in [facility] where he was evaluated in the hospital and diagnosed with lesions consistent with colon cancer on a CT scan. Was also said to have had metastases to his lungs. He has not had any follow-up with any oncologist or strategic intelligence officer because of insurance issues. Patient also indicates that his older brother of colon cancer few years ago. He has not had any colonoscopy in the past. 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 Patient has been having pain in his right foot over the past few weeks. He denies any trauma to the foot and no recent fall. He denies any numbness. Patient denies any fever or chills, no chest pain or shortness of breath, no nausea vomiting, no headache or dizziness. Work-up in the emergency room today reveals a leukocytosis of 15.7. X-ray of the right foot did not reveal any osteomyelitis. Patient is being admitted with gangrene of the right middle toe in addition to his recently diagnosed colon cancer. 05/14/2020 -Patient is diagnosed with stage IV colon cancer metastasized to the lung rece ntly. Patient went to [place] and discharged him to have follow-up at [facility] and patient presented here. Patient has colon mass and was able to do advance to colonoscopy at [place] (per GI), patient may need surgical intervention and I put a consult for general surgery. I have discussed with GI and GI said nothing to add on his current management. Patient need to have follow-up with oncologist as an outpatient. Patient has gangrene of the right third toes and I ordered arterial Doppler, vascular surgery consulted. She has also leukocytosis and is on IV Vanco and Zosyn. 05/15/2020 -Patient was seen by general surgery and recommend CT abdomen and pelvis, will get records from [facility] colonoscopy and pathology reports. Discussed with the nurse to get records. Evaluated by ID and recommend no antibiotics at this time. Evaluated by GI and no further work-up needed from GI point of view. Patient was evaluated by scleral surgery and arterial Doppler was done and significant for moderate peripheral arterial disease in the right lower extremity and will do revascularization. 05/16/2020 -CT chest abdomen and pelvis was done and significant for colorectal cancer, and lung cancer. We will get records from [facility]. Was evaluated by vascular and did a revascularization yesterday. Was evaluated by general surgery. Hemoglobin yesterday was 6.8. We will transfuse him a unit of blood and monitor posttransfusion hemoglobin/hematocrit. Will monitor and transfuse as needed. Will do anemia work-up. I put a consult per oncology recommendations. 05/17/2020 -CT chest abdomen and pelvis was done and significant for colorectal cancer, and lung cancer. We will get records from [facility] discussed with patient's nurse. Was evaluated by vascular and did a revascularization was done and now the discoloration is resolving, patient has palpable pulse, no pain. Patient is currently on heparin drip and can be continued until surgery and will be transitioned to Eliquis after that. Was evaluated by general surgery and is considering to do palliative colectomy. Hemoglobin yesterday was 6.8 and transfused a unit of blood and posttransfusion hemoglobin this morning was 7, patient is currently on iron infusion, will monitor H&H and transfuse as needed. Leukocytosis could be due to the cancer, no fever or other signs of infection. Path result was obtained from [facility] in [place] and showed adenocarcinoma, primary is from the colorectal carcinoma. 05/18: Patient clinically stable, awaiting surgical input or the planned Open right/transverse colectomy,, Hematology is stating to await for a cool off time before resection but if cannot wait then proceed with the surgery, Patient will need elquis 5mg PO BID chcf and aspirin 81 mg daily. 05/19: Patient is status post 1) Right colectomy 2) Open repair of incarcerated ventral hernia 3) Open repair of incarcerated umbilical hernia postop day 1 for 1)Stage 4 adenoca, right hepatic flexure 2)Incarc ventral & Umbil hernias Continues to do well. Continues to require NG to intermittent suction. We will continue to follow. Of discussed with case management as patient will likely need palliative care on discharge, monitor leukocytosis, mild elevated noted 05/20: Extensive discussion with the patient about palliative care on discharge he verbalized understanding Case management to arrange. Surgical input noted NG tube has been discontinued patient be started on sips of clear fluids. Is voiding without difficulty and had one episode of flatus but no bowel movement yet. Bowel sounds are still very hypoactive. We will continue to monitor 05/21: Tolerating sips of water still awaiting clearance from surgery to be able to eat. Still no flatus yet according to the patient. White count still fluctuating up to 26,000 today. No fever. Could be reactive. Vascular input is noted patient will need aspirin and anticoagulation Eliquis long-term. 05/22: Patient reports bowel movement today. Reports ambulating in the hallway. Still on clear liquid diet started today. Await further surgical recommendation for discharge plan. CM working on Wound Vac, AND HOME HEALTH/Palliative care. 05/23: Patient seen and examined doing well no new complaints. Wound VAC to be removed today. Adjusting pain medication. Leukocytosis still elevated. Awaiting clearance for discharge from surgery. Will like to see WBC trending downwards. I discussed with the patient although palliative care is put in place for the patient follow-up with oncologist referral has also been placed. 05/24: Continue supportive care, WBC continues to worsen. Evaluated the foot do not think that there is a source of infection again no fever. Considering normal bowel movement and flatus and hypoactive bowel sounds we will check a lactic acid level. We will also await surgical reevaluation. 05/25: CT abdomen and pelvis reviewed impression as noted below IMPRESSION: 1. Interval development of free fluid in the abdomen and right paracolic gutter 2. Abnormal appearance of the small bowel worrisome for small bowel obstruction 3. Evidence of recent colectomy 4. Extensive hepatic metastasis 5. Pulmonary nodules consistent with metastatic disease Surgery has ordered a small bowel follow-through. Patient reports flatus. WBC is beginning to trend down probably has peaked. No fever to indicate any infectious process ongoing. Continue to monitor anticipate discharge in 24 to 48 hours if no further recommendation from surgery. Vascular input noted patient to be on Eliquis 5 mg twice daily and aspirin 81 mg daily for life. Follow-up with vascular outpatient in 2 weeks. 05/26. Awaiting small bowel follow-through results. He feels great this morning. White count continues to trend down. Afebrile overnight. Tolerating diet. Surgery to evaluate this a.m. Hospitalist Physical - Physical exam Narrative exam: VITAL SIGNS: Reviewed. GENERAL: Awake HEAD: No signs of head trauma. EYES: Pupils are equal. Extraocular motions intact. MOUTH: Oropharynx is normal. NECK: No adenopathy, no JVD. CHEST: Chest with diminished breath sounds bilaterally. No wheezes, rales, or rhonchi. CARDIAC: normal S1 and S2, without murmurs, gallops, or rubs. ABDOMEN: Soft, midline dressing intact and clean MUSCULOSKELETAL: No edema NEUROLOGIC EXAM: Alert and oriented x3. No focal neurologic deficits SKIN: No obvious lesions - Constitutional Vitals: Temp Pulse Resp BP Pulse Ox 98.3 F 68 16 143/85 98 05/26/20 05:37 05/26/20 05:37 05/26/20 05:37 05/26/20 05:37 05/26/20 05:37 Results - Labs CBC & Chem 7: 05/26/20 05:21 05/26/20 05:21 Labs: Laboratory Last Values WBC 20.5 K/mm3 (4.5-11.0) H 05/26/20 05:21 RBC 3.26 M/mm3 (3.65-5.03) L 05/26/20 05:21 Hgb 8.0 gm/dl (11.8-15.2) L 05/26/20 05:21 Hct 25.5 % (35.5-45.6) L 05/26/20 05:21 MCV 78 fl (84-94) L 05/26/20 05:21 MCH 25 pg (28-32) L 05/26/20 05:21 MCHC 32 % (32-34) 05/26/20 05:21 RDW 20.6 % (13.2-15.2) H 05/26/20 05:21 Plt Count 558 K/mm3 (140-440) H 05/26/20 05:21 Lymph % (Auto) [employer] 05/25/20 07:58 Morgan % (Auto) [employer]ic 05/25/20 07:58 Eos % (Auto) [employer]ic 05/25/20 07:58 Baso % (Auto) [employer]ic 05/25/20 07:58 Lymph # (Auto) [employer]ic 05/25/20 07:58 Morgan # (Auto) [employer] Mechanic 05/25/20 07:58 Eos # (Auto) [employer]ic 05/25/20 07:58 Baso # (Auto) [employer]ic 05/25/20 07:58 Add Manual Diff Complete 05/25/20 07:58 Total Counted 100 05/25/20 07:58 Seg Neutrophils % [employer] 05/25/20 07:58 Seg Neuts % (Manual) 79.0 % (40.0-70.0) H 05/25/20 07:58 Band Neutrophils % 1.0 % 05/23/20 05:26 Lymphocytes % (Manual) 8.0 % (13.4-35.0) L 05/25/20 07:58 Monocytes % (Manual) 13.0 % (0.0-7.3) H 05/25/20 07:58 Metamyelocytes % 1.0 % 05/23/20 05:26 Nucleated RBC % Not Reportable 05/25/20 07:58 Seg Neutrophils # [employer] 05/25/20 07:58 Seg Neutrophils # Man 18.6 K/mm3 (1.8-7.7) H 05/25/20 07:58 Band Neutrophils # 0.0 K/mm3 05/25/20 07:58 Lymphocytes # (Manual) 1.9 K/mm3 (1.2-5.4) 05/25/20 07:58 Abs React Lymphs (Man) 0.0 K/mm3 05/25/20 07:58 Monocytes # (Manual) 3.1 K/mm3 (0.0-0.8) H 05/25/20 07:58 Eosinophils # (Manual) 0.0 K/mm3 (0.0-0.4) 05/25/20 07:58 Basophils # (Manual) 0.0 K/mm3 (0.0-0.1) 05/25/20 07:58 Metamyelocytes # 0.0 K/mm3 05/25/20 07:58 Myelocytes # 0.0 K/mm3 05/25/20 07:58 Promyelocytes # 0.0 K/mm3 05/25/20 07:58 Blast Cells # 0.0 K/mm3 05/25/20 07:58 WBC Morphology Not Reportable 05/25/20 07:58 Hypersegmented Neuts Not Reportable 05/25/20 07:58 Hyposegmented Neuts Not Reportable 05/25/20 07:58 Hypogranular Neuts Not Reportable 05/25/20 07:58 Smudge Cells Not Reportable 05/25/20 07:58 Toxic Granulation Not Reportable 05/25/20 07:58 Toxic Vacuolation Not Reportable 05/25/20 07:58 Dohle Bodies Not Reportable 05/25/20 07:58 Pelger-Huet Anomaly Not Reportable 05/25/20 07:58 Rosaline Rods Not Reportable 05/25/20 07:58 Platelet Estimate Not Reportable 05/25/20 07:58 Clumped Platelets Not Reportable 05/25/20 07:58 Plt Clumps, EDTA Not Reportable 05/25/20 07:58 Large Platelets Not Reportable 05/25/20 07:58 Giant Platelets Not Reportable 05/25/20 07:58 Platelet Satelliting Not Reportable 05/25/20 07:58 Plt Morphology Comment Not Reportable 05/25/20 07:58 RBC Morphology Not Reportable 05/25/20 07:58 Dimorphic RBCs Not Reportable 05/25/20 07:58 Polychromasia Not Reportable 05/25/20 07:58 Hypochromasia Rare 05/25/20 07:58 Poikilocytosis Not Reportable 05/25/20 07:58 Anisocytosis 1+ 05/25/20 07:58 Microcytosis 1+ 05/25/20 07:58 Macrocytosis Not Reportable 05/25/20 07:58 Spherocytes Not Reportable 05/25/20 07:58 Pappenheimer Bodies Not Reportable 05/25/20 07:58 Sickle Cells Not Reportable 05/25/20 07:58 Target Cells Not Reportable 05/25/20 07:58 Tear Drop Cells Not Reportable 05/25/20 07:58 Ovalocytes Not Reportable 05/25/20 07:58 Helmet Cells Not Reportable 05/25/20 07:58 Gonsales-Portis Bodies Not Reportable 05/25/20 07:58 [place] Rings Not Reportable 05/25/20 07:58 [place] Cells Not Reportable 05/25/20 07:58 Bite Cells Not Reportable 05/25/20 07:58 Crenated Cell Not Reportable 05/25/20 07:58 Elliptocytes Not Reportable 05/25/20 07:58 Acanthocytes (Spur) Not Reportable 05/25/20 07:58 Rouleaux Not Reportable 05/25/20 07:58 Hemoglobin C Crystals Not Reportable 05/25/20 07:58 Schistocytes Not Reportable 05/25/20 07:58 Malaria parasites Not Reportable 05/25/20 07:58 Jerod Bodies Not Reportable 05/25/20 07:58 Hem Pathologist Commnt No 05/25/20 07:58 PT 14.4 Sec. (12.2-14.9) 05/22/20 08:40 INR 1.14 (0.87-1.13) H 05/22/20 08:40 APTT 37.6 Sec. (24.2-36.6) H 05/22/20 08:40 Heparin Anti-Xa Level 0.50 U.I./ml (0.3-0.7) 05/23/20 09:00 Sodium 133 mmol/L (137-145) L 05/26/20 05:21 Potassium 3.9 mmol/L (3.6-5.0) 05/26/20 05:21 Chloride 97.9 mmol/L (98-107) L 05/26/20 05:21 Carbon Dioxide 28 mmol/L (22-30) 05/26/20 05:21 Anion Gap 11 mmol/L 05/26/20 05:21 BUN 6 mg/dL (9-20) L 05/26/20 05:21 Creatinine 0.7 mg/dL (0.8-1.3) L 05/26/20 05:21 Estimated GFR > 60 ml/min 05/26/20 05:21 BUN/Creatinine Ratio 9 % 05/26/20 05:21 Glucose 88 mg/dL (75-100) 05/26/20 05:21 Lactic Acid 1.20 mmol/L (0.7-2.0) 05/24/20 14:25 Calcium 8.0 mg/dL (8.4-10.2) L 05/26/20 05:21 Iron 15 ug/dL (49-181) L 05/16/20 08:23 TIBC 177 mcg/dL (250-450) L 05/16/20 08:23 Ferritin 148.4 ng/mL (30.0-300.0) 05/16/20 08:23 Total Bilirubin 0.30 mg/dL (0.1-1.2) 05/13/20 17:02 AST 15 units/L (5-40) 05/13/20 17:02 ALT 11 units/L (7-56) 05/13/20 17:02 Alkaline Phosphatase 247 units/L (35-129) H 05/13/20 17:02 Total Protein 7.0 g/dL (6.3-8.2) 05/13/20 17:02 Albumin 2.5 g/dL (3.9-5) L 05/13/20 17:02 Albumin/Globulin Ratio 0.6 % 05/13/20 17:02 Lipase 33 units/L (13-60) 05/13/20 17:02 Carcinoembryonic Ag 47.8 ng/mL (0.0-2.4) H 05/14/20 19:22 Vitamin B12 1476 pg/mL (211-911) H 05/16/20 08:23 Folate 5.13 ng/mL (7.3-26.0) L 05/16/20 08:23 Urine Color Yellow (Yellow) 05/13/20 Unknown Urine Turbidity Slightly-cloudy (Clear) 05/13/20 Unknown Urine pH 5.0 (5.0-7.0) 05/13/20 Unknown Ur Specific [place] 1.021 (1.003-1.030) 05/13/20 Unknown Urine Protein <15 mg/dl mg/dL (Negative) 05/13/20 Unknown Urine Glucose (UA) Neg mg/dL (Negative) 05/13/20 Unknown Urine Ketones Neg mg/dL (Negative) 05/13/20 Unknown Urine Blood Neg (Negative) 05/13/20 Unknown Urine Nitrite Neg (Negative) 05/13/20 Unknown Urine Bilirubin Neg (Negative) 05/13/20 Unknown Urine Urobilinogen 2.0 mg/dL (<2.0) 05/13/20 Unknown Ur Leukocyte Esterase Tr (Negative) 05/13/20 Unknown Urine WBC (Auto) 5.0 /HPF (0.0-6.0) 05/13/20 Unknown Urine RBC (Auto) 5.0 /HPF (0.0-6.0) 05/13/20 Unknown U Epithel Cells (Auto) 3.0 /HPF (0-13.0) 05/13/20 Unknown Urine Bacteria (Auto) 1+ /HPF (Negative) 05/13/20 Unknown Urine Mucus Few /HPF 05/13/20 Unknown Cardiolipid IgG Ab <14 GPL (<=14) 05/17/20 05:02 Cardiolipid IgA Ab <11 APL (<=11) 05/17/20 05:02 Cardiolipid IgM Ab <12 MPL (<=12) 05/17/20 05:02 Blood Type O POSITIVE 05/16/20 08:25 Antibody Screen Negative 05/16/20 08:25 Crossmatch See Detail 05/16/20 08:25 Mcrae/IV: Voiding Method Toilet Active Medications - Current Medications Current Medications: Generic Name Dose Route Start Last Admin Trade Name Freq PRN Reason Stop Dose Admin Acetaminophen 650 mg 05/13/20 23:06 05/18/20 01:06 Acetaminophen 325 Mg Tab PO 650 mg Q4H PRN Administration Pain MILD(1-3)/Fever >100.5/DOMINIQUE Apixaban 5 mg 05/23/20 15:00 05/26/20 10:39 Apixaban 5 Mg Tab PO 5 mg Q12HR ALISTAIR Administration Protocol Aspirin 81 mg 05/16/20 12:00 05/26/20 10:39 Aspirin Ec 81 Mg Tab PO 81 mg QDAY ALISTAIR Administration Folic Acid 1 mg 05/17/20 10:00 05/26/20 10:39 Folic Acid 1 Mg Tab PO 1 mg QDAY ALISTAIR Administration Sodium Chloride 1,000 mls @ 125 mls/hr 05/13/20 23:15 05/16/20 02:43 Nacl 0.9% 1000 Ml IV 125 mls/hr DIRECT ALISTAIR Administration Levofloxacin/Dextrose 750 mg in 150 mls @ 100 mls/hr 05/19/20 10:00 05/25/20 10:33 Levaquin 750mg/150ml IV 05/31/20 11:29 100 mls/hr Q24HR ALISTAIR Administration Protocol Metronidazole 500 mg in 100 mls @ 100 mls/hr 05/19/20 01:00 05/26/20 10:42 Flagyl 500 Mg/100 Ml IV 05/31/20 17:59 100 mls/hr Q8H ALISTAIR Administration Protocol Magnesium Hydroxide 30 ml 05/13/20 23:06 05/16/20 17:53 Magnesium Hydroxide (Mom) Oral Liqd Udc PO 30 ml Q4H PRN Administration Constipation Metoclopramide HCl 10 mg 05/21/20 14:23 05/24/20 09:00 Metoclopramide 10 Mg/2 Ml Inj IV 10 mg Q6H PRN Administration Nausea And Vomiting Morphine Sulfate 4 mg 05/18/20 21:36 05/22/20 18:03 Morphine 4 Mg/1 Ml Inj IV 4 mg Q3H PRN Administration Pain , Severe (7-10) Ondansetron HCl 4 mg 05/13/20 23:06 05/25/20 17:59 Ondansetron 4 Mg/2 Ml Inj IV 4 mg Q8H PRN Administration Nausea And Vomiting Oxycodone HCl 10 mg 05/22/20 22:01 05/26/20 10:37 Oxycodone 5 Mg Tab PO 10 mg Q4H PRN Administration Pain, Moderate (4-6) Simethicone 80 mg 05/23/20 09:37 05/23/20 18:23 Simethicone 80 Mg Chew Tab PO 80 mg Q6H PRN Administration Gas pain Sodium Chloride 10 ml 05/14/20 10:00 05/25/20 21:46 Sodium Chloride 0.9% 10 Ml Flush Syringe IV 10 ml BID ALISTAIR Administration Sodium Chloride 10 ml 05/13/20 23:06 Sodium Chloride 0.9% 10 Ml Flush Syringe IV PRN PRN LINE FLUSH Sodium Chloride 500 ml 05/23/20 11:53 Sodium Chloride 0.9% Irr 500 Ml Bottle IR DIRECT PRN Wound Care Nutrition/Malnutrition Assess - Dietary Evaluation Nutrition/Malnutrition Findings: Nutrition Notes Start: 05/21/20 12:06 Freq: Status: Active Protocol: Document 05/25/20 12:17 JAN (Rec: 05/25/20 12:23 JAN [id number]) Nutrition Notes Initial or Follow up Reassessment Other Pertinent Diagnosis gangrene, colon cancer; metastasized to lung & liver Current Diet Clear liquid Labs/Tests Na 128 BUN 5 Cr 0.7 Pertinent Medications Reviewed Height 5 ft 11 in Weight 102.7 kg [place] Body Weight (kg) 78.18 BMI 31.6 Weight Status Overweight Subjective/Other Information FU for intakes. Pt reports drinking most of meal trays but not all of the juice. Pt is open to Ensure Clears. Pt to have small bowel fluoroscopy. Percent of energy/protein needs met: 50%/28% Burn Absent Trauma Absent GI Symptoms None Current % PO Poor (25-49%) Minimum of two criteria Yes Energy Intake (severe) < or equal to 50% Estimated Energy Requirement > or equal to 5 days Interpretation of Weight Loss (severe) >7.5% in 3 months Body Fat Depletion Moderate depletion (severe) Muscle Mass Moderate Depletion (severe) #2 Nutrition Diagnosis Increased nutrient needs ( specify in comment below) Comments: protein Diagnosis Progress(for reassessment Continues documentation) #1 Nutrition Diagnosis Malnutrition Diagnosis Progress(for reassessment Continues documentation) Is patient on ventilator? No Is Patient Ambulatory and/or Out of Bed No [facility] 2265.000 Calculation Used for Recommendations [facility] Additional Notes Protein needs: 132-176 g (1.5- 2 g/kg AdjBW: 88kg) Fluid needs: 1 ml/kcal or per MD Nutrition Intervention Change Diet Order: Advance as medically able Add Supplement/Snack (indicate name/kcal Ensure Clear TID /protein ) Provides kCal: 720 Provides Protein (gm) 24 Goal #1 Meet needs as best as possible on clear liquid diet Goal #2 Weight maintanance Anticipated Discharge Needs: Regular diet Follow-Up By: 05/27/20 Additional Comments FU for intakes, ONS tolerance
--- NOTE | 2020-05-26 14:05 | Progress Note ---
Assessment and Plan (1) Colon cancer metastasized to lung Current Visit: Yes Status: Acute Plan to address problem: s/p open right hemicolectomy with 1' anastamosis, POD 8 SBFT - very slow movement of contrast through small bowel and into what looks like transverse colon. Full study pending. Pt stable. Afebrile. WBC trending down. Denies abd pain Plan: 1. continue CLD 2. IVF 3. empiric abx 4. prn PO pain control 5. eliquis per vascular/heme-onc 6. minimize narcotics 7. Pt with post op ileus. Continue to monitor. Dr. Joyner to resume care tomorrow and make further recs. Thank you, please call with questions. Subjective Date of service: 05/26/20 Narrative: Pt seen and examined. Had emesis after returning from [facility] yesterday evening. Nausea now resolved, no further emesis. Tolerating small amount of clear liquid at a time. No BM, minimal flatus. No abdominal pain. No f/c Objective Vital Signs - 12hr 05/26/20 05:37 Temperature 98.3 F Pulse Rate 68 Respiratory 16 Rate Blood Pressure 143/85 O2 Sat by Pulse 98 Oximetry - General physical appearance Narrative Exam: Gen: AAOx3. NAD CV: s1, S2+ Resp: even and unlabored Abd: soft, NT, distended. Dressing c/d/i - Labs 05/26/20 05:21 05/26/20 05:21 Diabetes panel 05/26/20 Range/Units 05:21 Sodium 133 L (137-145) mmol/L Potassium 3.9 (3.6-5.0) mmol/L Chloride 97.9 L (98-107) mmol/L Carbon Dioxide 28 (22-30) mmol/L BUN 6 L (9-20) mg/dL Creatinine 0.7 L (0.8-1.3) mg/dL Glucose 88 (75-100) mg/dL Calcium 8.0 L (8.4-10.2) mg/dL Calcium panel 05/26/20 Range/Units 05:21 Calcium 8.0 L (8.4-10.2) mg/dL Pituitary panel 05/26/20 Range/Units 05:21 Sodium 133 L (137-145) mmol/L Potassium 3.9 (3.6-5.0) mmol/L Chloride 97.9 L (98-107) mmol/L Carbon Dioxide 28 (22-30) mmol/L BUN 6 L (9-20) mg/dL Creatinine 0.7 L (0.8-1.3) mg/dL Glucose 88 (75-100) mg/dL Calcium 8.0 L (8.4-10.2) mg/dL Adrenal panel 05/26/20 Range/Units 05:21 Sodium 133 L (137-145) mmol/L Potassium 3.9 (3.6-5.0) mmol/L Chloride 97.9 L (98-107) mmol/L Carbon Dioxide 28 (22-30) mmol/L BUN 6 L (9-20) mg/dL Creatinine 0.7 L (0.8-1.3) mg/dL Glucose 88 (75-100) mg/dL Calcium 8.0 L (8.4-10.2) mg/dL
[2020-05-26] MEDS ORDERED: SODIUM CHLORIDE 0.45% 1000 ML 1,000 ML IV SCH (15:00)
--- NOTE | 2020-05-26 16:34 | Fluoroscopy Report ---
SMALL BOWEL FOLLOW-THROUGH HISTORY: distended small bowel, PO right hemicolectomy. TECHNIQUE: Single contrast Gastrografin technique utilized to evaluate the small bowel. FINDINGS: Small bowel transit time was approximately 20 hours which is markedly delayed. Borderline to mildly dilated loops of small bowel are noted throughout this exam.. History of right hemicolect malia changes are given. The final images demonstrate contrast agent in the distal colon and rectum.. IMPRESSION: There is certainly delayed transit of the Gastrografin through small bowel loops as outl ined above. No complete obstruction. FLUOROSCOPIC TIME: None minutes NUMBER OF FLUOROSCOPIC IMAGES: None obtained Signer Name: Jose Benedict Jr, MD Signed: 05/26/2020 4:26 PM Workstation Name: [id number]
[2020-05-27] MEDS: metroNIDAZOLE/NS 500 MG/100 ML 500 MG/100 ML BAG IV SCH ×3 (00:42→17:07)
[2020-05-27] MEDS: oxyCODONE 5 MG TAB PO PRN ×3 (04:39→18:17)
[2020-05-27 06:40] LABS: Basophils % (Auto) 0.2 % (0.0-1.8); Eosinophils # (Auto) 0.1 K/mm3 (0.0-0.4); Eosinophils % (Auto) 0.3 % (0.0-4.3); Hematocrit 24.4 % (35.5-45.6); Hemoglobin 7.7 gm/dl (11.8-15.2); Lymphocytes # (Auto) 1.3 K/mm3 (1.2-5.4); Lymphocytes % (Auto) 8.2 % (13.4-35.0); Mean Corpuscular HGB Conc 32 % (32-34); Mean Corpuscular Volume 78 fl (84-94); Monocytes # (Auto) 1.8 K/mm3 (0.0-0.8); Monocytes % (Auto) 11.1 % (0.0-7.3); Platelet Count 594 K/mm3 (140-440); Red Blood Count 3.14 M/mm3 (3.65-5.03)
[2020-05-27 06:42] LABS: Red Cell Distribution Width 20.7 % (13.2-15.2)
[2020-05-27 07:29] LABS: Blood Urea Nitrogen 4 mg/dL (9-20); Calcium 7.8 mg/dL (8.4-10.2); Hemolysis Index 0
[2020-05-27 07:36] LABS: Alanine Aminotransferase < 5 units/L (7-56); BUN/Creatinine Ratio 7
[2020-05-27] MEDS: METOCLOPRAMIDE 10 MG TAB PO SCH ×3 (10:17→23:29)
[2020-05-27] MEDS: FOLIC ACID 1 MG TAB PO SCH (10:17)
[2020-05-27] MEDS: ASPIRIN EC 81 MG TAB PO SCH (10:17)
[2020-05-27] MEDS: APIXABAN 5 MG TAB PO SCH ×2 (10:18→22:07)
--- NOTE | 2020-05-27 13:22 | Progress Note ---
Assessment and Plan Assessment and plan: (1) Gangrene of toe of right foot (2) Colon cancer metastasized to lung (3) colonic obstruction secondary to mass with incarcerated ventral and umbilical hernias status post right colectomy and repair of incarcerated ventral hernia and umbilical hernia.. (4) Leukocytosis/SIRS without organ dysfunction. 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 (9) Full code status Current Visit: Yes Status: Acute Plan to address problem: Patient is full code. History Interval history: 55-year-old -[place] male who was recently diagnosed with colon cancer in [facility] about a week ago presenting to the emergency room today complaining of chronic abdominal pain and right foot pain. Abdominal pain has been ongoing for the past 3 to 4 months. He was recently in [facility] where he was evaluated in the hospital and diagnosed with lesions consistent with colon cancer on a CT scan. Was also said to have had metastases to his lungs. He has not had any follow-up with any oncologist or cell biology scientist because of insurance issues. Patient also indicates that his older brother of colon cancer few years ago. He has not had any colonoscopy in the past. 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 Patient has been having pain in his right foot over the past few weeks. He denies any trauma to the foot and no recent fall. He denies any numbness. Patient denies any fever or chills, no chest pain or shortness of breath, no nausea vomiting, no headache or dizziness. Work-up in the emergency room today reveals a leukocytosis of 15.7. X-ray of the right foot did not reveal any osteomyelitis. Patient is being admitted with gangrene of the right middle toe in addition to his recently diagnosed colon cancer. 05/14/2020 -Patient is diagnosed with stage IV colon cancer metastasized to the lung rece ntly. Patient went to [place] and discharged him to have follow-up at [facility] and patient presented here. Patient has colon mass and was able to do advance to colonoscopy at [place] (per GI), patient may need surgical intervention and I put a consult for general surgery. I have discussed with GI and GI said nothing to add on his current management. Patient need to have follow-up with oncologist as an outpatient. Patient has gangrene of the right third toes and I ordered arterial Doppler, vascular surgery consulted. She has also leukocytosis and is on IV Vanco and Zosyn. 05/15/2020 -Patient was seen by general surgery and recommend CT abdomen and pelvis, will get records from [facility] colonoscopy and pathology reports. Discussed with the nurse to get records. Evaluated by ID and recommend no antibiotics at this time. Evaluated by GI and no further work-up needed from GI point of view. Patient was evaluated by scleral surgery and arterial Doppler was done and significant for moderate peripheral arterial disease in the right lower extremity and will do revascularization. 05/16/2020 -CT chest abdomen and pelvis was done and significant for colorectal cancer, and lung cancer. We will get records from [facility]. Was evaluated by vascular and did a revascularization yesterday. Was evaluated by general surgery. Hemoglobin yesterday was 6.8. We will transfuse him a unit of blood and monitor posttransfusion hemoglobin/hematocrit. Will monitor and transfuse as needed. Will do anemia work-up. I put a consult per oncology recommendations. 05/17/2020 -CT chest abdomen and pelvis was done and significant for colorectal cancer, and lung cancer. We will get records from [facility] discussed with patient's nurse. Was evaluated by vascular and did a revascularization was done and now the discoloration is resolving, patient has palpable pulse, no pain. Patient is currently on heparin drip and can be continued until surgery and will be transitioned to Eliquis after that. Was evaluated by general surgery and is considering to do palliative colectomy. Hemoglobin yesterday was 6.8 and transfused a unit of blood and posttransfusion hemoglobin this morning was 7, patient is currently on iron infusion, will monitor H&H and transfuse as needed. Leukocytosis could be due to the cancer, no fever or other signs of infection. Path result was obtained from [facility] in [place] and showed adenocarcinoma, primary is from the colorectal carcinoma. 05/18: Patient clinically stable, awaiting surgical input or the planned Open right/transverse colectomy,, Hematology is stating to await for a cool off time before resection but if cannot wait then proceed with the surgery, Patient will need elquis 5mg PO BID [facility] and aspirin 81 mg daily. 05/19: Patient is status post 1) Right colectomy 2) Open repair of incarcerated ventral hernia 3) Open repair of incarcerated umbilical hernia postop day 1 for 1)Stage 4 adenoca, right hepatic flexure 2)Incarc ventral & Umbil hernias Continues to do well. Continues to require NG to intermittent suction. We will continue to follow. Of discussed with case management as patient will likely need palliative care on discharge, monitor leukocytosis, mild elevated noted 05/20: Extensive discussion with the patient about palliative care on discharge he verbalized understanding Case management to arrange. Surgical input noted NG tube has been discontinued patient be started on sips of clear fluids. Is voiding without difficulty and had one episode of flatus but no bowel movement yet. Bowel sounds are still very hypoactive. We will continue to monitor 05/21: Tolerating sips of water still awaiting clearance from surgery to be able to eat. Still no flatus yet according to the patient. White count still fluctuating up to 26,000 today. No fever. Could be reactive. Vascular input is noted patient will need aspirin and anticoagulation Eliquis long-term. 05/22: Patient reports bowel movement today. Reports ambulating in the hallway. Still on clear liquid diet started today. Await further surgical recommendation for discharge plan. CM working on Wound Vac, AND HOME HEALTH/Palliative care. 05/23: Patient seen and examined doing well no new complaints. Wound VAC to be removed today. Adjusting pain medication. Leukocytosis still elevated. Awaiting clearance for discharge from surgery. Will like to see WBC trending downwards. I discussed with the patient although palliative care is put in place for the patient follow-up with oncologist referral has also been placed. 05/24: Continue supportive care, WBC continues to worsen. Evaluated the foot do not think that there is a source of infection again no fever. Considering normal bowel movement and flatus and hypoactive bowel sounds we will check a lactic acid level. We will also await surgical reevaluation. 05/25: CT abdomen and pelvis reviewed impression as noted below IMPRESSION: 1. Interval development of free fluid in the abdomen and right paracolic gutter 2. Abnormal appearance of the small bowel worrisome for small bowel obstruction 3. Evidence of recent colectomy 4. Extensive hepatic metastasis 5. Pulmonary nodules consistent with metastatic disease Surgery has ordered a small bowel follow-through. Patient reports flatus. WBC is beginning to trend down probably has peaked. No fever to indicate any infectious process ongoing. Continue to monitor anticipate discharge in 24 to 48 hours if no further recommendation from surgery. Vascular input noted patient to be on Eliquis 5 mg twice daily and aspirin 81 mg daily for life. Follow-up with vascular outpatient in 2 weeks. 05/26. Awaiting small bowel follow-through results. He feels great this morning. White count continues to trend down. Afebrile overnight. Tolerating diet. Surgery to evaluate this a.m. 05/27. Small bowel follow through shows slow transit time of contrast through the intestine. No definite obstruction seen. Patient already had 2 bowel movement since yesterday. He feels much better today. Awaiting surgery reevaluation. Possible discharge today if okay with surgery Hospitalist Physical - Physical exam Narrative exam: VITAL SIGNS: Reviewed. GENERAL: Awake HEAD: No signs of head trauma. EYES: Pupils are equal. Extraocular motions intact. MOUTH: Oropharynx is normal. NECK: No adenopathy, no JVD. CHEST: Chest with diminished breath sounds bilaterally. No wheezes, rales, or rhonchi. CARDIAC: normal S1 and S2, without murmurs, gallops, or rubs. ABDOMEN: Soft, midline dressing intact and clean MUSCULOSKELETAL: No edema NEUROLOGIC EXAM: Alert and oriented x3. No focal neurologic deficits SKIN: No obvious lesions - Constitutional Vitals: Temp Pulse Resp BP Pulse Ox 98.4 F 79 18 124/78 97 05/27/20 11:43 05/27/20 11:43 05/27/20 11:43 05/27/20 11:43 05/27/20 11:43 Results - Labs CBC & Chem 7: 05/27/20 05:29 05/27/20 05:29 Labs: Laboratory Last Values WBC 16.1 K/mm3 (4.5-11.0) H 05/27/20 05:29 RBC 3.14 M/mm3 (3.65-5.03) L 05/27/20 05:29 Hgb 7.7 gm/dl (11.8-15.2) L 05/27/20 05:29 Hct 24.4 % (35.5-45.6) L 05/27/20 05:29 MCV 78 fl (84-94) L 05/27/20 05:29 MCH 25 pg (28-32) L 05/27/20 05:29 MCHC 32 % (32-34) 05/27/20 05:29 RDW 20.7 % (13.2-15.2) H 05/27/20 05:29 Plt Count 594 K/mm3 (140-440) H 05/27/20 05:29 Lymph % (Auto) 8.2 % (13.4-35.0) L 05/27/20 05:29 [place] % (Auto) 11.1 % (0.0-7.3) H 05/27/20 05:29 Eos % (Auto) 0.3 % (0.0-4.3) 05/27/20 05:29 Baso % (Auto) 0.2 % (0.0-1.8) 05/27/20 05:29 Lymph # (Auto) 1.3 K/mm3 (1.2-5.4) 05/27/20 05:29 [place] # (Auto) 1.8 K/mm3 (0.0-0.8) H 05/27/20 05:29 Eos # (Auto) 0.1 K/mm3 (0.0-0.4) 05/27/20 05:29 Baso # (Auto) 0.0 K/mm3 (0.0-0.1) 05/27/20 05:29 Add Manual Diff Complete 05/25/20 07:58 Total Counted 100 05/25/20 07:58 Seg Neutrophils % 80.2 % (40.0-70.0) H 05/27/20 05:29 Seg Neuts % (Manual) 79.0 % (40.0-70.0) H 05/25/20 07:58 Band Neutrophils % 1.0 % 05/23/20 05:26 Lymphocytes % (Manual) 8.0 % (13.4-35.0) L 05/25/20 07:58 Monocytes % (Manual) 13.0 % (0.0-7.3) H 05/25/20 07:58 Metamyelocytes % 1.0 % 05/23/20 05:26 Nucleated RBC % Not Reportable 05/25/20 07:58 Seg Neutrophils # 12.9 K/mm3 (1.8-7.7) H 05/27/20 05:29 Seg Neutrophils # Man 18.6 K/mm3 (1.8-7.7) H 05/25/20 07:58 Band Neutrophils # 0.0 K/mm3 05/25/20 07:58 Lymphocytes # (Manual) 1.9 K/mm3 (1.2-5.4) 05/25/20 07:58 Abs React Lymphs (Man) 0.0 K/mm3 05/25/20 07:58 Monocytes # (Manual) 3.1 K/mm3 (0.0-0.8) H 05/25/20 07:58 Eosinophils # (Manual) 0.0 K/mm3 (0.0-0.4) 05/25/20 07:58 Basophils # (Manual) 0.0 K/mm3 (0.0-0.1) 05/25/20 07:58 Metamyelocytes # 0.0 K/mm3 05/25/20 07:58 Myelocytes # 0.0 K/mm3 05/25/20 07:58 Promyelocytes # 0.0 K/mm3 05/25/20 07:58 Blast Cells # 0.0 K/mm3 05/25/20 07:58 WBC Morphology Not Reportable 05/25/20 07:58 Hypersegmented Neuts Not Reportable 05/25/20 07:58 Hyposegmented Neuts Not Reportable 05/25/20 07:58 Hypogranular Neuts Not Reportable 05/25/20 07:58 Smudge Cells Not Reportable 05/25/20 07:58 Toxic Granulation Not Reportable 05/25/20 07:58 Toxic Vacuolation Not Reportable 05/25/20 07:58 Dohle Bodies Not Reportable 05/25/20 07:58 Pelger-Huet Anomaly Not Reportable 05/25/20 07:58 Rosaline Rods Not Reportable 05/25/20 07:58 Platelet Estimate Not Reportable 05/25/20 07:58 Clumped Platelets Not Reportable 05/25/20 07:58 Plt Clumps, EDTA Not Reportable 05/25/20 07:58 Large Platelets Not Reportable 05/25/20 07:58 Giant Platelets Not Reportable 05/25/20 07:58 Platelet Satelliting Not Reportable 05/25/20 07:58 Plt Morphology Comment Not Reportable 05/25/20 07:58 RBC Morphology Not Reportable 05/25/20 07:58 Dimorphic RBCs Not Reportable 05/25/20 07:58 Polychromasia Not Reportable 05/25/20 07:58 Hypochromasia Rare 05/25/20 07:58 Poikilocytosis Not Reportable 05/25/20 07:58 Anisocytosis 1+ 05/25/20 07:58 Microcytosis 1+ 05/25/20 07:58 Macrocytosis Not Reportable 05/25/20 07:58 Spherocytes Not Reportable 05/25/20 07:58 Pappenheimer Bodies Not Reportable 05/25/20 07:58 Sickle Cells Not Reportable 05/25/20 07:58 Target Cells Not Reportable 05/25/20 07:58 Tear Drop Cells Not Reportable 05/25/20 07:58 Ovalocytes Not Reportable 05/25/20 07:58 Helmet Cells Not Reportable 05/25/20 07:58 [place] Bodies Not Reportable 05/25/20 07:58 Faith Rings Not Reportable 05/25/20 07:58 [place] Cells Not Reportable 05/25/20 07:58 Bite Cells Not Reportable 05/25/20 07:58 Crenated Cell Not Reportable 05/25/20 07:58 Elliptocytes Not Reportable 05/25/20 07:58 Acanthocytes (Spur) Not Reportable 05/25/20 07:58 Rouleaux Not Reportable 05/25/20 07:58 Hemoglobin C Crystals Not Reportable 05/25/20 07:58 Schistocytes Not Reportable 05/25/20 07:58 Malaria parasites Not Reportable 05/25/20 07:58 Jerod Bodies Not Reportable 05/25/20 07:58 Hem Pathologist Commnt No 05/25/20 07:58 PT 14.4 Sec. (12.2-14.9) 05/22/20 08:40 INR 1.14 (0.87-1.13) H 05/22/20 08:40 APTT 37.6 Sec. (24.2-36.6) H 05/22/20 08:40 Heparin Anti-Xa Level 0.50 U.I./ml (0.3-0.7) 05/23/20 09:00 Sodium 132 mmol/L (137-145) L 05/27/20 05:29 Potassium 3.6 mmol/L (3.6-5.0) 05/27/20 05:29 Chloride 97.1 mmol/L (98-107) L 05/27/20 05:29 Carbon Dioxide 28 mmol/L (22-30) 05/27/20 05:29 Anion Gap 11 mmol/L 05/27/20 05:29 BUN 4 mg/dL (9-20) L 05/27/20 05:29 Creatinine 0.6 mg/dL (0.8-1.3) L 05/27/20 05:29 Estimated GFR > 60 ml/min 05/27/20 05:29 BUN/Creatinine Ratio 7 % 05/27/20 05:29 Glucose 82 mg/dL (75-100) 05/27/20 05:29 Lactic Acid 1.20 mmol/L (0.7-2.0) 05/24/20 14:25 Calcium 7.8 mg/dL (8.4-10.2) L 05/27/20 05:29 Iron 15 ug/dL (49-181) L 05/16/20 08:23 TIBC 177 mcg/dL (250-450) L 05/16/20 08:23 Ferritin 148.4 ng/mL (30.0-300.0) 05/16/20 08:23 Total Bilirubin 0.20 mg/dL (0.1-1.2) 05/27/20 05:29 AST 10 units/L (5-40) 05/27/20 05:29 ALT < 5 units/L (7-56) L 05/27/20 05:29 Alkaline Phosphatase 137 units/L (35-129) H 05/27/20 05:29 Total Protein 6.0 g/dL (6.3-8.2) L 05/27/20 05:29 Albumin 2.0 g/dL (3.9-5) L 05/27/20 05:29 Albumin/Globulin Ratio 0.5 % 05/27/20 05:29 Lipase 33 units/L (13-60) 05/13/20 17:02 Carcinoembryonic Ag 47.8 ng/mL (0.0-2.4) H 05/14/20 19:22 Vitamin B12 1476 pg/mL (211-911) H 05/16/20 08:23 Folate 5.13 ng/mL (7.3-26.0) L 05/16/20 08:23 Urine Color Yellow (Yellow) 05/13/20 Unknown Urine Turbidity Slightly-cloudy (Clear) 05/13/20 Unknown Urine pH 5.0 (5.0-7.0) 05/13/20 Unknown Ur Specific Hiram 1.021 (1.003-1.030) 05/13/20 Unknown Urine Protein <15 mg/dl mg/dL (Negative) 05/13/20 Unknown Urine Glucose (UA) Neg mg/dL (Negative) 05/13/20 Unknown Urine Ketones Neg mg/dL (Negative) 05/13/20 Unknown Urine Blood Neg (Negative) 05/13/20 Unknown Urine Nitrite Neg (Negative) 05/13/20 Unknown Urine Bilirubin Neg (Negative) 05/13/20 Unknown Urine Urobilinogen 2.0 mg/dL (<2.0) 05/13/20 Unknown Ur Leukocyte Esterase Tr (Negative) 05/13/20 Unknown Urine WBC (Auto) 5.0 /HPF (0.0-6.0) 05/13/20 Unknown Urine RBC (Auto) 5.0 /HPF (0.0-6.0) 05/13/20 Unknown U Epithel Cells (Auto) 3.0 /HPF (0-13.0) 05/13/20 Unknown Urine Bacteria (Auto) 1+ /HPF (Negative) 05/13/20 Unknown Urine Mucus Few /HPF 05/13/20 Unknown Cardiolipid IgG Ab <14 GPL (<=14) 05/17/20 05:02 Cardiolipid IgA Ab <11 APL (<=11) 05/17/20 05:02 Cardiolipid IgM Ab <12 MPL (<=12) 05/17/20 05:02 Blood Type O POSITIVE 05/16/20 08:25 Antibody Screen Negative 05/16/20 08:25 Crossmatch See Detail 05/16/20 08:25 Mcrae/IV: Voiding Method Urinal Active Medications - Current Medications Current Medications: Generic Name Dose Route Start Last Admin Trade Name Freq PRN Reason Stop Dose Admin Acetaminophen 650 mg 05/13/20 23:06 05/18/20 01:06 Acetaminophen 325 Mg Tab PO 650 mg Q4H PRN Administration Pain MILD(1-3)/Fever >100.5/DOMINIQUE Apixaban 5 mg 05/23/20 15:00 05/27/20 10:18 Apixaban 5 Mg Tab PO 5 mg Q12HR ALISTAIR Administration Protocol Aspirin 81 mg 05/16/20 12:00 05/27/20 10:17 Aspirin Ec 81 Mg Tab PO 81 mg QDAY ALISTAIR Administration Folic Acid 1 mg 05/17/20 10:00 05/27/20 10:17 Folic Acid 1 Mg Tab PO 1 mg QDAY ALISTAIR Administration Levofloxacin/Dextrose 750 mg in 150 mls @ 100 mls/hr 05/19/20 10:00 05/27/20 10:22 Levaquin 750mg/150ml IV 05/31/20 11:29 100 mls/hr Q24HR ALISTAIR Administration Protocol Metronidazole 500 mg in 100 mls @ 100 mls/hr 05/19/20 01:00 05/27/20 09:00 Flagyl 500 Mg/100 Ml IV 05/31/20 17:59 100 mls/hr Q8H ALISTAIR Administration Protocol Sodium Chloride 1,000 mls @ 75 mls/hr 05/26/20 15:00 05/26/20 15:59 Nacl 0.45% 1000 Ml IV 75 mls/hr DIRECT ALISTAIR Administration Magnesium Hydroxide 30 ml 05/13/20 23:06 05/16/20 17:53 Magnesium Hydroxide (Mom) Oral Liqd Udc PO 30 ml Q4H PRN Administration Constipation Metoclopramide HCl 10 mg 05/27/20 10:30 05/27/20 10:17 Metoclopramide 10 Mg Tab PO 06/06/20 10:29 10 mg Q6HR ALISTAIR Administration Ondansetron HCl 4 mg 05/13/20 23:06 05/25/20 17:59 Ondansetron 4 Mg/2 Ml Inj IV 4 mg Q8H PRN Administration Nausea And Vomiting Oxycodone HCl 10 mg 05/22/20 22:01 05/27/20 10:17 Oxycodone 5 Mg Tab PO 10 mg Q4H PRN Administration Pain, Moderate (4-6) Simethicone 80 mg 05/23/20 09:37 05/23/20 18:23 Simethicone 80 Mg Chew Tab PO 80 mg Q6H PRN Administration Gas pain Sodium Chloride 10 ml 05/14/20 10:00 05/27/20 10:22 Sodium Chloride 0.9% 10 Ml Flush Syringe IV 10 ml BID ALISTAIR Administration Sodium Chloride 10 ml 05/13/20 23:06 Sodium Chloride 0.9% 10 Ml Flush Syringe IV PRN PRN LINE FLUSH Sodium Chloride 500 ml 05/23/20 11:53 Sodium Chloride 0.9% Irr 500 Ml Bottle IR DIRECT PRN Wound Care Nutrition/Malnutrition Assess - Dietary Evaluation Nutrition/Malnutrition Findings: Nutrition Notes Start: 05/21/20 12:06 Freq: Status: Active Protocol: Document 05/27/20 12:22 (Rec: 05/27/20 12:26 [email or web address]) Nutrition Notes Initial or Follow up Reassessment Other Pertinent Diagnosis gangrene, colon cancer; metastasized to lung & liver Current Diet Clear liquid Labs/Tests Na 132 BUN 4 Cr 0.6 Pertinent Medications Reglan Height 5 ft 11 in Weight 102.7 kg [place] Body Weight (kg) 78.18 BMI 31.6 Weight Status Overweight Subjective/Other Information FU for intakes. Pt reports trying to drink but struggles to get adquate amount. Pt encouraged to drink ONS. Pt states he will try harder to drink more. Pt educated on the importance of getting enough calories. Burn Absent Trauma Absent GI Symptoms None Current % PO Negligible Minimum of two criteria Yes Energy Intake (severe) < or equal to 50% Estimated Energy Requirement > or equal to 5 days Interpretation of Weight Loss (severe) >7.5% in 3 months Body Fat Depletion Moderate depletion (severe) Muscle Mass Moderate Depletion (severe) #2 Nutrition Diagnosis Increased nutrient needs ( specify in comment below) Comments: protein Diagnosis Progress(for reassessment Continues documentation) #1 Nutrition Diagnosis Malnutrition Diagnosis Progress(for reassessment Continues documentation) Is patient on ventilator? No Is Patient Ambulatory and/or Out of Bed No REE-([facility]-confined to bed) 2265.000 Calculation Used for Recommendations [facility] Additional Notes Protein needs: 132-176 g (1.5- 2 g/kg AdjBW: 88kg) Fluid needs: 1 ml/kcal or per MD Nutrition Intervention Change Diet Order: Advance as medically able Add Supplement/Snack (indicate name/kcal Ensure Clear TID /protein ) Provides kCal: 720 Provides Protein (gm) 24 Goal #1 Meet needs as best as possible on clear liquid diet Goal #2 Weight maintanance Anticipated Discharge Needs: Unable to determine at this time Follow-Up By: 05/29/20 Additional Comments FU for intakes, ONS tolerance
--- NOTE | 2020-05-27 13:24 | Discharge Summary ---
Providers - Providers Date of Admission: 05/14/20 16:28 Date of discharge: 05/28/20 Attending physician: MARIANNE MAKI 05/13/20 23:06 Consult to Physician [CONS] Routine Comment: Consulting Provider: ISABELLE ANDRADE Physician Instructions: Reason For Exam: Gangrene right foot 05/13/20 23:15 Consult to Physician [CONS] Routine Comment: Consulting Provider: MELISSA SORTO Physician Instructions: Reason For Exam: Abdominal pain, Recent h/o colon ca. 05/14/20 02:24 Consult to Wound/ET Nurse [CONS] Routine Reason For Exam: wound eval 05/14/20 05:47 Consult to Physician [CONS] Routine Comment: Consulting Provider: CANDI CABALLERO Physician Instructions: Reason For Exam: Gangrene right foot 05/14/20 09:36 Consult to Physician [CONS] Routine Comment: Consulting Provider: YESICA ADEN Physician Instructions: Reason For Exam: stage 4 colon cancer 05/16/20 09:27 Consult to Physician [CONS] Routine Comment: Consulting Provider: TONE SHEN Physician Instructions: Reason For Exam: stage 4 colon cancer 05/20/20 14:01 Physical Therapy Evaluation and Treat [CONS] Routine Comment: Reason For Exam: weakness Primary care physician: [facility] ICU RN Hospitalization Condition: Stable Hospital course: 5-year-old -[place] male who was recently diagnosed with colon cancer in [facility] about a week ago presenting to the emergency room today complaining of chronic abdominal pain and right foot pain. Abdominal pain has been ongoing for the past 3 to 4 months. He was recently in [facility] where he was evaluated in the hospital and diagnosed with lesions consistent with colon cancer on a CT scan. Was also said to have had metastases to his lungs. He has not had any follow-up with any oncologist or magazine hand because of insurance issues. Patient also indicates that his older brother of colon cancer few years ago. He has not had any colonoscopy in the past. 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 Patient has been having pain in his right foot over the past few weeks. He denies any trauma to the foot and no recent fall. He denies any numbness. Patient denies any fever or chills, no chest pain or shortness of breath, no nausea vomiting, no headache or dizziness. Work-up in the emergency room today reveals a leukocytosis of 15.7. X-ray of the right foot did not reveal any osteomyelitis. Patient is being admitted with gangrene of the right middle toe in addition to his recently diagnosed colon cancer. 05/14/2020 -Patient is diagnosed with stage IV colon cancer metastasized to the lung recently. Patient went to [place] and discharged him to have follow-up at [facility] and patient presented here. Patient has colon mass and was able to do a dvance to colonoscopy at [facility] (per GI), patient may need surgical intervention and I put a consult for general surgery. I have discussed with GI and GI said nothing to add on his current management. Patient need to have follow-up with oncologist as an outpatient. Patient has gangrene of the right third toes and I ordered arterial Doppler, vascular surgery consulted. She has also leukocytosis and is on IV Vanco and Zosyn. 05/15/2020 -Patient was seen by general surgery and recommend CT abdomen and pelvis, will get records from [facility] colonoscopy and pathology reports. Discussed with the nurse to get records. Evaluated by ID and recommend no antibiotics at this time. Evaluated by GI and no further work-up needed from GI point of view. Patient was evaluated by scleral surgery and arterial Doppler was done and significant for moderate peripheral arterial disease in the right lower extremity and will do revascularization. 05/16/2020 -CT chest abdomen and pelvis was done and significant for colorectal cancer, and lung cancer. We will get records from [facility]. Was evaluated by vascular and did a revascularization yesterday. Was evaluated by general surgery. Hemoglobin yesterday was 6.8. We will transfuse him a unit of blood and monitor posttransfusion hemoglobin/hematocrit. Will monitor and transfuse as needed. Will do anemia work-up. I put a consult per oncology recommendations. 05/17/2020 -CT chest abdomen and pelvis was done and significant for colorectal cancer, and lung cancer. We will get records from [facility] [place] discussed with [facility]'s nurse. Was evaluated by vascular and did a revascularization was done and now the discoloration is resolving, patient has palpable pulse, no pain. Patient is currently on heparin drip and can be continued until surgery and will be transitioned to Eliquis after that. Was evaluated by general surgery and is considering to do palliative colectomy. Hemoglobin yesterday was 6.8 and transfused a unit of blood and posttransfusion hemoglobin this morning was 7, patient is currently on iron infusion, will monitor H&H and transfuse as needed. Leukocytosis could be due to the cancer, no fever or other signs of infection. Path result was obtained from [facility] in [place] and showed adenocarcinoma, primary is from the colorectal carcinoma. 05/18: Patient clinically stable, awaiting surgical input or the planned Open right/transverse colectomy,, Hematology is stating to await for a cool off time before resection but if cannot wait then proceed with the surgery, Patient will need elquis 5mg PO BID emt intermediate and aspirin 81 mg daily. 05/19: Patient is status post 1) Right colectomy 2) Open repair of incarcerated ventral hernia 3) Open repair of incarcerated umbilical hernia postop day 1 for 1)Stage 4 adenoca, right hepatic flexure 2)Incarc ventral & Umbil hernias Continues to do well. Continues to require NG to intermittent suction. We will continue to follow. Of discussed with case management as patient will likely need palliative care on discharge, monitor leukocytosis, mild elevated noted 05/20: Extensive discussion with the patient about palliative care on discharge he verbalized understanding Case management to arrange. Surgical input noted NG tube has been discontinued patient be started on sips of clear fluids. Is voiding without difficulty and had one episode of flatus but no bowel movement yet. Bowel sounds are still very hypoactive. We will continue to monitor 05/21: Tolerating sips of water still awaiting clearance from surgery to be able to eat. Still no flatus yet according to the patient. White count still fluctuating up to 26,000 today. No fever. Could be reactive. Vascular input is noted patient will need aspirin and anticoagulation Eliquis long-term. 05/22: Patient reports bowel movement today. Reports ambulating in the hallway. Still on clear liquid diet started today. Await further surgical recommendation for discharge plan. CM working on Wound Vac, AND HOME HEALTH/Palliative care. 05/23: Patient seen and examined doing well no new complaints. Wound VAC to be removed today. Adjusting pain medication. Leukocytosis still elevated. Awaiting clearance for discharge from surgery. Will like to see WBC trending downwards. I discussed with the patient although palliative care is put in place for the patient follow-up with oncologist referral has also been placed. 05/24: Continue supportive care, WBC continues to worsen. Evaluated the foot do not think that there is a source of infection again no fever. Considering normal bowel movement and flatus and hypoactive bowel sounds we will check a lactic acid level. We will also await surgical reevaluation. 05/25: CT abdomen and pelvis reviewed impression as noted below IMPRESSION: 1. Interval development of free fluid in the abdomen and right paracolic gutter 2. Abnormal appearance of the small bowel worrisome for small bowel obstruction 3. Evidence of recent colectomy 4. Extensive hepatic metastasis 5. Pulmonary nodules consistent with metastatic disease Surgery has ordered a small bowel follow-through. Patient reports flatus. WBC is beginning to trend down probably has peaked. No fever to indicate any infectious process ongoing. Continue to monitor anticipate discharge in 24 to 48 hours if no further recommendation from surgery. Vascular input noted patient to be on Eliquis 5 mg twice daily and aspirin 81 mg daily for life. Follow-up with vascular outpatient in 2 weeks. 05/26. Awaiting small bowel follow-through results. He feels great this morning. White count continues to trend down. Afebrile overnight. Tolerating diet. Surgery to evaluate this a.m. 05/27. Small bowel follow through shows slow transit time of contrast through the intestine. No definite obstruction seen. Patient already had 2 bowel movement since yesterday. He feels much better today. Awaiting surgery reevaluation. Possible discharge today if okay with surgery 05/28. Patient is cleared for DC and will follow up with surgery in 2 weeks. He agrees with plan Disposition: DC-01 TO HOME OR SELFCARE Final Discharge Diagnosis (Prints w/discharge instructions): Colon cancer s/p hemicolectomy - Discharge Diagnoses (1) Colon cancer metastasized to lung Status: Acute Core Measure Documentation - Palliative Care Palliative Care/ Comfort Measures: Not Applicable - Core Measures Any of the following diagnoses?: none Exam - Physical Exam Narrative exam: VITAL SIGNS: Reviewed. GENERAL: Awake HEAD: No signs of head trauma. EYES: Pupils are equal. Extraocular motions intact. MOUTH: Oropharynx is normal. NECK: No adenopathy, no JVD. CHEST: Chest with diminished breath sounds bilaterally. No wheezes, rales, or rhonchi. CARDIAC: normal S1 and S2, without murmurs, gallops, or rubs. ABDOMEN: Soft, midline dressing intact and clean MUSCULOSKELETAL: No edema NEUROLOGIC EXAM: Alert and oriented x3. No focal neurologic deficits SKIN: No obvious lesions - Constitutional Vitals: Temp Pulse Resp BP Pulse Ox 98.4 F 79 18 124/78 97 05/27/20 11:43 05/27/20 11:43 05/27/20 11:43 05/27/20 11:43 05/27/20 11:43 Plan Diet: low fat, low cholesterol, low salt Additional Instructions: Continue high fiber diet with lots and lots of liquids. Follow up with surgery in 2 weeks. Follow up with hematology/oncology in 1-2 weeks Follow up with: ERIN PALAFOX MD [Staff Physician] - 7 Days PRIMARY CARE, [Primary Care Provider] - 7 Days YESICA ADEN MD [Staff Physician] - 7 Days Prescriptions: Apixaban [Eliquis] 5 mg PO BID #60 tablet Apixaban [Eliquis] 5 mg PO Q12HR #60 tablet Aspirin EC [Halfprin EC] 81 mg PO QDAY #30 tablet Aspirin EC [Halfprin EC] 81 mg PO QDAY #90 tablet. Metoclopramide [Reglan] 10 mg PO QID PRN #40 tab PRN Reason: Nausea or vomiting oxyCODONE [roxiCODONE] 5 mg PO Q4H PRN 2 Days #10 tablet PRN Reason: Pain, Moderate (4-6)
--- NOTE | 2020-05-27 15:03 | Progress Note ---
Assessment and Plan - Patient Problems (1) Colon cancer metastasized to lung Current Visit: Yes Status: Acute Plan to address problem: 1) Okay for discharge from my perspective. 2) Discharge on Reglan, 10 mg po q6h, #120 3) No antibiotics indicated on discharge. 4) Give pt a minimal number of narcotic pills (12 or so). He will take these sparingly. 5) Pt is versed in Wound Care. 6) Pt may shower. 7) High fiber diet with lots and lots of liquids. 8) F/u in my office in 2 weeks. Subjective Date of service: 05/27/20 Patient Reports: Positive: no new complaints, feels better, tolerating liquids well, bowel movement (Pt has no complaints whatsoever. He has had 4-5 BM's sinc e yesterday.) Objective Vital Signs - 12hr 05/27/20 05/27/20 05:48 11:43 Temperature 97.8 F 98.4 F Pulse Rate 59 L 79 Respiratory 20 18 Rate Blood Pressure 138/82 124/78 O2 Sat by Pulse 99 97 Oximetry - Abdomen soft, bowel sounds normal (Non-tender, non-distended) Hernia: none - Labs 05/27/20 05:29 05/27/20 05:29 Diabetes panel 05/27/20 Range/Units 05:29 Sodium 132 L (137-145) mmol/L Potassium 3.6 (3.6-5.0) mmol/L Chloride 97.1 L (98-107) mmol/L Carbon Dioxide 28 (22-30) mmol/L BUN 4 L (9-20) mg/dL Creatinine 0.6 L (0.8-1.3) mg/dL Glucose 82 (75-100) mg/dL Calcium 7.8 L (8.4-10.2) mg/dL AST 10 (5-40) units/L ALT < 5 L (7-56) units/L Alkaline Phosphatase 137 H (35-129) units/L Total Protein 6.0 L (6.3-8.2) g/dL Albumin 2.0 L (3.9-5) g/dL Calcium panel 05/27/20 Range/Units 05:29 Calcium 7.8 L (8.4-10.2) mg/dL Albumin 2.0 L (3.9-5) g/dL Pituitary panel 05/27/20 Range/Units 05:29 Sodium 132 L (137-145) mmol/L Potassium 3.6 (3.6-5.0) mmol/L Chloride 97.1 L (98-107) mmol/L Carbon Dioxide 28 (22-30) mmol/L BUN 4 L (9-20) mg/dL Creatinine 0.6 L (0.8-1.3) mg/dL Glucose 82 (75-100) mg/dL Calcium 7.8 L (8.4-10.2) mg/dL Adrenal panel 05/27/20 Range/Units 05:29 Sodium 132 L (137-145) mmol/L Potassium 3.6 (3.6-5.0) mmol/L Chloride 97.1 L (98-107) mmol/L Carbon Dioxide 28 (22-30) mmol/L BUN 4 L (9-20) mg/dL Creatinine 0.6 L (0.8-1.3) mg/dL Glucose 82 (75-100) mg/dL Calcium 7.8 L (8.4-10.2) mg/dL Total Bilirubin 0.20 (0.1-1.2) mg/dL AST 10 (5-40) units/L ALT < 5 L (7-56) units/L Alkaline Phosphatase 137 H (35-129) units/L Total Protein 6.0 L (6.3-8.2) g/dL Albumin 2.0 L (3.9-5) g/dL
[2020-05-28] MEDS: metroNIDAZOLE/NS 500 MG/100 ML 500 MG/100 ML BAG IV SCH (00:17)
[2020-05-28] MEDS: oxyCODONE 5 MG TAB PO PRN (01:57)
[2020-05-28 08:09] LABS: Basophils % (Auto) 0.3 % (0.0-1.8); Eosinophils % (Auto) 0.2 % (0.0-4.3); Hematocrit 26.7 % (35.5-45.6); Hemoglobin 8.3 gm/dl (11.8-15.2); Lymphocytes # (Auto) 1.6 K/mm3 (1.2-5.4); Lymphocytes % (Auto) 8.2 % (13.4-35.0); Mean Corpuscular HGB Conc 31 % (32-34); Mean Corpuscular Volume 78 fl (84-94); Monocytes # (Auto) 1.8 K/mm3 (0.0-0.8); Monocytes % (Auto) 9.5 % (0.0-7.3); Platelet Count 676 K/mm3 (140-440); Red Blood Count 3.41 M/mm3 (3.65-5.03)
[2020-05-28 08:14] LABS: Red Cell Distribution Width 20.8 % (13.2-15.2)
[2020-05-28] MEDS: METOCLOPRAMIDE 10 MG TAB PO SCH (08:21)
[2020-05-28 08:29] LABS: Alanine Aminotransferase 5 units/L (7-56); Albumin 1.9 g/dL (3.9-5); Blood Urea Nitrogen 3 mg/dL (9-20); Hemolysis Index 2
[2020-05-28 08:31] LABS: BUN/Creatinine Ratio 4
[2020-05-28] MEDS: ASPIRIN EC 81 MG TAB PO SCH (10:15)
[2020-05-28] MEDS: APIXABAN 5 MG TAB PO SCH (10:15)
[2020-05-28] MEDS: FOLIC ACID 1 MG TAB PO SCH (10:15)
[2020-05-28] MEDS ORDERED: SODIUM CHLORIDE 0.9% IRR 500 ML BOTTLE IR PRN (11:16)
[2020-05-28 12:42] VITALS: BP 141/85
[2020-08-18] MEDS ORDERED: dexAMETHasone 20 MG/5 ML VIAL ONE (17:00)
== END 2020-05-28 15:00 | disposition hospice, home (50) | DRG 271 ==
LOC: ED 16:09 → OBSVTOIN 22:02 → 3A 22:02 → INTOOBSV 22:02 → 3A 23:12 → OBSVTOIN 05-14 16:28
PROVIDERS: ADMIT Internal Medicine Geriatric Medicine; ATTEND Internal Medicine
PROC: 04CK3ZZ Extirpation of Matter from Right Femoral Artery, Percutaneous Approach (ICD-10-PCS; 2020-05-15)
PROC: 047K3D1 Dilation of Right Femoral Artery with Intraluminal Device, using Drug-Coated Balloon, Percutaneous Approach (ICD-10-PCS; 2020-05-15)
PROC: 04CT3ZZ Extirpation of Matter from Right Peroneal Artery, Percutaneous Approach (ICD-10-PCS; 2020-05-15)
PROC: 047M3D1 Dilation of Right Popliteal Artery with Intraluminal Device, using Drug-Coated Balloon, Percutaneous Approach (ICD-10-PCS; 2020-05-15)
PROC: 047T3D1 Dilation of Right Peroneal Artery with Intraluminal Device, using Drug-Coated Balloon, Percutaneous Approach (ICD-10-PCS; 2020-05-15)
PROC: B41D1ZZ Fluoroscopy of Aorta and Bilateral Lower Extremity Arteries using Low Osmolar Contrast (ICD-10-PCS; 2020-05-15)
PROC: 0DTF0ZZ Resection of Right Large Intestine, Open Approach (ICD-10-PCS; 2020-05-18)
PROC: 0WQF0ZZ Repair Abdominal Wall, Open Approach (ICD-10-PCS; 2020-05-18)
PROC: 30233N1 Transfusion of Nonautologous Red Blood Cells into Peripheral Vein, Percutaneous Approach (ICD-10-PCS; principal; 2020-05-26)
DX: I96 Gangrene, not elsewhere classified (principal); I74.9 Embolism and thrombosis of unspecified artery; C18.9 Malignant neoplasm of colon, unspecified; R65.10 Systemic inflammatory response syndrome (SIRS) of non-infectious origin without acute organ dysfunction; C78.00 Secondary malignant neoplasm of unspecified lung; C78.7 Secondary malignant neoplasm of liver and intrahepatic bile duct; E87.1 Hypo-osmolality and hyponatremia; L97.519 Non-pressure chronic ulcer of other part of right foot with unspecified severity; D72.829 Elevated white blood cell count, unspecified; D47.3 Essential (hemorrhagic) thrombocythemia; D50.9 Iron deficiency anemia, unspecified; Z51.5 Encounter for palliative care; Z88.8 Allergy status to other drugs, medicaments and biological substances; Z80.0 Family history of malignant neoplasm of digestive organs; Z79.899 Other long term (current) drug therapy; Z79.891 Long term (current) use of opiate analgesic; Z79.01 Long term (current) use of anticoagulants; Z79.82 Long term (current) use of aspirin
CPT/HCPCS: 36415; 37184; 37185; 37225; 37229; 71260; 74018; 74177; 74248; 76937; 80048; 80053; 81001; 82140; 82378; 82607; 82728; 82747; 83550; 83690; 85007; 85014; 85018; 85025; 85027; 85049; 85520; 85610; 85730; 86147; 86850; 86900; 86901; 86920; 87040; 87116; 88305; 88307; 88309; 88341; 88342; 93922; 93925; 96361; 96365; 96366; 96367; 96375; 99406; G0378; C1724; C1725; C1757; C1760; C1769; C1884; C1887; C2623; J1100; J1170; J1200; J1644; J1885; J1956; J2250; J2270; J2405; J2543; J2704; J2710; J2765; J2916; J3010; J3370; J7030; J7040; J7120; P9016; Q9963; Q9967